=== PATIENT | male | born 1980 | race Caucasian/White ===

== ENCOUNTER 2023-07-25 17:56 | Emergency (ER) | payer BC, SELFPAY ==
[2023-07-25] VITALS (32 sets, daily range): BP systolic 125–134; BP diastolic 80–82; PULSE 100–130; RESP 26; TEMP 38.1; O2SAT 95–98; BMI 21.1
--- NOTE | 2023-07-25 18:40 | XR_ITS ---
Patient: TIMO DIXON Facility:?[facility] Patient ID:?[id number] Site Patient ID:?[id number]. Site :?1980 Study:?XRay-Chest 2 VIEWS-07/25/2023 7:01:37 PM Ordering Physician:MARVIN Final Report: INDICATION: Chest pressure shortness of breath TECHNIQUE: Two view chest. FINDINGS: Enlarged cardiac silhouette. Left perihilar upper lobe patchy opacities. There is a large right-sided effusion. Possible underlying atelectasis and/or consolidation. No pneumothorax. Dictated by Ilana Devine MD @ 07/25/2023 8:21:04 PM Signed by:?Ilana Devine MD @07/25/2023 8:21:04 PM (Electronic Signature)
--- NOTE | 2023-07-25 19:35 | CT_ITS ---
Patient: TIMO DIXON Facility:?[facility] Patient ID:?[id number] Site Patient ID:?[id number]. Site :?1980 Study:?CT-Chest W/75CC [id number]/13/2024 8:01:04 PM Ordering Physician:MARVIN Final Report: INDICATION: Shortness of breath and fatigue. TECHNIQUE: CT chest PE was acquired with 75 cc Isovue 370 IV contrast. COMPARISON: None. FINDINGS: Heart and vasculature: Contrast opacification of the pulmonary arterial tree is adequate. No sign of pulmonary embolism. Heart size is normal. Thoracic aorta and pulmonary artery are normal in caliber. Large pericardial effusion. Lungs and pleura: Marked passive atelectasis of the right lower lobe. Patchy ground-glass infiltrates scattered in the left lung. No nodules. Large right side pleural effusion. No pneumothorax. Lymph nodes/mediastinum: No mediastinal, hilar, or axillary adenopathy. Chest wall: No masses. Upper abdomen: No acute or significant findings. Bones: Unremarkable for age. IMPRESSION: 1. No pulmonary embolism. 2. Patchy ground-glass infiltrates in the left lung consistent with a nonspecific pneumonitis. 3. Large right-sided pleural effusion and large pericardial effusion. Please note that all CT scans at this facility use dose modulation, iterative reconstruction, and/or weight-based dosing when appropriate to reduce radiation dose to as low as reasonably achievable. Dictated by Bret Sanchez MD @ 07/25/2023 9:08:33 PM Signed by:?Bret Sanchez MD @07/25/2023 9:08:33 PM (Electronic Signature)
[2023-07-25 19:44] LABS: HCO3 VBG 24 mmol/L (21-28); PCO2 VBG 34 mmHG (40-50); PO2 VBG 38.1 mmHG (25-47); pH VBG 7.457 (7.32-7.43)
[2023-07-25 19:48] LABS: Basophils Percent Auto 0.1 % (0.0-3.0); Eosinophils Percent Auto 0.6 % (0.0-7.0); Hematocrit 41.6 % (37.0-53.0); Hemoglobin* 12.3 gm/dL (13.5-17.5); Immature Granulocytes Pct Auto 0.2 %; Lymphocytes Percent Auto 3.4 % (20-44); Mean Corpuscular HGB Conc 30 gm/dL (32-36); Mean Corpuscular Hemoglobin 22 pg (26-34); Mean Corpuscular Volume 73 fL (80-100); Monocytes Percent Auto 3.8 % (0.0-11.0); Neutrophils Percent Auto 91.9 % (42.0-72.0); Platelet Count* 469 K/uL (140-440); RDW Coefficient of Variation % 18.4 % (11.5-15.5); Red Blood Count 5.72 m/uL (4.30-5.90); White Blood Count* 12.96 K/uL (4.50-11.00)
[2023-07-25 19:52] LABS: PCR FLU A Negative PCR FLU A (Negative); PCR FLU B Negative PCR FLU B (Negative); PCR RSV Negative PCR RSV (Negative); SARS PCR* Negative SARS-CoV-2 (Negative)
[2023-07-25 19:59] LABS: Troponin, Point-of-Care* 0.03 ng/ml (0.01-0.04)
[2023-07-25 20:01] LABS: Chloride* 106 mmol/L (96-114); Potassium* 4.2 mmol/L (3.6-5.1); Sodium* 136 mmol/L (135-149)
[2023-07-25 20:03] LABS: Slide Review Reflex No
[2023-07-25 20:04] LABS: Anion Gap 7 mEq/L (7-15); Blood Urea Nitrogen* 18 mg/dL (5-24); Carbon Dioxide* 23 mmol/L (20-32); Creatinine* 0.5 mg/dL (0.5-1.5); Est. Creatinine Clearance* 169.88; Estimated Glomerular Filt Rate 130 ml/min; Lactate* 1.6 mmol/L (0.5-1.9)
[2023-07-25 20:05] LABS: Calcium* 9.1 mg/dL (8.4-10.6); Glucose* 103 mg/dL (60-115)
[2023-07-25 20:14] LABS: Strep A DNA Probe* NOT DETECTED (Not Detectd)
--- NOTE | 2023-07-25 20:22 | ED_ITS ---
HPI - General Adult General Chief complaint: Shortness of Breath/Dyspnea Stated complaint: Shortness of breath, fever Time Seen by Provider: 07/25/23 20:21 Related Data Home Medications Medication Instructions Recorded Confirmed golimumab 50 mg/0.5 mL mg subcut 07/25/23 07/25/23 subcutaneous pen injector (Simponi) prednisone 10 mg tablet 10 mg PO DAILY 07/25/23 07/25/23 Allergies Allergy/AdvReac Type Severity Reaction Status Date / Time No Known Drug Allergies Allergy Verified 07/25/23 17:30 Exam Const: Vital Signs, click to edit/add: Vital Signs - 24 hr 07/25/23 18:44 Temperature 100.5 F H Pulse Rate [Pulse Oximeter] 130 H Respiratory Rate 26 H Blood Pressure [Ri ght Upper Arm] 134/80 Pulse Oximetry 95 Oxygen Delivery Me thod Room Air Course Vital Signs Vital signs: Initial Vital Signs Temperature 100.5 F H 07/25/23 18:44 Temperature Source Temporal Artery Scan 07/25/23 18:44 Pulse Rate 130 H 07/25/23 18:44 Respiratory Rate 26 H 07/25/23 18:44 Blood Pressure 134/80 07/25/23 18:44 Blood Pressure Mean 98 07/25/23 18:44 Blood Pressure Position Sitting 07/25/23 18:44 Pulse Oximetry 95 07/25/23 18:44 Oxygen Delivery Method Room Air 07/25/23 18:44 Vital Signs Temperature 100.5 F H 07/25/23 18:44 Pulse Rate 130 H 07/25/23 18:44 Respiratory Rate 26 H 07/25/23 18:44 Blood Pressure 134/80 07/25/23 18:44 Pulse Oximetry 95 07/25/23 18:44 Oxygen Delivery Method Room Air 07/25/23 18:44 Temperature 100.5 F H 07/25/23 18:44 Pulse Rate 130 H 07/25/23 18:44 Respiratory Rate 26 H 07/25/23 18:44 Blood Pressure 134/80 07/25/23 18:44 Pulse Oximetry 95 07/25/23 18:44 Oxygen Delivery Method Room Air 07/25/23 18:44 Medical Decision Making Lab Data Labs: Lab Results 07/25/23 07/25/23 Range/Units 18:45 19:40 WBC 12.96 H (4.50-11.00) K/uL RBC 5.72 (4.30-5.90) m/uL Hgb 12.3 L (13.5-17.5) gm/dL Hct 41.6 (37.0-53.0) % MCV 73 L (80-100) fL MCH 22 L (26-34) pg MCHC 30 L (32-36) gm/dL RDW Coeff of Ann-Marie 18.4 H (11.5-15.5) % Plt Count 469 H (140-440) K/uL Neut % (Auto) 91.9 H (42.0-72.0) % Lymph % (Auto) 3.4 L (20-44) % [place] % (Auto) 3.8 (0.0-11.0) % Eos % (Auto) 0.6 (0.0-7.0) % Baso % (Auto) 0.1 (0.0-3.0) % Neut # (Auto) 11.90 H (1.7-7.0) K/uL Lymph # (Auto) 0.40 L (0.90-2.90) K/uL [place] # (Auto) 0.50 (0.00-0.90) K/UL Eos # (Auto) 0.10 (0.00-0.50) K/uL Baso # (Auto) 0.00 (0.00-0.30) K/uL Abs Immat Gran (auto) 0.00 (0.00-0.30) K/uL Imm/Tot Granulo (auto) 0.2 % VBG pH 7.457 H (7.32-7.43) VBG pCO2 34 L (40-50) mmHG VBG pO2 38.1 (25-47) mmHG VBG HCO3 24 (21-28) mmol/L Sodium 136 (135-149) mmol/L Potassium 4.2 (3.6-5.1) mmol/L Chloride 106 (96-114) mmol/L Carbon Dioxide 23 (20-32) mmol/L Anion Gap 7 (7-15) mEq/L BUN 18 (5-24) mg/dL Creatinine 0.5 (0.5-1.5) mg/dL Estimated Creat Clear 169.88 Estimated GFR 130 ml/min Glucose 103 (60-115) mg/dL Lactate 1.6 (0.5-1.9) mmol/L Calcium 9.1 (8.4-10.6) mg/dL SARS-CoV-2 (PCR) Negative SARS-CoV-2 (Negative) Influenza Type A (PCR) Negative PCR FLU A (Negative) Influenza Type B (PCR) Negative PCR FLU B (Negative) RSV (PCR) Negative PCR RSV (Negative) Group A Strep DNA NOT DETECTED (Not Detectd) POC Troponin I 0.03 (0.01-0.04) ng/ml Imaging Data Chest x-ray: Attestation: I have reviewed the pertinent imaging results. Radiologist's impression: FINDINGS: Enlarged cardiac silhouette. Left perihilar upper lobe patchy opacities. There is a large right-sided effusion. Possible underlying atelectasis and/or consolidation. No pneumothorax. Discharge Plan Discharge Prescriptions: No Action Simponi 50 mg/0.5 mL pen injector subcut prednisone 10 mg tablet 10 mg PO DAILY Follow Up/Referrals: Bill Giang MD [Primary Care Provider] -
--- NOTE | 2023-07-25 21:01 | ED.GENADULT ---
HPI - General Adult General Chief complaint: Shortness of Breath/Dyspnea Stated complaint: Shortness of breath, fever Time Seen by Provider: 07/25/23 20:21 History of Present Illness HPI narrative: Patient here with shortness of breath for a week. Intermittent fevers as well. 43-year-old man presenting to the emergency department with concern of shortness of breath and cough. Thinking back he feels that he is lungs has never been quite the same since he sprayed some sort of insecticide possibly about a year ago. About a month ago had a period of more shortness of breath cough and feeling feverish and then seemed to get little bit better and now has returned worse again over the last week. Has also been having headache. Reviewing records from initial presentation urgent care noting that finger tips had turned blue earlier today. Has been today experiencing little more burning in the right low chest; not exactly described as pleuritic; like heartburn must be he thinks. Underlying history of rheumatoid arthritis was treated sometime back with Humira but he has not been on this in some time and has been admittedly self dosing with prednisone most recently at about 10 mg daily chronically. He denies a history of known pulmonary disease. He is long-time smoker. Denies any surgeries. Related Data Home Medications Medication Instructions Recorded Confirmed golimumab 50 mg/0.5 mL mg subcut 07/25/23 07/25/23 subcutaneous pen injector (Simponi) prednisone 10 mg tablet 10 mg PO DAILY 07/25/23 07/25/23 Allergies Allergy/AdvReac Type Severity Reaction Status Date / Time No Known Drug Allergies Allergy Verified 07/25/23 17:30 Review of Systems Status of ROS: Reports: 6 or more systems reviewed and unremarkable except as noted in History and below Exam Narrative: Exam Narrative: Very pleasant. Slim. Mildly tachypneic and labored in breathing. No JVD. Skin is warm and dry. No lower extremity edema. Actually appears well perfused at this time peripherally. Oropharynx is moist. Dentition in excellent repair. Abdomen is a little protuberant soft and nontender. Seems to resist the exam little bit. Heart is tachycardic in a regular rhythm. No murmur or gallop identified. Lungs absent breath sounds in the lower 3/4 of the right lung. Breath sounds elsewhere were normal. Const: Vital Signs, click to edit/add: Vital Signs - 24 hr 07/25/23 18:44 07/25/23 20:12 07/25/23 20:15 Temperature 100.5 F H Pulse Rate 119 H 117 H Pulse Rate [Pulse Oximeter] 130 H Respiratory Rate 26 H Blood Pressure Blood Pressure [Ri ght Upper Arm] 134/80 Pulse Oximetry 95 97 98 Oxygen Delivery Me thod Room Air 07/25/23 20:20 07/25/23 20:30 07/25/23 20:40 Temperature Pulse Rate 117 H Pulse Rate [Pulse Oximeter] Respiratory Rate Blood Pressure Blood Pressure [Ri ght Upper Arm] Pulse Oximetry 97 97 97 Oxygen Delivery Me thod 07/25/23 20:45 07/25/23 20:50 07/25/23 21:00 Temperature Pulse Rate 120 H 120 H Pulse Rate [Pulse Oximeter] Respiratory Rate Blood Pressure Blood Pressure [Ri ght Upper Arm] Pulse Oximetry 97 98 97 Oxygen Delivery Me thod 07/25/23 21:10 07/25/23 21:15 07/25/23 21:20 Temperature Pulse Rate 118 H Pulse Rate [Pulse Oximeter] Respiratory Rate Blood Pressure Blood Pressure [Ri ght Upper Arm] Pulse Oximetry 98 98 98 Oxygen Delivery Me thod 07/25/23 21:30 07/25/23 21:40 07/25/23 21:45 Temperature Pulse Rate 116 H Pulse Rate [Pulse Oximeter] Respiratory Rate Blood Pressure Blood Pressure [Ri ght Upper Arm] Pulse Oximetry 97 97 97 Oxygen Delivery Me thod 07/25/23 21:45 07/25/23 21:50 07/25/23 22:00 Temperature Pulse Rate 118 H 116 H Pulse Rate [Pulse Oximeter] Respiratory Rate Blood Pressure Blood Pressure [Ri ght Upper Arm] Pulse Oximetry 97 96 97 Oxygen Delivery Me thod 07/25/23 22:10 07/25/23 22:15 07/25/23 22:20 Temperature Pulse Rate 115 H Pulse Rate [Pulse Oximeter] Respiratory Rate Blood Pressure Blood Pressure [Ri ght Upper Arm] Pulse Oximetry 97 97 97 Oxygen Delivery Me thod 07/25/23 22:30 07/25/23 22:40 07/25/23 22:45 Temperature Pulse Rate 100 116 H Pulse Rate [Pulse Oximeter] Respiratory Rate Blood Pressure Blood Pressure [Ri ght Upper Arm] Pulse Oximetry 97 96 95 Oxygen Delivery Me thod 07/25/23 22:50 07/25/23 23:00 07/25/23 23:06 Temperature Pulse Rate 114 H Pulse Rate [Pulse Oximeter] Respiratory Rate Blood Pressure 125/82 Blood Pressure [Ri ght Upper Arm] Pulse Oximetry 95 95 Oxygen Delivery Me thod 07/25/23 23:15 07/25/23 23:20 07/25/23 23:30 Temperature Pulse Rate 116 H 110 H Pulse Rate [Pulse Oximeter] Respiratory Rate Blood Pressure Blood Pressure [Ri ght Upper Arm] Pulse Oximetry 97 95 95 Oxygen Delivery Me thod 07/25/23 23:40 07/25/23 23:45 07/25/23 23:50 Temperature Pulse Rate 109 H Pulse Rate [Pulse Oximeter] Respiratory Rate Blood Pressure Blood Pressure [Ri ght Upper Arm] Pulse Oximetry 96 96 97 Oxygen Delivery Me thod 07/26/23 00:00 07/26/23 00:10 07/26/23 00:20 Temperature Pulse Rate 114 H Pulse Rate [Pulse Oximeter] Respiratory Rate Blood Pressure Blood Pressure [Ri ght Upper Arm] Pulse Oximetry 96 95 95 Oxygen Delivery Me thod 07/26/23 00:24 07/26/23 00:25 07/26/23 00:30 Temperature 98.7 F Pulse Rate Pulse Rate [Pulse Oximeter] Respiratory Rate 20 Blood Pressure Blood Pressure [Ri ght Upper Arm] Pulse Oximetry 95 Oxygen Delivery Me thod 07/26/23 00:40 07/26/23 00:50 07/26/23 01:00 Temperature Pulse Rate Pulse Rate [Pulse Oximeter] Respiratory Rate Blood Pressure Blood Pressure [Ri ght Upper Arm] Pulse Oximetry 95 96 94 Oxygen Delivery Me thod Documenting provider has reviewed patient's vital signs: yes Course Vital Signs Vital signs: Initial Vital Signs Temperature 100.5 F H 07/25/23 18:44 Temperature Source Temporal Artery Scan 07/25/23 18:44 Pulse Rate 130 H 07/25/23 18:44 Respiratory Rate 26 H 07/25/23 18:44 Blood Pressure 134/80 07/25/23 18:44 Blood Pressure Mean 98 07/25/23 18:44 Blood Pressure Position Sitting 07/25/23 18:44 Pulse Oximetry 95 07/25/23 18:44 Oxygen Delivery Method Room Air 05/13/24 18:44 Vital Signs Temperature 100.5 F H 07/25/23 18:44 Pulse Rate 130 H 07/25/23 18:44 Respiratory Rate 26 H 07/25/23 18:44 Blood Pressure 134/80 07/25/23 18:44 Pulse Oximetry 95 07/25/23 18:44 Oxygen Delivery Method Room Air 07/25/23 18:44 Temperature 98.7 F 07/26/23 00:24 Pulse Rate 114 H 07/26/23 00:00 Respiratory Rate 20 07/26/23 00:25 Blood Pressure 125/82 07/25/23 23:06 Pulse Oximetry 94 07/26/23 01:00 Oxygen Delivery Method Room Air 07/25/23 18:44 Medications Administered Medications: Generic Name Dose Route Start Last Admin Trade Name Freq PRN Reason Stop Dose Admin Piperacillin Sod/Tazobactam 100 mls @ 200 mls/hr 07/25/23 23:44 07/26/23 00:24 Sod 3.375 gm/ Sodium Chloride IVPB 07/25/23 23:45 200 mls/hr ONCE ONE Administration Sodium Chloride 1,000 mls @ 1,000 mls/hr 07/26/23 00:06 07/26/23 00:13 0.9 % Sodium Chloride 1000 Ml IV 07/26/23 01:05 1,000 mls/hr .Q1H ONE Administration Medical Decision Making MDM Narrative Medical decision making narrative: Does appear to be sick. Tachycardic with fever. Given breath sounds/absent breath sounds on exam would wonder about potential pneumonia or effusion; less likely pneumothorax given distribution of breath sounds. IVs established. CT imaging was ordered after initial chest x-ray which did appear to show a large pleural effusion by my read. Study:?XRay-Chest 2 VIEWS-07/25/2023 7:01:37 PM Ordering Physician:MARVIN Final Report: INDICATION: Chest pressure shortness of breath TECHNIQUE: Two view chest. FINDINGS: Enlarged cardiac silhouette. Left perihilar upper lobe patchy opacities. There is a large right-sided effusion. Possible underlying atelectasis and/or consolidation. No pneumothorax. White count elevated at 13. Did review CT imaging chest with contrast. Radiology over-read as below Study:?CT-Chest W/75CC [id number]/13/2024 8:01:04 PM Ordering Physician:MARVIN Final Report: INDICATION: Shortness of breath and fatigue. TECHNIQUE: CT chest PE was acquired with 75 cc Isovue 370 IV contrast. COMPARISON: None. FINDINGS: Heart and vasculature: Contrast opacification of the pulmonary arterial tree is adequate. No sign of pulmonary embolism. Heart size is normal. Thoracic aorta and pulmonary artery are normal in caliber. Large pericardial effusion. Lungs and pleura: Marked passive atelectasis of the right lower lobe. Patchy ground-glass infiltrates scattered in the left lung. No nodules. Large right side pleural effusion. No pneumothorax. Lymph nodes/mediastinum: No mediastinal, hilar, or axillary adenopathy. Chest wall: No masses. Upper abdomen: No acute or significant findings. Bones: Unremarkable for age. IMPRESSION: 1. No pulmonary embolism. 2. Patchy ground-glass infiltrates in the left lung consistent with a nonspecific pneumonitis. 3. Large right-sided pleural effusion and large pericardial effusion. Will be initiating treatment for a pneumonia once get 2nd set of blood cultures. Unsure how long these effusions have been present. Appears to be well compensated in reviewing labs. He is however tachycardic and mildly tachypneic. Initial troponin is normal. Would have concern about potential sepsis particularly in the setting of some degree of immunosuppression. Unsure if this is more of an inflammatory effusion or infectious or if there is more heart failure etiology. Will likely need to be tapped for diagnosis. To discuss with our hospitalist for potential admission. General surgery was also consulted and with concerns of potential trapped lung and uncertain etiology of this effusion recommending cares elsewhere if possible. Have called around. Has been seen at [facility] however [facility] divert. Ultimately have received acceptance at [facility]. I did place a point of care ultrasound. Clearly with large pericardial effusion. Has very dynamic cardiac activity without evidence of tamponade at this time. Lab Data Lab results reviewed: Yes I reviewed the patient's lab results Labs: Lab Results 07/25/23 07/25/23 Range/Units 18:45 19:40 WBC 12.96 H (4.50-11.00) K/uL RBC 5.72 (4.30-5.90) m/uL Hgb 12.3 L (13.5-17.5) gm/dL Hct 41.6 (37.0-53.0) % MCV 73 L (80-100) fL MCH 22 L (26-34) pg MCHC 30 L (32-36) gm/dL RDW Coeff of Ann-Marie 18.4 H (11.5-15.5) % Plt Count 469 H (140-440) K/uL Neut % (Auto) 91.9 H (42.0-72.0) % Lymph % (Auto) 3.4 L (20-44) % [place] % (Auto) 3.8 (0.0-11.0) % Eos % (Auto) 0.6 (0.0-7.0) % Baso % (Auto) 0.1 (0.0-3.0) % Neut # (Auto) 11.90 H (1.7-7.0) K/uL Lymph # (Auto) 0.40 L (0.90-2.90) K/uL [place] # (Auto) 0.50 (0.00-0.90) K/UL Eos # (Auto) 0.10 (0.00-0.50) K/uL Baso # (Auto) 0.00 (0.00-0.30) K/uL Abs Immat Gran (auto) 0.00 (0.00-0.30) K/uL Imm/Tot Granulo (auto) 0.2 % VBG pH 7.457 H (7.32-7.43) VBG pCO2 34 L (40-50) mmHG VBG pO2 38.1 (25-47) mmHG VBG HCO3 24 (21-28) mmol/L Sodium 136 (135-149) mmol/L Potassium 4.2 (3.6-5.1) mmol/L Chloride 106 (96-114) mmol/L Carbon Dioxide 23 (20-32) mmol/L Anion Gap 7 (7-15) mEq/L BUN 18 (5-24) mg/dL Creatinine 0.5 (0.5-1.5) mg/dL Estimated Creat Clear 169.88 Estimated GFR 130 ml/min Glucose 103 (60-115) mg/dL Lactate 1.6 (0.5-1.9) mmol/L Calcium 9.1 (8.4-10.6) mg/dL SARS-CoV-2 (PCR) Negative SARS-CoV-2 (Negative) Influenza Type A (PCR) Negative PCR FLU A (Negative) Influenza Type B (PCR) Negative PCR FLU B (Negative) RSV (PCR) Negative PCR RSV (Negative) Group A Strep DNA NOT DETECTED (Not Detectd) POC Troponin I 0.03 (0.01-0.04) ng/ml ECG Data Attestation: I personally reviewed and interpreted this ECG as follows: (Sinus tachycardia 115. No sinus alternans. Generally low amplitude) Discharge Plan Discharge Clinical Impression: Fever, Pericardial effusion, Pleural effusion, Pneumonia Patient Disposition: [facility] Condition: Stable Prescriptions: No Action Simponi 50 mg/0.5 mL pen injector subcut prednisone 10 mg tablet 10 mg PO DAILY Stand Alone Forms: MyHealth Info Instructions
[2023-07-26] VITALS (17 sets, daily range): BP systolic 124–137; BP diastolic 93–97; PULSE 105–115; RESP 16–20; TEMP 36.9–37.1; O2SAT 94–99
[2023-07-26] MEDS: 0.9 % SODIUM CHLORIDE 1000 ml 1,000 ML IV (00:13)
[2023-07-26] MEDS: PIPERACILLIN/TAZOBACTAM 3.375 GM in 0.9 % SODIUM CHLORIDE Mini-bag 100 ML IVPB (00:24)
[2023-07-26 01:17] LABS: NT Pro B Type NatriureticPept* 118 pg/mL
== END 2023-07-26 02:14 | disposition short-term general hospital (02) ==
PROVIDERS: Emergency Provider Family Medicine; PCP Internal Medicine
DX: J18.9 Pneumonia, unspecified organism (principal); I26.99 Other pulmonary embolism without acute cor pulmonale; I31.39 Other pericardial effusion (noninflammatory)
CPT/HCPCS: 36415; 71046; 71260; 80048; 82803; 83605; 83880; 84484; 85025; 87040; 87631; 87651; 93005; 96365; 96366; 99284; 99285; J2543; J3370; J7030; Q9967

== ENCOUNTER 2023-07-26 02:05 | Outpatient (CLI) | payer BC, SELFPAY | END 2023-07-26 02:06 | disposition home or self-care (01) | LOC: AMB 07-28 16:08 | PROVIDERS: PCP Internal Medicine; Visit Provider Family Medicine | DX: J90 Pleural effusion, not elsewhere classified (principal); R80.9 Proteinuria, unspecified; R06.09 Other forms of dyspnea; J18.9 Pneumonia, unspecified organism | CPT/HCPCS: A0425; A0427 ==

== ENCOUNTER 2023-08-15 16:36 | Outpatient (CLI) | payer BC, SELFPAY ==
--- OUTSIDE RECORDS SUMMARY | 2023-08-15 16:40 | XMS_ITS | Clinical Summary ---
Author Organization [facility] er Address [address] [place] [address] Care Team Providers Care String Laster Name Role Phone Shashank Bull MD Primary Care Provider Allergies No known active allergies Medications Medication Sig Dispensed Refills Start Date End Date Status predniSONE (DELTASONE) 5 MG tabletIndications:Rhe umatoid arthritis involving multiple sites, unspecified whether rheumatoid factor present (HCC) Take one a day or as directed 30 tablet 10/27/2022 Active Active Problems Problem Noted Date Diagnosed Date Well adult exam 02/06/2019 Psoriasis 03/28/2017 Rheumatoid arthritis 11/11/2015 Immunizations Name Administration Dates Next Due Pneumococcal Conjugate PCV20 11/02/2022(Deferred : Patient decision) Tdap 01/14/2017 Zoster Recombinant 11/02/2022(Deferred: Patient decision) Family History Medical History Relation Comments Diabetes Father Vision loss Father Cancer Maternal Grandfather Vision loss Mother Relation Status Comments Brother Alive Father Alive Maternal Grandfather Mother Alive Social History Tobacco Use Types Packs/Day Years Used Date Smoking Tobacco: Former Smokeless Tobacco: Never Tobacco Cessation:Counseling Given: No Alcohol Use Standard Drinks/Week Comments Yes 0 (1 standard drink = 0.6 oz pur e alcohol) AUDIT-C Answer Date Recorded Q1: How often do you have a drink containing alc ohol? Monthly or less 02/06/2020 Q2: How many drinks containi ng alcohol do you have on a typical day when you are drinking? 1 or 2 02/06/2020 Frequency of Binge Drinking Not on file 01/13 Overall Financial Resource Strain (CARDIA) Answe r Date Recorded How hard is it for you to pa y for the very basics like food, housing, medical care, and heating? Not hard at all 02/06/2020 PHQ-2 Answer Date Recorded PHQ-9 Total Score 2 11/01/2022 Hunger Vital Sign Answer Date Recorded Within the past 12 months, y ou worried that your food would run out before you got the money to buy more. Never true 02/06/20 20 Within the past 12 months, t he food you bought just didn't last and you didn't have money to get more. Never true 02/06/2020 PRAPARE - Transportation Answer Date Re corded In the past 12 months, has l ack of transportation kept you from medical appointments or from getting medications? No 01/13 In the past 12 months, has l ack of transportation kept you from meetings, work, or from getting things needed for daily living? No 02/06/2020 Sex and Gender Information Value Date Recorded Sex Assigned at Not on file Gender Identity Not on file Sexual Orientation Not on file Last Filed Vital Signs Vital Sign Reading Time Taken Comments Blood Pressure 119/82 11/01/2022 8:57 AM CDT Pulse 103 11/01/2022 8:57 AM CDT Temperature 37 ??C (98.6 ??F) 11/01/2022 8:57 AM CDT Respiratory Rate 16 11/01/2022 8:57 AM CDT Oxygen Saturation 98% 11/01/2022 8:57 AM CDT Inhaled Oxygen Concentration - - Weight 58.6 kg (129 lb 1.6 oz) 11/01/2022 8:57 A M CDT Height 174.3 cm (5' 8.62) 11/01/2022 8:57 AM CD T Body Mass Index 19.28 11/01/2022 8:57 AM CDT Plan of Treatment Health Maintenance Due Date Last Done Comments COVID-19 Vaccine (#1) 01/22/1985 Pneumococcal Vaccine: Pediat rics (0 to 5 Years) and At-Risk Patients (6 to 64 Years) (1 of 2 - PCV) 01/22/1986 Influenza Vaccine (Season Ended) 2023 DTaP,Tdap,and Td Vaccines (2 - Td or Tdap) 01/14/2027 01/14/2017 HPV Vaccines Aged Out No longer eligi ble based on patient's age to complete this topic Care Teams String Laster Relationship Specialty Start Date End Date Shashank Bull MD [address] [place] [id number] PCP - General 12/30/22
--- OUTSIDE RECORDS SUMMARY | 2023-08-15 16:40 | XMS_ITS | Clinical Summary ---
Author Organization [place] Address [address] [place] [address] Care Team Providers Care Molder Apprentice Name Role Phone No Ref-Primary, Physician Primary Care Provider Edmond Felix MD Unavailable [phone] Kulwinder Ridley MD Unavailable Keven Smith 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 148 tablet 4 11/10/19 24 Active tocilizumab (ACTEMRA) 162 MG/0.9ML subcutaneous injectionIndicati ons:Rheumatoid arthritis involving multiple joints (H) Inject 0.9 mLs (162 mg) Subcutaneous every 7 days 3.6 mL 12 4 Active zoster vaccine recombinant adjuvanted (SHINGRIX) injectionIndicati ons:Rheumatoid arthritis involving multiple joints (H) Inject 0.5 mLs into the muscle once for 1 dose 0.5 mL 4 08/15/19 24 Active golimumab (SIMPONI) 50 MG/0.5ML auto-injector pen Inject 50 mg Subcutaneous every 28 days 4 08/15/19 24 Discontinued( Alternate therapy) naproxen sodium (ANAPROX) 220 MG tablet Take 440 mg by mouth 2 times daily as needed for moderate pain 07/31/19 24 Discontinued( Stop at Discharge) predniSONE (DELTASONE) 10 MG tablet Take 10 mg by mouth daily 4 07/31/19 24 Discontinued( Stop at Discharge) terbinafine (LAMISIL) 1 % external creamIndications: Tinea Cruris Apply topically 2 times daily 07/29/19 24 Discontinued( Med Rec(No AVS / No eCancel)) colchicine (COLCRYS) 0.6 MG tabletIndications :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) Take 1 tablet (0.6 mg) by mouth daily for 13 days 13 tablet 4 08/15/19 24 Discontinued( Therapy completed (No AVS)) famotidine (PEPCID) 20 MG tabletIndications :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) Take 1 tablet (20 mg) by mouth daily for 14 days 14 tablet 4 08/15/19 24 Discontinued( Therapy completed (No AVS)) ibuprofen (ADVIL/MOTRIN) 600 MG tabletIndications :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 Rheumatoid arthritis involving multiple joints (H) (Primary Dx); Vaccine counseling; Migraine 08/11/2023 Telephone [facility] [address] [address] Alfred Coley MD Prior Auth - Medication (Actemra PA - Approved) 08/10/2023 Telephone [facility] [address] [address] Alfred Coley MD 08/09/2023 3:30 PM CDT Office Visit [address] [place] [address] Alfred Coley MD Rheumatoid arthritis involving multiple joints (H) (Primary Dx) 08/09/2023 Travel 08/04/[address] [place] [address] Gunjan Lafleur RN Appointment 07/29/2023 4:38 PM CDT - 07/31/2023 4:17 PM CDT Hospital Encounter [facility] [address] [place] [address] Hema Morrow MD Elemo, Ibrahim A, MD Kuross, Erik, 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) (Primary Dx); Pericardial effusion Discharge Disposition: Home or Self Care from Last 3 Months Social History Tobacco Use Types Packs/Day Years Used Date Smoking Tobacco: Every Day Cigarettes 1 20 Smokeless Tobacco: Never Alcohol Use Standard Drinks/Week Comments Yes 0 (1 standard drink = 0.6 oz pur e alcohol) social PHQ-2 Answer Date Recorded PHQ-2 Score 0 08/09/2023 Adolescent Education Answer Date Record ed Getting School Help Needed Not on file 07/27 Sex and Gender Information Value Date Recorded Sex Assigned at Not on file Gender Identity Not on file Sexual Orientation Not on file Last Filed Vital Signs Vital Sign Reading Time Taken Comments Blood Pressure 124/85 08/09/2023 3:32 PM CDT Pulse 105 08/09/2023 3:32 PM CDT Temperature 36.5 ??C (97.7 ??F) 07/31/2023 12:16 PM C DT Respiratory Rate 12 08/09/2023 3:32 PM CDT Oxygen Saturation 100% 08/09/2023 3:32 PM CDT Inhaled Oxygen Concentration - - Weight 59.5 kg (131 lb 1.6 oz) 08/09/2023 3:32 P M CDT Height 172.7 cm (5' 8) 07/29/2023 4:41 PM CDT Body Mass Index 19.93 07/29/2023 4:41 PM CDT Plan of Treatment Upcoming Encounters Date Type Department Care Team (Late st Contact Info) Description 08/31/2023 4:00 PM CDT Office Visit [facility] [address] [facility] [address] [place] [phone] Kulwinder Ridley MD [address] [place], [place] [phone] Edmond Felix MD [address] [place], [place] [phone] 09/27/2023 9:30 AM CDT Virtual Visit [facility] [address] [address] Alfred Coley MD [address] [place] [address] [facility] [address] [place] [address] Health Maintenance Due Date Last Done Comments ADVANCE CARE PLANNING 1980 ANNUAL REVIEW OF HM ORDERS 1980 COVID-19 Vaccine (#1) 01/22/1985 Pneumococcal Vaccine: Pediatrics (0 to 5 Years) and At-Risk Patients (6 to 64 Years) (1 of 2 - PCV) 01/22/1986 HEPATITIS B IMMUNIZATION (1 of 3 - 19+ 3-dose series) 01/22/1999 LIPID 2020 YEARLY PREVENTIVE VISIT 02/08/2023 02/09/20 22, 01/16/2021 INFLUENZA VACCINE (Season Ended) 2023 NICOTINE/TOBACCO CESSATION COUNSELING Q 1 YR 08/14/2024 08/15/2023 GLUCOSE 07/30/2026 07/31/2023, 07/30/2023 DTAP/TDAP/TD IMMUNIZATION (2 - Td or Tdap) 01/14/2027 01/14/2017 HEPATITIS C SCREENING Completed 07/31/2023 HIV SCREENING Completed 07/31/2023 PHQ-2 (once per calendar year) Completed 08/09/2023 HPV IMMUNIZATION Aged Out No longer e ligible based on patient's age to complete this topic IPV IMMUNIZATION Aged Out No longer e ligible based on patient's age to complete this topic MENINGITIS IMMUNIZATION Aged Out No l onger eligible based on patient's age to complete this topic RSV MONOCLONAL ANTIBODY Aged Out No l onger eligible based on patient's age to complete this topic Procedures Procedure Name Priority Date/Time Associated Diagnosis Comments ECHO LIMITED Routine 07/31/2023 1:59 PM CDT QUANTIFERON-TB GOLD PLUS Routine 07/31/2023 1:13 PM CDT QUANTIFERON TB GOLD PLUS Routine 07/31/2023 1:13 PM CDT QUANTIFERON TB GOLD PLUS PURPLE TUBE Routine 07/31/2023 1:13 PM CDT QUANTIFERON TB GOLD PLUS YELLOW TUBE Routine 07/31/2023 1:13 PM CDT QUANTIFERON TB GOLD PLUS GREEN TUBE Routine 07/31/2023 1:13 PM CDT QUANTIFERON TB GOLD PLUS HUTCHINSON TUBE Routine 07/31/2023 1:13 PM CDT HIV ANTIGEN ANTIBODY COMBO Routine 07/31/2023 1:13 PM CDT HEPATITIS C SCREEN REFLEX TO HCV RNA QUANT AND GENOTYPE Routine 07/31/2023 1:13 PM CDT HEPATITIS B CORE ANTIBODY Routine 07/31/2023 1:13 PM CDT HEPATITIS B SURFACE ANTIGEN Add-On 07/31/2023 8:25 AM CDT BASIC METABOLIC PANEL Routine 07/31/2023 8:25 AM CDT CBC WITH PLATELETS Routine 07/31/2023 8: 25 AM CDT EKG 12-LEAD, TRACING ONLY Routine 07/30/2023 4:33 PM CDT IRON AND IRON BINDING CAPACITY Add-On 07/30/2023 6:16 AM CDT FERRITIN Add-On 07/30/2023 6:16 AM CDT PROCALCITONIN Routine 07/30/2023 6:16 AM CDT CBC WITH PLATELETS Routine 07/30/2023 6: 16 AM CDT BASIC METABOLIC PANEL Routine 07/30/2023 6:16 AM CDT CREATININE Routine 07/29/2023 6:59 PM CDT from Last 3 Months Results * ECHO LIMITED (07/31/2023 1:59 PM CDT) LVEF 55-60% CARDIOLOGY RESULTS Anatomical Region Laterality Modality Echocardiography 07/31/2023 12:2 3 PM CDT Narrative 07/31/2023 3:49 PM CDT [id number]^KHAI^KULWINDER [facility],[place] [facility] [address] [place] [address] Name: TIMO DIXON : 1980 Study Date: 07/31/2023 12:23 PM Age: 43 yrs Gender: Male Patient Location: [facility] Reason For Study: Pericardial Effusion Ordering Physician: KULWINDER RIDLEY Referring Physician: TORRIE TORRES Performed By: Cheri Looney BSA: 1.7 m2 Height: 68 in Weight: 122 lb HR: 102 BP: 116/77 mmHg Procedure Limited Portable Echo Adult. Interpretation Summary Trivial pericardial effusion is present. Left Ventricle Global and regional left ventricular function is normal with an EF of 55-60%. Right Ventricle Right ventricular function, chamber size, wall motion, and thickness are normal. Vessels The inferior vena cava is normal. Pericardium Trivial pericardial effusion is present. Miscellaneous No significant valvular abnormalities present. MMode/2D Measurements & Calculations IVSd: 0.94 cm LVIDd: 4.7 cm LVIDs: 3.1 cm LVPWd: 0.82 cm FS: 32.6 % LV mass(C)d: 136.4 grams LV mass(C)dI: 82.3 grams/m2 Ao root diam: 3.0 cm asc Aorta Diam: 3.3 cm LVOT diam: 2.0 cm LVOT area: 3.1 cm2 Ao root diam index Ht(cm/m): 1.7 Ao root diam index BSA (cm/m2): 1.8 Asc Ao diam index BSA (cm/m2): 2.0 Asc Ao diam index Ht(cm/m): 1.9 RWT: 0.35 TAPSE: 1.8 cm Doppler Measurements & Calculations Ao V2 max: 87.2 cm/sec Ao max P.0 mmHg Ao V2 mean: 59.7 cm/sec Ao mean P.0 mmHg Ao V2 VTI: 14.0 cm CJ(I,D): 2.7 cm2 CJ(V,D): 2.8 cm2 LV V1 max P.5 mmHg LV V1 max: 78.8 cm/sec LV V1 VTI: 12.2 cm SV(LVOT): 38.3 ml SI(LVOT): 23.1 ml/m2 PA acc time: 0.09 sec AV Stefan Ratio (DI): 0.90 CJ Index (cm2/m2): 1.7 Report approved by: Cirilo Dykes 07/31/2023 03:49 PM Procedure Note Tami Kim MD - 07/31/2023 [id number]^KHAI^KULWINDER [facility],[place] [facility] [address] [place] [address] Name: TIMO DIXON : 1980 Study Date: 07/31/2023 12:23 PM Age: 43 yrs Gender: Male Patient Location: [facility] Reason For Study: Pericardial Effusion Ordering Physician: KULWINDER RIDLEY Referring Physician: TORRIE TORRES Performed By: Cheri Looney BSA: 1.7 m2 Height: 68 in Weight: 122 lb HR: 102 BP: 116/77 mmHg Procedure Limited Portable Echo Adult. Interpretation Summary Trivial pericardial effusion is present. Left Ventricle Global and regional left ventricular function is normal with an EF of55-60%. Right Ventricle Right ventricular function, chamber size, wall motion, and thickness are normal. Vessels The inferior vena cava is normal. Pericardium Trivial pericardial effusion is present. Miscellaneous No significant valvular abnormalities present. MMode/2D Measurements & Calculations IVSd: 0.94 cm LVIDd: 4.7 cm LVIDs: 3.1 cm LVPWd: 0.82 cm FS: 32.6 % LV mass(C)d: 136.4 grams LV mass(C)dI: 82.3 grams/m2 Ao root diam: 3.0 cm asc Aorta Diam: 3.3 cm LVOT diam: 2.0 cm LVOT area: 3.1 cm2 Ao root diam index Ht(cm/m): 1.7 Ao root diam index BSA (cm/m2): 1.8 Asc Ao diam index BSA (cm/m2): 2.0 Asc Ao diam index Ht(cm/m): 1.9 RWT: 0.35 TAPSE: 1.8 cm Doppler Measurements & Calculations Ao V2 max: 87.2 cm/sec Ao max P.0 mmHg Ao V2 mean: 59.7 cm/sec Ao mean P.0 mmHg Ao V2 VTI: 14.0 cm CJ(I,D): 2.7 cm2 CJ(V,D): 2.8 cm2 LV V1 max P.5 mmHg LV V1 max: 78.8 cm/sec LV V1 VTI: 12.2 cm SV(LVOT): 38.3 ml SI(LVOT): 23.1 ml/m2 PA acc time: 0.09 sec AV Stefan Ratio (DI): 0.90 CJ Index (cm2/m2): 1.7 Report approved by: Cirilo Dykes 07/31/2023 03:49 PM Kulwinder Ridley MD CV ECHO ORDERABLES * (ABNORMAL) Quantiferon TB Gold Plus (07/31/2023 1:13 PM CDT) [facility] Quantiferon-TB Gold Plus Indetermi alvarez(A) Negative 08/02/2023 9:38 AM CDT SPECIALTY CORE/PROT/END O Comment: Unable to evaluate interferon gamma response due to a low mitogen value, which may be the result of insufficient lymphocytes, reduced lymphocyte activity due to improper specimen handling, or inability of the patient's lymphocytes to generate interferon gamma. TB1 Ag minus Nil Value -0.10 IU/mL 08/02/2023 9:38 AM CDT SPECIALTY CORE/PROT/END O TB2 Ag minus Nil Value 0.00 IU/mL 08/02/2023 9:38 AM CDT SPECIALTY CORE/PROT/END O Mitogen minus Nil Result -0.02 IU/mL 08/02/2023 9:38 AM CDT SPECIALTY CORE/PROT/END O Nil Result 0.10 IU/mL 08/02/2023 9:38 AM CDT UM SPECIALTY CORE/PROT/END O Blood STRUCTURE OF LEFT UPPER LIMB / Unknown Venipuncture / Unknown 07/31/2023 1:13 PM CDT 07/31/2023 1:21 PM CDT Alfred Coley MD LAB - MICRO GENERAL ORDERABLES UM SPECIALTY CORE/PROT/ENDO UM Specialty Core/Prot/Endo [address] [facility] [address], [address] * Quantiferon TB Gold Plus Purple Tube (07/31/2023 1:13 PM CDT) Quantiferon Mitogen 0.08 IU/mL 08/02/2023 8:24 AM CDT UM SPECIALTY CORE/PROT/ENDO Blood STRUCTURE OF LEFT UPPER LIMB / Unknown Venipuncture / Unknown 07/31/2023 1:13 PM CDT 07/31/2023 1:21 PM CDT Alfred Coley MD LAB - MICRO GENERAL ORDERABLES UM SPECIALTY CORE/PROT/ENDO UM Specialty Core/Prot/Endo [address] [facility] [address], [address] * Quantiferon TB Gold Plus Yellow Tube (07/31/2023 1:13 PM CDT) Quantiferon TB2 Tube 0.10 08/02/2023 8:23 AM CDT UM SPECIALTY CORE/PROT/ENDO Blood STRUCTURE OF LEFT UPPER LIMB / Unknown Venipuncture / Unknown 07/31/2023 1:13 PM CDT 07/31/2023 1:21 PM CDT Alfred Coley MD LAB - MICRO GENERAL ORDERABLES UM SPECIALTY CORE/PROT/ENDO UM Specialty Core/Prot/Endo [address] [facility] [address], [address] * Quantiferon TB Gold Plus Green Tube (07/31/2023 1:13 PM CDT) Quantiferon TB1 Tube 0.00 IU/mL 08/02/2023 8:32 AM CDT UM SPECIALTY CORE/PROT/ENDO Blood STRUCTURE OF LEFT UPPER LIMB / Unknown Venipuncture / Unknown 07/31/2023 1:13 PM CDT 07/31/2023 1:21 PM CDT Alfred Coley MD LAB - MICRO GENERAL ORDERABLES UM SPECIALTY CORE/PROT/ENDO UM Specialty Core/Prot/Endo [address] [facility], [address] * Quantiferon TB Gold Plus [place] Tube (07/31/2023 1:13 PM CDT) Quantiferon Nil Tube 0.10 IU/mL 08/02/2023 8:23 AM CDT SPECIALTY CORE/PROT/ENDO Blood STRUCTURE OF LEFT UPPER LIMB / Unknown Venipuncture / Unknown 07/31/2023 1:13 PM CDT 07/31/2023 1:21 PM CDT Alfred Coley MD LAB - MICRO GENERAL ORDERABLES Performing Organization Address City/[facility] Co de Phone Number SPECIALTY CORE/PROT/ENDO Specialty Core/Prot/Endo [address] [facility], [address] * HIV Antigen Antibody Combo [place] (07/31/2023 1:13 PM CDT) HIV Antigen Antibody Combo Nonreactive Nonreactive 07/31/2023 4:16 PM CDT [facility] Comment:Negative HIV-1 p24 a ntigen and HIV-1/2 antibody screening test results usually indicate the absence of HIV-1 and HIV-2 infection. However, such negative results do not rule-out acute HIV infection. If acute HIV-1 or HIV-2 infection is suspected, detection of HIV-1 or HIV-2 RNA is recommended. Blood STRUCTURE OF LEFT UPPER LIMB / Unknown Venipuncture / Unknown 07/31/2023 1:13 PM CDT 07/31/2023 1:21 PM CDT Alfred Coley MD LAB - BLOOD ORDERABL ES Performing Organization Address City/[facility]/ZIP Co de Phone Number LABORATORY [facility] [address] [facility], [address] [address] * Hepatitis C Screen Reflex to HCV RNA Quant and Genotype (07/31/2023 1:13 PM CDT) Hepatitis C Antibody Nonreactive Nonreactive 07/31/2023 3:59 PM CDT U LABORATORY Comment:A nonreactive screen ing test result does not exclude the possibility of exposure to or infection with HCV. Nonreactive screening test results in individuals with prior exposure to HCV may be due to antibody levels below the limit of detection of this assay or lack of reactivity to the HCV antigens used in this assay. Patients with recent HCV infections (<3 months from time of exposure) may have false- negative HCV antibody results due to the time needed for seroconversion (average of 8 to 9 weeks). Blood STRUCTURE OF LEFT UPPER LIMB / Unknown Venipuncture / Unknown 07/31/2023 1:13 PM CDT 07/31/2023 1:21 PM CDT Alfred Coley MD LAB - BLOOD ORDERABL ES Performing Organization Address City/[facility]/ZIP Co de Phone Number LABORATORY [facility] [address] [facility], [address] [address] * Hepatitis B core antibody (07/31/2023 1:13 PM CDT) Hepatitis B Core Antibody Total Nonreactive Nonreactive 07/31/2023 4:13 PM CDT [facility] Comment:Nonreactive hepatiti s B core antibody test results indicate the absence of exposure to hepatitis B virus and no evidence of recent, past/resolved, or chronic hepatitis B. Blood STRUCTURE OF LEFT UPPER LIMB / Unknown Venipuncture / Unknown 07/31/2023 1:13 PM CDT 07/31/2023 1:21 PM CDT Alfred Coley MD LAB - BLOOD ORDERABL ES Performing Organization Address City/[facility]/ZIP Co de Phone Number U LABORATORY [facility] [address] [facility], [address] [id number] * Hepatitis B surface antigen (07/31/2023 8:25 AM CDT) Hepatitis B Surface Antigen Nonreactive Nonreactive 07/31/2023 3:52 PM CDT [facility] Blood STRUCTURE OF LEFT UPPER LIMB / Unknown Venipuncture / Unknown 07/31/2023 8:25 AM CDT 07/31/2023 8:45 AM CDT Alfred Coley MD LAB - BLOOD ORDERABL ES Performing Organization Address [facility] Co de Phone Number U LABORATORY [facility] Core Lab [address] [facility], [facility] [address] * (ABNORMAL) Basic metabolic panel (07/31/2023 8:25 AM CDT) Only the most recent of2 resultswithin the time period is included. Sodium 136 135 - 145 mmol/L 07/31/2023 9:10 AM CDT [facility] Comment:Reference intervals for this test were updated on 12/07/2022 to more accurately reflect our healthy population. There may be differences in the flagging of prior results with similar values performed with this method. Interpretation of those prior results can be made in the context of the updated reference intervals. Potassium 4.3 3.4 - 5.3 mmol/L 07/31/2023 9:10 AM CDT [facility] Chloride 101 98 - 107 mmol/L 07/31/2023 9:10 AM CDT [facility] Carbon Dioxide (CO2) 27 22 - 29 mmol/L 07/31/2023 9:10 AM CDT [facility] Anion Gap 8 7 - 15 mmol/L 07/31/2023 9:10 AM CDT [facility] LAB[facility] Urea Nitrogen 27.6(H) 6.0 - 20.0 mg/dL 07/31/2023 9:10 AM CDT [facility] Creatinine 0.56(L) 0.67 - 1.17 mg/dL 07/31/2023 9:10 AM CDT [facility] LAB[facility] GFR Estimate >90 >60 mL/min/1. 73m2 07/31/2023 9:10 AM CDT [facility] Calcium 9.2 8.6 - 10.0 mg/dL 07/31/2023 9:10 AM CDT [facility] Glucose 135(H) 70 - 99 mg/dL 07/31/2023 9:10 AM CDT [facility] Blood STRUCTURE OF LEFT UPPER LIMB / Unknown Venipuncture / Unknown 07/31/2023 8:25 AM CDT 07/31/2023 8:45 AM CDT Lyle Galaviz DO LAB - BLOOD ORDERABL ES UR LABORATORY [facility] Lab [address] [facility], [address] [address] * (ABNORMAL) CBC with platelets (07/31/2023 8:25 AM CDT) Only the most recent of2 resultswithin the time period is included. WBC Count 17.9(H) 4.0 - 11.0 10e3/uL 07/31/2023 8:51 AM CDT [facility] LAB[facility] RBC Count 5.66 4.40 - 5.90 10e6/uL 07/31/2023 8:51 AM CDT [facility] Hemoglobin 12.2(L) 13.3 - 17.7 g/dL 07/31/2023 8:51 AM CDT [facility] LAB[facility]ORY Hematocrit 42.1 40.0 - 53.0 % 07/31/2023 8:51 AM CDT UR LAB[facility] MCV 74(L) 78 - 100 fL 07/31/2023 8:51 AM CDT [facility] LAB[facility] MCH 21.6(L) 26.5 - 33.0 pg 07/31/2023 8:51 AM CDT UR LAB[facility] MCHC 29.0(L) 31.5 - 36.5 g/dL 07/31/2023 8:51 AM CDT UR LAB[facility] RDW 19.0(H) 10.0 - 15.0 % 07/31/2023 8:51 AM CDT [facility] Platelet Count 644(H) 150 - 450 10e3/uL 07/31/2023 8:51 AM CDT [facility] Blood STRUCTURE OF LEFT UPPER LIMB / Unknown Venipuncture / Unknown 07/31/2023 8:25 AM CDT 07/31/2023 8:45 AM CDT Lyle Galaviz DO LAB - BLOOD ORDERABL ES UR LABORATORY [facility] [address] [facility], [address] [place] [address] * EKG 12-lead, complete (07/30/2023 4:33 PM CDT) Systolic Blood Pressure mmHg RADIOLOGY RESULTS Diastolic Blood Pressure mmHg RADIOLOGY RESULTS Ventricular Rate 120 BPM RAD IOLOGY RESULTS Atrial Rate 120 BPM RADIOLOG Y RESULTS CO Interval 114 ms RADIOLOG Y RESULTS QRS Duration 74 ms RADIOLO GY RESULTS QT 300 ms RADIOLOGY RESULTS QTc 424 ms RADIOLOGY RESULTS P [place] 78 degrees RADIOLOGY RESULTS R AXIS 87 degrees RADIOLOGY RESULTS T [place] 63 degrees RADIOLOGY RESULTS Interpretation ECG Sinus tachycardia Right atrial enlargement Nonspecific T wave abnormality Abnormal ECG When compared with ECG of 02-DEC-2003 15:15, Nonspecific T wave abnormality now evident in Anterolateral leads Confirmed by MD RADHA, JONATHON ([id number]) on 08/01/2023 5:01:26 PM RADIOLOGY RESULTS 07/30/2023 4:33 PM CDT 08/01/2023 5:01 PM CDT Lyle Galaviz ECG ORDERABLES RADIOLOGY RESULTS * Procalcitonin (07/30/2023 6:16 AM CDT) Procalcitonin 0.19 <0.50 ng/mL 07/30/2023 7:32 AM CDT [facility] LAB[facility]ORY Comment: Interpretation and Recommendations <0.5 ng/mL: Systemic bacterial infection unlikely. Local bacterial infection is possible. 0.5-1.99 ng/mL: Systemic bacterial infection possible, but various other conditions are known to induce PCT as well. >=2.00 ng/mL: Systemic bacterial infection likely, unless other causes are known. Decision to start antibiotics should not be based on procalcitonin level alone. See Procalcitonin Guidance document for more details. [email or web address] Factors that may affect PCT levels (not all-inclusive): ?? - Increased PCT level ?Severe trauma/buckner ?Invasive surgery ?Cooling therapy after cardiac arrest/surgery ?Treatment with agents which stimulate cytokines ?Acute kidney injury ?Chronic kidney disease and end stage renal disease ?Acute graft vs host disease ?Non-specific shock causing decreased organ perfusion and/or infarction ?? - Normal or unchanged PCT level ?Early in infections (if low and infection is suspected, repeating in 6-12 hours is recommended) ?Chronic infections (endocarditis, osteomyelitis, prosthetic device/graft infections) ?Localized infections (cellulitis, wound infections, intra-abdominal abscess) Note: PCT has not been extensively studied in /, pediatrics, severe immunosuppression, and cystic fibrosis. Blood STRUCTURE OF LEFT UPPER LIMB / Unknown Venipuncture / Unknown 07/30/2023 6:16 AM CDT 07/30/2023 6:41 AM CDT Theo Chawla MD LAB - BLOOD ORDERABL ES UR LABORATORY [facility] [address] [facility], [address] [place] [address], [facility] * (ABNORMAL) Iron and iron binding capacity (07/30/2023 6:16 AM CDT) Iron 28(L) 61 - 157 ug/dL 07/30/2023 1:51 PM CDT UR LAB[facility] Iron Binding Capacity 257 240 - 430 ug/dL 07/30/2023 1:51 PM CDT UR LAB[facility] Iron Sat Index 11(L) 15 - 46 % 07/30/2023 1:51 PM CDT UR LAB[facility] Blood STRUCTURE OF LEFT UPPER LIMB / Unknown Venipuncture / Unknown 07/30/2023 6:16 AM CDT 07/30/2023 6:41 AM CDT Lyle Galaviz DO LAB - BLOOD ORDERABL ES Performing Organization Address City/[facility] Co de Phone Number UR LABORATORY [facility] [address] [place] [address], [address] * Ferritin (07/30/2023 6:16 AM CDT) Ferritin 145 31 - 409 ng/mL 07/30/2023 1:59 PM CDT [facility] LAB[facility] Blood STRUCTURE OF LEFT UPPER LIMB / Unknown Venipuncture / Unknown 07/30/2023 6:16 AM CDT 07/30/2023 6:41 AM CDT Lyle Galaviz DO LAB - BLOOD ORDERABL ES Performing Organization Address [facility] de Phone Number UR LABORATORY [facility] [address] [place] [address], [address] * (ABNORMAL) Creatinine (07/29/2023 6:59 PM CDT) Creatinine 0.62(L) 0.67 - 1.17 mg/dL 07/29/2023 8:09 PM CDT UR LABORATORY GFR Estimate >90 >60 mL/min/1.7 3m2 07/29/2023 8:09 PM CDT UR LABORATORY Blood STRUCTURE OF LEFT UPPER LIMB / Unknown Venipuncture / Unknown 07/29/2023 6:59 PM CDT 07/29/2023 7:38 PM CDT Theo Chawla MD LAB - BLOOD ORDERABL ES UR LABORATORY [facility] Acute Care Lab [address] [facility] [address], [address] [place] [address], [facility] from Last 3 Months Advance Directives For more information, please contact: [phone] * Full Code (Latest Code Status on File) Date Activated Date Inactivated Comments 07/29/2023 6:44 PM 07/31/2023 6:22 PM All basic an d advanced life-sustaining interventions are performed as appropriate Question Answer Comments Code status determined by: Discussion with patie nt/ legal decision maker Care Teams Molder Apprentice Relationship Specialty Start Date End Date No Ref-Primary, Physician PCP - General 07/30/23 Edmond Felix MD [address] [place] [address] Cardiovascular Disease 08/03/23 Kulwinder Ridley MD [address] [place] [address] Fellow Cardiovascular Disease 08/03/[address]even [address] [facility] [address] [facility] Pharmacist 08/15/23
--- OUTSIDE RECORDS SUMMARY | 2023-08-15 16:40 | XMS_ITS | Referral Summary ---
Author Organization [place] Address [address] [place] [address]. [place] [address] Care Team Providers Care Manager Social Work Name Role Phone No Ref-Primary, Physician Primary Care Provider Edmond Felix MD Unavailable [phone] Kulwinder Ridley MD Unavailable Keven Smith [facility] Unavailable [phone] Encounters Date Type Department Care Team Description 08/15/2023 9:30 AM CDT Virtual Visit [facility] Rheumatology [address] [address] Alfred [facility] MD [place] Rheumatoid arthritis involving multiple joints (H) (Primary Dx); Vaccine counseling; Migraine 08/11/2023 Telephone [facility] Rheumatology [address] [address] Alfred Coley MD Prior Auth - Medication (Actemra PA - Approved) 08/10/2023 Telephone [facility] Specialty [place] [address] [place] [phone] Alfred Coley MD 08/09/2023 Travel 08/09/2023 3:30 PM CDT Office Visit [place] [address] [place] [address] Alfred Coley MD Rheumatoid arthritis involving multiple joints (H) (Primary Dx) 08/04/2023 Telephone [place] [address] [place] [phone] uGnjan Lafleur RN Appointment 07/29/2023 4:38 PM CDT - 07/31/2023 4:17 PM CDT Hospital Encounter [facility] Med Surg [facility] [place] [address] Hema Morrow MD Elemo, MD Guillaume Joel Erik, 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) (Primary Dx); Pericardial effusion Discharge Disposition: Home or Self Care from Last 3 Months Allergies No known active allergies Medications Medication [...] rheumatoid ar thritis 07/31/2023 Pericardial effusion 07/29/2023 Social History Tobacco Use Types Packs/Day Years [...] Description 08/31/2023 4:00 PM CDT Office Visit [facility] Heart [facility] [address] [facility] [address] [place] [address] Kulwinder Ridley MD [address] [place], [place] [address] Edmond Felix MD [address] [place], [place] [address] 09/27/2023 9:30 AM CDT Virtual Visit [facility] Rheumatology Clinic [address] [phone] Alfred Coley MD [address] [place], [place] [address] Keven Smith, [facility] [address] [place] [address] Procedures Procedure Name Priority Date/Time Associated Diagnosis [...] PM CDT Narrative 07/31/2023 3:49 PM CDT [id number]^KHAI^KULWINDER [facility],[place] Echocardi[facility] Laboratory [address] [place] [address] Name: TIMO DIXON : 1980 Study Date: 07/31/2023 12:23 PM Age: 43 yrs Gender: Male Patient Location: [facility] Reason For Study: Pericardial Effusion Ordering [...] Procedure Note Tami Kim MD - 07/31/2023 [id number]^KHAI^KULWINDER [facility],[place] [facility] [address] [place] [address] Name: TIMO DIXON : 1980 Study Date: 07/31/2023 12:23 PM Age: 43 yrs Gender: Male Patient Location: [facility] Reason For Study: Pericardial Effusion Ordering [...] TB Gold Plus (07/31/2023 1:13 PM CDT) Quantiferon-TB Gold Plus Indetermi alvarez(A) Negative 08/02/2023 [...] Result 0.10 IU/mL 08/02/2023 9:38 AM CDT SPECIALTY CORE/PROT/END O Blood STRUCTURE OF LEFT UPPER LIMB / Unknown Venipuncture / Unknown 07/31/2023 1:13 PM CDT 07/31/2023 1:21 PM CDT Alfred Coley MD LAB - MICRO GENERAL ORDERABLES [facility] SPECIALTY CORE/PROT/ENDO Specialty Core/Prot/Endo [address] [facility], [address] * Quantiferon TB Gold Plus Purple Tube (07/31/2023 1:13 PM CDT) Quantiferon Mitogen 0.08 IU/mL 08/02/2023 8:24 AM CDT SPECIALTY CORE/PROT/ENDO Blood STRUCTURE OF LEFT UPPER LIMB / Unknown Venipuncture / Unknown 07/31/2023 1:13 PM CDT 07/31/2023 1:21 PM CDT Alfred Coley MD LAB - MICRO GENERAL ORDERABLES UM SPECIALTY CORE/PROT/ENDO Specialty Core/Prot/Endo [address] [facility], [address] * Quantiferon TB Gold Plus Yellow Tube (07/31/2023 1:13 PM CDT) Quantiferon TB2 Tube 0.10 08/02/2023 8:23 AM CDT UM SPECIALTY CORE/PROT/ENDO Blood STRUCTURE OF LEFT UPPER LIMB / Unknown Venipuncture / Unknown 07/31/2023 1:13 PM CDT 07/31/2023 1:21 PM CDT Alfred Coley MD LAB - MICRO GENERAL ORDERABLES UM SPECIALTY CORE/PROT/ENDO UM Specialty Core/Prot/Endo [address] [facility], [address] * Quantiferon TB Gold Plus Green Tube (07/31/2023 1:13 PM CDT) Quantiferon TB1 Tube 0.00 IU/mL 08/02/2023 8:32 AM CDT SPECIALTY CORE/PROT/ENDO Blood STRUCTURE OF LEFT UPPER LIMB / Unknown Venipuncture / Unknown 07/31/2023 1:13 PM CDT 07/31/2023 1:21 PM CDT Alfred Coley MD LAB - MICRO GENERAL ORDERABLES UM SPECIALTY CORE/PROT/ENDO Specialty Core/Prot/Endo [address] [facility], [address] * Quantiferon TB Gold Plus [place]inson Tube (07/31/2023 1:13 PM CDT) Quantiferon Nil Tube 0.10 IU/mL 08/02/2023 8:23 AM CDT UM SPECIALTY CORE/PROT/ENDO Blood STRUCTURE OF LEFT UPPER LIMB / Unknown Venipuncture / Unknown 07/31/2023 1:13 PM CDT 07/31/2023 1:21 PM CDT Alfred Coley MD LAB - MICRO GENERAL ORDERABLES UM SPECIALTY CORE/PROT/ENDO UM Specialty Core/Prot/Endo [address] [facility], [address] * HIV Antigen Antibody Combo Troutman (07/31/2023 1:13 PM CDT) HIV Antigen Antibody Combo Nonreactive Nonreactive 07/31/2023 4:16 PM CDT U LABORATORY Comment:Negative HIV-1 p24 a ntigen and [...] Coley MD LAB - BLOOD ORDERABL ES UU LABORATORY [facility] [place] Core Lab [address] [facility], [address] * Hepatitis C Screen Reflex to HCV RNA Quant and Genotype (07/31/2023 1:13 PM CDT) Pathologist [facility] Hepatitis C Antibody Nonreactive Nonreactive 07/31/2023 3:59 [...] - BLOOD ORDERABL ES Performing Organization Address City/[facility]/ZIP Co de Phone Number U LABORATORY [facility] [place] Core Lab [address] [facility], [address] [phone] * Hepatitis B core antibody (07/31/2023 1:13 [...] - BLOOD ORDERABL ES Performing Organization Address [facility] Co de Phone Number LABORATORY [facility] [place] Core Lab [address] [facility], [address] * Hepatitis B surface antigen (07/31/2023 8:25 AM CDT) Pathologist [facility] Hepatitis B Surface Antigen Nonreactive Nonreactive 07/31/2023 3:52 PM CDT UU LABORATORY Blood STRUCTURE OF LEFT UPPER LIMB / Unknown Venipuncture / Unknown 07/31/2023 8:25 AM CDT 07/31/2023 8:45 AM CDT Alfred Coley MD LAB - BLOOD ORDERABL ES U LABORATORY [facility] [place] Core Lab [address] [facility], [address] [phone] * (ABNORMAL) Basic metabolic panel (07/31/2023 8:25 [...] LAB - BLOOD ORDERABL ES UR LABORATORY [facility] Acute Care Lab [address] [facility], [address] [place] [address], [facility] * (ABNORMAL) CBC with platelets (07/31/2023 8:25 [...] LAB - BLOOD ORDERABL ES UR LABORATORY [facility] Acute Care Lab [address] [facility], [address] [place] [phone] * EKG 12-lead, complete (07/30/2023 4:33 PM CDT) Systolic Blood Pressure mmHg RADIOLOGY RESULTS Diastolic Blood Pressure mmHg RADIOLOGY RESULTS Ventricular Rate 120 BPM RAD IOLOGY RESULTS Atrial Rate 120 BPM RADIOLOG Y RESULTS TN Interval 114 ms RADIOLOG Y RESULTS QRS Duration 74 ms RADIOLO GY RESULTS QT 300 ms RADIOLOGY RESULTS QTc 424 ms RADIOLOGY RESULTS P [place] 78 degrees RADIOLOGY RESULTS R AXIS 87 degrees RADIOLOGY RESULTS T [place] 63 degrees RADIOLOGY RESULTS Interpretation ECG Sinus tachycardia Right atrial enlargement Nonspecific T wave abnormality Abnormal ECG When compared with ECG of 02-DEC-2003 15:15, Nonspecific T wave abnormality now evident in Anterolateral leads Confirmed by MD RADHA, JONATHON ([id number]) on 08/01/2023 5:01:26 PM RADIOLOGY RESULTS 07/30/2023 4:33 PM CDT 08/01/2023 5:01 PM CDT Lyle Galaviz DO ECG ORDERABLES RADIOLOGY RESULTS * Procalcitonin (07/30/2023 [...] See Procalcitonin Guidance document for more details. [email or web address] Factors that may affect PCT levels (not [...] Chawla MD LAB - BLOOD ORDERABL ES Performing Organization Address City/[facility]/ZIP Co de Phone Number UR LABORATORY [facility] Acute Care Lab [address] [place] [address], Room [place] [phone] * (ABNORMAL) Iron and iron binding capacity [...] - BLOOD ORDERABL ES Performing Organization Address [facility] de Phone Number UR LABORATORY [facility] Lab [address] [place] [address], Room [place] [phone] [place] [address] * Ferritin (07/30/2023 6:16 AM CDT) Ferritin 145 31 - 409 ng/mL 07/30/2023 1:59 PM CDT UR LABORATORY Blood STRUCTURE OF LEFT UPPER LIMB / Unknown Venipuncture / Unknown 07/30/2023 6:16 AM CDT 07/30/2023 6:41 AM CDT Lyle Galaviz DO LAB - BLOOD ORDERABL ES Performing Organization Address City/[facility]/ZIP Co de Phone Number UR LABORATORY [facility] Acute Care Lab [address] [facility], [address] [place] [address] * (ABNORMAL) Creatinine (07/29/2023 6:59 PM CDT) Creatinine 0.62(L) 0.67 - 1.17 mg/dL 07/29/2023 8:09 PM CDT UR LABORATORY GFR Estimate >90 >60 mL/min/1.7 3m2 07/29/2023 8:09 PM CDT UR LABORATORY Blood STRUCTURE OF LEFT UPPER LIMB / Unknown Venipuncture / Unknown 07/29/2023 6:59 PM CDT 07/29/2023 7:38 PM CDT Theo Chawla MD LAB - BLOOD ORDERABL ES UR LABORATORY [facility] Lab [facility] [facility], Room [place] [phone] from Last 3 Months Advance Directives For more information, please contact: [phone] * Full Code (Latest Code Status on File) Date Activated Date Inactivated Comments 07/29/2023 6:44 PM 07/31/2023 6:22 PM All basic an d advanced life-sustaining interventions are performed as appropriate Question Answer Comments Code status determined by: Discussion with patie nt/ legal decision maker Care Teams Manager Social Work Relationship Specialty Start Date End Date No Ref-Primary, Physician PCP - General 07/30/23 Edmond Felix MD [address] [place] [address] Cardiovascular Disease 08/03/23 Kulwinder Ridley MD [address] [place] [address] Fellow Cardiovascular Disease 08/03/23 Keven Smith [facility] [address] [place] [address] Pharmacist 08/15/23
--- OUTSIDE RECORDS SUMMARY | 2023-08-15 16:40 | XMS_ITS | Encounter Summary ---
Author Organization [facility] er Address [address] [place] [address] Care Team Providers Care Mapping Pilot Name Role Phone Shashank Bull MD Primary Care Provider [phone] Encounter Details Date Type Department Care Team (Late st Contact Info) Description 09/28/2022 Telephone [place] [address] [place] [address] Srinivasan Barillas MD [address] [facility] [address] [place] [address] Social History Tobacco Use Types Packs/Day Years Used Date Smoking Tobacco: Former Smokeless Tobacco: Never Alcohol Use Standard Drinks/Week [...] PHQ-2 Answer Date Recorded PHQ-9 Total Score 0 02/08/2022 Hunger Vital Sign Answer Date Recorded Within [...] on file Sexual Orientation Not on file documented as of this encounter Plan of Treatment Not on file documented as of this encounter Visit Diagnoses Not on filedocumented in this encounter Care Teams Mapping Pilot Relationship Specialty Start Date End Date Shashank Bull MD [address] [place] [address] PCP - General 12/30/22 documented as of this encounter
--- OUTSIDE RECORDS SUMMARY | 2023-08-15 16:41 | XMS_ITS | Encounter Summary ---
Author Organization [place] Address [address] [place] [address] Care Team Providers Care Metal Furniture Polisher Name Role Phone No Ref-Primary, Physician Primary Care Provider Edmond Felix MD Unavailable [phone] Kulwinder De La Cruz MD Unavailable Reason for Visit * Reason Onset Date Comments Appointment 08/04/2023 Encounter Details Date Type Department Care Team (Late st Contact Info) Description 08/04/2023 Telephone [facility] Specialty Clinic [address] [address] Gunjan Lafleur RN Appointment Social History Tobacco Use Types Packs/Day Years Used Date Smoking Tobacco: Never Assessed Adolescent Education Answer Date Record ed Getting School Help Needed Not on file 07/27 Sex and Gender Information Value Date Recorded Sex Assigned at Not on file Gender Identity Not on file Sexual Orientation Not on file documented as of this encounter Miscellaneous Notes * Telephone Encounter - Gunjan Lafleur RN - 08/04/2023 9:21 AM CDT Patient called and scheduled. Gunjan Lafleur RN * Telephone Encounter - Gunjan Lafleur RN - 08/04/2023 9:20 AM CDT ----- Message from Alfred Coley MD sent at 08/03/2023 4:45 PM CDT ----- Regarding: RE: Posthospitalization follow-up You can schedule this patient with me. MARGUERITE raya ----- Message ----- From: Jessica Cornejo RN Sent: 08/01/2023 2:29 PM CDT To: Geovanny Medina MD; # Subject: RE: Posthospitalization follow-up There are two different requests here so I'm asking for some clarification. When patients are transferring care from another practice, our practice is to schedule them for thenext available appointment at the clinic of their preference and have them follow up with their current litigation coordinator until they are seen here. We are scheduling new patients out into at this time. A hospital follow up is scheduled in a 30 minute spot with someone who saw the patient while inpatient. If Dr. Coley is open to assuming care for this patient, we can offer him an appointment at the [facility] within the next month. I've copied Gunjan so she can get this scheduled if this is the option chosen. If this is just a standard transfer of care, let me know and we'll get him scheduled with the next available providers. Thank you! Jessica ----- Message ----- From: Jessica Cornejo RN Sent: 08/01/2023 12:50 PM CDT To: Jessica Cornejo RN Subject: FW: Posthospitalization follow-up ----- Message ----- From: Soraya Payan Sent: 08/01/2023 9:14 AM CDT To: [facility]ology Adult [facility] Subject: FW: Posthospitalization follow-up [facility], Please review, there is no referral in, is this an appropriate time frame for the patient? Thanks! Soraya ----- Message ----- From: Rashi Reyna Sent: 08/01/2023 8:57 AM CDT To: [facility] Subject: FW: Posthospitalization follow-up ----- Message ----- From: Geovanny Medina MD Sent: 07/31/2023 12:04 PM CDT To: Alfred Coley MD; # Subject: Posthospitalization follow-up Good morning, This is a patient who was admitted in the hospital for pleuropericardial effusion. Has history of RA and follows with [facility] rheumatology but would like to change his care to the [facility]. Please schedule the patient as a new consult with any of the providers available in the next 3 to 4weeks. Geovanny Medina, Rheumatology Fellow, Pager: [phone]. documented in this encounter Plan of Treatment Upcoming Encounters Date Type Department Care Team (Late st Contact Info) Description 08/31/2023 4:00 PM CDT Office Visit [facility] Heart [facility] [address] [facility] [address] [place] [address] Kulwinder De La Cruz MD [address] [place] [phone] Edmond Felix MD [address] [place] [address] 09/27/2023 9:30 AM CDT Virtual Visit [facility] Rheumatology Clinic [address] [address] Alfred Coley MD [address] [place] [address] Keven Smith, [address] documented as of this encounter Visit Diagnoses Not on filedocumented in this encounter Care Teams Metal Furniture Polisher Relationship Specialty Start Date End Date No Ref-Primary, Physician PCP - General 07/30/23 Edmond Felix MD [address] [place] [id number] Cardiovascular Disease 08/03/23 Kulwinder De La Cruz MD [address] [place] [address] Fellow Cardiovascular Disease 08/03/23 documented as of this encounter
--- OUTSIDE RECORDS SUMMARY | 2023-08-15 16:41 | XMS_ITS | Referral Summary ---
Author Organization [facility] Address [address] [place] [address] Care Team Providers Care Customer Account Representative Name Role Phone Unavailable Primary Care Provider Unavailabl e Source Comments Patient records contain information from all sites at [facility]. For routine questions regarding patient records, call [phone] during business hours, M-F 8:00 AM - 5:00 PM Central Time. Record requests for emergency care only can be directed to [phone] at any time.[facility] Allergies No known active allergies Medications Medication Sig Dispensed Refills Start Date End Date Status terbinafine (LamISIL) 1 % cream Apply topically 2 (two) times a day. 30 g 3 11/07/2019 Active hydrOXYchloroQUINE (PLAQUENIL) 200 mg tablet Take 2 tablets (400 mg total) by mouth daily. 180 tablet 1 01/21/2022 Active predniSONE (DELTASONE) 5 mg tablet Take 1 tablet (5 mg total) by mouth as directed. Take All QAM: 0-9-3-2-1-stop. Taper every 7 days by 1 pill till done. 105 tablet 01/21/2022 Active etanercept (EnbreL SureClick) 50 mg/mL (1 mL) injectionIndication s:Arthritis Rheumatoid (HCC) Inject 1 mL (50 mg total) under the skin once a week. 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 Pain Back 07/09/2010 Immunizations Name Administration Dates Next Due Tdap 01/14/2017 Social History Tobacco Use Types Packs/Day Years Used Date Smoking Tobacco: Passive Smo ke Exposure - Never Smoker Cigarettes Quit: Smokeless Tobacco: Never Alcohol Use Standard Drinks/Week Comments Yes 0 (1 standard drink = 0.6 oz pur e alcohol) Social Connection and Isolat ion Panel [NHANES] Answer Date Recorded Frequency of Communication w ith Friends and Family Not on file 11/07/2019 Frequency of Social Gatherin gs with Friends and Family More than three times a week 11/07/2019 Attends Tenriism Services Not on file 11/06 Active Member of Clubs or Organizations No 11/07/2019 Attends Club or Organization Meetings Not on wilmar e 11/07/2019 Marital Status Not on file 11/07/2019 AUDIT-C Answer Date Recorded Frequency of Alcohol Consumption 2-3 times a wee k 11/07/2019 Average Number of Drinks Not on file 020 Frequency of Binge Drinking Not on file 10/13 Overall Financial Resource Strain (CARDIA) Answe r Date Recorded Difficulty of Paying Living Expenses Hard 11/07/2019 Exercise Vital Sign Answer Date Recorde d Days of Exercise per Week 0 days 2019 Minutes of Exercise per Session Not on file 11/07/2019 Hunger Vital Sign Answer Date Recorded Worried About Running Out of Food in the Last Ye ar Never true 11/07/2019 Ran Out of Food in the Last Year Never true 11/07/2019 PRAPARE - Transportation Answer Date Re corded Lack of Transportation (Medical) No 11/07/2019 Lack of Transportation (Non-Medical) Not on file 11/07/2019 Nutrition Answer Date Recorded Nutrition: EVOO Fat Source Unknown 05/15 Nutrition: Servings of Fruits/Vegetables per Day Not on file 05/15/2020 Dental Answer Date Recorded Dental: Regular Dentist Unknown 05/16/19 21 Education Answer Date Recorded What is the highest level of school you have completed or the highest degree you have received? 12th grade 09/06/2018 Sex and Gender Information Value Date Recorded Sex Assigned at Not on file Gender Identity Male 08/15/2017 1:50 PM CDT Sexual Orientation Straight 08/15/2017 1: 50 PM CDT Last Filed Vital Signs Vital Sign Reading Time Taken Comments Blood Pressure 112/77 01/21/2022 2:49 PM SEAT TRIMMER Pulse 101 01/21/2022 2:49 PM SEAT TRIMMER Temperature 36.8 ??C (98.2 ??F) 01/21/2022 2:49 PM CS T Respiratory Rate 18 10/09/2014 4:31 PM CDT Oxygen Saturation - - Inhaled Oxygen Concentration - - Weight 63.4 kg (139 lb 12.4 oz) 01/21/2022 2:49 PM SEAT TRIMMER Height 173.2 cm (5' 8.19) 01/21/2022 2:49 PM CS T Body Mass Index 21.13 01/21/2022 2:49 PM SEAT TRIMMER Plan of Treatment Not on file Procedures Procedure Name Priority Date/Time Associated Diagnosis Comments EXTI LIPID PANEL, S Routine 01/27/2022 8 :04 AM SEAT TRIMMER HCV AB SCRN W/REFLEX TO HCV PCR, S Routine 03/18/2017 10:14 AM SEAT TRIMMER HIV-1/-2 AG AND AB SCREEN Routine 06/09/2016 4:18 PM CDT from Last 3 Months or Most Recently Relevant to Health Maintenance Results * HCV AB Scrn w/Reflex to HCV PCR, S (03/18/2017 10:14 AM SEAT TRIMMER) HCV Ab Screen, S Negative Negative [facility] Comment:Rcqjrs-pe-pjiufh rat io is <1.00. 03/18/2017 10:1 4 AM SEAT TRIMMER 03/18/2017 10:14 AM SEAT TRIMMER Kaleb Osborn M.D. LAB MICROBIOLOGY - BLOOD ORDERABLES [facility] [address] * HIV-1/-2 Ag and Ab Screen (06/09/2016 4:18 PM CDT) HIV-1/-2 Antibody Negative Negative [facility] Comment: Negative result does not rule out HIV infection. If acute HIV infection is suspected in a high-risk individual, submit plasma specimen for HIV-1 RNA quantification test (HIVDQ) and/or HIV-2 DNA/RNA test (FHV2Q). Test Performed by: [facility] [address] [place] [address] Blood 06/09/2016 4:18 PM CDT Bozena Phillips M.D. LAB MICROBIOLOGY - BLOOD ORDERABLES [facility] from Last 3 Months or Most Recently Relevant to Health Maintenance
--- OUTSIDE RECORDS SUMMARY | 2023-08-15 16:41 | XMS_ITS ---
Author Organization [place] Address [address] [place] [address] Care Team Providers Care On Air Personality Name Role Phone No Ref-Primary, Physician Primary Care Provider Edmond Felix MD Unavailable [phone] Kulwinder De La Cruz MD Unavailable Keven Smith [facility] Unavailable [phone] Transitional Care Management Status:Enrolled (Active) Start date:08/01/2023 Enrollment date:08/01/2023 Continued Care and Services Coordination
--- OUTSIDE RECORDS SUMMARY | 2023-08-15 16:41 | XMS_ITS | Encounter Summary ---
Author Organization [facility] Address [address] [place] [address]. [place] [address] Care Team Providers Care Teradata Solution Architect Name Role Phone No Ref-Primary, Physician Primary Care Provider Edmond Felix MD Unavailable [phone] Kulwinder De La Cruz MD Unavailable Encounter Details Date Type Department Care Team (Latest Contact Info) Description 08/09/2023 Travel Social History Tobacco Use Types Packs/Day Years [...] as of this encounter Plan of Treatment Upcoming Encounters Date Type Department Care Team (Late st Contact Info) Description 08/31/2023 4:00 PM CDT Office Visit [facility] Heart [address] [place] [phone] Kulwinder De La Cruz MD [address] [place] [id number] Edmond Felix MD [address] [place] [address] 09/27/2023 9:30 AM CDT Virtual Visit [facility]ology [facility] [place] [address] [place] [phone] Alfred Coley MD [address] [place], [place] [phone] Keven Smith, [facility] [address] [place] [address] documented as of this encounter Visit Diagnoses Not on filedocumented in this encounter Care Teams Teradata Solution Architect Relationship Specialty Start Date End Date No Ref-Primary, Physician PCP - General 07/30/23 Edmond Felix MD [address] [place] [id number] Cardiovascular Disease 08/03/23 Kulwinder De La Cruz MD [address] [place] [id number] Fellow Cardiovascular Disease 08/03/23 documented as of this encounter
--- OUTSIDE RECORDS SUMMARY | 2023-08-15 16:41 | XMS_ITS | Encounter Summary ---
Author Organization [facility] Address [address] [place] [address]. [place] [address] Care Team Providers Care Director Of Business Operations Name Role Phone No Ref-Primary, Physician Primary Care Provider Edmond Felix MD Unavailable [phone] Kulwinder De La Cruz MD Unavailable Reason for Referral * Med Therapy Management (Routine: Next available opening) - Pending Review Specialty Diagnoses / Procedures Referred By Contac t Referred To Contact Pharmacist Diagnoses Rheumatoid arthritis involving multiple joints (H) Alfred Coley MD [address] [place] [address] Referral ID Status Reason Start Date Expiration Date V isits Requested Visits Authorized [id number] Pending Review 08/10/2023 08/09/2024 1 1 Question Answer Type of MTM: Specialty Specialty: Rheumatology Course of Action: Other Reason for Referral: Start new biologic after failing several others Comments The [facility] Medication Therapy Management department will contact you to schedule an appointment. You may also schedule the appointment by calling or toll-free at . This service is designed to help you get the most from your medications. A specially trained Pharmacist will work closely with you and your providers to solve any questions, concerns, issues or problems related to your medications. Please bring all of your prescription and non-prescription medications (such as vitamins, tpvb-spf-vfektgo medications, and herbals) or a detailed medication list to your appointment. If you have a glucose meter or other home monitoring information, please also bring this to your appointment (i.e. blood glucose log, blood pressure log, pain log, etc.). Reason for Visit * Reason Comments New Patient Rheumatoid Arthritis Encounter Details Date Type Department Care Team (Late st Contact Info) Description 08/09/2023 3:30 PM CDT Office Visit [facility]ty [facility] [place] [address] [place] [phone] Alfred Coley MD [address] [place] [id number] Rheumatoid arthritis involving multiple joints (H) (Primary Dx) Social History Tobacco Use Types Packs/Day Years [...] on file documented as of this encounter Last Filed Vital Signs Vital Sign Reading Time Taken Comments Blood Pressure 124/85 08/09/2023 3:32 PM CDT Pulse 105 08/09/2023 3:32 PM CDT Temperature - - Respiratory Rate 12 08/09/2023 3:32 PM CDT Oxygen Saturation 100% 08/09/2023 3:32 PM CDT Inhaled Oxygen Concentration - - Weight 59.5 kg (131 lb 1.6 oz) 08/09/2023 3:32 P M CDT Height - - Body Mass Index 19.93 07/29/2023 4:41 PM CDT documented in this encounter Patient Instructions * Patient Instructions* Alfred Coley MD - 08/09/2023 3:30 PM CDT Blood test next week Follow up visit in 4 months documented in this encounter Progress Notes * Alfred Coley MD - 08/09/2023 3:30 PM CDT Follow-up visit for rheumatoid arthritis and pericarditis. He was recently hospitalized for pericarditis after being transferred from [facility] to [facility] for management of his pericarditis with rheumatology involvement. Today he reports he is doing well. He has no more chest pain. He is on a prednisone taper and he is following the taper strictly. He was on 30 mg daily and now is down to 20 mg daily. He also on a short course of colchicine for 2 weeks. And he is also taking ibuprofen for his pericarditis. Previously he was under the care of a different bread and pastry baker who had prescribed for him Simponi but he has not been very happy with this medication as he still has joint complaints. He has been taking prednisone 10 mg a day to help with the symptoms. He has tried several other Biologics includingHumira and Enbrel and Taltz and one other biologic he cannot remember the name of. Currently he feels good but that is also because he is on prednisone at a higher dose than normal, but still he has aches and pain in his joints. Past medical history Seropositive rheumatoid arthritis Acute pericarditis and pleural effusions. 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 Lower extremity exam shows that he has normal range of motion his hips, knees, ankles and feet. No active synovitis. Normal muscle strength. Normal gait. There is no skin rash I reviewed his laboratory test results. He has a negative workup for biologic screening. His CBC shows an elevated platelet count 644, despite prednisone and a white count of 17.9. His EGFR is normal. I reviewed his recent hospitalization records and his discharge summary. Impression/plan 1. He has seropositive rheumatoid arthritis that is well-controlled as he is now on higher doses ofprednisone. However, in the long-term he will need treatment with a biologic we will switch his Simponi to another agent. Unfortunately I do not have the records of his previous bread and pastry baker currently to see what other agent he was on. 2. He does not think that he was on Actemra or Orencia before. I have preference for Actemra, whichis a once weekly injection. 3. Pericarditis and pleuritis is probably driven by his autoimmune disease and his smoking. He seems to have recovered. 4. Start new medication, Actemra once weekly injection for rheumatoid arthritis. I have also considered if anakinra for his pericarditis but it seems to be not the first choice for his rheumatoid arthritis. 5. Follow-up in 3 months after starting the Actemra. documented in this encounter Nursing Notes * Javier Mcfadden MA - 08/09/2023 3:30 PM CDT Chief Complaint Patient presents with New Patient Rheumatoid Arthritis Vitals: 08/09/23 1532 BP: 124/85 BP Location: Right arm Patient Position: Sitting Cuff Size: Adult Regular Pulse: 105 Resp: 12 SpO2: 100% Weight: 59.5 kg (131 lb 1.6 oz) Body mass index is 19.93 kg/m??. Javier Mcfadden MA documented in this encounter Plan of Treatment Upcoming Encounters Date Type Department Care Team (Late st Contact Info) Description 08/31/2023 4:00 PM CDT Office Visit [facility] [address] [place] [address] [address] [place] [phone] Kulwinder De La Cruz MD [address] [place] [address] Edmond Felix MD [address] [place] [address] 09/27/2023 9:30 AM CDT Virtual Visit [facility] Rhe[facility]ology [facility] [address] [phone] Alfred Coley MD [address] [place], [place] [phone] Keven Smith RPH 909 [facility] Scheduled Orders Name Type Priority Associated Diagnoses Orde r Schedule CBC with Platelets & Differential Lab Panel Routine Rheumatoid arthritis involving multiple joints (H) 12 Occurrences starting 08/09/2023 until 08/08/2024 Comprehensive metabolic panel Lab Routine Rheumatoid arthritis involving multiple joints (H) Expected: 08/09/2023 (Approximate), Expires: 08/08/2024 ESR Lab Routine Rheumatoid arthritis involving multiple joints (H) Expected: 08/09/2023 (Approximate), Expires: 02/08/2024 CRP inflammation Lab Routine Rheumatoid arthritis involving multiple joints (H) Expected: 08/09/2023 (Approximate), Expires: 02/08/2024 Scheduled Referrals Name Type Priority Associated Diagnoses Orde r Schedule Med Therapy Management Referral Referral Routine: Next available opening Rheumatoid arthritis involving multiple joints (H) Ordered: 08/10/2023 documented as of this encounter Visit Diagnoses Diagnosis Rheumatoid arthritis involving multiple joints (H)- Primary documented in this encounter Care Teams Director Of Business Operations Relationship Specialty Start Date End Date No Ref-Primary, Physician PCP - General 07/30/23 Edmond Felix MD [address] [place] [id number] Cardiovascular Disease 08/03/23 Kulwinder De La Cruz MD [address] [place] [id number] Fellow Cardiovascular Disease 08/03/23 documented as of this encounter
--- OUTSIDE RECORDS SUMMARY | 2023-08-15 16:41 | XMS_ITS | Encounter Summary ---
Author Organization [facility] Address [address] [place] [address] Care Team Providers Care Land Surveyor Manager Name Role Phone No Ref-Primary, Physician Primary Care Provider Edmond Felix MD Unavailable [phone] Kulwinder De La Cruz MD Unavailable Keven Smith [facility] Unavailable [phone] Reason for Visit * Reason Comments Medication Therapy Management * Med Therapy Management (Routine: Next available opening) - Pending Review Specialty Diagnoses / Procedures Referred By Chandler tobias Referred To Contact Pharmacist Diagnoses Rheumatoid arthritis involving multiple joints (H) Alfred Coley MD [address] [place] [address] Referral ID Status Reason Start Date Expiration Date V isits Requested Visits Authorized [id number] Pending Review 08/10/2023 08/09/2024 1 1 Encounter Details Date Type Department Care Team ([facility] st Contact Info) Description 08/15/2023 9:30 AM CDT Virtual Visit [facility] Rheumatology Clinic [address] [phone] Alfred Coley MD [address] [place] [address] Keven Smith [address] Rheumatoid arthritis involving multiple joints (H) (Primary Dx); Vaccine counseling; Migraine Social History Tobacco Use Types Packs/Day Years [...] on file documented as of this encounter Patient Instructions * Patient Instructions* Keven Smith RPH - 08/15/2023 9:30 AM CDT Recommendations from today's MTM visit: MTM (medication therapy management) is a service provided by a clinical pharmacist designed to helpyou get the most of out of your medicines. Start Actemra 162 mg subcutaneous injection every 7 days. Consider the following vaccines. Best to complete when prednisone dose is less than 20 mg daily. Shingles (Shingrix) I sent the prescription to your preferred pharmacy. Second dose due 2-6 months later. Pneumonia (Prevnar 20) Complete routine lab monitoring every 3 months. Follow-up: with MTM pharmacist on 09/27/23. It was great speaking with you today. I value your experience and would be very thankful for your time in providing feedback in our clinic survey. In the next few days, you may receive an email or text message from [employer] with a link to a survey related to your ???clinical pharmacist. To schedule another MTM appointment, please call the clinic directly or you may call the MTM scheduling line at [phone]. My Clinical Pharmacist's contact information: Please feel free to contact me with any questions or concerns you have. Keven Smith, PharmD Medication Therapy Management Pharmacist [facility] Rheumatology Clinic documented in this encounter Progress Notes * Keven Smith RPH - 08/15/2023 9:30 AM CDT Medication Therapy Management (MTM) Encounter ASSESSMENT: Medication Adherence/Access: No issues identified Rheumatoid Arthritis: Patient presents to discuss switching therapy from Simponi to Actemra. Provided education on Actemra today including dosing, general administration, side effects (both common/serious), precautions, monitoring and time to efficacy. Discussed data on malignancy and risk of serious infection in depth. Discussed potential need to hold therapy in the setting of signs/symptoms of active infection. Encouraged him to contact the rheumatology clinic in the event he has questions onthis. Last Simponi dose > 4 weeks ago and able to start Actemra once received. Will confirm Tb test result with provider and confirm it is okay to start therapy. Vaccines: Encouraged indicated non-live vaccines and avoidance of live vaccines. Per ACIP guidelines, patient is eligible for VACCINATION: Covid-19, Influenza, Pneumococcal, and Zoster. Vaccines should be completed once prednisone dose is < 20 mg daily. Migraine: Stable. PLAN: Start Actemra 162 mg subcutaneous injection every 7 days. Consider the following vaccines. Best to complete when prednisone dose is less than 20 mg daily. Shingles (Shingrix) I sent the prescription to your preferred pharmacy. Second dose due 2-6 months later. Pneumonia (Prevnar 20) Complete routine lab monitoring every 3 months. Follow-up: with [facility] pharmacist on 09/27/23. SUBJECTIVE/OBJECTIVE: Jai Shoemaker is a 43 year old male called for an initial visit. He was referred to me from Alfred Coley MD. Reason for visit: Actemra start. Allergies/ADRs: Reviewed in chart Past Medical History: Reviewed in chart Tobacco: He reports that he has been smoking cigarettes. He has a 20 pack-year smoking history. He has never used smokeless tobacco.Nicotine/Tobacco Cessation Plan - Information offered: Patient not interested at this time Alcohol: 2-4 drinks few times per week Medication Adherence/Access: no issues reported Rheumatoid Arthritis: Actemra 162 mg subcutaneous injection every 7 days Prednisone course - current dose = 20 mg daily Patient previously on Simponi and did not achieve adequate response from medication. Last dose was about 6 weeks ago. Currently managed on prednisone. Still gets sore but feels inflammation is down significantly. Decreased from 30 mg daily to 20 mg daily and tolerated dose reduction. Comfortable with injections and ready to start new medication. Reviewed baseline pre-biologic screening. Hep C antibody non-reactive (2023) Hep B surface antibody not completed Hep B surface antigen non-reactive (2023) Hep B core antibody non-reactive (2023) Quantiferon TB Negative (2017); Indeterminate (2023) HIV antigen non-reactive (2023) Vaccines: Eligible for shingles, pneumonia, annual influenza, and COVID vaccines. Patient interested in shingles vaccine. Denied influenza and COVID. Migraine: Excedrin 250-250-65 mg as needed Rarely takes. Works well when needed. Today's Vitals: There were no vitals taken for this visit. Post Discharge Medication Reconciliation Status: discharge medications reconciled, continue medications without change. I spent 30 minutes with this patient today. All changes were made via collaborative practice agreement with Alfred Coley MD. A copy of the visit note was provided to the patient's provider(s). A summary of these recommendations was confirmed with the patient. Keven Smith, LebronD Medication Therapy Management Pharmacist [facility] Rheumatology [facility] Telemedicine Visit Details Type of service: Telephone visit Start Time: 9:30 AM End Time: 10:00 AM Medication Therapy Recommendations Vaccine counseling Rationale: Preventive therapy - Needs additional medication therapy - Indication Recommendation: Start Medication - Get recommended vaccines once prednisone dose is < 20 mg daily Status: Patient Agreed - Adherence/Education documented in this encounter Plan of Treatment Upcoming Encounters Date Type Department Care Team (Late st Contact Info) Description 08/31/2023 4:00 PM CDT Office Visit [facility] Heart [address] [place] [phone] Kulwinder De La Cruz MD [address] [place] [id number] Edmond Felix MD [address] [place] [id number] 09/27/2023 9:30 AM CDT Virtual Visit [facility] Rheumatology [address] [address] Alfred Coley MD [address] [place], [place] [phone] Keven Smith RPH 909 [facility] documented as of this encounter Visit Diagnoses Diagnosis Rheumatoid arthritis involving multiple joints (H)- Primary Vaccine counseling Migraine Migraine, unspecified, without mention of intractable migraine without mention of status migrainosus documented in this encounter Care Teams Land Surveyor Manager Relationship Specialty Start Date End Date No Ref-Primary, Physician PCP - General 07/30/23 Edmond Felix MD [address] [place] [address] Cardiovascular Disease 08/03/23 Kulwinder De La Cruz MD [address] [place] [address] Fellow Cardiovascular Disease 08/03/23 Keven Smith [facility] 909 [facility] Pharmacist 08/15/23 documented as of this encounter
--- OUTSIDE RECORDS SUMMARY | 2023-08-15 16:41 | XMS_ITS | Encounter Summary ---
Author Organization [facility] Address [address] [place] [address]. [place] [address] Care Team Providers Care Jewel Staker Name Role Phone No Ref-Primary, Physician Primary Care Provider Edmond Felix MD Unavailable [phone] Kulwinder De La Cruz MD Unavailable Keven Smith [facility] Unavailable [phone] Encounter Details Date Type Department Care Team (Late st Contact Info) Description 08/10/2023 Telephone [facility] Specialty Clinic [address] [phone] Alfred Coley MD [address] [place], [place] [address] Social History Tobacco Use Types Packs/Day Years [...] encounter Miscellaneous Notes * Telephone Encounter - Janel Brady - 08/10/2023 1:28 PM CDT LVM to schedule follow up in Nov with Dr Coley and schedule lab appointment documented in this encounter Plan of Treatment Upcoming Encounters Date Type Department Care Team (Late st Contact Info) Description 08/31/2023 4:00 PM CDT Office Visit [facility] Heart [facility] [address] [facility] [address] [place] [address] Kulwinder De La Cruz MD [address] [address] Edmond Felix MD [address] [address] 09/27/2023 9:30 AM CDT Virtual Visit [facility] Rheumatology [address] [phone] Alfred Coley MD [address] [place], [place] [address] Keven Smith [address] documented as of this encounter Visit Diagnoses Not on filedocumented in this encounter Care Teams Jewel Staker Relationship Specialty Start Date End Date No Ref-Primary, Physician PCP - General 07/30/23 Edmond Felix MD [address] [place] [address] Cardiovascular Disease 08/03/23 Kulwinder De La Cruz MD [address] [place] [address] Fellow Cardiovascular Disease 08/03/23 Keven Smith [facility] [address] [place] [address] Pharmacist 08/15/23 documented as of this encounter
--- OUTSIDE RECORDS SUMMARY | 2023-08-15 16:41 | XMS_ITS | Encounter Summary ---
Author Organization [facility] Address [address] [place] [address]. [place] [address] Care Team Providers Care Estimate Clerk Name Role Phone No Ref-Primary, Physician Primary Care Provider Reason for Referral * CV Cardio consult (Routine: Next available opening) - Pending Review Specialty Diagnoses / Procedures Referred By Chandler tobias Referred To Contact Cardiovascular Disease Diagnoses 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) Pericardial effusion Kulwinder Ridley MD [address] [facility] [address] [place] [address] Referral ID Status Reason Start Date Expiration Date V isits Requested Visits Authorized [id number] Pending Review 07/31/2023 07/30/2024 1 1 Question Answer Reason for Consult: General Cardiology Scheduling Instructions: [facility] will call you to coordinate your care as prescribed by your provider. If you don't hear from a registered representative within 2 business days, please call [phone]. Additional Information: Follow up of pericardial effusion Comments Please be aware that coverage of these services is subject to the terms and limitations of your health insurance plan. Call member services at your health plan with any benefit or coverage questions. [facility] will call you to coordinate your care as prescribed by your provider. If you don't hear from a registered representative within 2 business days, please call [phone]. * CV Cardio consult (Routine: Next available opening) - Pending Review Specialty Diagnoses / Procedures Referred By Chandler tobias Referred To Contact Cardiovascular Disease Diagnoses 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) Lyle Galaviz, DO [address] [place] [address] Referral ID Status Reason Start Date Expiration Date V isits Requested Visits Authorized [id number] Pending Review 07/31/2023 07/30/2024 1 1 Question Answer Reason for Consult: General Cardiology Scheduling Instructions: [facility] will call you to coordinate your care as prescribed by your provider. If you don't hear from a registered representative within 2 business days, please call [phone]. Additional Information: Follow up in one month from discharge for pericardial effusion secondary to RA discharged on colchicine and ibuprofen Comments Please be aware that coverage of these services is subject to the terms and limitations of your health insurance plan. Call member services at your health plan with any benefit or coverage questions. [facility] will call you to coordinate your care as prescribed by your provider. If you don't hear from a registered representative within 2 business days, please call [phone]. Reason for Visit * Auth/Cert (Routine) Specialty Diagnoses / Procedures Referred By Chandler tobias Referred To Contact Med Surg Diagnoses Pericardial effusion, rheumatoid arthritis Pericardial effusion Ur [address] [place] [phone] Referral ID Status Reason Start Date Expiration Date Visits Re quested Visits Authorized [id number] 1 1 Encounter Details Date Type Department Care Team (Late st Contact Info) Description 07/29/2023 4:38 PM CDT - 07/31/2023 4:17 PM CDT Hospital Encounter [facility] Med Surg [address] [place] [phone] Hema Proctor MD [address] [place] [address] [id number] Theo Chawla MD [address] [place] [phone] Lyle Galaviz DO [address] [place] [address] [id number] 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) (Primary Dx); Pericardial effusion Discharge Disposition: Home or Self Care Social History Tobacco Use Types Packs/Day Years [...] Sign Reading Time Taken Comments Blood Pressure 116/77 07/31/2023 12:16 PM CDT Pulse 101 07/31/2023 12:16 PM CDT Temperature 36.5 ??C (97.7 ??F) 07/31/2023 1 2:16 PM CDT Respiratory Rate 23 07/31/2023 2:39 AM CDT Oxygen Saturation 97% 07/31/2023 12: 16 PM CDT Inhaled Oxygen Concentration - - Weight 55.7 kg (122 lb 12.7 oz) 07/29/2023 4:41 PM CDT Height 172.7 cm (5' 8) 07/29/2023 4:41 PM CDT Body Mass Index 18.67 07/29/2023 4:41 PM CDT documented in this encounter Discharge Summaries * Lyle Galaviz DO - 07/31/2023 2:19 PM CDT [facility] Hospitalist Discharge Summary Date of Admission: 07/29/2023 Date of Discharge: 07/31/2023 Discharging Provider: Lyle Galaviz DO Discharge Service: Hospitalist Service, [facility] TEAM 22 Discharge Diagnoses Pericardial effusion Large pleural effusion, right side History of rheumatoid arthritis Leukocytosis Microcytic anemia Thrombocytosis Clinically Significant Risk Factors Follow-ups Needed After Discharge Follow-up Appointments Adult [facility] Follow-up and recommended labs and tests I have put in a referral to cardiology, they would like you to follow up in one month with them and should call you to make an appointment Rheumatology also would like you to follow up with them, they will call you to schedule an appointment Appointments on [place] and/or [facility] (with [facility] or [facility] provider or service). Call [phone] if you haven't heard regarding these appointments within 7 days of discharge. Unresulted Labs Ordered in the Past 30 Days of this Admission Date and Time Order Name Status Description 07/31/2023 1:13 PM Quantiferon TB Gold Plus Purple Tube In process 07/31/2023 1:13 PM Quantiferon TB Gold Plus Yellow Tube In process 07/31/2023 1:13 PM Quantiferon TB Gold Plus Green Tube In process 07/31/2023 1:13 PM Quantiferon TB Gold Plus [place] Tube In process 07/31/2023 11:50 AM HIV Antigen Antibody Combo [place] In process 07/31/2023 11:50 AM Hepatitis C Screen Reflex to HCV RNA Quant and Genotype In process 07/31/2023 11:50 AM Hepatitis B surface antigen In process 07/31/2023 11:50 AM Hepatitis B core antibody In process These results will be followed up by Rheumatology, Hospitalist pool Discharge Disposition Discharged to home Condition at discharge: Stable Hospital Course Timo Dixon is a 43 year old male with past medical history of rheumatoid arthritis is transferred from [facility] where he was admitted for dyspnea secondary to large pleural effusion and pericardial effusion. Status post pericardiocentesis with placement of drain pleurocentesis. Transferred here for cardiology and rheumatology. He was evaluated by both teams and effusions felt to be due to under treated RA. He was started on cholchicine, ibuprofen and an increased steroid dose with taper. Repeat TTE with stable trivial effusion and felt ok to discharge with cards and rheum follow up. Pericardial effusion s/p pericardiocentesis and placement of pericardial drain. 500 cc fluid was removed during pericardiocentesis. He was having daily output of 60 mL from the pericardial drain which was removed prior to transfer. Prior to pericardicentesis had right bedside thoracentesis with 1500 mL removed, also c/w exudate (LDH 1,718, glucose <2). Cultures so far negative. Cytology negative for malignancy, noting mixed inflammatory cells. He was evaluated by cardiology and rheumatology and effusions felt chaim due to under treated RA. He was started on cholchicine, ibuprofen and an increased steroid dose with taper. Repeat TTE with stable trivial effusion and felt ok to discharge with cards and rheum follow up. - Cardiology consulted thanks for the recs - repeat TTE with trivial pericardial effusion - colchicine 0.6 mg daily and ibuprofen 600 mg Q8 hours for 1-2 weeks - Rheum consulted thanks for the recs - prednisone 30 mg daily for 2 weeks followed by 20 mg daily for 2 weeks followed by 15 mg daily for 2 weeks followed by 10 mg daily until he follows up with rheumatology clinic. - follow-up rheumatology outpatient in 3 to 4 weeks Large pleural effusion, right side status post right-sided thoracentesis with removal of 1.5 L fluid. Negative for infection. ID was consulted. Infection is not suspected at this moment the etiology for pericardial or pleural effusion. History of rheumatoid arthritis Follows with Dr. Teri Enamorado at [facility] and has been on Simponi for four months prior to admission and prednisone 10 mg daily. However despite this deals with chronic pain affecting multiple joints (elbows, knees, ankles, MCPs) for which will occasionally use ibuprofen. Has had progressive disease despite previous treatments with hydroxychloroquine, methotrexate, Enbrel, Humira and 2 other biologics that he cannot recall. - rhuem consulted Leukocytosis Patient had significant WBC count 3 days ago. However, procalcitonin level within normal limits. ESR 86, CRP 8.1. Pleural fluid cytology is negative for malignancy. Pneumonia or parapneumonic effusion is not suspected at this moment. ID was consulted. - CTM Microcytic anemia Hgb 12 with MCV of 73. Iron and iron sat low at [facility] suggestive of NIKKI. Currently no signs of bleeding. He does take NSAIDs for his RA putting him at higher risk of ulcers. - Attention on follow up, consider colonoscopy as outpatient Thrombocytosis Platelets 585. Likely high in the setting of inflammation Consultations This Hospital Stay CARDIOLOGY GENERAL ADULT IP CONSULT RHEUMATOLOGY IP CONSULT CARE MANAGEMENT / SOCIAL WORK IP CONSULT Code Status Full Code Time Spent on this Encounter ILyle DO, personally saw the patient today and spent greater than 30 minutes discharging this patient. Lyle Galaviz DO [facility] [phone] Physical Exam Vital Signs: Temp: 97.7 ??F (36.5 ??C) Temp src: Oral BP: 116/77 Pulse: 101 Resp: 23 SpO2: 97 % O2 Device: None (Room air) Weight: 122 lbs 12.74 oz General Appearance: In bed, no distress Respiratory: breathing comfortably on room air Cardiovascular: tachycardic GI: non distended Skin: no rashes or lesions Other: Non focal neuro exam Primary Care Physician Physician No Ref-Primary Discharge Orders Adult Cardiology Eval Continuous Improvement Coordinator Referral Reason for your hospital stay You were in the hospital for a pericardial and pleural effusion felt to be due to your rheumatoid arthritis. You were started on treatment for this and are ok to discharge to follow up with rheumatology and cardiology as an outpatient. Activity Your activity upon discharge: activity as tolerated Adult [facility] Follow-up and recommended labs and tests I have put in a referral to cardiology, they would like you to follow up in one month with them andshould call you to make an appointment Rheumatology also would like you to follow up with them, they will call you to schedule an appointment Appointments on [place] and/or [facility] (with [facility] or [facility] provider or service). Call [phone] if you haven't heard regarding these appointments within 7 days of discharge. Diet Follow this diet upon discharge: Orders Placed This Encounter Combination Diet Regular Diet Significant Results and Procedures Most Recent 3 CBC's: Recent Labs Lab Test 07/31/23 0825 07/30/23 0616 WBC 17.9* 14.9* HGB 12.2* 12.0* MCV 74* 73* PLT 644* 585* Most Recent 3 BMP's: Recent Labs Lab Test 07/31/23 0825 07/30/23 0616 07/29/23 1859 NA 136 135 -- POTASSIUM 4.3 4.2 -- CHLORIDE 101 100 -- CO2 27 23 -- BUN 27.6* 16.1 -- CR 0.56* 0.61* 0.62* ANIONGAP 8 12 -- KENROY 9.2 8.9 -- GLC 135* 89 -- Most Recent 2 LFT's:No lab results found. Most Recent 3 INR's:No lab results found., Results for orders placed or performed in visit on 08/08/20 CT Head w/o Contrast Narrative See Historical Hospital Medical Record for documentation CT Facial Bones without Contrast Narrative See Historical Hospital Medical Record for documentation CT Misc Order Narrative See Historical Hospital Medical Record for documentation Discharge Medications Current Discharge Medication List START taking these medications Details colchicine (COLCRYS) 0.6 MG tablet Take 1 tablet (0.6 mg) by mouth daily for 13 days Qty: 13 tablet, Refills: 0 Associated Diagnoses: 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) famotidine (PEPCID) 20 MG tablet Take 1 tablet (20 mg) by mouth daily for 14 days Qty: 14 tablet, Refills: 0 Associated Diagnoses: 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) ibuprofen (ADVIL/MOTRIN) 600 MG tablet Take 1 tablet (600 mg) by mouth every 8 hours for 13 days Qty: 39 tablet, Refills: 0 Associated Diagnoses: 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) CONTINUE these medications which have CHANGED Details predniSONE (DELTASONE) 10 MG tablet Take 3 tablets (30 mg) by mouth daily for 13 days, THEN 2 tablets (20 mg) daily for 14 days, THEN 1.5 tablets (15 mg) daily for 14 days, THEN 1 tablet (10 mg) daily for 60 days. Qty: 148 tablet, Refills: 0 Associated Diagnoses: 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) CONTINUE these medications which have NOT CHANGED Details iiqrwdr-syotupgyeylvd-rixpdfwt (EXCEDRIN MIGRAINE) 250-250-65 MG tablet Take 2 tablets by mouth 3 times daily as needed for headaches golimumab (SIMPONI) 50 MG/0.5ML auto-injector pen Inject 50 mg Subcutaneous every 28 days STOP taking these medications naproxen sodium (ANAPROX) 220 MG tablet Comments: Reason for Stopping: Allergies No Known Allergies documented in this encounter Medications at Time of Discharge Medication Sig Dispensed Refills Start Date End Date aspirin-acetaminophen -caffeine (EXCEDRIN MIGRAINE) 250-250-65 MG tablet Take 2 tablets by mouth 3 times daily as needed for headaches predniSONE (DELTASONE) 10 MG tabletIndications:Acu te pericarditis associated with rheumatoid arthritis (H) Take 3 tablets (30 mg) by mouth daily for 13 days, THEN 2 tablets (20 mg) daily for 14 days, THEN 1.5 tablets (15 mg) daily for 14 days, THEN 1 tablet (10 mg) daily for 60 days. 148 tablet 08/01/2023 11/10/2023 ibuprofen (ADVIL/MOTRIN) 600 MG tabletIndications:Acu te pericarditis associated with rheumatoid arthritis (H) Take 1 tablet (600 mg) by mouth every 8 hours for 13 days 39 tablet 07/31/2023 08/13/2023 colchicine (COLCRYS) 0.6 MG tabletIndications:Acu te pericarditis associated with rheumatoid arthritis (H) Take 1 tablet (0.6 mg) by mouth daily for 13 days 13 tablet 08/01/2023 08/15/2023 famotidine (PEPCID) 20 MG tabletIndications:Acu te pericarditis associated with rheumatoid arthritis (H) Take 1 tablet (20 mg) by mouth daily for 14 days 14 tablet 08/01/2023 08/15/2023 golimumab (SIMPONI) 50 MG/0.5ML auto-injector pen Inject 50 mg Subcutaneous every 28 days 07/25/2023 08/15/2023 documented as of this encounter Progress Notes * Kulwinder Ridley MD - 07/31/2023 2:23 PM CDT Brief Cardiology Progress Note: Chart checked; previously consulted for pericardial effusion s/p pericardiocentesis at the OSH. TTE today with normal biventricular function. Trivial to small circumferential effusion on my read.No evidence of tamponade. Official read is pending. Ok to discharge from Cards perspective. Continue steroids per Rheum and can continue ibuprofen and colchicine for pericarditis mgmt. He can follow up with Cardiology in 1 month (ordered). Kulwinder Ridley, PGY-5 Cardiovascular Disease Fellow * Lyle Galaviz DO - 07/31/2023 1:17 PM CDT [facility] Medicine Progress Note - Hospitalist Service, GOLD TEAM 22 Date of Admission: 07/29/2023 Assessment & Plan Timo Dixon is a 43 year old male with past medical history of rheumatoid arthritis is transferred from [facility] where he was admitted for dyspnea secondary to large pleural effusion and pericardial effusion. Status post pericardiocentesis with placement of drain pleurocentesis. Transferred here for cardiology and rheumatology. Pericardial effusion s/p pericardiocentesis and placement of pericardial drain. 500 cc fluid was removed during pericardiocentesis. He was having daily output of 60 mL from the pericardial drain which was removed prior to transfer. Prior to pericardicentesis had right bedside thoracentesis with 1500 mL removed, also c/w exudate (LDH 1,718, glucose <2). Cultures so far negative. Cytology negative for malignancy, noting mixed inflammatory cells. - Cardiology consulted thanks for the recs - waiting on TTE prior to discharge - colchicine 0.6 mg daily and ibuprofen 600 mg Q8 hours for 1-2 weeks - Rheum consulted thanks for the recs - prednisone 30 mg daily for 2 weeks followed by 20 mg daily for 2 weeks followed by 15 mg daily for 2 weeks followed by 10 mg daily until he follows up with rheumatology clinic. - follow-up rheumatology outpatient in 3 to 4 weeks Large pleural effusion, right side status post right-sided thoracentesis with removal of 1.5 L fluid. Negative for infection. ID was consulted. Infection is not suspected at this moment the etiology for pericardial or pleural effusion. History of rheumatoid arthritis Follows with Dr. Teri Enamorado at [facility] and has been on Simponi for four months prior to admission and prednisone 10 mg daily. However despite this deals with chronic pain affecting multiple joints (elbows, knees, ankles, MCPs) for which will occasionally use ibuprofen. Has had progressive disease despite previous treatments with hydroxychloroquine, methotrexate, Enbrel, Humira and 2 other biologics that he cannot recall. - rhuem consulted Leukocytosis Patient had significant WBC count 3 days ago. However, procalcitonin level within normal limits. ESR 86, CRP 8.1. Pleural fluid cytology is negative for malignancy. Pneumonia or parapneumonic effusion is not suspected at this moment. ID was consulted. - CTM Microcytic anemia Hgb 12 with MCV of 73. Iron and iron sat low at [facility] suggestive of NIKKI. Currently no signs of bleeding. He does take NSAIDs for his RA putting him at higher risk of ulcers. - Can get workup of this as an outpatient. Thrombocytosis Platelets 585. Likely high in the setting of inflammation Observation Goals: -diagnostic tests and consults completed and resulted, -vital signs normal or atpatient baseline, Nurse to notify provider when observation goals have been met and patient is ready for discharge. Diet: Combination Diet Regular Diet DVT Prophylaxis: Enoxaparin (Lovenox) SQ Pardo Catheter: Not present Lines: None Cardiac Monitoring: ACTIVE order. Indication: pericardial effusion Code Status: Full Code Clinically Significant Risk Factors Present on Admission # Financial/Environmental Concerns: none Disposition Plan Medically Ready for Discharge: Anticipated in 2-4 Days Lyle Galaviz DO Hospitalist Service, GOLD TEAM [address] [place] [address] Securely message with [email or web address] (more info) Text page via [facility] Paging/Directory See signed in provider for up to date coverage information Interval History Doing well today with no new dyspnea. Started on colchicine and ibuprofen as well as steroids for his pleuropericarditis per cards and rheum. We are still waiting on TTE to make sure effusion hasn't returned prior to discharging. Physical Exam Vital Signs: Temp: 97.7 ??F (36.5 ??C) Temp src: Oral BP: 116/77 Pulse: 101 Resp: 23 SpO2: 97 % O2 Device: None (Room air) Weight: 122 lbs 12.74 oz General Appearance: In bed, no distress Respiratory: breathing comfortably on room air Cardiovascular: tachycardic GI: non distended Skin: no rashes or lesions Other: Non focal neuro exam Medical Decision Making 56 MINUTES SPENT BY ME on the date of service doing chart review, history, exam, documentation & further activities per the note. Data I have personally reviewed the following data over the past 24 hrs: 17.9 (H) \ 12.2 (L) / 644 (H) 136 101 27.6 (H) / 135 (H) 4.3 27 0.56 (L) \ Ferritin: N/A % Retic: N/A LDH: N/A Imaging results reviewed over the past 24 hrs: No results found for this or any previous visit (from the past 24 hour(s)). * Joanne Mejia LICSW - 07/31/2023 10:51 AM CDT Care Management Discharge Note Discharge Date: 07/31/2023 Discharge Disposition: Home Discharge Services: None Discharge DME: None Discharge Transportation: family or friend will provide Private pay costs discussed: Not applicable Does the patient's insurance plan have a 3 day qualifying hospital stay waiver? No PAS Confirmation Code: N/A Patient/family educated on Medicare website which has current facility and service quality ratings:N/A Education Provided on the Discharge Plan: Yes Persons Notified of Discharge Plans: Charge Nurse, Bedside Nurse, MD, Patient Patient/Family in Agreement with the Plan: Yes Handoff Referral Completed: Yes Additional Information: Patient to discharge to home today via family transport. No discharge needs identified. Hand off topjaneen's primary care physician (PCP) not completed due to he does not have a PCP and declined referral. IMM and PAS not needed. JOSH Kuhn, WAIST PRESSER 6th Floor Medical Surgical Unit * Ty Lakhani RN - 07/31/2023 5:11 AM CDT Shift [id number] Goal Outcome Evaluation: Plan of Care Reviewed With: patient Overall Patient Progress: no change VS: BP 116/80 (BP Location: Left arm, Patient Position: Supine, Cuff Size: Adult Regular) Pulse 100 Temp 98 ??F (36.7 ??C) (Oral) Resp 23 Ht 1.727 m (5' 8) Wt 55.7 kg (122 lb 12.7 oz) SpO2 97% BMI 18.67 kg/m?? O2: Sating >95% on RA, denies SOB/Chest pain. Denies N/V. Afebrile. LS clear. On tele, sinus tach Output: Voids spontaneously in bathroom. Cont of B/B Last BM: LBM 18 per pt. Bowel sounds normoactive x4 Activity: Up independently in room Up for meals? Yes Skin: All visible skin intact. Pain: Denies pain CMS: AO x4, Denies N/T Dressing: None Diet: Regular diet, thin liquids LDA: R. PIV/SL Equipment: IV pole, personal belongings Plan: Call light within reach, bed in a low position. Able to make needs known. Continue to monitorwith POC. Additional Info: * Ludivina Whitehead RN - 07/30/2023 10:09 PM CDT [id number] Goal Outcome Evaluation: Plan of Care Reviewed With: patient Overall Patient Progress: no changeOverall Patient Progress: no change Discharge Plan: Home when medically stable. VS: BP (!) 134/92 (BP Location: Right arm, Patient Position: Sitting, Cuff Size: Adult Regular) Pulse 120 Temp 98.6 ??F (37 ??C) (Oral) Resp 20 Ht 1.727 m (5' 8) Wt 55.7 kg (122 lb 12.7 oz) SpO2 98% BMI 18.67 kg/m?? O2: Sating >95% on RA, denies SOB/Chest pain. Denies N/V. Afebrile. LS clear. On tele, sinus tach Output: Voids spontaneously in bathroom. Cont of B/B Last BM: LBM 18 per pt. Bowel sounds normoactive x4 Activity: Up independently in room Up for meals? Yes Skin: All visible skin intact. Pain: Denies pain CMS: AO x4, Denies N/T Dressing: None Diet: Regular diet, thin liquids LDA: R. PIV/SL Equipment: IV pole, personal belongings Plan: Call light within reach, bed in a low position. Able to make needs known. Continue to monitorwith POC. Additional Info: * Ludivina Whitehead RN - 07/30/2023 3:00 PM CDT Pt went outside with family to get fresh air Patient has been educated on potential risks of choosing to leave the unit and that the responsibility for patient well-being will belong to the patient. Pt has been informed that admission to hospital is due to need for medical treatment. Education given to the patient on some of the potential risks included but are not limited to: - lack of access to nursing intervention - possible missed appointments with MD, therapies, tests - possible missed medications, antibiotics, management of IV's Patient Response: Patient notified staff prior to leaving unit: * Lyle Galaviz DO - 07/30/2023 1:08 PM CDT [facility] Medicine Progress Note - Hospitalist Service, [facility] TEAM 22 Date of Admission: 07/29/2023 Assessment & Plan Timo Dixon is a 43 year old male with past medical history of rheumatoid arthritis is transferred from [facility] where he was admitted for dyspnea secondary to large pleural effusion and pericardial effusion. Status post pericardiocentesis with placement of drain pleurocentesis. Transferred here for cardiology and rheumatology. Pericardial effusion s/p pericardiocentesis and placement of pericardial drain. 500 cc fluid was removed during pericardiocentesis. He was having daily output of 60 mL from the pericardial drain which was removed prior to transfer. Prior to pericardicentesis had right bedside thoracentesis with 1500 mL removed, also c/w exudate (LDH 1,718, glucose <2). Cultures so far negative. Cytology negative for malignancy, noting mixed inflammatory cells. - Cardiology consulted thanks for the recs - TTE today - Rheum consulted thanks for the recs Large pleural effusion, right side status post right-sided thoracentesis with removal of 1.5 L fluid. Negative for infection. ID was consulted. Infection is not suspected at this moment the etiology for pericardial or pleural effusion. History of rheumatoid arthritis Follows with Dr. Teri Enamorado at [facility] and has been on Simponi for four months prior to admission and prednisone 10 mg daily. However despite this deals with chronic pain affecting multiple joints (elbows, knees, ankles, MCPs) for which will occasionally use ibuprofen. Has had progressive disease despite previous treatments with hydroxychloroquine, methotrexate, Enbrel, Humira and 2 other biologics that he cannot recall. - rhuem consulted Leukocytosis Patient had significant WBC count 3 days ago. However, procalcitonin level within normal limits. ESR 86, CRP 8.1. Pleural fluid cytology is negative for malignancy. Pneumonia or parapneumonic effusion is not suspected at this moment. ID was consulted. - CTM Microcytic anemia Hgb 12 with MCV of 73. Iron and iron sat low at W suggestive of NIKKI. Currently no signs of bleeding. He does take NSAIDs for his RA putting him at higher risk of ulcers. - Can get workup of this as an outpatient. Thrombocytosis Platelets 585. Likely high in the setting of inflammation Observation Goals: -diagnostic tests and consults completed and resulted, -vital signs normal or atpatient baseline, Nurse to notify provider when observation goals have been met and patient is ready for discharge. Diet: Combination Diet Regular Diet DVT Prophylaxis: Enoxaparin (Lovenox) SQ Pardo Catheter: Not present Lines: None Cardiac Monitoring: ACTIVE order. Indication: pericardial effusion Code Status: Full Code Clinically Significant Risk Factors Present on Admission Disposition Plan Medically Ready for Discharge: Anticipated in 2-4 Days Lyle Galaviz DO Hospitalist Service, GOLD TEAM 22 M [facility] Securely message with [email or web address] (more info) Text page via [facility] Paging/Directory See signed in provider for up to date coverage information Interval History Transferred from [facility] for workup of pericardial effusion and pleural effusion possibly from RA. Stable on transfer without dyspnea or chest pain. He is slightly tachycardic. Rheum and Cards consulted. Physical Exam Vital Signs: Temp: 98.2 ??F (36.8 ??C) Temp src: Oral BP: 125/84 Pulse: 115 Resp: 23 SpO2: 99 % O2 Device: None (Room air) Weight: 122 lbs 12.74 oz General Appearance: In bed, no distress Respiratory: breathing comfortably on room air Cardiovascular: tachycardic GI: non distended Skin: no rashes or lesions Other: Non focal neuro exam Medical Decision Making 55 MINUTES SPENT BY ME on the date of service doing chart review, history, exam, documentation & further activities per the note. Data I have personally reviewed the following data over the past 24 hrs: 14.9 (H) \ 12.0 (L) / 585 (H) 135 100 16.1 / 89 4.2 23 0.61 (L) \ Procal: 0.19 CRP: N/A Lactic Acid: N/A Imaging results reviewed over the past 24 hrs: No results found for this or any previous visit (from the past 24 hour(s)). * Ty Lakhani RN - 07/30/2023 4:06 AM CDT Shift [id number] Plan of Care Reviewed With: patient Overall Patient Progress: no change VS: BP 109/72 (BP Location: Left arm, Patient Position: Supine, Cuff Size: Adult Regular) Pulse 115 Temp 98.2 ??F (36.8 ??C) (Oral) Resp 23 Ht 1.727 m (5' 8) Wt 55.7 kg (122 lb 12.7 oz) SpO2 95% BMI 18.67 kg/m?? O2: Sating >95% on RA, denies SOB/Chest pain. Denies N/V. Afebrile. Output: Voids spontaneously in bathroom. Cont. Of bowels. Last BM: LBM 5/14 per pt. Bowel sounds normoactive x4 Activity: Up independently in room Up for meals? Yes Skin: All visible skin intact except thoracentesis site upper epigastrium. Pain: Denies any pain. CMS: AO x4, Denies N/T Dressing: None Diet: Regular diet, thin liquids. LDA: R. PIV SL Equipment: IV pole, personal belongings and call light in reach. Plan: Bed in a low position. Able to make needs known. Continue to monitor with POC. Additional Info: * Ludivina Whitehead RN - 07/29/2023 4:48 PM CDT 6MS ADMISSION D: Patient admitted/transferred from [place] via [facility] for SOB, found to have pericardial and pleural effusion I: Upon arrival to the unit patient was oriented to room, unit, and call light. Patient???s height,weight, and vital signs were obtained. Allergies reviewed and allergy band applied. Provider notified of patient???s arrival on the unit. Adult AVS completed. Head to toe assessment completed. Education assessment completed. Care plan initiated. A: Vital signs stable upon admission. Patient rates pain at 0/10. Two RN skin assessment completed.Significant Skin Findings include incision from thoracentesis, redness/scab to bilateral elbow and knees P: Continue to monitor patient???s vital signs and intervene as needed. Continue with plan of care.Notify provider with any concerns or changes in patient status. BP (!) 125/98 (BP Location: Left arm, Patient Position: Semi-Sánchez's) Pulse (!) 125 Temp 99.5 ??F (37.5 ??C) (Oral) Resp 20 Ht 1.727 m (5' 8) Wt 55.7 kg (122 lb 12.7 oz) SpO2 98% BMI 18.67 kg/m?? * Hema Proctor MD - 07/28/2023 11:16 AM CDT Transfer Type: [facility] Transfer Triage Note Date of call: 07/28/23 Time of call: 11:16 AM Current Patient Location: [place] Current Level of Care: Cardiac floor Vitals: BP:117/83 HR: 117 sinus O2 Sats: 90s on RA, Afebrile Diagnosis: Flare of RA Reason for requested transfer: Further diagnostic work up, management, and consultation for specialized care Isolation Needs: None Care everywhere has been updated and reviewed: No Necessary images have been sent through PACS: No If patient is transferring for specialty care or specific procedure, the specialist required has participated in the transfer call and agreed with need for transfer and anticipated timeline: No Transfer accepted: Yes Stability of Patient: Patient is vitally stable, with no critical labs, and will likely remain stable throughout the transfer process Is the patient appropriate for [facility]? Yes Level of Care Needed: Med Surg Telemetry Needed: Med (Remote) Telemetry Expected Time of Arrival for Transfer: 8-24 hours Arrival [facility] [place] 43 [facility] M follows up with [facility] due to RA on multiple treatments presenting with 07/25 of 1-2 weeks of SOB (Has been going on for some time though but acutely worsening) was found to have Large pericardial and pleural effusion. Cards and pulm consulted now s/p pericardial drain with 500cc and now 60 ml a day. S/p thora with 1.5 L out exudative in nature. ID saw him. Cx are neg. No concern for infection. Could be related to Rheumatoid. Rheumatoid doc outpt was contacted and would like to see as outpt. But due to pericardial drain cards is concerned if removed it will need to be re drained. Request to transfer here for inpt evaluation. Will need Rheum and cards consult once reaches the [facility] Addendum: [facility] providers and nurses uncomfortable taking care of the pt there. Will accept at the [facility]. Informed pt placement to tell the referring hospital that [facility] To look for other hospitals in the meantime. Addendum: Pericardial drain is out and cards would like to repeat TTE Monday 07/31. Due to recurrent fever and concern from the hospitalist taking care of the pt and loss to follow up would like the pt to be seen by Rheum inpt which is reasonable especially with how bad the presentation was and neginfection work up. Will get the pt on [facility] as pericardial drain is out and can get Rheum/cardsand possible ID consults HEMA PROCTOR MD documented in this encounter H&P Notes * Theo Chawla MD - 07/29/2023 6:42 PM CDT Images from the original note were not included. [facility] History and Physical Department of Internal Medicine Patient Name: Timo Dixon Age: [age] year old Date of : 1980 Date of Admission:07/29/2023 Primary care provider: No primary care provider on file. Date of Service: 07/29/2023 Admitting Team: Sam Neff Assessment and Plan: Timo Dixon is a 43 year old male with past medical history of rheumatoid arthritis is transferred from [facility] Where he was admitted for dyspnea secondary to large pleural effusion and pericardial effusion. Status post pericardiocentesis with placement of drain pleurocentesis. Transferred here for cardiology and hematology consult. Dyspnea and respiratory abnormalities secondary to large pleural effusion and pericardial effusion.Currently denies dyspnea. On room air. Satting okay. Of note, respiratory panel was negative. Large pleural effusion, right side status post right-sided thoracentesis with removal of 1.5 L fluid. Negative for infection. ID was consulted. Infection is not suspected at this moment the etiology for pericardial or pleural effusion. Pericardial effusion, s/p pericardiocentesis and placement of pericardial drain. 500 cc fluid was removed during pericardiocentesis. He was having daily output of 60 mL from the pericardial drain which was removed prior to transfer. He is currently tachycardic denies dyspnea or chest pain. Suspected to be as a complication of rheumatoid arthritis. History of rheumatoid arthritis with suspected RA related pericardial effusion and pleural effusion. Hematology will be consulted. Per note, cardiology recommending to obtain TTE on Monday 07/31. History of treatment nonadherence for follow-up., Patient was having intermittent fever. Infectiousetiology is not suspected at this moment as the cause of the fever. Suspected to be related to RA. Leukocytosis: Patient had significant WBC count 3 days ago. However, procalcitonin level within normal limits. ESR 86, CRP 8.1. Pleural fluid cytology is negative for malignancy. Pneumonia or parapneumonic effusion is not suspected at this moment. ID was consulted. CODE: full code Diet/IVF: regular diet, DVT ppx: Lovenox 40 mg subcu daily. Disposition/Admission Status: Observation Theo Chawla MD Internal Medicine Staff Hospitalist [facility] Pager: [phone] Chief Complaint: Dyspnea with exertion HPI: This is a very pleasant 43-year-old male with history of rheumatoid arthritis diagnosed about 8 years ago who presented to [facility] with complaints of progressively worsening dyspnea.Patient apparently has not been having regular follow-ups with rheumatology history of poor follow-up. He states that he has been having shortness of breath with exertion for a long time and it started getting worse over the last few weeks. He states he told that he was just having worsening of hisoverall health condition and did not think that he was having flareup of rheumatoid arthritis. He denies any cough, wheezing. Patient is a current everyday smoker. Smokes a pack a day. Denies historyof emphysema. Has never been on oxygen before. He was noted to have a large pericardial effusion and right side pleural effusion which was large. He was admitted and had right-sided thoracentesis done with removal of 1.5 L of fluid. He also had pericardiocentesis done with removal of 500 cc of fluids. Pericardial drain was left in place and he was draining about 60 mL of fluids daily. There is a concern from cardiology at the time that removal of the drain might lead to buildup of pericardial fluids. However the pericardial drain was removed prior to transfer as the output was not significantand patient was not complaining of any significant dyspnea and vitals were stable. Patient reportedl y had fever. History of poor follow-up with rheumatology. He was not seen by rheumatology during his hospitalization at [facility] and it was felt that patient would need to be seen by rheumatology as there is no any suspected infectious etiology for the fluid buildup. Patient is currently on room air. Denies any dyspnea or chest pain. No cough. He was tachycardic with in the 110s. He does not have any edema on the lower extremities. Cardiology is planning to do a repeat TTE on Tuesday on 07/31 Past Medical History: Rheumatoid arthritis Past Surgical History: Thoracentesis, pericardiocentesis done this past admission Social History: Reviewed Social History Socioeconomic History Marital status: Single Spouse name: Not on file Number of children: Not on file Years of education: Not on file Highest education level: Not on file Occupational History Not on file Tobacco Use Smoking status: Not on file Smokeless tobacco: Not on file Substance and Sexual Activity Alcohol use: Not on file Drug use: Not on file Sexual activity: Not on file Other Topics Concern Not on file Social History Narrative Not on file Social Determinants of Health Financial Resource Strain: Not on file Food Insecurity: Not on file Transportation Needs: Not on file Physical Activity: Not on file Stress: Not on file Social Connections: Unknown (10/08/2022) Received from [employer] [facility] Social Connections Frequency of Communication with Friends and Family: Not on file Interpersonal Safety: Not on file Housing Stability: Not on file Family History: Diabetes mellitus , his father Immunizations: There is no immunization history on file for this patient. Allergies: No Known Allergies Medications: No medications prior to admission. Review of Systems: A complete ROS was performed and is negative other than what is stated in the HPI. Physical Exam: BP (!) 125/98 (BP Location: Left arm, Patient Position: Semi-Sánchez's) Pulse (!) 125 Temp 99.5 ??F (37.5 ??C) (Oral) Resp 20 Ht 1.727 m (5' 8) Wt 55.7 kg (122 lb 12.7 oz) SpO2 98% BMI 18.67 kg/m?? GENERAL: Alert and oriented x 3. NAD. HEENT: Anicteric sclera. Mucous membranes moist. CV: Tachycardic, S1, S2. No murmurs appreciated. RESPIRATORY: Effort normal on room air. Diminished breath sounds on the right posterior and right lower axillary area. No wheezes or crackles. GI: Abdomen soft and non distended with normoactive bowel sounds present in all quadrants. No tenderness, rebound, guarding. NEUROLOGICAL: No focal deficits. Moves all extremities. EXTREMITIES: No peripheral edema. Intact bilateral pedal pulses. SKIN: No jaundice. No rashes. Data: [facility] documented in this encounter Consult Notes * Kyung Wakefield RN - 07/30/2023 2:10 PM CDTAssociated Order(s): CARE MANAGEMENT / SOCIAL WORK IP CONSULT Care Management Initial Consult General Information Assessment completed with: Patient Type of CM/SW Visit: Initial assessment Primary Care Provider verified and updated as needed: No; patient declined assistance establishing with a PCP; states he is working to establish care with [facility]. Readmission within the last 30 days: No previous admission in last 30 days Reason for Consult: Discharge planning Advance Care Planning: Reviewed; no concerns identified Communication Assessment Patient's communication style: Spoken language (Lao or Bilingual) Hearing Difficulty or Deaf: No Wear Glasses or Blind: No Cognitive Cognitive/Neuro/Behavioral: WDL Living Environment: People in home: Alone Current living Arrangements: Mobile home Able to return to prior arrangements: Yes Family/Social Support: Care provided by: Self Provides care for: No one Marital Status: Description of Support System: Supportive, involved Support Assessment: Adequate family and caregiver support Current Resources: Patient receiving home care services: No Community Resources: None Equipment currently used at home: None Supplies currently used at home: None Employment/Financial: Employment Status: Employed full-time Financial Concerns: None Referral to Financial Worker: No Does the patient's insurance plan have a 3 day qualifying hospital stay waiver? No Lifestyle & Psychosocial Needs: Social Determinants of Health Food Insecurity: Not on file Depression: Not on file Housing Stability: Not on file Tobacco Use: High Risk (10/08/2022) Received from [employer] Patient History Smoking Tobacco Use: Every Day Smokeless Tobacco Use: Unknown Passive Exposure: Not on file Financial Resource Strain: Not on file Alcohol Use: Not on file Transportation Needs: Not on file Physical Activity: Not on file Interpersonal Safety: Not on file Stress: Not on file Social Connections: Unknown (10/08/2022) Received from [employer] Social Connections Frequency of Communication with Friends and Family: Not on file Health Literacy: Not on file Functional Status: Prior to admission patient needed assistance: Dependent ADLs:: Independent Dependent IADLs:: Independent Mental Health Status: Mental Health Status: No current concerns Chemical Dependency Status: Chemical Dependency Status: No current concerns Values/Beliefs: Spiritual, Cultural Beliefs, Nondenominational Practices, Values that affect care: No Additional Information: Met with patient and his significant other Mony to introduce self/role and complete initial assessment. Patient was transferred to [facility] from [facility]; transfer agreement on file. 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 Patient denies current home care services or the use of community resources. Discharge needs TBD. Care Management will continue to monitor progression of care,review team recommendations, and provide discharge planning assistance as needed. Kyung Wakefield RNCC Covering for WB 6M/S SEARCHABLE in [facility] - search EVALUATION ENGINEER [place] ([id number]) Tuesday & Tuesday; ([id number]) [facility] Recognized Holidays Units: 5A Onc Vocera & 5C Vocera Pager: [phone] Units: 6B Vocera & 6C Vocera Pager: [phone] Units: 7A SOT RNCC Vocera, 7B Med Surg Vocera, & 7C Med Surg Vocera Pager: [phone] Units: 6A Vocera & 4A CVICU Vocera, 4C MICU Vocera, and 4E SICU Vocera Pager: [phone] Units: 5 Ortho Vocera & 5 Med Surg Vocera Pager: [phone] Units: 6 Med Surg Vocera & 8 Med Surg Vocera Pager [phone] * Geovanny Medina MD - 07/30/2023 10:15 AM CDTAssociated Order(s): RHEUMATOLOGY IP CONSULT Images from the original note were not included. Rheumatology Consult Note-Fellow Timo Dixon Age: [age] year old Date of : 1980 Date of Admission: 07/29/2023 Reason for consult: Requesting Physician: Assessment & Plan: ASSESSMENT: Timo Dixon is a 43 year old with past medical history of rheumatoid arthritis is transferred from [facility] Where he was admitted for dyspnea secondary to large pleural effusion and pericardial effusion. Status post pericardiocentesis with placement of drain pleurocentesis. Transferred here for cardiology and hematology consult. We do not have records from [facility] here but patient seems to be having seropositiveas per the notes here. We will order an RF and CCP for further evaluation. We will order an JAGJIT forfurther evaluation. CRP is slightly elevated at 8.4. The current episode of pleuropericardial effusion is likely secondary to combination of uncontrolled RA along with a viral trigger. Patient is at a high risk of recurrent pericardial effusion due to his baseline steroid therapy. Patient also tested positive for elevated RF in pleural fluid evaluation. Fluid analysis showed predominantly exudative pleural fluid and pericardial fluid analysis with no obvious infectious or malignant phenomenon. At this time it is reasonable to consider rheumatoid arthritis as the potential primary cause of pleuropericardial effusion. Management of pleuropericardialeffusion in rheumatoid arthritis patients is not significantly different from normal population. Wedo primarily recommend high-dose NSAID therapy along with colchicine as this is shown to prevent recurrent pleuropericarditis. However, this patient is already on 10 mg of prednisone daily at baseline which makes him a high risk candidate for recurrence. We had this discussion with the patient and advised the patient to return to ED if he develops worsening shortness of breath postdischarge. DIAGNOSIS: 1. Rheumatoid arthritis 2. Pleural effusion and pericardial effusion PLAN: -- Would recommend doing a combination of NSAID, colchicine along with high-dose prednisone therapyas below to treat the current episode of pleuropericarditis. Please get cardiology recommendations on the dose and type of NSAID that they think is appropriate. Otherwise, we recommend starting the patient on colchicine 0.6 mg daily if there is no significant drug interactions. -- Would also recommend starting the patient on prednisone 30 mg daily with a taper as below for control of active inflammation at this time 30 mg daily for 2 weeks followed by 20 mg daily for 2 weeks followed by 15 mg daily for 2 weeks followed by 10 mg daily until he follows up with rheumatology clinic. --We would not recommend PJP prophylaxis for prednisone at this dosage. We will consider doing a DEXA scan outpatient as patient has been on long-term steroid therapy for the last 2 years. --Okay to discharge from rheumatology standpoint with there are no other medical concerns. We will try to schedule an appointment for the patient with rheumatology outpatient in 3 to 4 weeks. Please order a rheumatology consult at the time of discharge. I discussed the findings and recommendations with the patient. I communicated the assessment and plan to the consulting team. Case seen and discussed with Dr. Coley who agrees with above assessment and plan. Thank you Theo Chawla MD for for this interesting consult. Please contact us if there are anyquestions. Geovanny Medina, Rheumatology Fellow. This note was generated using [employer] software and reviewed by myself. Please excuse any grammatical or spelling errors above. SG Dixon is a 43 year old male with longstanding history of rheumatoid arthritis who is transferred from [facility] after he was admitted there for dyspnea secondary to large right pleural effusion and pericardial effusion s/p pericardiocentesis with placement of drain pleurocentesis. Patient reports that he has a longstanding history of rheumatoid arthritis diagnosed about 8 years ago during which she had bilateral palmar and plantar rash where there was a question of rheumatoid arthritis versus psoriatic arthritis. He has been following up with [place] [facility] since that. he has tried several medications unsuccessfully including Humira(ineffective), Enbrel(worked well for 4 years and lost efficacy), Taltz(ineffective) and was recently started on Simponi about 4 to 5 months ago and he has received 4 doses so far with no significant improvement in clinical symptomsas per the patient. He also reports that he has been on prednisone 10 mg daily as maintenance for mo re than 2 years at this time. He reports that he has a baseline pain of 4-5/10 in bilateral hands, wrists, elbows, shoulders, knees and ankles. 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 Reports morning stiffness of about 2 hours and reports pain slightly improving with activity but overall consistent throughout the day. Since admission to the hospital at [place], patient was found to have large right-sided pleural effusion s/p thoracocentesis with removal of 1.5 L of fluid. He also had pericardiocentesis done with placement of pericardial drain and removal of 500 cc of fluid. Pericardial drain was removed prior to the transfer. Pleural fluid evaluation shows 2700 nucleated cells, predominantly monocytic and 11,000 RBC. No evidence of infection or malignancy on fluid analysis of pleural and pericardial fluid. Patient reports that he had symptoms of chest tightness, shortness of breath and fevers about 3 weeks ago which seems to have improved spontaneously but returned about a week ago. He has intermittentepisodes of fever seems to have since improved significantly. Reports that his shortness of breath and chest tightness has significantly improved since hospitalization. Otherwise denies any international travel, sick contacts. He does smoke a pack a day of cigarettes, drinks alcohol 6-8 drinks per week, smokes marijuana and cocaine. No IV drug use. Patient denies any fevers, chills, weight loss, vision changes, headaches, focal weakness or numbness. Denies any arthralgias, morning stiffness, Raynaud's, myalgias, Alopecia, rash, vitiligo, photosensitivity, nasal or oral ulcers, ear fullness or drainage. No cough or dyspnea, no hematuria, no history of blood clots. Serology Positive: RF, CCP HISTORY REVIEW: No past medical history on file. No past surgical history on file. No family history on file. Social History Socioeconomic History Marital status: Spouse name: Not on file Number of children: Not on file Years of education: Not on file Highest education level: Not on file Occupational History Not on file Tobacco Use Smoking status: Not on file Smokeless tobacco: Not on file Substance and Sexual Activity Alcohol use: Not on file Drug use: Not on file Sexual activity: Not on file Other Topics Concern Not on file Social History Narrative Not on file Social Determinants of Health Financial Resource Strain: Not on file Food Insecurity: Not on file Transportation Needs: Not on file Physical Activity: Not on file Stress: Not on file Social Connections: Unknown (10/08/2022) Received from [facility] Social Connections Frequency of Communication with Friends and Family: Not on file Interpersonal Safety: Not on file Housing Stability: Not on file Patient Active Problem List Diagnosis Pericardial effusion No Known Allergies ROS A 10 point ROS was performed with pertinent findings listed above. Objective PHYSICAL EXAM BP 125/84 (BP Location: Right arm) Pulse 115 Temp 98.2 ??F (36.8 ??C) (Oral) Resp 23 Ht 1.727 m (5' 8) Wt 55.7 kg (122 lb 12.7 oz) SpO2 99% BMI 18.67 kg/m?? Wt Readings from Last 4 Encounters: 07/29/23 55.7 kg (122 lb 12.7 oz) Constitutional: WD-WN-WG cooperative Eyes: nl EOM, PERRLA, vision, conjunctiva, sclera ENT: nl external ears, nose, hearing, lips, teeth, gums, throat No mucous membrane lesions, normal saliva pool Neck: no mass or thyroid enlargement Resp: lungs clear to auscultation, nl to palpation CV: RRR, no murmurs, rubs or gallops, no edema GI: no ABD mass or tenderness, no HSM : not tested Lymph: no cervical, supraclavicular, inguinal or epitrochlear nodes MS: Patient has mild tenderness to palpation in bilateral ankle and MTP squeeze otherwise no obvious synovitis noted in bilateral PIP, DIP and MCP joints. ROM normal bilateral wrist, elbows, shoulders, hips, knees and ankles. Restricted elbow extension beyond 170 degrees. Skin: no nail pitting, alopecia, rash, nodules or lesions Neuro: No obvious focal neurological deficits. Psych: nl judgement, orientation, memory, affect. DATA: Outside Records: YES Outside Xrays: YES CBC: Recent Labs Lab Test 07/30/23 0616 WBC 14.9* RBC 5.59 HGB 12.0* HCT 40.5 MCV 73* MCH 21.5* MCHC 29.6* RDW 18.6* PLT 585* BMP: Recent Labs Lab Test 07/30/23 0616 07/29/23 1859 NA 135 -- POTASSIUM 4.2 -- CHLORIDE 100 -- CO2 23 -- ANIONGAP 12 -- GLC 89 -- BUN 16.1 -- CR 0.61* 0.62* GFRESTIMATED >90 >90 KENROY 8.9 -- LFT: No results for input(s): PROTTOTAL, ALBUMIN, BILITOTAL, ALKPHOS, AST, ALT, BILIDIRECTin the last 21171 hours. No results found for: CKTOTAL No results found for: TSH No results found for: URIC Inflammatory markers No results found for: CRP No results found for: SED No results found for: JOSE UA RESULTS: No results for input(s): COLOR, APPEARANCE, URINEGLC, URINEBILI, URINEKETONE, SG, UBLD, URINEPH, PROTEIN, UROBILINOGEN, NITRITE, LEUKEST, RBCU, WBCU in the last 92277 hours. Autoimmunity labs: No results found for: RHF No results found for: CCPIGG No results found for: ANCA No results found for: A9CRNIX No results found for: U2BFDMA No results found for: RAJENDRA No results found for: DNA No results found for: RNPIGG, SMIGG, SSAIGG, SSBIGG, SCLIGG IMAGING: Associated attestation - Alfred Coley MD - 07/31/2023 11:54 AM CDT Physician Attestation I saw this patient with Dr. Geovanny Medina, Rheumatology fellow, and I agree with his findings and plan of care as documented in the note. Henry findings: Pericardial effusion and pleural effusion in the setting of longstanding seropositiverheumatoid arthritis that was not well controlled. Need to rule out TB. I agree with the increase of prednisone, NSAIDs and colchicine (optional). Alfred Coley MD Date of Service (when I saw the patient): 07/30/23 * Kulwinder Ridley MD - 07/30/2023 6:46 AM CDTAssociated Order(s): CARDIOLOGY GENERAL ADULT IP CONSULT Images from the original note were not included. Cardiology New Consult Note Date of Service: 07/30/23 ASSESSMENT: Timo Dixon is a 43 year old male who presents for evaluation of dyspnea. He has a pmhx of RA.He originally presented to [facility] with progressive dyspnea. Found to have pericardial and pleural effusions s/p thoracentesis and pericardiocentesis. Cardiology is consulted for evaluation of pericardial effusion. Fluid studies at OSH reported as exudative. Viral and infectious panels were negative. He denies any active infectious symptoms. He feels that his RA has been poorly controlled as of late. Denies anyprior cardiac history and has not had any prior pericardial effusions in the past. Rheumatologic conditions such as RA or SLE can certainly cause effusions. An exudative effusion is consistent with this presentation. He does not have renal failure or uremia. No overt viral prodrome I identified. From a lit search it seems that there are infrequent associations of golimumab with pericardial effusions, but it has been suggested. I will defer to our Rheum colleagues to weigh this potential side effect vs the benefits of the drug. A repeat TTE would be reasonable to assess the effusion, if present. If this is rheumatologic in nature, best course would be to treat its underlying cause. RECOMMENDATIONS: - TTE - EKG for a baseline rhythm - Consider Rheum consult for evaluation and optimization of RA. - Monitor for signs of pericardial effusion reaccumulation (hypotension, worsening tachycardia, JVD, muffled heart sounds etc) - Check iron panel given low MCV. - Tele - K>4, Mg>2 - Strongly advised discontinuing all tobacco use and cocaine use. - Cardiology follow up in 1 month. - Agree with pericarditis treatment, start colchicine 0.6 mg and ibuprofen 600 mg every 8 hours for1-2 week Discussed with attending, Dr. Pisano Thank you for consulting the cardiovascular services at the [facility].Please do not hesitate to call us with any questions. Kulwinder Ridley, PGY-5 Cardiovascular Disease Fellow REASON FOR CONSULT: Pericardial effusion History of Present Illness Timo Dixon is a 43 year old male who presents for evaluation of dyspnea. He has a pmhx of RA.He originally presented to [facility] with progressive dyspnea. Found to have pericardial and pleural effusions s/p thoracentesis and pericardiocentesis. Cardiology is consulted for evaluation of pericardial effusion. Patient previously noted progressive LONG. This has been somewhat of a chronic problem but worseningrecently which brought him to the hospital. No chest pain or pressure. Work up revealed large pericardial and pleural effusions. No evidence of tamponade at that time, LVEF 60-65%. He had a thoracentesis s/p 1.5L off and a pericardiocentesis s/p 500 ml off. Fluid studies reported as exudative (LDH 1,718, glucose <2), cultures negative. Viral panel negative. The pericardial drain was removed prior to transfer. The OSH felt that infection was not the cause of the effusion, and was possibly rheumatologic related to RA. Stable [place] [facility]. Today, the patient reports feeling well overall. He denies symptoms of SOB, LONG, dizziness, palpitations, orthopnea, PND, leg swelling. He has not had any of these since this thoracentesis and pericardiocentesis. He has never needed a pericardicentesis in the past. He denies fever or chills. He unfortunately smokes tobacco. He uses marijuana and cocaine. Denies significant EtOH use. PAST MEDICAL HISTORY: No past medical history on file. CURRENT MEDICATIONS: No current outpatient medications on file. PAST SURGICAL HISTORY: No past surgical history on file. ALLERGIES No Known Allergies FAMILY HISTORY: No family history on file. SOCIAL HISTORY: Social History Socioeconomic History Marital status: Single Social Determinants of Health [facility] Social Connections Review of Systems: 10-point ROS reviewed, & found negative w/ exceptions noted in the HPI. Physical Exam Temp: 98.6 ??F (37 ??C) Temp src: Oral BP: (!) 134/92 Pulse: 120 Resp: 20 SpO2: 98 % O2 Device: None (Room air) Vital Signs with Ranges Temp: [98.2 ??F (36.8 ??C)-99.5 ??F (37.5 ??C)] 98.6 ??F (37 ??C) Pulse: [115-125] 120 Resp: [20-23] 20 BP: (109-134)/(72-98) 134/92 SpO2: [95 %-99 %] 98 % 122 lbs 12.74 oz Virtual consult, not examined. Data Recent Labs Lab 07/30/23 0616 07/29/23 1859 WBC 14.9* -- HGB 12.0* -- MCV 73* -- PLT 585* -- NA 135 -- POTASSIUM 4.2 -- CHLORIDE 100 -- CO2 23 -- BUN 16.1 -- CR 0.61* 0.62* ANIONGAP 12 -- KENROY 8.9 -- GLC 89 -- No results found for this or any previous visit (from the past 24 hour(s)). OSH TTE 07/26/23 1. Large 2.6cm circumferential pericardial effusion with evidence of increased intrapericardial pressure but no tamponade physiology. Increased echogenicity of pericardial fluid. 2. Normal LV size, normal wall thickness, normal global systolic function with an estimated EF of 60 - 65%. 3. Right ventricular cavity size is normal, global systolic RV function is normal. 4. The aortic valve is sclerotic, no stenosis and no regurgitation. 5. The mitral valve is normal, no mitral regurgitation. 6. The inferior vena cava is normal sized, respiratory size variation less than 50%. 7. Right pleural effusion. Stress Test: NA Coronary angiogram: NA I saw and evaluated patient with CV fellow. I examined patient with CV fellow. I discussed the results with patient and CV fellow. I discussed our plan with patient and CV fellow. I agree with CV fellow's note and I edited the CV fellow's note to make it a more comprehensive document. 45 min were directly spent with patient and CV fellow. Tariq Pisano MD, PhD [facility] Division of Cardiology Associated attestation - Tariq Pisano MD - 07/30/2023 5:06 PM CDT I saw and evaluated patient with CV fellow. I examined patient with CV fellow. I discussed the results with patient and CV fellow. I discussed our plan with patient and CV fellow. I agree with CV fellow's note and I edited the CV fellow's note to make it a more comprehensive document. 45 min was spent directly with patient and CV fellow. Tariq Pisano MD, PhD [facility] Division of Cardiology documented in this encounter Miscellaneous Notes * Plan of Care - Ludivina Whitehead RN - 07/31/2023 2:40 PM CDT 6MS DISCHARGE D: Patient discharged to home at 1610. Declined transportation I: Discharge prescriptions given to patient. All discharge medications and instructions reviewed with pt. Phone numbers to call with questions or concerns after discharge reviewed. PIV removed. Education completed. A: Pt verbalized understanding of discharge medications and instructions. Prescribed home medications given to patient. Belongings returned to patient. P: Patient to follow-up with [employer] within 7 days and referral made to cards Patient is alert and oriented x4. Able to make needs known. On RA stable. Denies N/V, numbness/tingling or CP. Pt up independently. Voiding spontaneously with no difficulty. Ate 100% of meal. Skin CDI. Bed in low position. Call light within reach. Continue with POC. BP 116/77 (BP Location: Left arm) Pulse 101 Temp 97.7 ??F (36.5 ??C) (Oral) Resp 23 Ht 1.727 m (5' 8) Wt 55.7 kg (122 lb 12.7 oz) SpO2 97% BMI 18.67 kg/m?? * Utilization Review - Dony Reed DO - 07/31/2023 2:25 PM CDT [facility] Admission Status; Secondary Review Determination Admission date: 07/29/2023 4:38 PM Under the authority of the Utilization Management Committee, the utilization review process indicated a secondary review on the above patient. The review outcome is based on review of the medical records, discussions with staff, and applying clinical experience noted on the date of the review. (x) Inpatient Status Appropriate - This patient's medical care is consistent with medical management for inpatient care and reasonable inpatient medical practice. RATIONALE FOR DETERMINATION 43-year-old male with a history of rheumatoid arthritis was admitted on 07/28 with shortness of breath secondary to a large pleural effusion and pericardial effusion. He was actually transferred from [facility] where he was hospitalized from 07/25 to 07/28. Utilization review was done at that time and approved inpatient status according to my review of the chart. At [facility] he underwent a right-sided thoracentesis with removal of 1.5 L of fluid and had a pericardiocentesis with removal of 500 cc of fluid and a pericardial drain was left in place but has nowbeen removed. He was transferred to [facility] on 07/28 for cardiology and rheumatology evaluation. Echocar diogram is planned tomorrow. Colchicine and ibuprofen have been started. The patient is also on systemic steroids. Infectious disease was also consulted given his leukocytosis. This patient is complicated, has multiple ongoing issues, has remained hospitalized since 07/25, was transferred from [facility] where he was hospitalized as an inpatient to the [facility] and this is considered 1 continuous hospitalization, is at high risk for clinical deterioration, and is appropriate for inpatient hospitalization at the time of this review. This recommendation was paged tohis primary team. The severity of illness, intensity of service provided, expected LOS and risk for adverse outcome make the care complex, high risk and appropriate for hospital admission. At the time of admission with the information available to the attending physician more than 2 nights Hospital complex care was anticipated, based on patient risk of adverse outcome if treated as outpatient and complex care required. Inpatient admission is appropriate based on the Medicare guidelines. The information on this document is developed by the utilization review team in order for the business office to ensure compliance. This only denotes the appropriateness of proper admission status and does not reflect the quality of care rendered. The definitions of Inpatient Status and Observation Status used in making the determination above are those provided in the CMS Coverage Manual, Chapter 1 and Chapter 6, section 70.4. Sincerely, Dony Reed DO MPH Physician Advisor Utilization Review [facility] * Plan of Care - Kyung Wakefield RN - 07/30/2023 2:09 PM CDT Goal Outcome Evaluation: Plan of care reviewed with: Patient Overall patient progress: No change Outcome evaluation: Discharge disposition pending patient progression and care team recommendations. * Plan of Care - Ludivina Whitehead RN - 07/29/2023 9:29 PM CDT Goal Outcome Evaluation: Plan of Care Reviewed With: patient Overall Patient Progress: no changeOverall Patient Progress: no change Discharge Plan: TBD VS: BP (!) 125/98 (BP Location: Left arm, Patient Position: Semi-Sánchez's) Pulse (!) 125 Temp 99.5 ??F (37.5 ??C) (Oral) Resp 20 Ht 1.727 m (5' 8) Wt 55.7 kg (122 lb 12.7 oz) SpO2 98% BMI 18.67 kg/m?? O2: Sating >95% on RA, denies SOB/Chest pain. Denies N/V. Afebrile. LS clear Output: Voids spontaneously in bathroom Last BM: LBM 5/14 per pt. Bowel sounds normoactive x4 Activity: Up independently in room Up for meals? Yes Skin: All visible skin intact Pain: Denies pain CMS: AO x4, Denies N/T Dressing: None Diet: Regular diet, thin liquids LDA: R. PIV/SL Equipment: IV pole, personal belongings Plan: Call light within reach, bed in a low position. Able to make needs known. Continue to monitorwith POC. Additional Info: * Pharmacy-Admission Medication History - Cassie Jean-Baptiste [facility] - 07/29/2023 8:07 PM CDT Pharmacist Admission Medication History Admission medication history is complete. The information provided in this note is only as accurateas the sources available at the time of the update. Information Source(s): Patient and CareEverywhere/SureScripts via in-person Recent admission to [facility]. 07/25-07/28. Medication history on 07/25 and Discharge summary 07/28. Pertinent Information: Gutierrez medication list from [place] listed terbinafine. Medication was from 2013 and patient reportsnot having used the cream in over 4 years. Did not add to [employer] med list. Prednisone: Reports he mainly takes 10 mg daily. Has tried to go down to 5 mg daily but 10 mg typically helps the most with pain. Will occasionally go up to 20 mg daily pending RA pain or flares. Changes made to [employer] medication list: Added: all medications to list Allergies reviewed with patient and updates made in EHR: yes Medication History Completed By: Cassie Jean-Baptiste RPH 07/29/2023 8:07 PM [employer] Med List Medication Sig Last Dose oudkexu-syclsybxhkang-aylhlnjo (EXCEDRIN MIGRAINE) 250-250-65 MG tablet Take 2 tablets by mouth 3 times daily as needed for headaches 07/24/2023 at PRN golimumab (SIMPONI) 50 MG/0.5ML auto-injector pen Inject 50 mg Subcutaneous every 28 days 06/29/2023 naproxen sodium (ANAPROX) 220 MG tablet Take 440 mg by mouth 2 times daily as needed for moderate pain 07/24/2023 at HS predniSONE (DELTASONE) 10 MG tablet Take 10 mg by mouth daily 07/29/2023 at AM documented in this encounter Plan of Treatment Upcoming Encounters Date Type Department Care Team (Late st Contact Info) Description 08/31/2023 4:00 PM CDT Office Visit [facility] [address] [facility] [address] [place] [address] Kulwinder Ridley MD [address] [place] [id number] Edmond Felix MD [address] [place] [address] 09/27/2023 9:30 AM CDT Virtual Visit [facility] [address] [place] [id number] Alfred Coley MD [address] [place], [place] [id number] Keven Smith, [facility] [address] [facility] Scheduled Referrals Name Type Priority Associated Diagnoses Orde r Schedule Adult Cardiology Eval Continuous Improvement Coordinator Referral Referral Routine: Next available opening 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) Expected: 07/31/2023 (Approximate), Expires: 07/30/2024 Adult Cardiology Eval Continuous Improvement Coordinator Referral Referral Routine: Next available opening 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) Pericardial effusion Expected: 08/31/2023 (Approximate), Expires: 07/30/2024 documented as of this encounter Procedures Procedure Name Priority Date/Time Associated Diagnosis Comments ECHO LIMITED Routine 07/31/2023 1:59 PM CDT QUANTIFERON TB GOLD PLUS Routine 07/31/2023 1:13 PM CDT QUANTIFERON TB GOLD PLUS PURPLE TUBE Routine 07/31/2023 1:13 PM CDT QUANTIFERON TB GOLD PLUS YELLOW TUBE Routine 07/31/2023 1:13 PM CDT QUANTIFERON TB GOLD PLUS GREEN TUBE Routine 07/31/2023 1:13 PM CDT QUANTIFERON TB GOLD PLUS HUTCHINSON TUBE Routine 07/31/2023 1:13 PM CDT QUANTIFERON-TB GOLD PLUS Routine 07/31/2023 1:13 PM CDT HIV ANTIGEN [...] TRACING ONLY Routine 07/30/2023 4:33 PM CDT PROCALCITONIN Routine 07/30/2023 6:16 AM CDT IRON AND IRON BINDING CAPACITY Add-On 07/30/2023 6:16 AM CDT FERRITIN Add-On 07/30/2023 6:16 AM CDT BASIC METABOLIC PANEL Routine 07/30/2023 6:16 AM CDT CBC WITH PLATELETS Routine 07/30/2023 6: 16 AM CDT CREATININE Routine 07/29/2023 6:59 PM CDT documented in this encounter Results * ECHO LIMITED (07/31/2023 1:59 PM CDT) LVEF 55-60% CARDIOLOGY RESULTS Anatomical Region Laterality Modality Echocardiography 07/31/2023 12:2 3 PM CDT Narrative 07/31/2023 3:49 PM CDT [id number]^KULWINDER [facility] Echocardi[facility] Laboratory [address] [place] [address] Name: TIMO DIXON : 1980 Study Date: 07/31/2023 12:23 PM Age: 43 yrs Gender: Male Patient Location: [facility] Reason For Study: Pericardial Effusion Ordering Physician: KULWINDER RIDLYE Referring Physician: TORRIE TORRES Performed By: Cheri [...] Procedure Note Tami Kim MD - 07/31/2023 [id number]^KHAI^KULWINDER [facility] [facility] [address] [place] [id number] Name: TIMO DIXON : 1980 Study Date: 07/31/2023 12:23 PM Age: 43 yrs Gender: Male Patient Location: [facility] Reason For Study: Pericardial Effusion Ordering [...] [facility] SPECIALTY CORE/PROT/ENDO [facility] Specialty Core/Prot/Endo [address] [facility], [address] * Quantiferon TB Gold Plus Purple Tube (07/31/2023 1:13 PM CDT) Quantiferon Mitogen 0.08 IU/mL 08/02/2023 8:24 AM CDT SPECIALTY CORE/PROT/ENDO Blood STRUCTURE OF LEFT UPPER LIMB / Unknown Venipuncture / Unknown 07/31/2023 1:13 PM CDT 07/31/2023 1:21 PM CDT Alfred Coley MD LAB - MICRO GENERAL ORDERABLES UM SPECIALTY CORE/PROT/ENDO Specialty Core/Prot/Endo [address] [facility], [address] * Quantiferon TB Gold Plus Yellow Tube (07/31/2023 1:13 PM CDT) Quantiferon TB2 Tube 0.10 08/02/2023 8:23 AM CDT UM SPECIALTY CORE/PROT/ENDO Blood STRUCTURE OF LEFT UPPER LIMB / Unknown Venipuncture / Unknown 07/31/2023 1:13 PM CDT 07/31/2023 1:21 PM CDT Alfred Coley MD LAB - MICRO GENERAL ORDERABLES UM SPECIALTY CORE/PROT/ENDO UM Specialty Core/Prot/Endo [address] [facility] [address], [address] * Quantiferon TB Gold Plus Green Tube (07/31/2023 1:13 PM CDT) Quantiferon TB1 Tube 0.00 IU/mL 08/02/2023 8:32 AM CDT UM SPECIALTY CORE/PROT/ENDO Blood STRUCTURE OF LEFT UPPER LIMB / Unknown Venipuncture / Unknown 07/31/2023 1:13 PM CDT 07/31/2023 1:21 PM CDT Alfred Coley MD LAB - MICRO GENERAL ORDERABLES UM SPECIALTY CORE/PROT/ENDO UM Specialty Core/Prot/Endo [address] [facility], [address] * Quantiferon TB Gold Plus [place] Tube (07/31/2023 1:13 PM CDT) Quantiferon Nil Tube 0.10 IU/mL 08/02/2023 8:23 AM CDT UM SPECIALTY CORE/PROT/ENDO Blood STRUCTURE OF LEFT UPPER LIMB / Unknown Venipuncture / Unknown 07/31/2023 1:13 PM CDT 07/31/2023 1:21 PM CDT Alfred Coley MD LAB - MICRO GENERAL ORDERABLES UM SPECIALTY CORE/PROT/ENDO UM Specialty Core/Prot/Endo [address] [facility] [address], [address] * HIV Antigen Antibody Combo [place] (07/31/2023 1:13 PM CDT) HIV Antigen Antibody Combo Nonreactive Nonreactive 07/31/2023 4:16 PM CDT LABORATORY Comment:Negative HIV-1 p24 a ntigen and [...] Organization Address [facility] de Phone Number LABORATORY [facility] [place] Core Lab [address] [facility], Room 3[address] * Hepatitis C Screen Reflex to HCV RNA Quant and Genotype (07/31/2023 1:13 PM CDT) Pathologist [facility] Hepatitis C Antibody Nonreactive Nonreactive 07/31/2023 3:59 PM CDT LABORATORY Comment:A nonreactive screen ing test result [...] Organization Address [facility] de Phone Number LABORATORY [facility] [place] Core Lab [address] [facility], Room [address] [id number] * Hepatitis B core antibody (07/31/2023 [...] - BLOOD ORDERABL ES Performing Organization Address City/[facility]/ZIP Co de Phone Number U LABORATORY [facility] [place] Core Lab [address] [facility], Room [address] [phone] * Hepatitis B surface antigen (07/31/2023 8:25 AM CDT) Pathologist [facility] Hepatitis B Surface Antigen Nonreactive Nonreactive 07/31/2023 3:52 PM CDT UU LABORATORY Blood STRUCTURE OF LEFT UPPER LIMB / Unknown Venipuncture / Unknown 07/31/2023 8:25 AM CDT 07/31/2023 8:45 AM CDT Alfred Coley MD LAB - BLOOD ORDERABL ES U LABORATORY [facility] [place] Core Lab [address] [facility], Room [address] [phone] * (ABNORMAL) Basic metabolic panel (07/31/2023 8:25 AM CDT) Pathologist [facility] Sodium 136 135 - 145 mmol/L 07/31/2023 [...] LAB - BLOOD ORDERABL ES UR LABORATORY [facility] Acute Care Lab [facility], Room [address] [place] [address] * (ABNORMAL) CBC with platelets (07/31/2023 8:25 AM CDT) WBC Count 17.9(H) 4.0 - 11.0 10e3/uL [...] - BLOOD ORDERABL ES Performing Organization Address City/State/[facility] Co de Phone Number UR LABORATORY [facility] Acute Care Lab [address] [facility], Room [address] [place] [address] * EKG 12-lead, complete (07/30/2023 4:33 PM CDT) Systolic Blood Pressure mmHg RADIOLOGY RESULTS Diastolic Blood Pressure mmHg RADIOLOGY RESULTS Ventricular Rate 120 BPM RAD IOLOGY RESULTS Atrial Rate 120 BPM RADIOLOG Y RESULTS GA Interval 114 ms RADIOLOG Y RESULTS QRS Duration 74 ms RADIOLO GY RESULTS QT 300 ms RADIOLOGY RESULTS QTc 424 ms RADIOLOGY RESULTS P [place] 78 degrees RADIOLOGY RESULTS R AXIS 87 degrees RADIOLOGY RESULTS T [place] 63 degrees RADIOLOGY RESULTS Interpretation ECG Sinus tachycardia Right atrial enlargement Nonspecific T wave abnormality Abnormal ECG When compared with ECG of 02-DEC-2003 15:15, Nonspecific T wave abnormality now evident in Anterolateral leads Confirmed by MD GARCIA JANE ([id number]) on 08/01/2023 5:01:26 PM RADIOLOGY RESULTS 07/30/2023 4:33 PM CDT 08/01/2023 5:01 PM CDT Lyle Kuross DO ECG ORDERABLES Performing Organization Address City/[facility] Co de Phone Number RADIOLOGY RESULTS * (ABNORMAL) Iron and iron binding capacity [...] Organization Address [facility] Co de Phone Number UR LABORATORY [facility] Acute Care Lab [address] [place] [address], [address] * Ferritin (07/30/2023 6:16 AM CDT) Ferritin 145 31 - 409 ng/mL 07/30/2023 1:59 PM CDT UR LABORATORY Blood STRUCTURE OF LEFT UPPER LIMB / Unknown Venipuncture / Unknown 07/30/2023 6:16 AM CDT 07/30/2023 6:41 AM CDT Lyle Galaviz DO LAB - BLOOD ORDERABL ES Performing Organization Address [facility] Co de Phone Number UR LABORATORY [facility] Acute Care Lab [address] [place] [address], [address] * Procalcitonin (07/30/2023 6:16 AM CDT) Procalcitonin [...] See Procalcitonin Guidance document for more details. [email or web address] Factors that may affect PCT levels (not [...] LAB - BLOOD ORDERABL ES UR LABORATORY [facility] Acute Care Lab [address] [facility], [address] [place] [address], [facility] * (ABNORMAL) CBC with platelets (07/30/2023 6:16 AM CDT) WBC Count 14.9(H) 4.0 - 11.0 10e3/uL 07/30/2023 6:47 AM CDT UR LABORATORY RBC Count 5.59 4.40 - 5.90 10e6/uL 07/30/2023 6:47 AM CDT UR LABORATORY Hemoglobin 12.0(L) 13.3 - 17.7 g/dL 07/30/2023 6:47 AM CDT UR LABORATORY Hematocrit 40.5 40.0 - 53.0 % 07/30/2023 6:47 AM CDT UR LABORATORY MCV 73(L) 78 - 100 fL 07/30/2023 6:47 AM CDT UR LABORATORY MCH 21.5(L) 26.5 - 33.0 pg 07/30/2023 6:47 AM CDT UR LABORATORY MCHC 29.6(L) 31.5 - 36.5 g/dL 07/30/2023 6:47 AM CDT UR LABORATORY RDW 18.6(H) 10.0 - 15.0 % 07/30/2023 6:47 AM CDT UR LABORATORY Platelet Count 585(H) 150 - 450 10e3/uL 07/30/2023 6:47 AM CDT UR LABORATORY Blood STRUCTURE OF LEFT UPPER LIMB / Unknown Venipuncture / Unknown 07/30/2023 6:16 AM CDT 07/30/2023 6:41 AM CDT Theo Chawla MD LAB - BLOOD ORDERABL ES UR LABORATORY [facility] Acute Care Lab [address] [facility], [address] [place] [address] * (ABNORMAL) Basic metabolic panel (07/30/2023 6:16 AM CDT) Pathologist [facility] Sodium 135 135 - 145 mmol/L 07/30/2023 7:32 AM CDT UR LABORATORY Comment:Reference intervals for this test were updated on 12/07/2022 to more accurately reflect our healthy population. There may be differences in the flagging of prior results with similar values performed with this method. Interpretation of those prior results can be made in the context of the updated reference intervals. Potassium 4.2 3.4 - 5.3 mmol/L 07/30/2023 7:32 AM CDT UR LABORATORY Chloride 100 98 - 107 mmol/L 07/30/2023 7:32 AM CDT UR LABORATORY Carbon Dioxide (CO2) 23 22 - 29 mmol/L 07/30/2023 7:32 AM CDT UR LABORATORY Anion Gap 12 7 - 15 mmol/L 07/30/2023 7:32 AM CDT UR LABORATORY Urea Nitrogen 16.1 6.0 - 20.0 mg/dL 07/30/2023 7:32 AM CDT UR LABORATORY Creatinine 0.61(L) 0.67 - 1.17 mg/dL 07/30/2023 7:32 AM CDT UR LABORATORY GFR Estimate >90 >60 mL/min/1. 73m2 07/30/2023 7:32 AM CDT UR LABORATORY Calcium 8.9 8.6 - 10.0 mg/dL 07/30/2023 7:32 AM CDT UR LABORATORY Glucose 89 70 - 99 mg/dL 07/30/2023 7:32 AM CDT UR LABORATORY Blood STRUCTURE OF LEFT UPPER LIMB / Unknown Venipuncture / Unknown 07/30/2023 6:16 AM CDT 07/30/2023 6:41 AM CDT Theo Chawla MD LAB - BLOOD ORDERABL ES UR LABORATORY [facility] Acute Care Lab [address] [facility], [address] [phone] * (ABNORMAL) Creatinine (07/29/2023 6:59 PM CDT) Creatinine 0.62(L) 0.67 - 1.17 mg/dL 07/29/2023 8:09 PM CDT UR LABORATORY GFR Estimate >90 >60 mL/min/1.7 3m2 07/29/2023 8:09 PM CDT UR LABORATORY Blood STRUCTURE OF LEFT UPPER LIMB / Unknown Venipuncture / Unknown 07/29/2023 6:59 PM CDT 07/29/2023 7:38 PM CDT Theo Chawla MD LAB - BLOOD ORDERABL ES UR LABORATORY [facility] Acute Care Lab [address] [facility], [address] [place] [address], [facility] documented in this encounter Visit Diagnoses Diagnosis 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 colchicine (COLCRYS) tablet 0.6 mg 0.6 mg, Oral, DAILY, First dose on 07/30/23 at 1700 $Given 07/31/2023 8:38 AM CDT 0.6 mg $Given 07/30/2023 5:17 PM CDT 0.6 mg enoxaparin ANTICOAGULANT (LOVENOX) injection 40 mg 40 mg, Subcutaneous, EVERY 24 HOURS, First dose on Tue07/29/23 at 2000, HOLD if platelet count falls below 50% of baseline or less than 100,000/??L and notify provider. $Given 07/30/2023 7:36 PM CDT 40 mg $Given 07/29/2023 8:57 PM CDT 40 mg famotidine (PEPCID) tablet 20 mg 20 mg, Oral, DAILY, First dose on 07/31/23 at 0800, GI protection while on steroids and NSAIDs $Given 07/31/2023 8:38 AM CDT 20 mg ibuprofen (ADVIL/MOTRIN) tablet 600 mg 600 mg, Oral, EVERY 8 HOURS, First dose on 07/30/23 at 1700 $Given 07/31/2023 8:38 AM CDT 600 mg $Given 07/31/2023 2:31 AM CDT 600 mg $Given 07/30/2023 5:17 PM CDT 600 mg lactated ringers BOLUS 500 mL Intravenous, 500 mL, ONCE, at 166.7 mL/hr, Administer over 3 Hours, On 07/31/23 at 0930, For 1 dose $New Bag 07/31/2023 9:50 AM CDT 500 mLs 166.7 mL/hr ondansetron (ZOFRAN ODT) ODT tab 4 mg 4 mg, Oral, EVERY 6 HOURS PRN, nausea, vomiting, Starting on Tue07/29/23 at 1842, This is Step 1 of nausea and vomiting management. If nausea not resolved in 15 minutes, go to Step 2 prochlorperazine (COMPAZINE). With dry hands, peel back foil backing and gently remove tablet. Do not push oral disintegrating tablet through foil backing. Administer immediately on tongue and oral disintegrating tablet dissolves in seconds, then swallow with saliva. Liquid not required. ondansetron (ZOFRAN) injection 4 mg 4 mg, Intravenous, EVERY 6 HOURS PRN, nausea, vomiting, Administer over 2-5 Minutes, Starting on Tue07/29/23 at 1842, Give IF patient unable to tolerate oral medication. This is Step 1 of nausea and vomiting management. If nausea not resolved in 15 minutes, go to Step 2 prochlorperazine (COMPAZINE). Irritant. predniSONE (DELTASONE) tablet 10 mg 10 mg, Oral, DAILY, First dose on 07/30/23 at 1330 $Given 07/30/2023 1:40 PM CDT 10 mg predniSONE (DELTASONE) tablet 20 mg 20 mg, Oral, ONCE, On 07/30/23 at 1700, For 1 dose $Given 07/30/2023 5:16 PM CDT 20 mg predniSONE (DELTASONE) tablet 30 mg 30 mg, Oral, DAILY, First dose on 07/31/23 at 0800 $Given 07/31/2023 8:38 AM CDT 30 mg senna-docusate (SENOKOT-S/PERICOLACE) 8.6-50 MG per tablet 1 tablet 1 tablet, Oral, 2 TIMES DAILY PRN, constipation, Starting on Tue07/29/23 at 1842, If no bowel movement in 24 hours, increase to 2 tablets by mouth. IF more than 1 constipation PRN medication is ordered, administer step-riley as indicated, moving to the next step ONLY if prior step ineffective. Step 1: senna-docusate (SENOKOT-S; PERICOLACE) OR bisacodyl (DULCOLAX) EC tablet Step 2: polyethylene glycol (MIRALAX/GLYCOLAX) Step 3: bisacodyl (DULCOLAX) suppository Step 4: enema Hold for loose stools. senna-docusate (SENOKOT-S/PERICOLACE) 8.6-50 MG per tablet 2 tablet 2 tablet, Oral, 2 TIMES DAILY PRN, constipation, Starting on Tue07/29/23 at 1842, IF more than 1 constipation PRN medication is ordered, administer step-riley as indicated, moving to the next step ONLY if prior step ineffective. Step 1: senna-docusate (SENOKOT-S; PERICOLACE) OR bisacodyl (DULCOLAX) EC tablet Step 2: polyethylene glycol (MIRALAX/GLYCOLAX) Step 3: bisacodyl (DULCOLAX) suppository Step 4: enema Hold for loose stools. documented in this encounter Active and Recently Administered Medications Times are shown in CDT. Scheduled Medication Order 07/29/2023 07/30/2023 07/31/2023 colchicine (COLCRYS) tablet 0.6 mg 0.6 mg, Oral, DAILY, First dose on Tue07/30/23 at 1700 1717 ($Given - Provider: Ludivina Whitehead RN) 0838 ($Given - Provider: Ludivina Whitehead, [place]) enoxaparin ANTICOAGULANT (LOVENOX) injection 40 mg 40 mg, Subcutaneous, EVERY 24 HOURS, First dose on Tue07/29/23 at 2000, HOLD if platelet count falls below 50% of baseline or less than 100,000/??L and notify provider. 2056 ($Given - Provider: Ludivina Whitehead RN) 193 ($Given - Provider: Ludivina Whitehead, RN) famotidine (PEPCID) tablet 20 mg 20 mg, Oral, DAILY, First dose on Tue07/31/23 at 0800, GI protection while on steroids and NSAIDs 0838 ($Given - Provider: Ludivina Whitehead, [place]) ibuprofen (ADVIL/MOTRIN) tablet 600 mg 600 mg, Oral, EVERY 8 HOURS, First dose on Tue07/30/23 at 1700 1717 ($Given - Provider: Ludivina Whitehead RN) 0231 ($Given - Provider: Ty Lakhani, [place])0838 ($Given - Provider: Ludivina Whitehead RN)1700 (Canceled Entry - Provider: Vishnu Generic Provider - Comment: Automatically canceled at discontinue of medication order) lactated ringers BOLUS 500 mL (COMPLETED) Intravenous, 500 mL, ONCE, at 166.7 mL/hr, Administer over 3 Hours, On 07/31/23 at 0930, For 1 dose 0950 ($New Bag - Provider: Ludivina Whitehead RN) predniSONE (DELTASONE) tablet 10 mg (CANCELED) 10 mg, Oral, DAILY, First dose on 07/30/23 at 1330 1340 ($Given - Provider: Ludivina Whitehead RN) predniSONE (DELTASONE) tablet 20 mg (COMPLETED) 20 mg, Oral, ONCE, On 07/30/23 at 1700, For 1 dose 1716 ($Given - Provider: Ludivina Whitehead RN) predniSONE (DELTASONE) tablet 30 mg 30 mg, Oral, DAILY, First dose on 07/31/23 at 0800 0838 ($Given - Provider: Ludivina Whitehead RN) PRN Medication Order 07/29/2023 07/30/2023 07/31/2023 acetaminophen (TYLENOL) tablet 650 mg 650 mg, Oral, EVERY 6 HOURS PRN, mild pain, fever, Starting on 07/30/23 at 1633, Maximum acetaminophen dose from all sources = 75 mg/kg/day not to exceed 4 grams/day. ondansetron (ZOFRAN ODT) ODT tab 4 mg(Linked Group 1) 4 mg, Oral, EVERY 6 HOURS PRN, nausea, vomiting, Starting on 07/29/23 at 1842, This is Step 1 of nausea and vomiting management. If nausea not resolved in 15 minutes, go to Step 2 prochlorperazine (COMPAZINE). With dry hands, peel back foil backing and gently remove tablet. Do not push oral disintegrating tablet through foil backing. Administer immediately on tongue and oral disintegrating tablet dissolves in seconds, then swallow with saliva. Liquid not required. ondansetron (ZOFRAN) injection 4 mg(Linked Group 1) 4 mg, Intravenous, EVERY 6 HOURS PRN, nausea, vomiting, Administer over 2-5 Minutes, Starting on Tue07/29/23 at 1842, Give IF patient unable to tolerate oral medication. This is Step 1 of nausea and vomiting management. If nausea not resolved in 15 minutes, go to Step 2 prochlorperazine (COMPAZINE). Irritant. senna-docusate (SENOKOT-S/PERICOLACE) 8.6-50 MG per tablet 1 tablet(Linked Group 2) 1 tablet, Oral, 2 TIMES DAILY PRN, constipation, Starting on Tue07/29/23 at 1842, If no bowel movement in 24 hours, increase to 2 tablets by mouth. IF more than 1 constipation PRN medication is ordered, administer step-riley as indicated, moving to the next step ONLY if prior step ineffective. Step 1: senna-docusate (SENOKOT-S; PERICOLACE) OR bisacodyl (DULCOLAX) EC tablet Step 2: polyethylene glycol (MIRALAX/GLYCOLAX) Step 3: bisacodyl (DULCOLAX) suppository Step 4: enema Hold for loose stools. senna-docusate (SENOKOT-S/PERICOLACE) 8.6-50 MG per tablet 2 tablet(Linked Group 2) 2 tablet, Oral, 2 TIMES DAILY PRN, constipation, Starting on Tue07/29/23 at 1842, IF more than 1 constipation PRN medication is ordered, administer step-riley as indicated, moving to the next step ONLY if prior step ineffective. Step 1: senna-docusate (SENOKOT-S; PERICOLACE) OR bisacodyl (DULCOLAX) EC tablet Step 2: polyethylene glycol (MIRALAX/GLYCOLAX) Step 3: bisacodyl (DULCOLAX) suppository Step 4: enema Hold for loose stools. Linked Groups Order Group 1: ondansetron (ZOFRAN ODT) ODT tab 4 mgJump to med 4 mg, Oral, EVERY 6 HOURS PRN, nausea, vomiting, Starting on Tue07/29/23 at 1842, This is Step 1 of nausea and vomiting management. If nausea not resolved in 15 minutes, go to Step 2 prochlorperazine (COMPAZINE). With dry hands, peel back foil backing and gently remove tablet. Do not push oral disintegrating tablet through foil backing. Administer immediately on tongue and oral disintegrating tablet dissolves in seconds, then swallow with saliva. Liquid not required. Or ondansetron (ZOFRAN) injection 4 mgJump to med 4 mg, Intravenous, EVERY 6 HOURS PRN, nausea, vomiting, Administer over 2-5 Minutes, Starting on Tue07/29/23 at 1842, Give IF patient unable to tolerate oral medication. This is Step 1 of nausea and vomiting management. If nausea not resolved in 15 minutes, go to Step 2 prochlorperazine (COMPAZINE). Irritant. Group 2: senna-docusate (SENOKOT-S/PERICOLACE) 8.6-50 MG per tablet 1 tabletJump to med 1 tablet, Oral, 2 TIMES DAILY PRN, constipation, Starting on Tue07/29/23 at 1842, If no bowel movement in 24 hours, increase to 2 tablets by mouth. IF more than 1 constipation PRN medication is ordered, administer step-riley as indicated, moving to the next step ONLY if prior step ineffective. Step 1: senna-docusate (SENOKOT-S; PERICOLACE) OR bisacodyl (DULCOLAX) EC tablet Step 2: polyethylene glycol (MIRALAX/GLYCOLAX) Step 3: bisacodyl (DULCOLAX) suppository Step 4: enema Hold for loose stools. Or senna-docusate (SENOKOT-S/PERICOLACE) 8.6-50 MG per tablet 2 tabletJump to med 2 tablet, Oral, 2 TIMES DAILY PRN, constipation, Starting on Tue07/29/23 at 1842, IF more than 1 constipation PRN medication is ordered, administer step-riley as indicated, moving to the next step ONLY if prior step ineffective. Step 1: senna-docusate (SENOKOT-S; PERICOLACE) OR bisacodyl (DULCOLAX) EC tablet Step 2: polyethylene glycol (MIRALAX/GLYCOLAX) Step 3: bisacodyl (DULCOLAX) suppository Step 4: enema Hold for loose stools. documented in this encounter Care Teams Estimate Clerk Relationship Specialty Start Date End Date No Ref-Primary, Physician PCP - General 07/30/23 documented as of this encounter
--- OUTSIDE RECORDS SUMMARY | 2023-08-15 16:41 | XMS_ITS | Clinical Summary ---
Author Organization [facility] Address [place], [place] [address] Care Team Providers Care Historical Archeologist Name Role Phone Jasson Barillas Primary Care Provider [phone] Allergies No known active allergies Medications Medication Sig Dispensed Refills Start Date End Date Status terbinafine 1% cream (LAMISIL) 1 % creamIndications: Tinea cruris Apply topically to affected area(s) 2 times daily. 1 Tube 1 07/26/2013 Active Simponi subcutaneous pen Inject 50 mg subcutaneous every 4 weeks. 07/25/2023 Active predniSONE (DELTASONE) 10 mg tablet Take 10-20 mg by mouth once daily if needed. Take as prescribed / directed by provider. 07/25/2023 Active naproxen (Aleve) 220 mg tablet Take 440 mg by mouth 2 times daily if needed. Active aspirin-acetamino phen-caffeine (Excedrin Migraine) 250-250-65 mg Take 2 Tablets by mouth 3 times daily if needed for Headache. Max acetaminophen dose: 4000mg in 24 hrs. Active etanercept (EnbreL SureClick) 50 mg/mL (1 mL) pen injector Inject 50 mg subcutaneous once weekly. 11/18/2020 Discontinue d(*Patient states no longer taking) predniSONE (DELTASONE) 20 mg tabletIndications :Rash Taper: Sig 1 tablet po twice daily x 5 days, then take 1 tablet once daily for 5 days. Take with food, and only use tylenol with this Rx, no ibuprofen. 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, [facility] Hospitalists Of Jose L Lorenzo MD Caldwell, Rogelio Simeon MD Ground glass opacity present on imaging of lung (Primary Dx); Cardiovascular symptoms; Acquired immunocompromised state (HC); Rheumatoid arthritis, involving unspecified site, unspecified whether rheumatoid factor present (HC); Pericardial effusion Discharge Disposition: [facility] from Last 3 Months Immunizations Name Administration Dates Next Due Tdap 01/14/2017 Family History Medical History Relation Name Comments Good Health Brother 2 Diabetes Father Good Health Mother Relation Name Status Comments Brother 1 Alive Brother 2 Father Alive Mother Alive Social History Tobacco Use Types Packs/Day Years Used Date Smoking Tobacco: Every Day Cigarettes 1 20 Tobacco Cessation:Ready to Q uit: Not Asked; Counseling Given: Not Answered Alcohol Use Standard Drinks/Week Comments No 0 (1 standard drink = 0.6 oz pur e alcohol) Social Connections Answer Date Recorded Frequency of Communication with Friends and Fami ly Not on file 10/08/2022 Sex and Gender Information Value Date Recorded Sex Assigned at Not on file Gender Identity Not on file Sexual Orientation Not on file Obstetrics History Last Filed Vital Signs Vital Sign Reading Time Taken Comments Blood Pressure 110/76 07/29/2023 10:43 AM CDT Pulse 128 07/29/2023 10:43 AM CDT Temperature 36.8 ??C (98.2 ??F) 07/29/2023 9:09 AM CD T Respiratory Rate 16 07/29/2023 9:09 AM CDT Oxygen Saturation 96% 07/29/2023 9:09 AM CDT Inhaled Oxygen Concentration - - Weight 54.8 kg (120 lb 12.8 oz) 07/29/2023 5:00 AM CDT Height 174 cm (5' 8.5) 07/26/2023 3:10 AM CDT Body Mass Index 18.1 07/26/2023 3:10 AM CDT Plan of Treatment Health Maintenance Due Date Last Done Comments COVID-19 vaccine series (#1) 01/22/1985 Pneumococcal series for age 6-64 (1 of 2 - PCV) 1985 Depression screening for age 12+ 1992 HIV for age 15-65 01/22/1995 BMI (ht and wt on same day) for age 18+ 01/22/1998 Hepatitis C screening for age 18-79 01/22/1998 Lipids for age 35-44 01/22/2015 Influenza for age 9-49 11/13/2023 Tetanus booster 01/14/2027 01/14/2017 Tdap Completed 01/14/2017 Procedures Procedure Name Priority Date/Time Associated Diagnosis Comments SCAN-CARDIAC STRIP 07/29/2023 7: 51 AM CDT SCAN-CARDIAC STRIP 07/29/2023 1: 00 AM CDT SCAN-CARDIAC STRIP 07/28/2023 3: 32 PM CDT XR CHEST 2 VIEWS PA AND LATERAL STAT 07/28/2023 12:37 PM CDT (IA) AMB CONSULT TO VOCATIONAL/NANDA REHABILITATION Routine 07/28/2023 11:43 AM CDT [facility] MISCELLANEOUS SENDOUT Routine 07/28/2023 11:30 AM CDT MISCELLANEOUS SEND OUT Routine 11:30 AM CDT SCAN-CARDIAC STRIP 07/28/2023 8: 02 AM CDT CBC WITH AUTO DIFFERENTIAL Today 07/28/2023 8:00 AM CDT CBC WITH AUTO DIFFERENTIAL Today 07/28/2023 8:00 AM CDT BASIC METABOLIC PANEL Timed 07/28/2023 8:00 AM CDT SCAN-CARDIAC STRIP 07/28/2023 1: 41 AM CDT SCAN-CARDIAC STRIP 07/27/2023 8: 31 PM CDT SCAN-CARDIAC STRIP 07/27/2023 3: 34 PM CDT SCAN CORRESP-EKG RESULTS 07/27/2023 11:23 AM CDT ECHO TTE LIMITED WO CONTRAST W COLOR W LTD DOPPLER Routine 07/27/2023 10:[address] CHEST W Routine 07/27/2023 9:19 AM CDT SCAN-CARDIAC STRIP 07/27/2023 8: 53 AM CDT TSH YISSEL 07/27/2023 6:52 AM CDT SODIUM Today 07/27/2023 6:52 AM CDT CREATININE Today 07/27/2023 6:52 AM CDT POTASSIUM Today 07/27/2023 6:52 AM CDT PLATELET COUNT Today 07/27/2023 6:52 AM CDT HEMOGLOBIN Today 07/27/2023 6:52 AM CDT WHITE BLOOD COUNT Today 07/27/2023 6:5 2 AM CDT EKG 12 LEAD Routine 07/27/2023 3:35 AM CDT SCAN-CARDIAC STRIP 07/27/2023 2: 04 AM CDT EKG 12 LEAD STAT 07/26/2023 7:19 PM CDT SCAN-CARDIAC STRIP 07/26/2023 5: 29 PM CDT XR CHEST 1 VIEW PORTABLE STAT 07/26/2023 3:51 PM CDT PATH NON CARRIAGE RIDER CYTOLOGY Today 07/26/2023 3:50 PM CDT PH,BODY FLUID Today 07/26/2023 3:50 PM CDT AMYLASE,BODY FLUID Today 07/26/2023 3: 50 PM CDT LD,BODY FLUID Today 07/26/2023 3:50 PM CDT PROTEIN,BODY FLUID Today 07/26/2023 3: 50 PM CDT GLUCOSE,BODY FLUID Today 07/26/2023 3: 50 PM CDT ANAEROBIC CULTURE Today 07/26/2023 3:5 0 PM CDT BODY FLUID CULTURE,STAIN (AEROBIC) Today 07/26/2023 3:50 PM CDT SPECIFIC GRAVITY,BODY FL Today 07/26/2023 3:50 PM CDT ECHO TRANSTHORACIC LIMITED Routine 07/26/2023 3:41 PM CDT CVL OTHER PROCEDURE Routine 07/26/2023 3 :37 PM CDT Cardiovascular symptoms PROTIME-INR STAT 07/26/2023 3:12 PM CDT LD,TOTAL Today 07/26/2023 3:12 PM CDT (IA) AMB CONSULT TO VOCATIONAL/NANDA REHABILITATION Routine 07/26/2023 2:41 PM CDT ECHO TTE COMPLETE WO CONTRAST Routine 07/26/2023 2:21 PM CDT PATH NON CARRIAGE RIDER CYTOLOGY Today 07/26/2023 2:00 PM CDT CWS PATH REVIEW BODY FLUID Timed 07/26/2023 2:00 PM CDT [facility] MISCELLANEOUS SENDOUT STAT 07/26/2023 2:00 PM CDT MISCELLANEOUS SEND OUT STAT 2:00 PM CDT AFB CULTURE, STAIN Today 07/26/2023 2: 00 PM CDT BODY FLUID CULTURE,STAIN (AEROBIC) Today 07/26/2023 2:00 PM CDT TRIGLYCERIDES BODY FLUID Today 07/26/2023 2:00 PM CDT PH,BODY FLUID Today 07/26/2023 2:00 PM CDT LD,BODY FLUID Today 07/26/2023 2:00 PM CDT GLUCOSE,BODY FLUID Today 07/26/2023 2: 00 PM CDT PROTEIN,BODY FLUID Today 07/26/2023 2: 00 PM CDT BODY FLUID CELL COUNT/DIF Routine 07/26/2023 2:00 PM CDT EKG 12 LEAD STAT 07/26/2023 11:03 AM CDT RESPIRATORY PANEL MULTIPLEX PCR Today 07/26/2023 10:34 AM CDT SCAN-CARDIAC STRIP 07/26/2023 9: 27 AM CDT PROCALCITONIN Today 07/26/2023 9:12 AM CDT HEPATIC FUNCTION PANEL YISSEL 6:33 AM CDT FERRITIN YISSEL 07/26/2023 6:33 AM CDT IRON PLUS IRON BINDING CAP YISSEL 07/26/2023 6:33 AM CDT PROTEIN,TOTAL YISSEL 07/26/2023 6:33 AM CDT SEDIMENTATION RATE YISSEL 07/26/2023 6: 33 AM CDT CBC WITH AUTO DIFFERENTIAL Early AM 07/26/2023 6:33 AM CDT C-REACTIVE PROTEIN Early AM 07/26/2023 6: 33 AM CDT CBC WITH AUTO DIFFERENTIAL Early AM 07/26/2023 6:33 AM CDT BASIC METABOLIC PANEL Early AM 07/26/2023 6:33 AM CDT from Last 3 Months Results * SCAN-CARDIAC STRIP (07/29/2023 7:51 AM CDT) Scanner OTHER * SCAN-CARDIAC STRIP (07/29/2023 1:00 AM CDT) Scanner OTHER * SCAN-CARDIAC STRIP (07/28/2023 3:32 PM CDT) Scanner OTHER * XR Chest PA and lateral (07/28/2023 12:37 PM CDT) Anatomical Region Laterality Modality CHEST, THORAX, Lung, HEART Digit al Radiography 07/28/2023 1:47 PM CDT Impressions 07/28/2023 1:47 PM CDT Smaller right pleural effusion. No pneumothorax. Dictated by Penny Shaver MD @ Jul 28 2023 ??1:47PM (Electronically Signed) [email or web address] Narrative 07/28/2023 1:47 PM CDT For Patients: ??As a result of the Century Cures Act, medical imaging exams and procedure reports are released immediately into your electronic medical record. ??You may view this report before your referring provider. ??If you have questions, please contact your health care provider. INDICATION: : Postprocedure, right thorax TECHNIQUE: PA and lateral 2 view chest COMPARISON: 07/26/2023 FINDINGS: Lung volumes are good. Partial atelectasis in the right lower lung. Significantly improved left upper lobe opacities. Decreased size small right pleural effusion. No pneumothorax. Heart size is normal. Pericardial drain. No pneumopericardium. Procedure Note Penny Shaver MD - 07/28/2023 For Patients: As a result of the 21st Century Cures Act, medical imagingexams and procedure reports are released immediately into your electronicmedical record. You may view this report before your referring provider.If you have questions, please contact your health care provider. INDICATION: : Postprocedure, right thorax TECHNIQUE: PA and lateral 2 view chest COMPARISON: 07/26/2023 FINDINGS: Lung volumes are good. Partial atelectasis in the right lower lung.Significantly improved left upper lobe opacities. Decreased size smallright pleural effusion. No pneumothorax. Heart size is normal. Pericardialdrain. No pneumopericardium. IMPRESSION: Smaller right pleural effusion. No pneumothorax. Dictated by Penny Shaver MD @ Jul 28 2023 1:47PM (Electronically Signed) [email or web address] Rebecca Steen MD GENERAL IM AGING * Bedside Thoracentesis RIGHT (07/28/2023 11:43 AM CDT) Narrative Rebecca Steen MD - 07/28/2023 11:43 AM CDT Rebecca Steen MD ? 07/28/2023 11:45 AM ULTRASOUND GUIDED RIGHT THORACENTESIS Volume removed: 600 mL Indication: right pleural effusion INR: 1.3 from 07/26/2023 Platelets: 537 from 07/28/2023 Anesthesia: 1% lidocaine [place] protocol was followed. TIME OUT conducted just prior to starting procedure confirmed patient identity, site/side, procedure, patient position, and availability of correct equipment and implants. ??Yes The procedure, benefits, risks, and alternatives were explained to the patient. ??He voiced understanding of the information and agreed to proceed with the procedure. Bedside ultrasound guidance was used to localize a lung free zone of pleural fluid, the level of the diaphragm, and needle entry location. ?? The skin overlying the 7th intercostal space on the right was prepped and draped in the usual manner with the patient in the sitting position. The skin, rib periosteum, and pleura were anesthetized using a 22 Gauge needle. The pleural space was entered with immediate return of fluid.. The pleural space was entered with a 19 gauge thoracentesis needle equipped with a 5 Fr overlying cannula. 600 mL of fluid was withdrawn and 0 mL sent for analysis. The fluid was yellow green and cellular. ??The needle was then withdrawn and an overlying bandage applied. The patient tolerated the procedure well and there were no immediate complications. A post-procedure chest radiograph is pending A post procedure bedside ultrasound shows no residual right pleural fluid, small atelectasis vs consolidation of the right lung base. Rebecca Steen MD Internal Medicine/Hospitalist From 8 AM-5 PM, please contact me via the [employer] website From 5 PM-8 AM, please contact the answering service Rogelio Wilson MD PROCEDURE ORD * [facility] MISISIGN MediaANEOUS SENDOUT (07/28/2023 11:30 AM CDT) Only the most recent of2 resultswithin the time period is included. Resulted: 07/30/2023 4:07 PM T [facility] ESOTERIC TESTING (CET) Comment:This is a corrected result. Previously reported as See Separate Report with reference range <null> on 07/29/2023 at 1:17 PM T [facility] [employer] TechnologiesCELLANEOUS SEND OUT COMMENT 07/30/2023 4:07 PM T [facility] ESOT[facility]IC [facility] (CET) Comment: Test Ordered: [id number] Adenosine Deaminase, Pl Fluid Adenosine Deaminase, Pleural ?? 30 ? U/L ?01 ? Reference Range: 0-30 ? INTERPRETIVE INFORMATION:Adenosine Deaminase, Pleural Fluid This test was developed and its performance characteristics determined by [facility]. It has not been cleared or approved by the US Food and Drug Administration. This test was performed in a CLIA certified laboratory and is intended for clinical purposes. Other PLEURAL FLUID SPECIMEN / Unknown Non-Blood / Unknown 07/28/2023 11:30 AM CDT 07/28/2023 12:21 PM CDT Narrative [facility] ([facility]) - 07/30/2023 4:07 PM CDT Performed At: 01 [facility] [address] [place], [place] [id number] Jose Medina [facility] Ph:[phone] Performed At: 02 [facility] [address] [place], [place] [id number] Carli Beard MD Ph:[phone] Meredith Robles NP LABORATORY [facility] ([facility]) [facility] * MISCELLANEOUS SEND OUT (07/28/2023 11:30 AM CDT) Only the most recent of2 resultswithin the time period is included. TEST NAME Adenosine deaminase 07/28/2023 1:05 PM CDT [facility] [employer] LABORATORY- [facility] SOURCE Right pleural fluid 07/28/2023 1:05 PM CDT [facility]- [facility] PERFORMING LAB [facility] 07/28/2023 1:05 PM CDT [facility]- [facility] REFERRAL LAB TEST # [id number] 07/28/2023 1:05 PM CDT [facility] IS THIS A [facility] TEST? Yes, [facility] Miscellaneous Sendout result 07/28/2023 1:05 PM CDT [facility] Other PLEURAL FLUID SPECIMEN / Unknown Non-Blood / Unknown 07/28/2023 11:30 AM CDT 07/28/2023 12:21 PM CDT [place] [facility] SEND OUTS [facility] [address] [place] [address], [place] * SCAN-CARDIAC STRIP (07/28/2023 8:02 AM CDT) Scanner OTHER * (ABNORMAL) CBC WITH AUTO DIFFERENTIAL (07/28/2023 8:00 AM CDT) Only the most recent of2 resultswithin the time period is included. WHITE BLOOD COUNT 14.0(H) 4.5 - 11.0 thou/cu mm 07/28/2023 8:25 AM CDT [facility] RED BLOOD COUNT 5.78 4.30 - 5.90 mil/cu mm 07/28/2023 8:25 AM CDT [facility] HEMOGLOBIN 12.6(L) 13.5 - 17.5 g/dL 07/28/2023 8:25 AM CDT [facility] HEMATOCRIT 42.1 37.0 - 53.0 % 07/28/2023 8:25 AM CDT [facility] MCV 73(L) 80 - 100 fL 07/28/2023 8:25 AM CDT [facility] MCH 21.8(L) 26.0 - 34.0 pg 07/28/2023 8:25 AM CDT [facility] MCHC 29.9(L) 32.0 - 36.0 g/dL 07/28/2023 8:25 AM CDT [facility] RDW 18.8(H) 11.5 - 15.5 % 07/28/2023 8:25 AM CDT [facility] PLATELET COUNT 537(H) 140 - 440 thou/cu mm 07/28/2023 8:25 AM CDT [facility] MPV 8.5 6.5 - 11.0 fL 07/28/2023 8:25 AM CDT [facility] NRBC 0.0 % 07/28/2023 8:25 AM CDT [facility] ABS NRBC 0.0 thou /cu mm 07/28/2023 8:25 AM CDT [facility] % NEUT 82.3 % 07/28/2023 8:25 AM CDT [facility] % LYMPH 9.6 % 07/28/2023 8:25 AM CDT [facility] % MONO 6.5 % 07/28/2023 8:25 AM CDT [facility] % EOS 0.9 % 07/28/2023 8:25 AM CDT [facility] % BASO 0.3 % 07/28/2023 8:[facility] % IMMATURE GRAN (METAS,MYELOS,GA OS) 0.4 % 07/28/2023 8:25 AM [facility] ABSOLUTE NEUTROPHILS 11.5(H) 1.7 - 7.0 thou/cu mm 07/28/2023 8:25 AM T [facility] ABSOLUTE LYMPHOCYTES 1.4 0.9 - 2.9 thou/cu mm 07/28/2023 8:25 AM CDT [facility] ABSOLUTE MONOCYTES 0.9(H) <0.9 thou/cu mm 07/28/2023 8:25 AM [facility] ABSOLUTE EOSINOPHILS 0.1 <0.5 thou/cu mm 07/28/2023 8:25 AM [facility] ABSOLUTE BASOPHILS 0.0 <0.3 thou/cu mm 07/28/2023 8:25 AM [facility] ABSOLUTE IMMATURE GRANULOCYTES(MET ,MYELOS,PROS) 0.1 <0.3 thou/cu mm 07/28/2023 8:25 AM [facility] Blood BLOOD SPECIMEN / Unknown Venipuncture / Unknown 07/28/2023 8:00 AM CDT 07/28/2023 8:05 AM CDT Rogelio Wilson MD HEMATOLOGY [facility] [address] [place] [address], * (ABNORMAL) Basic metabolic panel TODAY (07/28/2023 8:00 AM CDT) Only the most recent of2 resultswithin the time period is included. SODIUM 137 136 - 145 mmol/L 07/28/2023 8:35 AM CDT [facility] POTASSIUM 3.8 3.5 - 5.1 mmol/L 07/28/2023 8:35 AM CDT [facility] CHLORIDE 103 98 - 107 mmol/L 07/28/2023 8:35 AM T [facility] CO2,TOTAL 25 22 - 29 mmol/L 07/28/2023 8:35 AM T [facility] ANION GAP 9 5 - 18 07/28/2023 8:35 AM CDT [facility] GLUCOSE 204(H) 70 - 99 mg/dL 07/28/2023 8:35 AM T [facility] CALCIUM 8.9 8.6 - 10.0 mg/dL 07/28/2023 8:35 AM T [facility] BUN 15 6 - 20 mg/dL 07/28/2023 8:35 AM T [facility] CREATININE 0.59(L) 0.70 - 1.20 mg/dL 07/28/2023 8:35 AM T [facility] BUN/CREAT RATIO 25(H) 10 - 20 8:35 AM T [facility] eGFR >90 >90 mL/min/1.7 3m2 07/28/2023 8:35 AM T [facility] Comment:As of 2021, eG FR is calculated by the CKD-EPI creatinine equation without race adjustment. ??eGFR can be influenced by muscle mass, exercise, and diet. ??The reported eGFR is an estimation only and is only applicable if the renal function is stable. Blood BLOOD SPECIMEN / Unknown Venipuncture / Unknown 07/28/2023 8:00 AM CDT 07/28/2023 8:05 AM CDT Rogelio Wilson MD CHEMISTRY [facility] [address] [place] [address], * SCAN-CARDIAC STRIP (07/28/2023 1:41 AM CDT) Scanner OTHER * SCAN-CARDIAC STRIP (07/27/2023 8:31 PM CDT) Scanner OTHER * SCAN-CARDIAC STRIP (07/27/2023 3:34 PM CDT) Scanner OTHER * SCAN CORRESP-EKG RESULTS (07/27/2023 11:23 AM CDT) Narrative 07/27/2023 11:23 AM CDT Ordered by an unspecified provider. Other Clinical Staff OTHER * ECHO TTE LIMITED WO CONTRAST W COLOR W LTD DOPPLER (07/27/2023 10:02 AM CDT) Only the most recent of2 resultswithin the time period is included. EJECTION FRACTION 70 - 75% Anatomical Region Laterality Modality Ultrasound 07/27/2023 9:06 AM CDT Narrative 07/27/2023 10:22 AM CDT ECHOCARDIOGRAM TIMO DIXON ?Accession#: ?? [id number] : ?1980 43 years Study Date: ?? 07/27/2023 9:06:16 AM Gender: M ? BP: ? 115/77 mmHg Height: 174.00 cm ? BSA: ?1.69 m? ? ? Weight: 57.00 kg ?Tech: ? JOSEMANUELO/B ?Referring MD: MAXINE DODD Site: ? [facility] Reading Location: [facility] Patient Location: Inpatient. Procedure: Limited 2D , Color Doppler and Limited Spectral Doppler. Indication for study: S/P Pericardiocentesis, eval PCE Cardiac Rhythm: Sinus tachycardia.Study quality: Fair. Final Impressions: Limited Echocardiogram performed 1. Normal LV size, normal wall thickness, normal global systolic function with an estimated EF of 70 - 75%. 2. The inferior vena cava is normal sized, respiratory size variation less than 50%. 3. Trivial pericardial effusion. Chamber Sizes and Function Normal left ventricular size, normal wall thickness, normal global systolic function with an estimated EF of 70 - 75%. Right ventricular cavity size is normal, global systolic RV function is normal. The right atrium is normal. The pulmonary artery is not well visualized. Valves, RV Pressures and Diastolic Function The aortic valve is normal in structure and trileaflet, no stenosis and no regurgitation. The tricuspid valve is normal in structure. Tricuspid regurgitation is not evident. The pulmonic valve is not well visualized. Not eval pulmonic regurgitation is present on color flow. Masses, Effusion, Shunts There is trivial pericardial effusion. The inferior vena cava is normal sized, respiratory size variation less than 50%. MEASUREMENTS AND CALCULATIONS 2-D Measurements and LV Function: LVOT diameter 2.1 cm HR ?125 bpm . This study was interpreted by an [facility] accredited facility. ??Final ?? Procedure Note Tish Cuevas MD - 07/27/2023 ECHOCARDIOGRAM TIMO DIXON : 1980 43 years Study Date: 07/27/2023 9:06:16 AM Gender: M BP: 115/77 mmHg Height: 174.00 cm BSA: 1.69 m? ? ? Weight: 57.00 kg Tech: ZAINA/OMEGA Referring MD: MAXINE DODD Site: [facility] Reading Location: [facility] IP Patient Location: Inpatient. Procedure: Limited 2D , Color Doppler and Limited Spectral Doppler. Indication for study: S/P Pericardiocentesis, eval PCE Cardiac Rhythm: Sinus tachycardia.Study quality: Fair. Final Impressions: Limited Echocardiogram performed 1. Normal LV size, normal wall thickness, normal global systolic functionwith an estimated EF of 70 - 75%. 2. The inferior vena cava is normal sized, respiratory size variationless than 50%. 3. Trivial pericardial effusion. Chamber Sizes and Function Normal left ventricular size, normal wall thickness, normal globalsystolic function with an estimated EF of 70 - 75%. Right ventricularcavity size is normal, global systolic RV function is normal. The rightatrium is normal. The pulmonary artery is not well visualized. Valves, RV Pressures and Diastolic Function The aortic valve is normal in structure and trileaflet, no stenosis and noregurgitation. The tricuspid valve is normal in structure. Tricuspidregurgitation is not evident. The pulmonic valve is not well visualized.Not eval pulmonic regurgitation is present on color flow. Masses, Effusion, Shunts There is trivial pericardial effusion. The inferior vena cava is normalsized, respiratory size variation less than 50%. MEASUREMENTS AND CALCULATIONS 2-D Measurements and LV Function: LVOT diameter 2.1 cm HR 125 bpm . This study was interpreted by an [facility] accredited facility. Final Maxine Dodd MD ECHO ORD * CT CHEST W (07/27/2023 9:19 AM CDT) Anatomical Region Laterality Modality CHEST, THORAX, HEART Computed To mography 07/27/2023 10:1 2 AM CDT Impressions 07/27/2023 10:12 AM CDT Constellation of findings are likely inflammatory response related to either the patient`s rheumatoid arthritis or treatment/drug reaction/immunocompromised state. Low suspicion that the multifocal lung opacities, pericardial effusion, and pleural effusion are being solely driven by infection or malignancy. Please note that all CT scans at this facility use dose modulation, iterative reconstruction, and/or weight-based dosing when appropriate to reduce radiation dose to as low as reasonably achievable. Dictated by Penny Shaver MD @ 07/27/2023 10:12:14 AM (Electronically Signed) Narrative 07/27/2023 10:12 AM CDT For Patients: ??As a result of the Cures Act, medical imaging exams and procedure reports are released immediately into your electronic medical record. ??You may view this report before your referring provider. ??If you have questions, please contact your health care provider. INDICATION: Pleural effusion. Thoracentesis. Concern for mass/consolidation/malignancy. History of rheumatoid arthritis. COMPARISON: Radiograph 07/26/2023, echocardiogram 07/26/[address] 07/25/2023 TECHNIQUE: CT of the chest with contrast. Multiplanar reformats are included. MIP images to improve detection of pulmonary nodules are included. Contrast: 80 mL Omnipaque 350 FINDINGS: Pericardial drain in place. Small pneumopericardium with resolved pericardial fluid. Normal cardiac chamber size. Normal CT appearance of the ventricular septum on a non gated exam. No central pulmonary embolus. No thoracic aortic aneurysm. No atherosclerotic vascular calcifications. There is a moderate residual are reaccumulating right pleural effusion. The pleural fluid appears simple and is layering posteriorly in the subpulmonic position. No pleural thickening or pleural nodularity appreciated. No pneumothorax. No left- sided pleural effusion. Normal caliber of the airway. No endobronchial lesions. There is a 4 centimeter area of atelectasis with enhancement in the posterolateral right lower lobe. There is a small area of peribronchiolar consolidation in the medial segment of the right middle lobe. May be incomplete re-expansion after thoracentesis. Low suspicion that the major findings are driven by malignancy or infection alone. There are fairly large geographic areas of ground-glass opacification with focal interlobular septal thickening in the left lung. There is a slightly apical predominant pattern to these opacities. These appear similar to the comparison exam. No necrosis or cavitation. No pulmonary edema. There is a prominent periaortic lymph node that measures 1.8 x 0.9 centimeters on series 2, image 42. Mildly prominent and enhancing subcarinal lymph node. No enlarged hilar lymph nodes. No cardiophrenic adenopathy. Enlarged axillary lymph nodes bilaterally. In the right axilla the largest lymph node measures 1.3 x 1.7 centimeters. In the left axilla the largest lymph node measures 2.1 x 1.3 centimeters. There is no anterior mediastinal mass. Chest wall: Normal. Upper abdomen: Normal. The spleen is nonenlarged. No ascites. Osseous structures: Erosions in the left humeral head may be related to the patient`s underlying rheumatoid arthritis. No other focal bone lesions. Procedure Note Penny Shavre MD - 07/27/2023 For Patients: As a result of the Cures Act, medical imagingexams and procedure reports are released immediately into your electronicmedical record. You may view this report before your referring provider.If you have questions, please contact your health care provider. INDICATION: Pleural effusion. Thoracentesis. Concern formass/consolidation/malignancy. History of rheumatoid arthritis. COMPARISON: Radiograph 07/26/2023, echocardiogram 07/26/[address] 07/25/2023 TECHNIQUE: CT of the chest with contrast. Multiplanar reformats are included. MIPimages to improve detection of pulmonary nodules are included. Contrast: 80 mL Omnipaque 350 FINDINGS: Pericardial drain in place. Small pneumopericardium with resolvedpericardial fluid. Normal cardiac chamber size. Normal CT appearance ofthe ventricular septum on a non gated exam. No central pulmonary embolus.No thoracic aortic aneurysm. No atherosclerotic vascular calcifications. There is a moderate residual are reaccumulating right pleural effusion.The pleural fluid appears simple and is layering posteriorly in thesubpulmonic position. No pleural thickening or pleural nodularityappreciated. No pneumothorax. No left- sided pleural effusion. Normal caliber of the airway. No endobronchial lesions. There is a 4 centimeter area of atelectasis with enhancement in theposterolateral right lower lobe. There is a small area of peribronchiolar consolidation in the medialsegment of the right middle lobe. May be incomplete re-expansion afterthoracentesis. Low suspicion that the major findings are driven bymalignancy or infection alone. There are fairly large geographic areas of ground-glass opacification withfocal interlobular septal thickening in the left lung. There is a slightlyapical predominant pattern to these opacities. These appear similar to thecomparison exam. No necrosis or cavitation. No pulmonary edema. There is a prominent periaortic lymph node that measures 1.8 x 0.9centimeters on series 2, image 42. Mildly prominent and enhancingsubcarinal lymph node. No enlarged hilar lymph nodes. No cardiophrenicadenopathy. Enlarged axillary lymph nodes bilaterally. In the right axillathe largest lymph node measures 1.3 x 1.7 centimeters. In the left axillathe largest lymph node measures 2.1 x 1.3 centimeters. There is noanterior mediastinal mass. Chest wall: Normal. Upper abdomen: Normal. The spleen is nonenlarged. No ascites. Osseous structures: Erosions in the left humeral head may be related tothe patient`s underlying rheumatoid arthritis. No other focal bonelesions. IMPRESSION: Constellation of findings are likely inflammatory response related toeither the patient`s rheumatoid arthritis or treatment/drugreaction/immunocompromised state. Low suspicion that the multifocal lungopacities, pericardial effusion, and pleural effusion are being solelydriven by infection or malignancy. Please note that all CT scans at this facility use dose modulation,iterative reconstruction, and/or weight-based dosing when appropriate toreduce radiation dose to as low as reasonably achievable. Dictated by Penny Shaver MD @ 07/27/2023 10:12:14 AM (Electronically Signed) Rogelio Wilson MD CT * SCAN-CARDIAC STRIP (07/27/2023 8:53 AM CDT) Scanner OTHER * TSH FOR ADD ON (07/27/2023 6:52 AM CDT) TSH 0.99 0.27 - 4.20 uIU/mL 07/27/2023 7:54 AM CDT [facility] Blood BLOOD SPECIMEN / Unknown Venipuncture / Unknown 07/27/2023 6:52 AM CDT 07/27/2023 7:03 AM CDT Narrative [facility] - 07/27/2023 7:54 AM CDT In Adults, TSH values between 5.00 and 10.00 uIU/ml do not necessarily indicate the presence of Hypothyroidism. Correlation with clinical findings such as presence of goiter and/or Thyroperoxidase (TPO) Antibody may be helpful. For more information please refer to ERIC 2004; 291: 228-238. Rogelio Wilson MD CHEMISTRY Performing Organization Address [facility] Co de Phone Number [facility] [address] [place] [address], * (ABNORMAL) Platelets TODAY (07/27/2023 6:52 AM CDT) PLATELET COUNT 542(H) 140 - 440 thou/cu mm 07/27/2023 7:21 AM CDT [facility] MPV 8.6 6.5 - 11.0 fL 07/27/2023 7:21 AM CDT [facility] Blood BLOOD SPECIMEN / Unknown Venipuncture / Unknown 07/27/2023 6:52 AM CDT 07/27/2023 7:03 AM CDT Rogelio Wilson MD HEMATOLOGY Performing Organization Address [facility] Co de Phone Number [facility] [address] [place] [address], * (ABNORMAL) WBC TODAY (07/27/2023 6:52 AM CDT) WHITE BLOOD COUNT 19.8(H) 4.5 - 11.0 thou/cu mm 07/27/2023 7:21 AM CDT [facility] NRBC 0.0 % 07/27/2023 7:21 AM CDT [facility] ABS NRBC 0.0 thou /cu mm 07/27/2023 7:21 AM CDT [facility] Blood BLOOD SPECIMEN / Unknown Venipuncture / Unknown 07/27/2023 6:52 AM CDT 07/27/2023 7:03 AM CDT Rogelio Wilson MD HEMATOLOGY Performing Organization Address [facility] Co de Phone Number [facility] [address] [place] [address], * (ABNORMAL) Hemoglobin TODAY (07/27/2023 6:52 AM CDT) HEMOGLOBIN 12.1(L) 13.5 - 17.5 g/dL 07/27/2023 7:21 AM CDT [facility] MCV 71(L) 80 - 100 fL 07/27/2023 7:21 AM CDT [facility] Blood BLOOD SPECIMEN / Unknown Venipuncture / Unknown 07/27/2023 6:52 AM CDT 07/27/2023 7:03 AM CDT Rogelio Wilson MD HEMATOLOGY Performing Organization Address [facility] Co de Phone Number [facility] [address] [place] [address], * (ABNORMAL) SODIUM (07/27/2023 6:52 AM CDT) SODIUM 134(L) 136 - 145 mmol/L 07/27/2023 7:54 AM CDT [facility] Blood BLOOD SPECIMEN / Unknown Venipuncture / Unknown 07/27/2023 6:52 AM CDT 07/27/2023 7:03 AM CDT Rogelio Wilson MD CHEMISTRY Performing Organization Address City/[facility] Co de Phone Number [facility] [address] [place] [address], * POTASSIUM (07/27/2023 6:52 AM CDT) POTASSIUM 3.9 3.5 - 5.1 mmol/L 07/27/2023 7:54 AM CDT [facility] Blood BLOOD SPECIMEN / Unknown Venipuncture / Unknown 07/27/2023 6:52 AM CDT 07/27/2023 7:03 AM CDT Rogelio Wilson MD CHEMISTRY Performing Organization Address [facility] Co de Phone Number [facility] [employer] [facility] [address] [place] [address], * (ABNORMAL) CREATININE (07/27/2023 6:52 AM CDT) Pathologist [facility] eGFR >90 >90 mL/min/1.7 3m2 07/27/2023 7:54 AM CDT [facility] Comment:As of 2021, eG FR is calculated by the CKD-EPI creatinine equation without race adjustment. ??eGFR can be influenced by muscle mass, exercise, and diet. ??The reported eGFR is an estimation only and is only applicable if the renal function is stable. CREATININE 0.57(L) 0.70 - 1.20 mg/dL 07/27/2023 7:54 AM CDT [facility] Blood BLOOD SPECIMEN / Unknown Venipuncture / Unknown 07/27/2023 6:52 AM CDT 07/27/2023 7:03 AM CDT Rogelio Wilson MD CHEMISTRY Performing Organization Address [facility] Co de Phone Number [facility] [address] [place] [address], * EKG 12 LEAD (07/27/2023 3:35 AM CDT) Only the most recent of3 resultswithin the time period is included. Pathologist [facility] Interpretation Sinus tachycardia Possible Left atrial enlargement Anterolateral infarct , age undetermined Abnormal ECG Compared to ekg of 26-JUL-2023, No significant change BEYOND NOW Ventricular Rate 131 BPM BEYOND NOW Atrial Rate 131 BPM BEYOND NOW P-R Interval 112 ms BEYOND NOW QRS Duration 80 ms BEYOND NOW QT 324 ms BEYOND NOW QTc 478 ms BEYOND NOW P [place] 76 degrees BEYOND NOW R [place] 122 degrees BEYOND NOW T [place] 39 degrees BEYOND NOW 07/27/2023 3:35 AM CDT 07/27/2023 7:36 PM CDT Narrative [facility] NOW - 07/27/2023 7:36 PM CDT Test Indication: stat Rogelio Wilson MD EKG ORD BEYOND NOW [place], [place] * SCAN-CARDIAC STRIP (07/27/2023 2:04 AM CDT) Scanner OTHER * SCAN-CARDIAC STRIP (07/26/2023 5:29 PM CDT) Scanner OTHER * XR Chest 1 view portable (07/26/2023 3:51 PM CDT) Anatomical Region Laterality Modality HEART, THORAX, CHEST Digital Rad iography 07/26/2023 4:49 PM CDT Impressions 07/26/2023 4:49 PM CDT 1. No postprocedural right pneumothorax. Residual moderate right pleural effusion. 2. Left midlung and upper lung airspace opacities. Dictated by Jay Sierra MD @ Jul 26 2023 ??4:49PM (Electronically Signed) [email or web address] Narrative 07/26/2023 4:49 PM CDT For Patients: ??As a result of the Cures Act, medical imaging exams and procedure reports are released immediately into your electronic medical record. ??You may view this report before your referring provider. ??If you have questions, please contact your health care provider. INDICATION: Status post right thoracentesis. COMPARISON: None available. TECHNIQUE: 1 view. ?? FINDINGS: Medical Devices: None. Lung Volumes: Adequate inspiration. No significant atelectasis. Lungs: Left mid lung and upper lung airspace opacities. Pleura and Pleural spaces: Persistent moderate residual right pleural effusion no pneumothorax. Mediastinum: Normal cardiomediastinal silhouette. Bony Thorax and Soft Tissues: No significant incidental findings. Procedure Note Jay Sierra MD - 07/26/2023 For Patients: As a result of the Cures Act, medical imagingexams and procedure reports are released immediately into your electronicmedical record. You may view this report before your referring provider.If you have questions, please contact your health care provider. INDICATION: Status post right thoracentesis. COMPARISON: None available. TECHNIQUE: 1 view. FINDINGS: Medical Devices: None. Lung Volumes: Adequate inspiration. No significant atelectasis. Lungs: Left mid lung and upper lung airspace opacities. Pleura and Pleural spaces: Persistent moderate residual right pleuraleffusion no pneumothorax. Mediastinum: Normal cardiomediastinal silhouette. Bony Thorax and Soft Tissues: No significant incidental findings. IMPRESSION: 1. No postprocedural right pneumothorax. Residual moderate right pleuraleffusion. 2. Left midlung and upper lung airspace opacities. Dictated by Jay Sierra MD @ Jul 26 2023 4:49PM (Electronically Signed) [email or web address] Rebecca Steen MD GENERAL IM AGING * Body Fluid Culture, Stain (07/26/2023 3:50 PM CDT) Only the most recent of2 resultswithin the time period is included. CULTURE No Growth. 08/01/2023 7:24 AM CDT [facility] GRAM STAIN No Epithelial cells 08/01/2023 7:24 AM CDT [facility] GRAM STAIN No RBCs 08/01/2023 7:24 AM CDT [facility] GRAM STAIN 1+ PMNs 08/01/2023 7:24 AM CDT [facility] GRAM STAIN No organisms seen 08/01/2023 7:24 AM CDT [facility] Body Fluid SPECIMEN FROM PERICARDIUM / Unknown Non-Blood / Unknown 07/26/2023 3:50 PM CDT 07/26/2023 4:31 PM CDT Narrative [facility] - 08/01/2023 7:24 AM CDT ?? Maxine Dodd MD MICROBIOLOGY [facility] [address] [place] [address], [place] * PATH Non [employer] Cytology (07/26/2023 3:50 PM CDT) Only the most recent of2 resultswithin the time period is included. Case Report Medical Cytology Report ? Case: [id number] ? Authorizing Provider: ??Maxine Dodd MD ?Collected: ? 07/26/2023 1550 ? Ordering Location: ? [facility] ?Received: ?07/26/2023 1631 ? Hospital ? Pathologist: ? Claudia Nichole ? MD [place] ? Specimen: ?Pericardial Fluid ? 07/28/2023 12:05 PM CDT [facility] Final Diagnosis PERICARDIAL FLUID, CYTOLOGIC MATERIAL: Negative for malignancy in this sample 07/28/2023 12:05 PM CDT [facility] Clinical Information The patient is a 43 y.o. male with rheumatoid arthritis with multifocal lung opacities, pericardial effusion, and right pleural effusion. 07/28/2023 12:05 PM CDT [facility] Gross Description A) SOURCE: Pericardial fluid The specimen consists of 70 cc of light yellow opaque fluid from which the following is prepared: ? -1 DiffQuik stained slide ? -1 Papanicolaou stained ThinPrep slide ? -1 H&E stained cell block slide A2 Cell block material was placed in formalin at 1745 on 07/26/23 and fixed in formalin at least 6 hours and no more than 72 hours. 07/28/2023 12:05 PM CDT [facility] Microscopic Description All slides were reviewed microscopically. Specimen adequacy: Adequate for interpretation. The microscopic appearance substantiates the diagnosis. 07/28/2023 12:05 PM CDT [facility] Additional Information Cytology is screened at [facility] - [address] [address] and [facility] - [address] [place] [address] and [facility] - [address] [address] Interpreted at [facility] - [address], [place] [address] 07/28/2023 12:05 PM CDT [facility] Other (Pericardial Fluid) 07/26/2023 3:50 PM CDT 07/26/2023 4:31 PM CDT Maxine Dodd MD PATHOLOGY/CYTOLOGY Performing Organization Address City/[facility]/ZIP Co de Phone Number [facility] [address] [place] [id number], [place] * Protein, Body Fluid (07/26/2023 3:50 PM CDT) Only the most recent of2 resultswithin the time period is included. SPECIMEN SOURCE Body Fluid, Pericardial 07/26/2023 5:40 PM CDT [facility] [employer] [facility] PROTEIN,BODY FLUID 5.1 g/dL 07/26/2023 5:40 PM CDT [facility] [employer] [facility] Comment:No Reference Range D efined. Body Fluid SPECIMEN FROM PERICARDIUM / Unknown Non-Blood / Unknown 07/26/2023 3:50 PM CDT 07/26/2023 4:31 PM CDT [facility] [employer] [facility] - 07/26/2023 5:40 PM CDT Pleural: Pleural fluid transudate total protein to serum total protein ratio typically </=0.5. Pleural fluid exudate total protein to serum total protein ratio typically >0.5. Peritoneal: Ascitic fluid total protein is a reflection of serum protein concentration. May be useful in differentiating secondary bacterial peritonitis from spontaneous bacterial peritonitis when at least two of the three criteria are met in ascetic fluid: Total Protein > 1.0 g/dL Glucose < 50 mg/dL LDH > Upper reference limit for serum Ascitic fluid total protein may be elevated > 2.5 g/dL in patients with high albumin gradient ascites caused by heart failure. Test developed & performance characteristics determined by [place], [place] consistent with CLIA requirements. Not cleared or approved by [place] FDA. Maxine Dodd MD BODY FLUID Performing Organization Address City/[facility]/ZIP Co de Phone Number [facility] [address] [place] [id number], [place] * pH Body Fluid (07/26/2023 3:50 PM CDT) Only the most recent of2 resultswithin the time period is included. PH,BODY FLUID 7.33 07/26/2023 5:23 PM CDT [facility]ap[facility] Specimen Source Pericardial 07/26/2023 5:23 PM CDT [facility] Body Fluid SPECIMEN FROM PERICARDIUM / Unknown Non-Blood / Unknown 07/26/2023 3:50 PM CDT 07/26/2023 4:31 PM CDT Maxine Dodd MD BODY FLUID [facility] [address] [place] [address], * LD, Body Fluid (07/26/2023 3:50 PM CDT) Only the most recent of2 resultswithin the time period is included. SPECIMEN SOURCE Body Fluid, Pericardial 07/26/2023 9:04 PM CDT [facility] LD,BODY FLUID 3,214 IU/L 07/26/2023 9:04 PM CDT [facility] Body Fluid SPECIMEN FROM PERICARDIUM / Unknown Non-Blood / Unknown 07/26/2023 3:50 PM CDT 07/26/2023 4:31 PM CDT Narrative [facility] - 07/26/2023 9:04 PM CDT Pleural: ? Pleural fluid LDH to serum LDH ratio <= 0.6 or less than 2/3 the ?upper limit of normal serum LDH consistent with transudative ?effusions, while pleural fluid LDH to serum LDH ratio > 0.6 is ?consistent with exudative effusions. Peritoneal: ??Ascitic fluid LDH may be useful in differentiating secondary ?bacterial peritonitis from spontaneous bacterial peritonitis when ?at least two of the three criteria are met in ascites Fluid: ? Total protein >1.0 g/dL ? Glucose <50 mg/dL ? LDH > upper reference limit for serum Test developed & performance characteristics determined by [employer], [place], [place] consistent with CLIA requirements. Not cleared or approved by [place] FDA. Maxine Dodd MD BODY FLUID Performing Organization Address [facility] Co de Phone Number [facility] [employer] [facility] [address] [place] [id number], [place] * Glucose, Body Fluid (07/26/2023 3:50 PM CDT) Only the most recent of2 resultswithin the time period is included. SPECIMEN SOURCE Body Fluid, Pericardial 07/26/2023 5:40 PM CDT [facility] [employer] [facility] GLUCOSE,BODY FLUID <2 mg/dL 07/26/2023 5:40 PM CDT [facility] [employer] [facility] Comment:No Reference Range D efined. Body Fluid SPECIMEN FROM PERICARDIUM / Unknown Non-Blood / Unknown 07/26/2023 3:50 PM CDT 07/26/2023 4:31 PM CDT Narrative [facility] [employer] [facility] - 07/26/2023 5:40 PM CDT Pleural: Transudative pleural fluid glucose concentrations similar to serum glucose concentrations, while exudates have glucose concentrations less than serum glucose Glucose <60 mg/dL typically associated with low fluid pH Pericardial: Pericardial fluid glucose to serum glucose ratio <1.0 may be useful in differentiating exudate from transudate and infective from parainfective effusions Test developed & performance characteristics determined by [employer], [place], [place] consistent with CLIA requirements. Not cleared or approved by [place] FDA. Maxine Dodd MD BODY FLUID Performing Organization Address [facility] Co de Phone Number [facility] [address] [place] [phone], [place] * Amylase, Body Fluid (07/26/2023 3:50 PM CDT) SPECIMEN SOURCE Body Fluid, Pericardial 07/26/2023 5:41 PM CDT [facility] AMYLASE,BODY FLUID 17 IU/L 07/26/2023 5:41 PM CDT [facility] Comment:No Reference Range D efined. Body Fluid SPECIMEN FROM PERICARDIUM / Unknown Non-Blood / Unknown 07/26/2023 3:50 PM CDT 07/26/2023 4:31 PM CDT Narrative [facility] - 07/26/2023 5:41 PM CDT Peritoneal: Amylase activity in non-pancreatic peritoneal fluid is approximately equal to the serum amylase activity. Ascites associated with pancreatitis typically has amylase activity at least 5- fold greater than serum. Pleural: Amylase activity in pleural fluid is typically less than the upper limit of normal serumm amylase with fluid to serum amylase ratio <1.0 Test developed & performance characteristics determined by [facility] [employer] [facility], [place], [place] consistent with CLIA requirements. Not cleared or approved by [place] FDA. Maxine Dodd MD BODY FLUID Performing Organization Address [facility]/ZIP Co de Phone Number [facility] [address] [place] [address], * Anaerobic Culture (07/26/2023 3:50 PM CDT) CULTURE No anaerobes isolated 08/01/2023 11:01 AM CDT [facility] Other SPECIMEN FROM PERICARDIUM / Unknown Non-Blood / Unknown 07/26/2023 3:50 PM CDT 07/26/2023 4:31 PM CDT Maxine Dodd MD MICROBIOLOGY [facility] [address] [place] [id number], [place] * Specific [place], Body [place] (07/26/2023 3:50 PM CDT) SOURCE Pericardial 07/26/2023 5:09 PM CDT [facility] Comment:This is a corrected result. Previously reported as Pleural with reference range <null> on 07/26/2023 at 1659 CDT SPECIFIC GRAVITY,BODY FL 1.032 07/26/2023 5:09 PM CDT [facility] Comment:This is a corrected result. Previously reported as 1.023 with reference range <null> on 07/26/2023 at 1659 CDT Body Fluid SPECIMEN FROM PERICARDIUM / Unknown Non-Blood / Unknown 07/26/2023 3:50 PM CDT 07/26/2023 4:31 PM CDT Maxine Dodd MD BODY FLUID [facility] [address] [place] [address], * CVL OTHER PROCEDURE (07/26/2023 3:37 PM CDT) Anatomical Region Laterality Modality Other 07/26/2023 3:37 PM CDT Narrative Transcriptions Jose Juan aBrry MD - 07/26/2023 4:09 PM CDT [facility] Cardiac Catheterization Report Name: TIMO DIXON Event Date: 07/26/2023 15:37 Excellian ID #: [id number] CARLOS #: [id number] Patient Class: Inpatient Diagnostic Physician: JOSE JUAN BARRY [facility] Referring Physician: Date: 1980 Gender: Male Age: 43 Summary/Conclusions INDICATIONS - Large pericardial effusion c/w early tamponade DIAGNOSTIC SUMMARY - 500 cc of straw-colored fluid removed under echocardiographic guidance - Samples sent to pathology - Pigtail / sheath sutured in place LEFT VENTRICULAR FUNCTION ? Left ventricular ejection fraction based on echo is 60%. Consent & Pasco Protocol The risks, benefits, and alternatives of the procedure were discussed withthe patient and written informed consent was obtained. Pasco protocol was followed. TIME OUT conducted just prior tostarting procedure confirmed patient identity, site/side, procedure,patient position, and availability of correct equipment and implants (ifapplicable). Staff Name Title JOSE JUAN BARRY Diagnostic White Work Cleaner Joe Massey RN Nurse Carola Thornton CVT Scrub Simba Eagle CVT Monitor Abigail Magdaleno LUMBER STACKER OPERATOR Monitor Maxine Dodd Fellow Procedures ? Pericardiocentesis Left Ventriculography/Aortography Ejection Fraction: 60% (Method: Echo) Hemodynamics State: Baseline Procedure Details Estimated Blood Loss: < 30 ml Specimen Collected: None Level of Sedation Achieved: Mild Procedure Start: 15:37 Fluoroscopy Time: 1.4 min Cumulative Air Kerma: 8 mGy DAP: 135 uGy/M2 Physiologic Data Weight: 62.0 kg BSA: 1.74 m2 Vascular Access Time Access Sheath Size 15:39 pericardial space Complications ? No Complications Medications Ordered and Administered Start Time Stop Time Medication Dose Units Route Ordered By Given By 15:36 Fentanyl 50 mcg IV Jose Juan Barry Mellina RN 15:36 Versed 1 mg IV Jose Juan Barry Mellina RN 15:37 1% Lidocaine 8 ml Subcut Jose Juan Barry Gauravpal 15:42 Fentanyl 25 mcg IV Jose Juan Barry Mellina RN 15:42 Versed 0.5 mg IV Jose Juan Barry Mellina RN 15:45 O2 2 l per min Nasal cannula Jose Juan Barry Mellina RN 15:56 1% Lidocaine 3 ml Subcut Jose Juan Barry Gauravpal I personally monitored the patient?s conscious sedation during theprocedure. Conscious sedation starts with the first sedation medication dose ofFentanyl or Versed and ends when the procedure is completed, the patientis stable for recovery status, and the physician or other qualified healthcare professional providing the sedation ends personal [id number] time with the patient. The medications listed above were verbally ordered by me and read back tome as documented above. Refer to the procedure log report for additional case details. electronically signed on 07/26/2023 4:09:57 PM with status of Final Jose Juan Barry MD [facility] [address] [place] [address] (p) [phone](f) Provider Referring CV IMAGING * (ABNORMAL) LD serum (ADD ON) (07/26/2023 3:12 PM CDT) LD,TOTAL 266(H) 135 - 225 IU/L 07/26/2023 5:53 PM CDT [facility] Blood BLOOD SPECIMEN / Unknown Butterfly / Unknown 07/26/2023 3:12 PM CDT 07/26/2023 3:20 PM CDT Rogelio Wilson MD CHEMISTRY Performing Organization Address [facility] Co de Phone Number [facility] [address] [place] [address], * (ABNORMAL) PROTIME-INR (07/26/2023 3:12 PM CDT) INR 1.3(H) <1.3 07/26/2023 3:44 PM CDT [facility] PROTIME 14.8(H) 10.3 - 12.3 sec 07/26/2023 3:44 PM CDT [facility] Blood BLOOD SPECIMEN / Unknown Butterfly / Unknown 07/26/2023 3:12 PM CDT 07/26/2023 3:22 PM CDT Narrative [facility] - 07/26/2023 3:44 PM CDT ?Therapeutic Range 2.0-3.0 for most anticoagulated patients 2.5-3.5 or 4.0 for high risk patients The INR is only used for patients on stable oral anticoagulant therapy. It makes no significant contribution to the diagnosis or treatment of patients whose Protime is prolonged for other reasons. INR results are increased when heparin levels exceed 1.0 U/mL, which corresponds to an aPTT >125 seconds if the patient is on UFH. Teresita GILLIAM HEMATOLOGY Performing Organization Address [facility] Co de Phone Number [facility] [address] [place] [address], * Bedside Thoracentesis RIGHT (07/26/2023 2:41 PM CDT) Narrative Rebecca Steen MD - 07/26/2023 2:41 PM CDT Rebecca Steen MD ? 07/26/2023 ??2:59 PM ULTRASOUND GUIDED RIGHT THORACENTESIS Volume removed: 1500 mL Indication: large right pleural effusion INR: No results found in past 5 years from . Platelets: 459 from 07/26/2023 Anesthesia: 1% lidocaine Pasco protocol was followed. TIME OUT conducted just prior to starting procedure confirmed patient identity, site/side, procedure, patient position, and availability of correct equipment and implants. ??Yes The procedure, benefits, risks, and alternatives were explained to the patient. ??He voiced understanding of the information and agreed to proceed with the procedure. Bedside ultrasound guidance was used to localize a lung free zone of pleural fluid, the level of the diaphragm, and needle entry location. ?? The skin overlying the 8th intercostal space on the right was prepped and draped in the usual manner with the patient in the sitting position. The skin, rib periosteum, and pleura were anesthetized using a 22 Gauge needle. The pleural space was entered with immediate return of fluid.. The pleural space was entered with a 19 gauge thoracentesis needle equipped with a 5 Fr overlying cannula. 1500 mL of fluid was withdrawn and 1500 mL sent for analysis. The fluid was yellow-green and cellular. ??The needle was then withdrawn and an overlying bandage applied. The patient tolerated the procedure well and there were no immediate complications. A post-procedure chest radiograph is pending A post procedure bedside ultrasound shows small to moderate residual right pleural effusion and abnormal lung tissue and ipsilateral anti-gravitational lung sliding (making it unlikely that patient has a large pneumothorax) Pre procedure Post procedure Rebecca Steen MD Internal Medicine/Hospitalist From 8 AM-5 PM, please contact me via the [employer] website From 5 PM-8 AM, please contact the answering service Rogelio Wilson MD PROCEDURE ORD * ECHO TTE COMPLETE WO CONTRAST (07/26/2023 2:21 PM CDT) AORTIC VALVE MEAN PG 3 mmHg LVEDD 3.9 cm EJECTION FRACTION 60 - 65% Anatomical Region Laterality Modality Ultrasound 07/26/2023 11:4 9 AM CDT Narrative 07/26/2023 4:15 PM CDT ECHOCARDIOGRAM TIMO DIXON ?Accession#: ?? [id number] : ?1980 43 years Study Date: ?? 07/26/2023 11:49:32 AM Gender: M ? BP: ? 139/104 mmHg Height: 174.00 cm ? BSA: ?1.75 m? ? ? Weight: 62.00 kg ?Tech: ? KBA ?Referring MD: JOSE L LORENZO Site: ? [facility] Reading Location: [facility] Patient Location: Procedure: Limited 2D , Color Doppler and Limited Spectral Doppler. Indication for study: Pericardial effusion Cardiac Rhythm: Normal sinus.Study quality: Good. Final Impressions: 1. Large 2.6cm circumferential pericardial effusion with [...] less than 50%. 7. Right pleural effusion. Chamber Sizes and Function Normal left ventricular size, normal wall thickness, normal global systolic function with an estimated EF of 60 - 65%. No definite resting regional wall motion abnormality seen. Left atrial size is normal. Right ventricular cavity size is normal, global systolic RV function is normal. RV wall thickness is normal. The right atrium is normal. The pulmonary artery is of normal size and origin. The sinus of Valsalva is normal sized. The ascending aorta is normal sized. Valves, RV Pressures and Diastolic Function The aortic valve is sclerotic, no stenosis and no regurgitation. The mitral valve is normal in structure, no mitral regurgitation. Indeterminate pattern of LV diastolic filling. The tricuspid valve is normal in structure. Tricuspid regurgitation is regurgitation is not evident. The pulmonic valve is normal. No pulmonary regurgitation. Masses, Effusion, Shunts There is large pericardial effusion. The inferior vena cava is normal sized, respiratory size variation less than 50%. Interatrial septum is not well visualized. MEASUREMENTS AND CALCULATIONS 2-D Measurements and LV Function: LVID (d) 3.9 cm LV FS% (2D) ?? 36 % LVID (s) 2.5 cm LVOT diameter 2.1 cm IVS (d) ??0.9 cm HR ?113 bpm LVPW (d) 1.0 cm Ao Sinus 3.2 cm Asc Ao ?? 3.0 cm Diastology: Mitral ? Tissue Doppler E Peak 0.8 m/s e', Septum ? 0.14 m/s A Peak 0.5 m/s e', Lateral ?0.11 m/s E/A ?1.7 ? E/e' Average ?? 6.26 DT ? 89 msec Aortic Valve: Vmax ? 1.1 m/s ??CJ (V) ?? 3.59 cm? ? ? VTI ?0.17 m ?? CJ (I) ?? 3.56 cm? ? ? LVOT V max 1.2 m/s ??Max PG ?5 mmHg LVOT VTI ?? 0.18 m ?? Mean PG ?? 3 mmHg SV ? 62 ml ?Dim Index 1.03 SV index ?? 35 ml/m? ? ? CO ?7.0 l/min ?CI ?4.0 l/min/m? ? ? Mitral Valve: MVA ?8.5 cm? ? ? MV P 1/2 26 msec Tricuspid Valve and estimated PA pressures: TAPSE 1.7 cm Pulmonic Valve: PV AT 82 msec . This study was interpreted by an [facility] accredited facility. ??Final ?? Procedure Note Bryn Maldonado MD - 07/26/2023 ECHOCARDIOGRAM TIMO DIXON : 1980 43 years Study Date: 07/26/2023 11:49:32 AM Gender: M BP: 139/104 mmHg Height: 174.00 cm BSA: 1.75 m? ? ? Weight: 62.00 kg Tech: ROHAN Referring MD: JOSE L LORENZO Site: [facility] Reading Location: [facility] Patient Location: Procedure: Limited 2D , Color Doppler and Limited Spectral Doppler. Indication for study: Pericardial effusion Cardiac Rhythm: Normal sinus.Study quality: Good. Final Impressions: 1. Large 2.6cm circumferential pericardial effusion with evidence ofincreased intrapericardial pressure but no tamponade physiology. Increasedechogenicity of pericardial fluid. 2. Normal LV size, normal wall thickness, normal global systolic functionwith an estimated EF of 60 - 65%. 3. Right ventricular cavity size is normal, global systolic RV functionis normal. 4. The aortic valve is sclerotic, no stenosis and no regurgitation. 5. The mitral valve is normal, no mitral regurgitation. 6. The inferior vena cava is normal sized, respiratory size variationless than 50%. 7. Right pleural effusion. Chamber Sizes and Function Normal left ventricular size, normal wall thickness, normal globalsystolic function with an estimated EF of 60 - 65%. No definite restingregional wall motion abnormality seen. Left atrial size is normal. Rightventricular cavity size is normal, global systolic RV function is normal.RV wall thickness is normal. The right atrium is normal. The pulmonaryartery is of normal size and origin. The sinus of Valsalva is normalsized. The ascending aorta is normal sized. Valves, RV Pressures and Diastolic Function The aortic valve is sclerotic, no stenosis and no regurgitation. Themitral valve is normal in structure, no mitral regurgitation.Indeterminate pattern of LV diastolic filling. The tricuspid valve isnormal in structure. Tricuspid regurgitation is regurgitation is notevident. The pulmonic valve is normal. No pulmonary regurgitation. Masses, Effusion, Shunts There is large pericardial effusion. The inferior vena cava is normalsized, respiratory size variation less than 50%. Interatrial septum is notwell visualized. MEASUREMENTS AND CALCULATIONS 2-D Measurements and LV Function: LVID (d) 3.9 cm LV FS% (2D) 36 % LVID (s) 2.5 cm LVOT diameter 2.1 cm IVS (d) 0.9 cm HR 113 bpm LVPW (d) 1.0 cm Ao Sinus 3.2 cm Asc Ao 3.0 cm Diastology: Mitral Tissue Doppler E Peak 0.8 m/s e', Septum 0.14 m/s A Peak 0.5 m/s e', Lateral 0.11 m/s E/A 1.7 E/e' Average 6.26 DT 89 msec Aortic Valve: Vmax 1.1 m/s CJ (V) 3.59 cm? ? ? VTI 0.17 m CJ (I) 3.56 cm? ? ? LVOT V max 1.2 m/s Max PG 5 mmHg LVOT VTI 0.18 m Mean PG 3 mmHg SV 62 ml Dim Index 1.03 SV index 35 ml/m? ? ? CO 7.0 l/min CI 4.0 l/min/m? ? ? Mitral Valve: MVA 8.5 cm? ? ? MV P 1/2 26 msec Tricuspid Valve and estimated PA pressures: TAPSE 1.7 cm Pulmonic Valve: PV AT 82 msec . This study was interpreted by an [facility] accredited facility. Final Jose L Lorenzo MD ECHO ORD * CWS PATH REVIEW BODY FLUID (07/26/2023 2:00 PM CDT) PATH COMMENT No atypical or malignant cells favor reactive. Reviewed by Dr. Mary Clayton on 07/26/2023. 07/27/2023 2:42 PM CDT [facility] Body Fluid SPECIMEN FROM PLEURA OBTAINED BY THORACENTESIS / Unknown Non-Blood / Unknown 07/26/2023 2:00 PM CDT 07/26/2023 3:02 PM CDT Rogelio Wilson MD [facility] [address] [place] [address], [place] * Triglycerides Pleural fluid (RIGHT) (07/26/2023 2:00 PM CDT) Triglycerides, Fluid 10 Not Estab. mg/dL 07/27/2023 9:06 PM CDT [facility] ([facility]) Comment: The reference interval(s) and other method performance specifications have not been established for this body fluid. The test result must be integrated into the clinical context for interpretation. Body Fluid BODY FLUID SPECIMEN / Unknown Non-Blood / Unknown 07/26/2023 2:00 PM CDT 07/26/2023 3:01 PM CDT Narrative [facility] ([facility]) - 07/27/2023 9:06 PM CDT Performed at: ??[address] ??[id number] Cargo Worker: Darrel Boyce MD, Phone: ??[phone] Rogelio Wilson MD BODY FLUID Performing Organization Address City/[facility]/ZIP Co de Phone Number [facility] ([facility]) [address] [place] [address], [place] * Cell Count Pleural Fluid (RIGHT) (07/26/2023 2:00 PM CDT) BODY FLUID SOURCE Pleural Fluid 07/27/2023 2:42 PM CDT [facility] Comment:Right BODY FLUID COLOR Yellow 07/27/2023 2:42 PM CDT [facility] BODY FLUID CLARITY Cloudy 07/27/2023 2:42 PM CDT [facility] TOTAL NUCLEATED CELLS, BF 2,752 /cu mm 07/27/2023 2:42 PM CDT [facility] RED BLOOD COUNT, BODY FLUID 11,000 /cu mm 07/27/2023 2:42 PM CDT [facility] % NEUTROPHILS, BODY FLUID 6 % 07/27/2023 2:42 PM CDT [facility] % LYMPHOCYTES, BODY FLUID 6 % 07/27/2023 2:42 PM CDT [facility] % MONO/MACRO, BODY FLUID 88 % 07/27/2023 2:42 PM CDT [facility] Body Fluid SPECIMEN FROM PLEURA OBTAINED BY THORACENTESIS / Unknown Non-Blood / Unknown 07/26/2023 2:00 PM CDT 07/26/2023 3:[address] [facility] - 07/27/2023 2:42 PM CDT Differential held for Pathology review Rogelio Wilson MD BODY FLUID [facility] [address] [place] [address], * RESPIRATORY PANEL MULTIPLEX PCR (07/26/2023 10:34 AM CDT) Adenovirus NOT Detected 07/26/2023 11:40 AM CDT [facility] Coronavirus 229E NOT Detected 07/26/2023 11:40 AM CDT [facility] Coronavirus HKU1 NOT Detected 07/26/2023 11:40 AM CDT [facility] Coronavirus NL63 NOT Detected 07/26/2023 11:40 AM CDT [facility] Coronavirus OC43 NOT Detected 07/26/2023 11:40 AM CDT [facility] Human Metapneumovirus NOT Detected 07/26/2023 11:40 AM CDT [facility] Human Rhinovirus/Enterovi ranjan NOT Detected 07/26/2023 11:40 AM CDT [facility] Influenza A NOT Detected 07/26/2023 11:40 AM CDT [facility] Influenza B NOT Detected 07/26/2023 11:40 AM CDT [facility] Parainfluenza Virus 1 NOT Detected 07/26/2023 11:40 AM CDT [facility] Parainfluenza Virus 2 NOT Detected 07/26/2023 11:40 AM CDT [facility] Parainfluenza Virus 3 NOT Detected 07/26/2023 11:40 AM CDT [facility] Parainfluenza Virus 4 NOT Detected 07/26/2023 11:40 AM CDT [facility] Respiratory Syncytial Virus NOT Detected 07/26/2023 11:40 AM CDT [facility] SARS-Cov-2 NOT Detected 07/26/2023 11:40 AM CDT [facility] Bordetella pertussis NOT Detected 07/26/2023 11:40 AM CDT [facility] Bordetella Parapertussis NOT Detected 07/26/2023 11:40 AM CDT [facility] Chlamydophila pneumoniae NOT Detected 07/26/2023 11:40 AM CDT [facility] Mycoplasma pneumoniae NOT Detected 07/26/2023 11:40 AM CDT [facility] Nasopharyngeal NASOPHARYNGEAL SWAB / Unknown Non-Blood / Unknown 07/26/2023 10:34 AM CDT 07/26/2023 10:[address] [facility] - 07/26/2023 11:40 AM CDT All PCR tests are subject to false negative results due to variability in viral/bacterial load and collection technique. ??This test does NOT detect MERS ( Respiratory Syndrome) or SARS-1 (Severe Acute Respiratory Syndrome). Rogelio Wilson MD MICROBIOLOGY [facility] [address] [place] [address], * SCAN-CARDIAC STRIP (07/26/2023 9:27 AM CDT) Scanner OTHER * PROCALCITONIN (07/26/2023 9:12 AM CDT) PROCALCITONIN 0.09 ng/ml 07/26/2023 10:27 AM CDT [facility] Blood BLOOD SPECIMEN / Unknown Venipuncture / Unknown 07/26/2023 9:12 AM CDT 07/26/2023 9:41 AM CDT Narrative [facility] - 07/26/2023 10:27 AM CDT Procalcitonin for initial assessment of Lower Respiratory Tract Infection: Results Interpretation <0.10 ng/mL Antibiotic therapy strongly discoraged. ??Indicates absent of bacterial infection. * 0.10 - 0.25 ng/mL Antibiotic therapy discouraged. ??Bacterial infection unlikely. * 0.26 - 0.50 ng/mL Antibiotic therapy encouraged. ??Bacterial infection possible. >0.50 ng/mL Antibiotic therapy strongly encouraged. ??Suggestive of presence of bacterial infection. *Antibiotic therapy should be considered regardless of PCT result if the patient is clinically unstable, is at high risk for adverse outcome, has strong evidence of bacterial pathogen, or the clinical context indicates antibiotic therapy is warranted. ??If antibiotics are withheld, reassess if symptoms persist/worsen and/or repeat PCT measurement within 6-24 hours. ? In order to assess treatment success and to support a decision to discontinue antibiotic therapy, follow up samples should be tested once every 1-2 days, based upon physician discretion taking into account patient's evolution and progress. Procalcitonin for initial assessment of severe sepsis risk: Results Interpretation <0.5 ng/ml A PCT level below 0.5 ng/ml on the first day of ICU admission is associated with a low risk for progression to severe sepsis and/or septic shock. > 2.0 ng/mL A PCT level above 2.0 ng/mL on the first day of ICU admission is associated with a high risk for progression to severe sepsis and/or septic shock. Note: Concentrations < 0.5 ng/mL do not exclude an infection, on account of localized infections (without systemic signs) which can be associated with such low concentrations, or a systemic infection in its initial stages(< 6 hours). Furthermore, increased procalcitonin can occur without infection. PCT concentrations between 0.5 and 2.0 ng/mL should be interpreted taking into account the patient's history. It is recommended to retest PCT within 6-24 hours if any concentrations < 2 ng/mL are obtained. Rogelio Wilson MD SEND OUTS Performing Organization Address [facility] Co de Phone Number [facility] [address] [place] [address], * (ABNORMAL) SEDIMENTATION RATE (07/26/2023 6:33 AM CDT) SEDIMENTATION RATE 81(H) <15 mm/hr 2023 9:19 AM CDT [facility] Blood BLOOD SPECIMEN / Unknown Venipuncture / Unknown 07/26/2023 6:33 AM CDT 07/26/2023 7:00 AM CDT Rogelio Wilson MD HEMATOLOGY Performing Organization Address [facility]/ZIP Co de Phone Number [facility] [address] [place] [address], [place] * (ABNORMAL) IRON PLUS IRON BINDING CAP (07/26/2023 6:33 AM CDT) IRON 18(L) 61 - 157 ug/dL 07/26/2023 4:56 PM CDT [facility] UIBC (UNSATURATED) 267 112 - 347 ug/dL 07/26/2023 4:56 PM CDT [facility] IRON BINDING CAPACITY 285 250 - 400 ug/dL 07/26/2023 4:56 PM CDT [facility] IRON,% SATURATION 6(L) 14 - 50 % 07/26/2023 4:56 PM CDT [facility] Blood BLOOD SPECIMEN / Unknown Venipuncture / Unknown 07/26/2023 6:33 AM CDT 07/26/2023 7:00 AM CDT Rogelio Wilson MD CHEMISTRY Performing Organization Address [facility] Co de Phone Number [facility] [address] [place] [address], [place] * (ABNORMAL) C-REACTIVE PROTEIN (07/26/2023 6:33 AM CDT) C-REACTIVE PROTEIN 8.4(H) <0.5 mg/dL 07/26/2023 11:26 AM CDT [facility] Blood BLOOD SPECIMEN / Unknown Venipuncture / Unknown 07/26/2023 6:33 AM CDT 07/26/2023 7:00 AM CDT Jose L Lorenzo MD CHEMISTRY Performing Organization Address [facility] Co de Phone Number [facility] [address] [place] [address], [place] * Protein, total serum (07/26/2023 6:33 AM CDT) PROTEIN,TOTAL 6.3 6.0 - 8.0 g/dL 07/26/2023 12:21 PM CDT [facility] Blood BLOOD SPECIMEN / Unknown Venipuncture / Unknown 07/26/2023 6:33 AM CDT 07/26/2023 7:00 AM CDT Rogelio Wilson MD CHEMISTRY Performing Organization Address [facility] Co de Phone Number [facility] [address] [place] [address], [place] * FERRITIN (07/26/2023 6:33 AM CDT) FERRITIN 56.9 30.0 - 400.0 ng/mL 07/26/2023 4:56 PM CDT [facility] Blood BLOOD SPECIMEN / Unknown Venipuncture / Unknown 07/26/2023 6:33 AM CDT 07/26/2023 7:00 AM CDT Rogelio Wilson MD CHEMISTRY Performing Organization Address City/[facility]/ZIP Co de Phone Number [facility] [address] [place] [address], * (ABNORMAL) Hepatic function panel FOR ADD ON (07/26/2023 6:33 AM CDT) ALBUMIN 2.8(L) 4.0 - 4.9 g/dL 07/26/2023 3:36 PM CDT [facility] PROTEIN,TOTAL 6.2 6.0 - 8.0 g/dL 07/26/2023 3:36 PM CDT [facility] BILIRUBIN,TOTAL 0.4 0.0 - 1.2 mg/dL 07/26/2023 3:36 PM CDT [facility] BILIRUBIN,DIRECT <0.2 0.0 - 0.3 mg/dL 07/26/2023 3:36 PM CDT [facility] BILIRUBIN,INDIRE CT 07/26/2023 3:36 PM CDT [facility] Comment:Unable to calculate, Direct Bili <0.2 ALK PHOSPHATASE 137(H) 40 - 129 IU/L 07/26/2023 3:36 PM CDT [facility] ALT (SGPT) 18 10 - 50 IU/L 07/26/2023 3:36 PM CDT [facility] AST (SGOT) 27 10 - 50 IU/L 07/26/2023 3:36 PM CDT [facility] Blood BLOOD SPECIMEN / Unknown Venipuncture / Unknown 07/26/2023 6:33 AM CDT 07/26/2023 7:00 AM CDT Rogelio Wilson MD CHEMISTRY [facility] [address] [place] [address], [place] from Last 3 Months Advance Directives * Full Code (Latest Code Status on File) Date Activated Date Inactivated Comments 07/26/2023 4:32 AM 07/29/2023 6:24 PM Question Answer Comments Code Status Discussion: Reviewed Preferences Care Teams Historical Archeologist Relationship Specialty Start Date End Date Jasson Barillas [address] [place] [address] PCP - General Family Practice 07/27/23
--- OUTSIDE RECORDS SUMMARY | 2023-08-15 16:41 | XMS_ITS | Clinical Summary ---
Author Organization [facility] Address [address] [place] [address] Care Team Providers Care Tile And Marble Setter Name Role Phone Unavailable Primary Care Provider Unavailabl e Source Comments Patient records contain information from all sites at [facility]. For routine questions regarding patient records, call [phone] during business hours, M-F 8:00 AM - 5:00 PM Central Time. Record requests for emergency care only can be directed to [phone] at any time.[facility] Allergies No known active allergies Medications Medication [...] by mouth as directed. Take All QAM: 3-4-2-2-1-stop. Taper every 7 days by 1 pill [...] Family History Medical History Relation Name Comments Diabetes Father Leukemia Grandfather . Psoriasis Mother Relation Name Status Comments Father Grandfather . Mother Social History Tobacco Use Types Packs/Day Years [...] than three times a week 11/07/2019 Attends Shinto Services Not on file 11/06 Active Member [...] Comments Blood Pressure 112/77 01/21/2022 2:49 PM RESEARCH LABORATORY TECHNICIAN Pulse 101 01/21/2022 2:49 PM RESEARCH LABORATORY TECHNICIAN Temperature 36.8 ??C (98.2 ??F) 01/21/2022 2:49 PM CS T Respiratory Rate 18 10/09/2014 4:31 PM CDT Oxygen Saturation - - Inhaled Oxygen Concentration - - Weight 63.4 kg (139 lb 12.4 oz) 01/21/2022 2:49 PM RESEARCH LABORATORY TECHNICIAN Height 173.2 cm (5' 8.19) 01/21/2022 2:49 PM CS T Body Mass Index 21.13 01/21/2022 2:49 PM RESEARCH LABORATORY TECHNICIAN Plan of Treatment Health Maintenance Due Date Last Done Comments COVID-19 Vaccine (#1) 01/22/1985 Pneumococcal vaccine (0-64 y ears) (1 of 2 - PCV) 01/22/1986 Hepatitis B Vaccines (1 of 3 - 19+ 3-dose series) 01/22/1999 Zoster Vaccines (1 of 2) 01/22/1999 Hydroxychloroquine (PLAQUENI L) Baseline Exam 01/21/2022 Influenza Vaccine (#1) 2022 Depression Screening (Annual PHQ-2) 03/14/2023 DTaP,Tdap,and Td Vaccines (2 - Td or Tdap) 01/14/2027 01/14/2017 Lipid (Cholesterol) Screening 01/27/2027, 01/16/2021, 02/06/2020 HIV Screening Completed 06/09/2016 Hepatitis C Screening Completed 03/18/2017 HPV Vaccines Aged Out No longer eligi ble based on patient's age to complete this topic Procedures Procedure Name Priority Date/Time Associated Diagnosis Comments EXTI LIPID PANEL, S Routine 01/27/2022 8 :04 AM RESEARCH LABORATORY TECHNICIAN HCV AB SCRN W/REFLEX TO HCV PCR, S Routine 03/18/2017 10:14 AM RESEARCH LABORATORY TECHNICIAN HIV-1/-2 AG AND AB SCREEN Routine 06/09/2016 4:18 PM CDT from Last 3 Months or Most Recently Relevant to Health Maintenance Results * HCV AB Scrn w/Reflex to HCV PCR, S (03/18/2017 10:14 AM RESEARCH LABORATORY TECHNICIAN) HCV Ab Screen, S Negative Negative [facility] Comment:Nasawc-xq-idnmai rat io is <1.00. 03/18/2017 10:1 4 AM RESEARCH LABORATORY TECHNICIAN 03/18/2017 10:14 AM RESEARCH LABORATORY TECHNICIAN Kaleb Osborn M.D. LAB MICROBIOLOGY - BLOOD ORDERABLES Performing Organization Address [facility]/[place] [address], [facility] * HIV-1/-2 Ag and Ab Screen (06/09/2016 4:18 PM CDT) HIV-1/-2 Antibody Negative Negative [facility] Comment: Negative result does not rule out HIV infection. If acute HIV infection is suspected in a high-risk individual, submit plasma specimen for HIV-1 RNA quantification test (HIVDQ) and/or HIV-2 DNA/RNA test (FHV2Q). Test Performed by: [place] [address] Blood 06/09/2016 4:18 PM CDT Bozena Phillips M.D. LAB MICROBIOLOGY - BLOOD ORDERABLES Performing Organization Address [facility] Co de Phone Number POWERCHART from Last 3 Months or Most Recently Relevant to Health Maintenance
--- OUTSIDE RECORDS SUMMARY | 2023-08-15 16:41 | XMS_ITS | Encounter Summary ---
Author Organization [facility] Address [address] [place] [address] Care Team Providers Care Hair Weaver Name Role Phone No Ref-Primary, Physician Primary Care Provider Edmond Felix MD Unavailable [phone] Kulwinder De La Cruz MD Unavailable Reason for Visit * Reason Onset Date Comments Prior Auth - Medication 08/11/2023 Actemra PA - Approved Encounter Details Date Type Department Care Team (Late st Contact Info) Description 08/11/2023 Telephone [facility] [address] [address] Alfred Coley MD [address] [place] [address] Prior Auth - Medication (Actemra PA - Approved) Social History Tobacco Use Types Packs/Day Years [...] encounter Miscellaneous Notes * Telephone Encounter - Sanya Feldman - 08/12/2023 10:57 AM CDT Images from the original note were not included. Prior Authorization Approval Medication: ACTEMRA 162 MG/0.9ML SC SOSY Authorization Effective Date: 08/12/2023 Authorization Expiration Date: 02/11/2024 Approved Dose/Quantity: 4 syringes per 28 days Reference #: [id number] Insurance Company: Other (see comments) Rx Benefits Expected CoPay: $ CoPay Card Available: Yes Financial Assistance Needed: Co-pay card offered Which Pharmacy is filling the prescription: [place], [place] - [address] [place] [address] Pharmacy Notified: Released Rx Patient Notified: Yes * Telephone Encounter - Sanya Feldman - 08/11/2023 1:37 PM CDT Images from the original note were not included. PA Initiation Medication: ACTEMRA 162 MG/0.9ML SC SOSY Insurance Company: Other - Rx Benefits Pharmacy Filling the Rx: Filling Pharmacy Phone: Filling Pharmacy Fax: Start Date: 08/11/2023 EOC ID [id number] documented in this encounter Plan of Treatment Upcoming Encounters Date Type Department Care Team (Late st Contact Info) Description 08/31/2023 4:00 PM CDT Office Visit [facility] [id number] [place] [address] [address] [place] [address] Kulwinder De La Cruz MD [address] [place], [place] [address] Edmond Felix MD [address] [place] [address] 09/27/2023 9:30 AM CDT Virtual Visit [facility] [address] [phone] Alfred Coley MD [address] [place], [place] [id number] Keven Smith, [address] documented as of this encounter Visit Diagnoses Not on filedocumented in this encounter Care Teams Hair Weaver Relationship Specialty Start Date End Date No Ref-Primary, Physician PCP - General 07/30/23 Edmond Felix MD [address] [place] [id number] Cardiovascular Disease 08/03/23 Kulwinder De La Cruz MD [address] [place] [id number] Fellow Cardiovascular Disease 08/03/23 documented as of this encounter
--- OUTSIDE RECORDS SUMMARY | 2023-08-15 16:41 | XMS_ITS ---
Author Organization [facility] Address [address] [place] [address] Care Team Providers Care Truck Loader And Unloader Name Role Phone Unavailable Unavailable Unavailable Surgery Details Not on file Complications Check Surgery Details section. Procedure Estimated Blood Loss Check Surgery Details section. Procedure Findings Check Surgery Details section. Procedure Specimens Taken Check Surgery Details section.
== END 2023-08-15 16:37 | disposition home or self-care (01) ==
PROVIDERS: PCP Internal Medicine; Visit Provider Internal Medicine
DX: M06.9 Rheumatoid arthritis, unspecified (principal); Z13.228 Encounter for screening for other metabolic disorders; Z13.0 Encounter for screening for diseases of the blood and blood-forming organs and certain disorders involving the immune mechanism
CPT/HCPCS: 80053; 82607; 82746; 83540; 83550

== ENCOUNTER 2023-10-12 16:37 | Emergency (ER) | payer BC, SELFPAY ==
[2023-10-12] VITALS (17 sets, daily range): BP systolic 139–156; BP diastolic 98–127; PULSE 105–116; RESP 18–20; TEMP 36.6; O2SAT 93–100; BMI 22.8
--- NOTE | 2023-10-12 16:59 | CRLHL7_ITS ---
For Patients: As a result of the Century Cures Act, medical imaging exams and procedure reports are released immediately into your electronic medical record. You may view this report before your referring provider. If you have questions, please contact your health care provider. INDICATION: Dyspnea. Pleural effusion. TECHNIQUE: Multiplanar CT examination of the chest was performed without the use of intravenous contrast. COMPARISON: Same-day chest radiographs. FINDINGS: Lower neck: The visualized thyroid is unremarkable. Cardiovascular: Heart size is normal. Thoracic aorta and pulmonary artery are normal in caliber. No significant atherosclerotic calcifications of the aortic arch. No significant coronary arterial calcifications. Mediastinum and lymph nodes: Kiteqgyp-lh-pzabn simple fluid attenuating pericardial effusion with suggestion of pericardial thickening. Limited evaluation for hilar lymphadenopathy without the use of intravenous contrast. Prominent mediastinal lymph nodes, for example right paratracheal lymph node measuring 9 mm short axis, likely reactive Lungs: No focal consolidation. Compressive atelectasis of the right lung base. linear bandlike opacification of the lung bases bilaterally, likely subsegmental atelectasis and/or scarring. Airways: Trachea remains patent and midline. Mild diffuse peribronchial wall thickening. Pleura: Moderate size right-sided pleural effusion. No pneumothorax. No left-sided pleural effusion. Chest wall: Unremarkable. Prominent axillary lymph nodes that do not meet size criteria for lymphadenopathy. Bones: No acute osseous abnormalities. Mild degenerative changes of the thoracic spine. Upper abdomen: Unremarkable. IMPRESSION: Limited evaluation without the use of intravenous contrast. 1. Moderate to large size pericardial effusion, with mild thickening of the pericardium, raising the possibility of an underlying nonspecific pericarditis. 2. Moderate size right-sided pleural effusion. Please note that all CT scans at this facility use dose modulation, iterative reconstruction, and/or weight-based dosing when appropriate to reduce radiation dose to as low as reasonably achievable. Dictated by Corey Torres MD @ 10/12/2023 6:07:43 PM (Electronically Signed)
--- NOTE | 2023-10-12 17:15 | ED.SOB ---
HPI - SOB/Dyspnea General Date Seen: 10/12/23 Chief Complaint: Shortness of Breath/Dyspnea Stated Complaint: Ref by Reister-fluid filled lungs, rheumatoid arth Time Seen by Provider: 10/12/23 16:39 Source: patient Mode of arrival: ambulatory Limitations: no limitations History of Present Illness HPI Narrative: Patient is a 43-year-old male presenting to the emergency department for shortness of breath. He has a history of rheumatoid arthritis. He states the symptoms started about 3 weeks ago and he schedule appointment and was unable to get in until today. At that appointment he was tachycardic. His primary care provider was concerned about his tachycardia with this history. A chest x-ray was done showing a recurrence of this right-sided pleural effusion. He was sent to the emergency department for evaluation. Previously in July of 2023 he presented to the emergency department for similar symptoms. At that time a CT was done showing a large pericardial effusion and pleural effusion. He was then transferred to [place] where they did a pericardiocentesis and thoracentesis. At that time they believed it was caused by under treated rheumatoid arthritis. Patient was doing well and was discharged. Was rather asymptomatic up until this past 3 weeks. Denies chest pain, headache, lightheadedness, dizziness, weakness, numbness, abdominal pain, diarrhea constipation. States the shortness of breath is only with exertion. Does not feel short of breath while he is sitting in the bed. Related Data Home Medications ?Medication ?Instructions ?Recorded ?Confirmed prednisone 10 mg tablet 10 mg PO DAILY 07/25/23 10/12/23 tocilizumab 162 mg/0.9 mL mg subcut 10/12/23 subcutaneous syringe (Actemra) Previous Rx's ?Medication ?Instructions ?Recorded iron,carbonyl 65 mg-vitamin C 125 1 tab PO QDAY #30 tabs 08/29/23 mg tablet,delayed release (Vitron-C) Allergies Allergy/AdvReac Type Severity Reaction Status Date / Time No Known Drug Allergies Allergy Verified 10/12/23 16:51 Review of Systems Status of ROS: Reports: 10 or more systems reviewed and unremarkable except as noted in History and below [facility] Medical History SOB (shortness of breath) ?R06.02 - Shortness of breath (ICD-10) Anemia ?D64.9 - Anemia, unspecified (ICD-10) Rheumatoid arthritis ?M06.9 - Rheumatoid arthritis, unspecified (ICD-10) Social History Smoking Status: Unknown if ever smoked Do you use any of these nicotine containing products: None How often do you have a drink containing alcohol: never How often do you have six or more drinks on one occasion: Never AUDIT-C Alcohol total score: 0 Non-prescribed substance use: denies use Little interest or pleasure in doing things: more than half the days Feeling down, depressed, or hopeless: not at all Exam Narrative: Exam Narrative: Const: Well-nourished, Well-developed, in mild distress Eyes: PERRL, no conjunctival injection, and symmetrical lids HENT: Atraumatic external nose and ears. Moist mucous membranes. Neck: Symmetric, trachea midline, No thyromegaly. CVS: Tachycardic, No murmurs or gallops. Peripheral pulses 2+ and equal in all extremities RESP: Unlabored respiratory effort. Diminished lung sounds right lower lobe. GI: Nontender/Nondistended, No rebound or guarding. MSK:Extremities w/o deformity, Normal Active ROM Skin: Warm, Dry. No rashes or lesions. Neuro: Normal Muscle tone, No focal neurological deficits. Psych: Awake, Alert, & Oriented x3. Appropriate mood and affect. Const: Vital Signs, click to edit/add: Vital Signs - 24 hr 10/12/23 16:47 10/12/23 17:23 10/12/23 17:24 Temperature 97.8 F Pulse Rate 113 H 113 H Pulse Rate [Pulse Oximeter] 116 H Respiratory Rate 18 Blood Pressure 152/109 H Blood Pressure [Ri ght Upper Arm] 151/98 H Pulse Oximetry 93 100 100 Oxygen Delivery Me thod Room Air 10/12/23 17:30 10/12/23 17:45 10/12/23 18:00 Temperature Pulse Rate 112 H 114 H 114 H Pulse Rate [Pulse Oximeter] Respiratory Rate Blood Pressure Blood Pressure [Ri ght Upper Arm] Pulse Oximetry 100 100 100 Oxygen Delivery Me thod 10/12/23 18:10 10/12/23 18:15 10/12/23 18:30 Temperature Pulse Rate 112 H 110 H 109 H Pulse Rate [Pulse Oximeter] Respiratory Rate Blood Pressure 139/111 H Blood Pressure [Ri ght Upper Arm] Pulse Oximetry 97 99 99 Oxygen Delivery Me thod 10/12/23 18:31 10/12/23 18:32 10/12/23 18:51 Temperature Pulse Rate 109 H 115 H 110 H Pulse Rate [Pulse Oximeter] Respiratory Rate Blood Pressure 140/114 H Blood Pressure [Ri ght Upper Arm] Pulse Oximetry 100 95 100 Oxygen Delivery Me thod 10/12/23 19:01 10/12/23 19:32 Temperature Pulse Rate 110 H 114 H Pulse Rate [Pulse Oximeter] Respiratory Rate 20 20 Blood Pressure 140/105 H 156/127 H Blood Pressure [Ri ght Upper Arm] Pulse Oximetry 100 99 Oxygen Delivery Me thod Course Vital Signs Vital signs: Initial Vital Signs Temperature 97.8 F 10/12/23 16:47 Temperature Source Temporal Artery Scan 10/12/23 16:47 Pulse Rate 116 H 10/12/23 16:47 Respiratory Rate 18 10/12/23 16:47 Blood Pressure 151/98 H 10/12/23 16:47 Blood Pressure Mean 115 H 10/12/23 16:47 Blood Pressure Position Sitting 10/12/23 16:47 Pulse Oximetry 93 10/12/23 16:47 Oxygen Delivery Method Room Air 10/12/23 16:47 Vital Signs Temperature 97.8 F 10/12/23 16:47 Pulse Rate 116 H 10/12/23 16:47 Respiratory Rate 18 10/12/23 16:47 Blood Pressure 151/98 H 10/12/23 16:47 Pulse Oximetry 93 10/12/23 16:47 Oxygen Delivery Method Room Air 10/12/23 16:47 Temperature 97.8 F 10/12/23 16:47 Pulse Rate 114 H 10/12/23 19:32 Respiratory Rate 20 10/12/23 19:32 Blood Pressure 156/127 H 10/12/23 19:32 Pulse Oximetry 99 10/12/23 19:32 Oxygen Delivery Method Room Air 10/12/23 16:47 MDM - SOB/Dyspnea MDM Narrative Medical decision making narrative: Patient is a 43-year-old male presenting for shortness of breath and tachycardia. He is satting 1 her insert% on room air at rest. States most of his dyspnea as with exertion. Chest x-ray outpatient showed what appeared to be a pleural effusion. Will do a CT scan to better evaluate. Also order EKG, troponin, CBC, BMP. CBC returns with a white count of 15.34. His previous perfusion was thought to be most likely from his rheumatoid arthritis that this time he is not appear to show any obvious signs of infection. This is most likely inflammatory in nature causes elevated white blood cell count and I do not believe antibiotics are necessary at this time. Will order lactate though. Hemoglobin is at his baseline. Lactate returned at 1.5. BMP shows no concerning abnormalities. Troponin and EKG shows no concerning findings. Review of his CT scan showed appears to be pleural effusion and pericardial effusion. Bedside ultrasound performed clearly shows a pericardial effusion but he is having good movement of his myocardial. No signs of of a JVD. Does not appear to show any signs of imminent cardiac demise. Considering he had to go to [place] last time for rheumatology we will transfer him there again since that is where his bailiff is. He is agreeable to this plan. Of note he is refusing to go by ambulance due to the cost and would like to go by private vehicle. Of note patient's was suppose to have started Actemra several weeks ago but was only able to started 2 weeks ago due to insurance. I spoke to our surgeon and she states she is able to drain his pleural effusion but cannot drain the pericardial effusion. Due to that I do not think is appropriate to keep him in [place]. I tried to send him to [place] where his rheumatology is since he had to be transferred there last time for these issues. Patient is getting frustrated about the weight and has threatened to leave AMA. I spoke to his bailiff who I was asking if they could follow up with the patient if he does leave AMA but was told they were unable to help. I tried to do ED to ED transfer but was unable to. The tried your concern to [facility] but they cannot taking meds they do not have Rheumatology. At this point I spoke to him and he still wants to leave AMA and I did try speak to [facility]. They state that they could take for transfer and likely drain him in the morning. I informed the patient that they are agreeable to accept for transfer but he is hesitant to wait for a bed to become available as he states he has a lot of stuff to do at home to get ready for it. At this point he wants to leave against medical advice. I explained to him the risks of leaving against medical advice and I recommend he wait to be transferred. He he still wants to leave against medical advice. At this point I will discharge him AMA. We will supply him with copies of his records for when he goes to the outside hospital. The patient is clinically not intoxicated, free from distracting pain, appears to have intact insight, judgment and reason and in my medical opinion has the capacity to make decisions. The patient is also not under any duress to leave the hospital. In this scenario, it would be battery to subject a patient to treatment against his/her will. I have voiced my concerns for the patient's health given that a full evaluation and treatment had not occurred. I have discussed the need for continued evaluation to determine if their symptoms are caused by a condition that present risk of or morbidity. Risks including but not limited to , permanent disability, prolonged hospitalization, prolonged illness, were discussed. I discussed the specific benefits of additional treatment, as well as tried offering alternative options in hopes that the patient might be amenable to partial evaluation and treatment which would be medically beneficial to the patient. However, the patient declined my options and insisted on leaving. Because I have been unable to convince the patient to stay, I answered all of their questions about their condition and asked them to return to the ED as soon as possible to complete their evaluation, especially if their symptoms worsen or do not improve. I emphasized that leaving against medical advice does not preclude returning here for further evaluation. I asked the patient to return if they change their mind about the further evaluation and treatment. I strongly encouraged the patient to return to this Emergency Department or any Emergency Department at any time, particularly with worsening symptoms. Lab Data Labs: Lab Results 10/12/23 10/12/23 Range/Units 17:10 17:37 WBC 15.34 H (4.50-11.00) K/uL RBC 5.02 (4.30-5.90) m/uL Hgb 10.7 L (13.5-17.5) gm/dL Hct 37.5 (37.0-53.0) % MCV 75 L (80-100) fL MCH 21 L (26-34) pg MCHC 29 L (32-36) gm/dL RDW Coeff of Ann-Marie 18.8 H (11.5-15.5) % Plt Count 444 H (140-440) K/uL Neut % (Auto) 83.4 H (42.0-72.0) % Lymph % (Auto) 9.3 L (20-44) % [place] % (Auto) 6.6 (0.0-11.0) % Eos % (Auto) 0.4 (0.0-7.0) % Baso % (Auto) 0.1 (0.0-3.0) % Neut # (Auto) 12.80 H (1.7-7.0) K/uL Lymph # (Auto) 1.40 (0.90-2.90) K/uL [place] # (Auto) 1.00 H (0.00-0.90) K/UL Eos # (Auto) 0.10 (0.00-0.50) K/uL Baso # (Auto) 0.00 (0.00-0.30) K/uL Abs Immat Gran (auto) 0.00 (0.00-0.30) K/uL Imm/Tot Granulo (auto) 0.2 % Sodium 143 (135-149) mmol/L Potassium 4.1 (3.6-5.1) mmol/L Chloride 110 (96-114) mmol/L Carbon Dioxide 21 (20-32) mmol/L Anion Gap 12 (7-15) mEq/L BUN 22 (5-24) mg/dL Creatinine 0.6 (0.5-1.5) mg/dL Estimated Creat Clear 152.77 Estimated GFR 123 ml/min Glucose 99 (60-115) mg/dL Lactate 1.5 (0.5-1.9) mmol/L Calcium 9.3 (8.4-10.6) mg/dL POC Troponin I 0.00 L (0.01-0.04) ng/ml Imaging Data CT scan - chest: Attestation: I have reviewed the pertinent imaging results. Radiologist's impression: Limited evaluation without the use of intravenous contrast. 1. Moderate to large size pericardial effusion, with mild thickening of the pericardium, raising the possibility of an underlying nonspecific pericarditis. 2. Moderate size right-sided pleural effusion. Please note that all CT scans at this facility use dose modulation, iterative reconstruction, and/or weight-based dosing when appropriate to reduce radiation dose to as low as reasonably achievable. Dictated by Corey Torres MD @ 10/12/2023 6:07:43 PM ECG Data Attestation: I personally reviewed and interpreted this ECG as follows: Prior ECG tracings: available for review Interpretation: Sinus tachycardia with a rate of 109 beats per minute, rightward axis, normal intervals, no ST or T-wave abnormalities. Appears similar to previous EKG on file Discharge Plan Discharge Clinical Impression: Acute pericardial effusion, Pleural effusion Rheumatoid arthritis Qualifiers: Rheumatoid arthritis location: unspecified site Rheumatoid factor presence: unspecified presence Qualified Code(s): M06.9 - Rheumatoid arthritis, unspecified Patient Disposition: Left Against Medical Advice Condition: Stable Instructions: Pericardial Effusion (ED), Thoracentesis (DC) Additional Instructions: Again I recommend you wait for transfer to [place]. If he continued to insist to leave against medical advice I recommend you return to emergency department as soon as possible out for evaluation to get these pericardial and pleural effusions drained. if symptoms worsen please return immediately. Prescriptions: No Action prednisone 10 mg tablet 10 mg PO DAILY Vitron-C 65 mg iron- 125 mg tablet,delayed release (DR/EC) 1 tab PO QDAY Qty: 30 2RF Actemra 162 mg/0.9 mL syringe subcut Follow Up/Referrals: Bill Giang MD [Primary Care Provider] - Stand Alone Forms: [facility] Info Instructions
[2023-10-12 17:20] LABS: Basophils Percent Auto 0.1 % (0.0-3.0); Eosinophils Percent Auto 0.4 % (0.0-7.0); Hematocrit 37.5 % (37.0-53.0); Hemoglobin* 10.7 gm/dL (13.5-17.5); Immature Granulocytes Pct Auto 0.2 %; Lymphocytes Percent Auto 9.3 % (20-44); Mean Corpuscular HGB Conc 29 gm/dL (32-36); Mean Corpuscular Hemoglobin 21 pg (26-34); Mean Corpuscular Volume 75 fL (80-100); Monocytes Percent Auto 6.6 % (0.0-11.0); Neutrophils Percent Auto 83.4 % (42.0-72.0); Platelet Count* 444 K/uL (140-440); RDW Coefficient of Variation % 18.8 % (11.5-15.5); Red Blood Count 5.02 m/uL (4.30-5.90); White Blood Count* 15.34 K/uL (4.50-11.00)
[2023-10-12 17:25] LABS: Slide Review Reflex No
[2023-10-12 17:30] LABS: Chloride* 110 mmol/L (96-114); Potassium* 4.1 mmol/L (3.6-5.1); Sodium* 143 mmol/L (135-149)
[2023-10-12 17:33] LABS: Anion Gap 12 mEq/L (7-15); Blood Urea Nitrogen* 22 mg/dL (5-24); Carbon Dioxide* 21 mmol/L (20-32); Creatinine* 0.6 mg/dL (0.5-1.5); Est. Creatinine Clearance* 152.77; Estimated Glomerular Filt Rate 123 ml/min
[2023-10-12 17:34] LABS: Calcium* 9.3 mg/dL (8.4-10.6); Glucose* 99 mg/dL (60-115)
[2023-10-12 17:40] LABS: Lactate* 1.5 mmol/L (0.5-1.9)
--- OUTSIDE RECORDS SUMMARY | 2023-10-12 17:53 | XMS_ITS | Encounter Summary ---
Author Organization [facility] er Address [address] [place] [address] Care Team Providers Care Offal Roller Name Role Phone Shashank Bull MD Primary Care Provider [phone] Encounter Details Date Type Department Care Team (Late st Contact Info) Description 09/28/2022 Telephone [place] [address] [place] [address] Srinivasan Barillas MD [address] [facility] [address] [place] [address] Social History Tobacco Use Types Packs/Day Years [...] on filedocumented in this encounter Care Teams Offal Roller Relationship Specialty Start Date End Date Shashank Bull MD [address] [place] [address] PCP - General 12/30/22 documented as of this encounter
--- OUTSIDE RECORDS SUMMARY | 2023-10-12 17:53 | XMS_ITS | Clinical Summary ---
Author Organization [facility] er Address [address] [place] [address] Care Team Providers Care Vehicle Window Tinter Name Role Phone Shashank Bull MD Primary [...] of 2 - PCV) 01/22/1986 Influenza Vaccine (#1) 2023 DTaP,Tdap,and Td Vaccines (2 - Td or Tdap) 01/14/2027 01/14/2017 HPV Vaccines Aged Out No longer eligi ble based on patient's age to complete this topic Care Teams Vehicle Window Tinter Relationship Specialty Start Date End Date Shashank Bull MD [address] [place] [address] PCP - General 12/30/22
--- OUTSIDE RECORDS SUMMARY | 2023-10-12 17:54 | XMS_ITS | Encounter Summary ---
Author Organization [place] Address [address] [place] [address] Care Team Providers Care Sign Designer Name Role Phone No Ref-Primary, Physician Primary Care Provider Edmond Felix MD Unavailable [phone] Kulwinder De La Cruz MD Unavailable Keevn Smith [facility] Unavailable [phone] Reason for Visit * Reason Comments Medication Therapy Management * Med Therapy Management (Routine: Next available opening) - Pending Review Specialty Diagnoses / Procedures Referred By Chandler tobias Referred To Contact Pharmacist Diagnoses Rheumatoid arthritis involving multiple joints (H) Alfred Coley MD [address] [place] [address] Referral ID Status Reason Start Date Expiration Date V isits Requested Visits Authorized [id number] Pending Review 08/10/2023 08/09/2024 1 1 Encounter Details Date Type Department Care Team ([facility] st Contact Info) Description 08/15/2023 9:30 AM CDT Virtual Visit [facility] [address] [address] Alfred Coley MD [address] [place] [address] Keven Smith [address] Rheumatoid arthritis involving multiple joints (H) [...] receive an email or text message from [employer] with a link to a survey related to your ???clinical pharmacist. To schedule another MTM appointment, please call the clinic directly or you may call the MTM scheduling line at [phone]. My Clinical Pharmacist's contact information: Please feel free to contact me with any questions or concerns you have. Keven Smith, PharmD Medication Therapy Management Pharmacist [facility] documented in this encounter Progress [...] lab monitoring every 3 months. Follow-up: with [facility] pharmacist on 09/27/23. SUBJECTIVE/OBJECTIVE: Jai [...] Keven Smith, LebronD Medication Therapy Management Pharmacist [facility] Telemedicine Visit Details Type of service: Telephone [...] Upcoming Encounters Date Type Department Care Team ([facility] st Contact Info) Description 12/29/2023 3:30 PM CDT Office Visit [facility] [address] [address] Alfred Coley MD [address] [place] [address] documented as of this encounter Visit Diagnoses Diagnosis Rheumatoid arthritis involving multiple joints (H)- Primary Vaccine counseling Migraine Migraine, unspecified, without mention of intractable migraine without mention of status migrainosus documented in this encounter Care Teams Sign Designer Relationship Specialty Start Date End Date No Ref-Primary, Physician PCP - General 07/30/23 Edmond Felix MD [address] [place] [address] Cardiovascular Disease 08/03/23 Kulwinder De La Cruz MD [address] [place] [address] Fellow Cardiovascular Disease 08/03/23 Keven Smith [facility] [address] [place] [address] Pharmacist 08/15/23 documented as of this encounter
--- OUTSIDE RECORDS SUMMARY | 2023-10-12 17:54 | XMS_ITS | Encounter Summary ---
Author Organization [place] Address [address] [place] [address] Care Team Providers Care Director Of Sales Marketing Name Role Phone No Ref-Primary, Physician Primary Care Provider Edmond Felix MD Unavailable [phone] Kulwinder De La Cruz MD Unavailable Keven Smith [facility] Unavailable [phone] Keven Smith [facility] Unavailable [phone] Alfred Coley MD Unavailable Reason for Visit * Reason Onset Date Comments Prior Auth - Medication 08/11/2023 Actemra PA - Approved Encounter Details Date Type Department Care Team (Late st Contact Info) Description 08/11/2023 [facility] [address] [address] Alfred Coley MD [address] [place] [address] Prior Auth - Medication (Actemra [...] encounter Miscellaneous Notes * Telephone Encounter - Keven Smith, [facility] - 09/27/2023 9:51 AM CDT Called [facility] specialty pharmacy to check on status of Actemra. Was informed medication is filled and ready for delivery. Pharmacy unable to reach patient when called on 09/25. Patient to call to schedule. Keven Smith, PharmD Medication Therapy Management Pharmacist [facility] * Telephone Encounter - Gunjan Lafleur RN - 09/13/2023 2:10 PM CDT Gilda called back after investment underwriter spoke to [facility]. The current issue is about the PA. [facility] is stating they do not have PA on file. Fire Investigation Manager read entire letter received form RX benefits with PA approval completed on 08/11/23 that was sent to [facility]. They state they have to send the account to eligibility for verification. When investment underwriter questioned how long this would take, they advised Gilda to call back on Tuesday. Gilda is advised to call back Tuesday if problem is not solved. Gunjan Lafleur, [place] * Telephone Encounter - Audra Brito - 09/13/2023 10:57 AM CDT Pt's mother, Gilda, is calling to speak to someone about the prior authorization. She spoke with [facility] and they told pt that there is no prior authorizations on file. Please call Gilda back at ph: [phone]. * Telephone Encounter - Sanya Feldman - 08/12/2023 10:57 AM CDT Images from the original note were not included. Prior Authorization Approval Medication: ACTEMRA 162 MG/0.9ML [place] SOSY Authorization Effective Date: 08/12/2023 Authorization Expiration Date: 02/11/2024 Approved Dose/Quantity: 4 syringes per 28 days Reference #: [id number] Insurance Company: Other (see comments) Rx Benefits Expected CoPay: $ CoPay Card Available: Yes Financial Assistance Needed: Co-pay card offered Which Pharmacy is filling the prescription: [facility] - [address] [facility] Pharmacy Notified: Released Rx Patient Notified: Yes * Telephone Encounter - Sanya Feldman - 08/11/2023 1:37 PM CDT Images from the original note were not included. PA Initiation Medication: ACTEMRA 162 MG/0.9ML [place] SOSY Insurance Company: Other - Rx Benefits Pharmacy Filling the Rx: Filling Pharmacy Phone: Filling Pharmacy Fax: Start Date: 08/11/2023 EOC ID [id number] documented in this encounter Plan of Treatment Upcoming Encounters Date Type Department Care Team (Late st Contact Info) Description 12/29/2023 3:30 PM CDT Office Visit [facility] [address] [place] [phone] Alfred Coley MD [address] [place] [phone] documented as of this encounter Visit Diagnoses Not on filedocumented in this encounter Care Teams Director Of Sales Marketing Relationship Specialty Start Date End Date No Ref-Primary, Physician PCP - General 07/30/23 Edmond Felix MD [address] [place] [id number] Cardiovascular Disease 08/03/23 Kulwinder De La Cruz MD [address] [place] [id number] Fellow Cardiovascular Disease 08/03/23 Keven Smith [facility] Pharmacist 08/15/23 Keven Smith RPH [facility] Assigned MTM Pharmacist 09/04/23 Alfred Coley MD [address] [place] [address] Assigned Rheumatology Provider 09/04/23 documented as of this encounter
--- OUTSIDE RECORDS SUMMARY | 2023-10-12 17:54 | XMS_ITS | Encounter Summary ---
Author Organization [place] Address [address] [place] [address] Care Team Providers Care Oyster Buyer Name Role Phone No Ref-Primary, Physician Primary Care Provider Edmond Felix MD Unavailable [phone] Kulwinder De La Cruz MD Unavailable Keven Smith [facility] Unavailable [phone] Keven Smith [facility] Unavailable [phone] Alfred Coley MD Unavailable Encounter Details Date Type Department Care Team (Late st Contact Info) Description 10/05/2023 Orders Only [facility] [address] [address] Keven Smith [address] Rheumatoid arthritis involving multiple joints (H) [...] on file documented as of this encounter Progress Notes * Keven Smith [facility] - 10/05/2023 10:51 AM CDT Received request from patient stating preference for auto-injector over prefilled syringes. OrderedActemra auto-injector per MTM pharmacist CPA with Alfred Coley MD. Keven Smith, PharmD Medication Therapy Management Pharmacist [facility] documented in this encounter Plan of Treatment Upcoming Encounters Date Type Department Care Team (Late st Contact Info) Description 12/29/2023 3:30 PM CDT Office Visit [facility] [place] [address] [facility] [address] [place] [phone] Alfred Cloey MD [address] [place] [address] documented as of this encounter Visit Diagnoses Diagnosis Rheumatoid arthritis involving multiple joints (H)- Primary documented in this encounter Care Teams Oyster Buyer Relationship Specialty Start Date End Date No Ref-Primary, Physician PCP - General 07/30/23 Edmond Felix MD [address] [place] [id number] Cardiovascular Disease 08/03/23 Kulwinder De La Cruz MD [address] [place] [address] Fellow Cardiovascular Disease 08/03/23 Keven Smith [address] [facility] Pharmacist 08/15/23 Keven Smith RPH [facility] Assigned MTM Pharmacist 09/04/23 Alfred Coley MD [address] [place] [address] Assigned Rheumatology Provider 09/04/23 documented as of this encounter
--- OUTSIDE RECORDS SUMMARY | 2023-10-12 17:54 | XMS_ITS | Encounter Summary ---
Author Organization [place] Address [address] [place] [address]. [place] [address] Care Team Providers Care Terrazzo Worker Name Role Phone No Ref-Primary, Physician Primary Care Provider Edmond Felix MD Unavailable [phone] Kulwinder De La Cruz MD Unavailable Keven Smith [facility] Unavailable [phone] Keven Smith [facility] Unavailable [phone] Alfred Coley MD Unavailable Reason for Visit * Reason Onset Date Comments Call Back 09/07/2023 Encounter Details Date Type Department Care Team (Late st Contact Info) Description 09/07/2023 Telephone [facility] [address] [address] Alfred Coley MD [address] [place] [address] Call Back Social History Tobacco Use Types Packs/Day Years [...] encounter Miscellaneous Notes * Telephone Encounter - Lyle Majano MD - 09/07/2023 10:11 PM CDT Impression: inflammatory arthritis flare. Plan prednisone taper over 14 days. * Telephone Encounter - Gunjan Lafleur RN - 09/07/2023 2:[address] Coley patient calling with flare. Pain in the wrists, elbows, shoulders, and legs. On taper per Dr Coley prescribed 08/01/23: (Take 3 tablets (30 mg) by mouth daily for 13 days, THEN 2 tablets (20 mg) daily for 14 days, THEN 1.5 tablets (15 mg) daily for 14 days, THEN 1 tablet (10 mg) daily for 60 days). Currently taking 10mg per day. Patient states he can hardly work. Unable to lift anything. Joints are swollen. No redness or warmth noted. Hasn't started actemra yet, because there is an issue with insurance. Medication does have prior auth. I have been trying to figure out why it hasn't shipped with the pharmacy. Patient states he felt good on 30mg day. Patient asking for a higher dose until the actemra can be shipped. RX pended. Please fill in sig. Gunjan Lafleur RN * Telephone Encounter - Petra Raymond - 09/07/2023 1:42 PM CDT Rebecca states she is returning a call from Rebecca Hollins states the hold up on the prescription is due to: [employer]OR[employer] (additional savings). Rebecca states if the clinic has any questions to give her a call back. * Telephone Encounter - Lilly Melton - 09/07/2023 12:49 PM CDT [facility] Call Center Phone Message May a detailed message be left on voicemail: yes Reason for Call: Other: Mom call regarding Jai, She is wondering if she can talk to Gunjan regarding a PA for his medication for tocilizumab (ACTEMRA) 162 MG/0.9ML subcutaneous injection. Per pt mom, please reach out to her regarding the medication refill. Please advise. Thank you Action Taken: Other: Rheum Travel Screening: Not Applicable Date of Service: documented in this encounter Plan of Treatment Upcoming Encounters Date Type Department Care Team (Late st Contact Info) Description 12/29/2023 3:30 PM CDT Office Visit [facility] [place] [address] [facility] [address] [place] [phone] Alfred Coley MD [address] [place] [address] documented as of this encounter Visit Diagnoses Diagnosis Rheumatoid arthritis involving multiple joints (H)- Primary documented in this encounter Care Teams Terrazzo Worker Relationship Specialty Start Date End Date No Ref-Primary, Physician PCP - General 07/30/23 Edmond Felix MD [address] [place] [address] Cardiovascular Disease 08/03/23 Kulwinder De La Cruz MD [address] [place] [id number] Fellow Cardiovascular Disease 08/03/23 Keven Smith [address] [facility] Pharmacist 08/15/23 Keven Smith RPH [address] [facility] Assigned MTM Pharmacist 09/04/23 Alfred Coley MD [address] [place] [address] Assigned Rheumatology Provider 09/04/23 documented as of this encounter
--- OUTSIDE RECORDS SUMMARY | 2023-10-12 17:54 | XMS_ITS | Clinical Summary ---
Author Organization [facility] Address [address] [place] [address] Care Team Providers Care Kindergarten Tutor Name Role Phone No Ref-Primary, Physician Primary Care Provider Edmond Felix MD Unavailable [phone] Kulwinder Ridley MD Unavailable Keven Smith [facility] Unavailable [phone] Keven Smith [facility] Unavailable [phone] Alfred Coley MD Unavailable Allergies No known active allergies Medications Medication [...] days. 148 tablet 4 11/10/19 24 Active predniSONE (DELTASONE) 5 MG tabletIndications :Rheumatoid arthritis involving multiple joints (H) Take 4 tabs daily for 1 week, then take 3 tabs daily for 1 week 49 tablet 1 4 Active Tocilizumab (ACTEMRA ACTPEN) 162 MG/0.9ML SOAJIndications:R heumatoid arthritis involving multiple joints (H) Inject 162 mg subcutaneously every 7 days 3.6 mL 12 4 Active tocilizumab (ACTEMRA) 162 MG/0.9ML subcutaneous injectionIndicati ons:Rheumatoid arthritis involving multiple joints (H) Inject 0.9 mLs (162 mg) Subcutaneous every 7 days 3.6 mL 12 4 10/05/19 Discontinue d(Duplicate Therapy (No AVS / No eCancel)) Active Problems Problem Noted Date Diagnosed Date 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 Pericardial effusion 07/29/2023 Encounters Date Type Department Care Team Description 10/05/2023 Orders Only [facility] Rheumatology [address] [phone] Keven Smith RPH Rheumatoid arthritis involving multiple joints (H) (Primary Dx) 10/04/2023 Telephone [facility] Rheumatology [address] [phone] Alfred Coley MD Prior Auth - Medication (Actemra) 10/03/2023 Telephone [facility] Rheumatology [address] [phone] Alfred Coley MD Call Back 09/28/2023 Telephone [facility] Rheumatology [address] [phone] Alfred Coley MD Referral 09/07/2023 Telephone [facility] Rheumatology [address] [phone] Alfred Coley MD Call Back 08/15/2023 9:30 AM CDT Virtual Visit [facility] Rheumatology [address] [phone] Alfred Coley MD Paszotta, Drew, RPH Rheumatoid arthritis involving multiple joints (H) (Primary Dx); Vaccine counseling; Migraine 08/11/2023 Telephone [facility] Rheumatology [address] [phone] Alfred Coley MD Prior Auth - Medication (Actemra PA - Approved) 08/10/2023 Telephone [facility] Specialty [address] [address] Alfred Coley MD 08/09/2023 3:30 PM CDT Office Visit [address] [place] [address] Alfred Coley MD Rheumatoid arthritis involving multiple joints (H) (Primary Dx) 08/09/2023 Travel 08/04/2023 Telephone [facility] Specialty [address] [place] [address] Gunjan Lafleur RN Appointment 07/29/2023 4:38 PM CDT - 07/31/2023 4:17 PM CDT Hospital Encounter [facility] [address] [place] [address] Hema Morrow MD Elemo, Ibrahim A, MD Kuross, Erik, DO 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) [...] Description 12/29/2023 3:30 PM CDT Office Visit [facility] [address] [place] [address] [address] [place] [address] Alfred Coley MD [address] [place] [address] Health Maintenance Due Date Last Done Comments ADVANCE CARE PLANNING 1980 ANNUAL REVIEW OF HM ORDERS 1980 COVID-19 Vaccine (#1) 01/22/1985 Pneumococcal Vaccine: Pediatrics (0 to 5 Years) and At-Risk Patients (6 to 64 Years) (1 of 2 - PCV) 01/22/1986 HEPATITIS B IMMUNIZATION (1 of 3 - 19+ 3-dose series) 01/22/1999 LIPID 2020 YEARLY PREVENTIVE VISIT 02/08/2023 02/09/20 22, 01/16/2021 INFLUENZA VACCINE (#1) 2023 NICOTINE/TOBACCO CESSATION COUNSELING Q 1 YR 10/04/2024 10/05/2023, 09/27/2023, 08/15/2023 GLUCOSE 07/30/2026 07/31/2023, 07/30/2023 DTAP/TDAP/TD IMMUNIZATION [...] PM CDT Narrative 07/31/2023 3:49 PM CDT [id number]^KHAI^KULWINDER [facility] [address] [place] [address] Name: TIMO DIXON : 1980 Study Date: 07/31/2023 12:23 PM Age: 43 yrs Gender: Male Patient Location: [facility] Reason For Study: Pericardial Effusion Ordering Physician: [...] Procedure Note Tami Kim MD - 07/31/2023 [id number]^KHAI^KULWINDER [facility] [address] [place] [address] Name: TIMO DIXON : 1980 Study Date: 07/31/2023 12:23 PM Age: 43 yrs Gender: Male Patient Location: [facility] Reason For Study: Pericardial Effusion Ordering Physician: [...] UM SPECIALTY CORE/PROT/ENDO UM Specialty Core/Prot/Endo 500 [facility], Room [address] [place] [address] * Quantiferon TB Gold Plus Purple Tube (07/31/2023 1:13 PM CDT) Quantiferon Mitogen 0.08 IU/mL 08/02/2023 8:24 AM CDT UM SPECIALTY CORE/PROT/ENDO Blood STRUCTURE OF LEFT UPPER LIMB / Unknown Venipuncture / Unknown 07/31/2023 1:13 PM CDT 07/31/2023 1:21 PM CDT Alfred Coley MD LAB - MICRO GENERAL ORDERABLES UM SPECIALTY CORE/PROT/ENDO UM Specialty Core/Prot/Endo 500 [facility], Room [address] * Quantiferon TB Gold Plus Yellow Tube (07/31/2023 1:13 PM CDT) Quantiferon TB2 Tube 0.10 08/02/2023 8:23 AM CDT UM SPECIALTY CORE/PROT/ENDO Blood STRUCTURE OF LEFT UPPER LIMB / Unknown Venipuncture / Unknown 07/31/2023 1:13 PM CDT 07/31/2023 1:21 PM CDT Alfred Coley MD LAB - MICRO GENERAL ORDERABLES UM SPECIALTY CORE/PROT/ENDO Specialty Core/Prot/Endo 500 [facility], [address] * Quantiferon TB Gold Plus Green Tube (07/31/2023 1:13 PM CDT) Quantiferon TB1 Tube 0.00 IU/mL 08/02/2023 8:32 AM CDT UM SPECIALTY CORE/PROT/ENDO Blood STRUCTURE OF LEFT UPPER LIMB / Unknown Venipuncture / Unknown 07/31/2023 1:13 PM CDT 07/31/2023 1:21 PM CDT Alfred Coley MD LAB - MICRO GENERAL ORDERABLES UM SPECIALTY CORE/PROT/ENDO UM Specialty Core/Prot/Endo 500 [facility] [address] [facility], Room [address] * Quantiferon TB Gold Plus [place] Tube (07/31/2023 1:13 PM CDT) Pathologist [facility] Quantiferon Nil Tube 0.10 IU/mL 08/02/2023 8:23 AM CDT SPECIALTY CORE/PROT/ENDO Blood STRUCTURE OF LEFT UPPER LIMB / Unknown Venipuncture / Unknown 07/31/2023 1:13 PM CDT 07/31/2023 1:21 PM CDT Alfred Coley MD LAB - MICRO GENERAL ORDERABLES SPECIALTY CORE/PROT/ENDO Specialty Core/Prot/Endo 500 [facility], [address] * HIV Antigen Antibody Combo [place] (07/31/2023 1:13 PM CDT) [facility] HIV Antigen Antibody Combo Nonreactive Nonreactive 07/31/2023 [...] LAB - BLOOD ORDERABL ES [facility] 500 [facility], [address] * Hepatitis C Screen Reflex to HCV RNA Quant and Genotype (07/31/2023 1:13 PM CDT) Pathologist [facility] Hepatitis C Antibody Nonreactive Nonreactive 07/31/2023 3:59 PM CDT [facility] Comment:A nonreactive screen ing test result [...] - BLOOD ORDERABL ES Performing Organization Address City/[facility]/ZIP Co de Phone Number [facility] 500 [facility], [facility] [address] * Hepatitis B core antibody (07/31/2023 1:13 [...] LAB - BLOOD ORDERABL ES [facility] 500 [facility], [address] [address] * Hepatitis B surface antigen (07/31/2023 8:25 AM CDT) Hepatitis B Surface Antigen Nonreactive Nonreactive 07/31/2023 3:52 PM CDT [facility] Blood STRUCTURE OF LEFT UPPER LIMB / Unknown Venipuncture / Unknown 07/31/2023 8:25 AM CDT 07/31/2023 8:45 AM CDT Alfred Coley MD LAB - BLOOD ORDERABL ES [facility] 500 [facility] J Building, [address] [place] [address], [facility] * (ABNORMAL) Basic metabolic panel (07/31/2023 [...] 8:25 AM CDT 07/31/2023 8:45 AM CDT yLle Galaviz DO LAB - BLOOD ORDERABL ES UR LABORATORY [facility] Lab [address] [facility], [place] [address] [place] [address] * (ABNORMAL) CBC with platelets (07/31/2023 8:25 [...] LAB - BLOOD ORDERABL ES [facility] [address] [facility], Room [address] [address] * EKG 12-lead, complete (07/30/2023 4:33 PM CDT) Systolic Blood Pressure mmHg RADIOLOGY RESULTS Diastolic Blood Pressure mmHg RADIOLOGY RESULTS Ventricular Rate 120 BPM RAD IOLOGY RESULTS Atrial Rate 120 BPM RADIOLOG Y RESULTS HI Interval 114 ms RADIOLOG Y RESULTS QRS Duration 74 ms RADIOLO GY RESULTS QT 300 ms RADIOLOGY RESULTS QTc 424 ms RADIOLOGY RESULTS P Angora 78 degrees RADIOLOGY RESULTS R AXIS 87 degrees RADIOLOGY RESULTS T [place] 63 degrees RADIOLOGY RESULTS Interpretation ECG Sinus tachycardia Right atrial enlargement Nonspecific T wave abnormality Abnormal ECG When compared with ECG of 02-DEC-2003 15:15, Nonspecific T wave abnormality now evident in Anterolateral leads Confirmed by MD GARCIA JANE ([id number]) on 08/01/2023 5:01:26 PM RADIOLOGY RESULTS 07/30/2023 [...] See Procalcitonin Guidance document for more details. [email or web address] Factors that may affect PCT levels (not [...] - BLOOD ORDERABL ES Performing Organization Address [facility] de Phone Number UR [facility]AT[facility] [address] [place] [address], Room [place] [id number] * (ABNORMAL) Iron and iron binding capacity [...] - BLOOD ORDERABL ES Performing Organization Address [facility] de Phone Number UR LAB[facility]AT[facility] [address] [facility], Room [address] [address] * Ferritin (07/30/2023 6:16 AM CDT) Ferritin 145 31 - 409 ng/mL 07/30/2023 1:59 PM CDT [facility] LAB[facility]ATORY Blood STRUCTURE OF LEFT UPPER LIMB / Unknown Venipuncture / Unknown 07/30/2023 6:16 AM CDT 07/30/2023 6:41 AM CDT Lyle Galaviz DO LAB - BLOOD ORDERABL ES [facility] [address] [place] [address], Room [address] [address] * (ABNORMAL) Creatinine (07/29/2023 6:59 PM CDT) Creatinine 0.62(L) 0.67 - 1.17 mg/dL 07/29/2023 8:09 PM CDT [facility] LAB[facility]ATORY GFR Estimate >90 >60 mL/min/1.7 3m2 07/29/2023 8:09 PM CDT [facility] Blood STRUCTURE OF LEFT UPPER LIMB / Unknown Venipuncture / Unknown 07/29/2023 6:59 PM CDT 07/29/2023 7:38 PM CDT Theo Chawla MD LAB - BLOOD ORDERABL ES [facility] [address] [place] [address], Room [address] [address]RUST from Last 3 Months Advance Directives For more information, please contact: [phone] * Full Code (Latest Code Status on File) Date Activated Date Inactivated Comments 07/29/2023 6:44 PM 07/31/2023 6:22 PM All basic an d advanced life-sustaining interventions are performed as appropriate Question Answer Comments Code status determined by: Discussion with patie nt/ legal decision maker Care Teams Kindergarten Tutor Relationship Specialty Start Date End Date No Ref-Primary, Physician PCP - General 07/30/23 Edmond Felix MD [address] [place], [place] [address] MD Cardiovascular Disease 08/03/23 Kulwinder Ridley MD [address] [place] [address] Fellow Cardiovascular Disease 08/03/23 Keven Smith Trace [address] [place] [address] Pharmacist 08/15/23 Keven Smith RPH [address] [place] [address] Assigned MTM Pharmacist 09/04/23 Alfred Coley MD [address] [place] [id number] Assigned Rheumatology Provider 09/04/23
--- OUTSIDE RECORDS SUMMARY | 2023-10-12 17:54 | XMS_ITS | Encounter Summary ---
Author Organization [facility] Address [address] [place] [address]. [place] [address] Care Team Providers Care Dump Grader Name Role Phone No Ref-Primary, Physician Primary Care Provider Edmond Felix MD Unavailable [phone] Kulwinder De La Cruz MD Unavailable Encounter [...] Description 12/29/2023 3:30 PM CDT Office Visit [facility] [address] [phone] Alfred Coley MD [address] [place] [address] [phone] documented as of this encounter Visit Diagnoses Not on filedocumented in this encounter Care Teams Dump Grader Relationship Specialty Start Date End Date No Ref-Primary, Physician PCP - General 07/30/23 Edmond Felix MD [address] [facility] [address] [place] [address] Cardiovascular Disease 08/03/23 Kulwinder De La Cruz MD [address] [place] [address] Fellow Cardiovascular Disease 08/03/23 documented as of this encounter
--- OUTSIDE RECORDS SUMMARY | 2023-10-12 17:54 | XMS_ITS | Encounter Summary ---
Author Organization [facility] Address [address] [place] [address] Care Team Providers Care Ammunition Components Inspector Name Role Phone No Ref-Primary, Physician Primary Care Provider Edmond Felix MD Unavailable [phone] Kulwinder De La Cruz MD Unavailable Keven Smith [facility] Unavailable [phone] Keven Smith [facility] Unavailable [phone] Alfred Coley MD Unavailable Reason for Visit * Reason Onset Date Comments Prior Auth - Medication 10/04/2023 Actemra Encounter Details Date Type Department Care Team (Late st Contact Info) Description 10/04/2023 Telephone [facility] Rheumatology Clinic [address] [address] Alfred Coley MD [address] [place] [address] Prior Auth - Medication (Actemra) Social History Tobacco Use Types Packs/Day Years [...] Telephone Encounter - Gunjan Lafleur RN - 10/05/2023 12:01 PM CDT Mom called and aware RX was approved and sent to pharmacy. She is advised to have the patient call with any further concerns or questions. Gunjan Lafleur RN * Telephone Encounter - Luis Chou - 10/05/2023 10:26 AM CDT Images from the original note were not included. Prior Authorization Not Needed per Insurance Medication: ACTEMRA ACTPEN 162 MG/0.9ML [place] SOAJ Insurance Company: [employer] - Expected CoPay: $ Pharmacy Filling the Rx: [place] - [address] [place] [address] Pharmacy Notified: yes Patient Notified: yes * Telephone Encounter - Luis Chuo - 10/04/2023 11:45 AM CDT Images from the original note were not included. PA Initiation Medication: ACTEMRA ACTPEN 162 MG/0.9ML [place] SOAJ Insurance Company: [employer] - Pharmacy Filling the Rx: Filling Pharmacy Phone: Filling Pharmacy Fax: Start Date: 10/04/2023 documented in this encounter Plan of Treatment Upcoming Encounters Date Type Department Care Team (Late st Contact Info) Description 12/29/2023 3:30 PM CDT Office Visit [facility] [address] [phone] Alfred Coley MD [address] [place] [address] documented as of this encounter Visit Diagnoses Not on filedocumented in this encounter Care Teams Ammunition Components Inspector Relationship Specialty Start Date End Date No Ref-Primary, Physician PCP - General 07/30/23 Edmond Felix MD [address] [place] [address] Cardiovascular Disease 08/03/23 Kulwinder De La Cruz MD [address] [place] [address] Fellow Cardiovascular Disease 08/03/23 Keven Smith [facility] [address] [place] [address] Pharmacist 08/15/23 Keven Smith [facility] [address] [place] [address] Assigned MTM Pharmacist 09/04/23 Alfred Coley MD [address] [place] [id number] Assigned Rheumatology Provider 09/04/23 documented as of this encounter
--- OUTSIDE RECORDS SUMMARY | 2023-10-12 17:54 | XMS_ITS | Encounter Summary ---
Author Organization [facility] Address [address] [place] [address]. [place] [address] Care Team Providers Care Bartacker Name Role Phone No Ref-Primary, Physician Primary Care Provider Edmond Felix MD Unavailable Kulwinder De La Cruz MD Unavailable Keven Smith [facility] Unavailable [phone] Encounter Details Date Type Department Care Team (Late st Contact Info) Description 08/10/2023 Telephone [facility] Specialty Clinic [address] [phone] Alfred Coley MD [address] [place], [place] [phone] Social History Tobacco Use Types Packs/Day Years [...] Description 12/29/2023 3:30 PM CDT Office Visit [facility] Specialty Clinic [place] [address] [facility] [address] [place] [phone] Alfred Coley MD [address] [place], [place] [phone] documented as of this encounter Visit Diagnoses Not on filedocumented in this encounter Care Teams Bartacker Relationship Specialty Start Date End Date No Ref-Primary, Physician PCP - General 07/30/23 Edmond Felix MD [address] [place] [address] Cardiovascular Disease 08/03/23 Kulwinder De La Cruz MD [address] [place] [address] Fellow Cardiovascular Disease 08/03/23 Keven Smith, [facility] [address] [facility] Pharmacist 08/15/23 documented as of this encounter
--- OUTSIDE RECORDS SUMMARY | 2023-10-12 17:54 | XMS_ITS | Encounter Summary ---
Author Organization [facility] Address [address] [place] [address]. [place] [address] Care Team Providers Care Chart Changer Name Role Phone No Ref-Primary, Physician Primary Care Provider Edmond Felix MD Unavailable [phone] Kulwinder De La Cruz MD Unavailable Reason for Referral * Med Therapy Management (Routine: Next available opening) - Pending Review Specialty Diagnoses / Procedures Referred By Contac t Referred To Contact Pharmacist Diagnoses Rheumatoid arthritis involving multiple joints (H) Alfred Coley MD [address] [place] [address] Referral ID Status Reason Start Date Expiration Date V isits Requested Visits Authorized [id number] Pending Review 08/10/2023 08/09/2024 1 1 Question Answer Type of MTM: Specialty Specialty: Rheumatology Course of Action: Other Reason for Referral: Start new biologic after failing several others Comments [facility] Medication Therapy Management department will contact you [...] prescription and non-prescription medications (such as vitamins, xwbg-qat-jrbuciy medications, and herbals) or a detailed medication [...] Description 08/09/2023 3:30 PM CDT Office Visit [facility] [place] [address] [place] [address] Alfred Coley MD [address] [place] [address] [phone] Rheumatoid arthritis involving multiple joints (H) (Primary [...] hospitalized for pericarditis after being [facility] to [facility] for management of his pericarditis with rheumatology [...] was under the care of a different director university who had prescribed for him Simponi but [...] pleural effusions. 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 He is a smoker Review of [...] not have the records of his previous director university currently to see what other agent he [...] Description 12/29/2023 3:30 PM CDT Office Visit [facility] Specialty [address] [phone] Alfred Coley MD [address] [place] [address] [phone] Scheduled Orders Name Type Priority Associated Diagnoses [...] Primary documented in this encounter Care Teams Chart Changer Relationship Specialty Start Date End Date No Ref-Primary, Physician PCP - General 07/30/23 Edmond Felix MD [address] [place] [address] Cardiovascular Disease 08/03/23 Kulwinder De La Cruz MD [address] [place] [address] Fellow Cardiovascular Disease 08/03/23 documented as of this encounter
--- OUTSIDE RECORDS SUMMARY | 2023-10-12 17:54 | XMS_ITS | Encounter Summary ---
Author Organization [facility] Address [address] [place] [address]. [place] [address] Care Team Providers Care Ext Js Developer Name Role Phone No Ref-Primary, Physician Primary Care Provider Edmond Felix MD Unavailable [phone] Kulwinder De La Cruz MD Unavailable Keven Smith [facility] Unavailable [phone] Keven Smith [facility] Unavailable [phone] Alfred Coley MD Unavailable Reason for Visit * Reason Onset Date Comments Call Back 10/03/2023 Encounter Details Date Type Department Care Team (Late st Contact Info) Description 10/03/2023 Telephone [facility] Rheumatology Clinic [address] [address] Alfred Coley MD [address] [place] [address] Call Back Social History Tobacco [...] encounter Miscellaneous Notes * Telephone Encounter - Lilly Melton - 10/03/2023 12:19 PM CDT [facility] Call Center Phone Message May a detailed message be left on voicemail: yes Reason for Call: Medication Question or concern regarding medication Prescription Clarification Name of Medication: tocilizumab (ACTEMRA) 162 MG/0.9ML subcutaneous injection Prescribing Provider: Alfred Coley Pharmacy: [address] What on the order needs clarification? Pt mom call stating pt need the injection pen and not the syringe. If care team can send in new RX regarding the injection pen instead and not the Syringe. Please follow-up. Thank you Action Taken: Other: Rheum Travel Screening: Not Applicable Date of Service: documented in this encounter Plan of Treatment Upcoming Encounters Date Type Department Care Team (Late st Contact Info) Description 12/29/2023 3:30 PM CDT Office Visit [facility] [address] [place] [address] Alfred Coley MD [address] [place], [place] [phone] documented as of this encounter Visit Diagnoses Not on filedocumented in this encounter Care Teams Ext Js Developer Relationship Specialty Start Date End Date No Ref-Primary, Physician PCP - General 07/30/23 Edmond Felix MD [address] [place] [id number] Cardiovascular Disease 08/03/23 Kulwinder De [place] Cruz MD [address] [place] [id number] Fellow Cardiovascular Disease 08/03/23 Keven Smith [facility] [address] [place] [address] Pharmacist 08/15/23 Keven Smith [facility] [address] [place] [address] Assigned MTM Pharmacist 09/04/23 Alfred Coley MD [address] [place] [address] Assigned Rheumatology Provider 09/04/23 documented as of this encounter
--- OUTSIDE RECORDS SUMMARY | 2023-10-12 17:54 | XMS_ITS | Encounter Summary ---
Author Organization [place] Address [address] [place] [address] Care Team Providers Care New Accounts Clerk Name Role Phone No Ref-Primary, Physician Primary Care Provider Edmond Felix MD Unavailable [phone] Kulwinder De La Cruz MD Unavailable Reason for Visit * Reason Onset Date Comments Appointment 08/04/2023 Encounter Details Date Type Department Care Team (Late st Contact Info) Description 08/04/2023 Telephone [facility] [address] [phone] Gunjan Lafleur RN Appointment Social [...] have them follow up with their current lab support technician until they are seen here. We are scheduling new patients out into at this time. A hospital follow up is scheduled in a 30 minute spot with someone who saw the patient while inpatient. If Dr. Coley is open to assuming care for this patient, we can offer him an appointment at the [facility] within the next month. I've copied Gunjan [...] Payan Sent: 08/01/2023 9:14 AM CDT To: [facility] Rheumatology Adult [facility] Subject: FW: Posthospitalization follow-up [facility], Please review, there is no referral in, is this an appropriate time frame for the patient? Thanks! Soraya ----- Message ----- From: Rashi Reyna Sent: 08/01/2023 8:57 AM CDT To: Clinic [id number] Subject: FW: Posthospitalization follow-up ----- Message ----- From: Geovanny Medina MD Sent: 07/31/2023 12:04 PM CDT To: Alfred Coley MD; # Subject: Posthospitalization follow-up Good morning, This is a patient who was admitted in the hospital for pleuropericardial effusion. Has history of RA and follows with [place] [facility] but would like to change his care to the [place]. Please schedule the patient as a new consult with any of the providers available in the next 3 to 4weeks. Geovanny Medina, Rheumatology Fellow, Pager: [phone]. documented in this encounter Plan of Treatment Upcoming Encounters Date Type Department Care Team (Late st Contact Info) Description 12/29/2023 3:30 PM CDT Office Visit [facility] [place] [address] [facility] [address] [place] [phone] Alfred Coley MD [address] [place] [address] documented as of this encounter Visit Diagnoses Not on filedocumented in this encounter Care Teams New Accounts Clerk Relationship Specialty Start Date End Date No Ref-Primary, Physician PCP - General 07/30/23 Edmond Felix MD [address] [place] [id number] Cardiovascular Disease 08/03/23 Kulwinder De La Cruz MD [address] [place] [id number] Fellow Cardiovascular Disease 08/03/23 documented as of this encounter
--- OUTSIDE RECORDS SUMMARY | 2023-10-12 17:54 | XMS_ITS | Referral Summary ---
Author Organization [facility] Address [address] [place] [address] Care Team Providers Care Sales Product Manager Name Role Phone No Ref-Primary, Physician Primary Care Provider Edmond Felix MD Unavailable [phone] Kulwinder Ridley MD Unavailable Keven Smith [facility] Unavailable [phone] Keven Smith [facility] Unavailable [phone] Alfred Coley MD Unavailable Encounters Date Type Department Care Team Description 10/05/[address] [facility] Rheumatology [address] [phone] Keven Smith Trace Rheumatoid arthritis involving multiple joints (H) (Primary Dx) 10/04/[address] [facility] Rheumatology [address] [phone] Alfred Coley MD Prior Auth - Medication (Actemra) 10/03/[address] [facility] Rheumatology [address] [phone] Alfred Coley MD Call Back 09/28/[address] [facility] Rheumatology [address] [phone] Alfred Coley MD Referral 09/07/[address] [facility] Rheumatology [address] [phone] Alfred Coley MD Call Back 08/15/2023 9:30 AM CDT Virtual Visit [facility] [address] [phone] Alfred Coley MD Paszotta, Drew, [facility] Rheumatoid arthritis involving multiple joints (H) (Primary Dx); Vaccine counseling; Migraine 08/11/[address] [facility] [address] [phone] Alfred Coley MD Prior Auth - Medication (Actemra PA - Approved) 08/10/[address] [facility] Specialty [facility] [address] [place] [address] [address] [place] [address] Alfred Coley MD 08/09/2023 Travel 08/09/2023 3:30 PM CDT Office Visit [facility] [address] [place] [phone] Alfred Coley MD Rheumatoid arthritis involving multiple joints (H) (Primary Dx) 08/04/2023 Telephone [facility] [address] [phone] Gunjan Lafleur, RN Appointment 07/29/2023 4:38 PM CDT - 07/31/2023 4:17 PM CDT Hospital Encounter [facility] [address] [place] [address] Hema Morrow MD Elemo, Ibrahim [...] 7 days 3.6 mL 12 4 10/05/19 24 Discontinue d(Duplicate Therapy (No AVS / No [...] Description 12/29/2023 3:30 PM CDT Office Visit [facility] [address] [place] [address] [address] [phone] Alfred Coley MD [address] [place], [place] [address] Procedures Procedure Name Priority Date/Time Associated Diagnosis [...] PM CDT Narrative 07/31/2023 3:49 PM CDT [id number]^KHAI^KULWINDER [facility] [address] [place] [address] Name: TIMO DIXON : 1980 Study Date: 07/31/2023 12:23 PM Age: 43 yrs Gender: Male Patient Location: [facility] Reason For Study: Pericardial Effusion Ordering [...] Procedure Note Tami Kim MD - 07/31/2023 [id number]^KHAI^KULWINDER [facility] [address] [place] [address] Name: TIMO DIXON : 1980 Study Date: 07/31/2023 12:23 PM Age: 43 yrs Gender: Male Patient Location: [facility] Reason For Study: Pericardial Effusion Ordering [...] TB Gold Plus (07/31/2023 1:13 PM CDT) [facility] Quantiferon-TB Gold Plus Indetermi alvarez(A) Negative [...] Result -0.02 IU/mL 08/02/2023 9:38 AM CDT [facility] SPECIAL[facility] CORE/PROT/END O Nil Result 0.10 IU/mL 08/02/2023 9:38 AM CDT [facility] SPECIALTY CORE/PROT/END O Blood STRUCTURE OF LEFT UPPER LIMB / Unknown Venipuncture / Unknown 07/31/2023 1:13 PM CDT 07/31/2023 1:21 PM CDT Alfred Coley MD LAB - MICRO GENERAL ORDERABLES [facility] SPECIALTY CORE/PROT/ENDO [facility] Specialty Core/Prot/Endo [address] [facility] [address] Building, Room [address] * Quantiferon TB Gold Plus Purple Tube (07/31/2023 1:13 PM CDT) Quantiferon Mitogen 0.08 IU/mL 08/02/2023 8:24 AM CDT [facility] SPECIALTY CORE/PROT/ENDO Blood STRUCTURE OF LEFT UPPER LIMB / Unknown Venipuncture / Unknown 07/31/2023 1:13 PM CDT 07/31/2023 1:21 PM CDT Alfred Coley MD LAB - MICRO GENERAL ORDERABLES UM SPECIALTY CORE/PROT/ENDO [facility] Specialty Core/Prot/Endo [address] [facility] [address] [facility], Room [address] * Quantiferon TB Gold Plus Yellow Tube (07/31/2023 1:13 PM CDT) Quantiferon TB2 Tube 0.10 08/02/2023 8:23 AM CDT [facility] SPECIALTY CORE/PROT/ENDO Blood STRUCTURE OF LEFT UPPER LIMB / Unknown Venipuncture / Unknown 07/31/2023 1:13 PM CDT 07/31/2023 1:21 PM CDT Alfred Coley MD LAB - MICRO GENERAL ORDERABLES UM SPECIALTY CORE/PROT/ENDO UM Specialty Core/Prot/Endo [address] [facility] [address] Building, Room [address] [place] [address] * Quantiferon TB Gold Plus Green Tube (07/31/2023 1:13 PM CDT) Quantiferon TB1 Tube 0.00 IU/mL 08/02/2023 8:32 AM CDT SPECIALTY CORE/PROT/ENDO Blood STRUCTURE OF LEFT UPPER LIMB / Unknown Venipuncture / Unknown 07/31/2023 1:13 PM CDT 07/31/2023 1:21 PM CDT Alfred Coley MD LAB - MICRO GENERAL ORDERABLES UM SPECIALTY CORE/PROT/ENDO UM Specialty Core/Prot/Endo [address] [facility], [address] * Quantiferon TB Gold Plus [place] Tube (07/31/2023 1:13 PM CDT) Quantiferon Nil Tube 0.10 IU/mL 08/02/2023 8:23 AM CDT SPECIALTY CORE/PROT/ENDO Blood STRUCTURE OF LEFT UPPER LIMB / Unknown Venipuncture / Unknown 07/31/2023 1:13 PM CDT 07/31/2023 1:21 PM CDT Alfred Coley MD LAB - MICRO GENERAL ORDERABLES UM SPECIALTY CORE/PROT/ENDO Specialty Core/Prot/Endo [address] [facility], [address] * HIV Antigen Antibody Combo [place] (07/31/2023 1:13 PM CDT) HIV Antigen Antibody [...] - BLOOD ORDERABL ES Performing Organization Address [facility] de Phone Number U LABORATORY [facility] [place] Core Lab [address] [facility], [address] * Hepatitis C Screen Reflex to [...] - BLOOD ORDERABL ES Performing Organization Address [facility] Co de Phone Number LABORATORY [facility] [place] [facility] [address] [facility], [address] * Hepatitis B core antibody (07/31/2023 1:13 PM CDT) Hepatitis B Core Antibody Total Nonreactive Nonreactive 07/31/2023 4:13 PM CDT U LABORATORY Comment:Nonreactive hepatiti s B core antibody test results indicate the absence of exposure to hepatitis B virus and no evidence of recent, past/resolved, or chronic hepatitis B. Blood STRUCTURE OF LEFT UPPER LIMB / Unknown Venipuncture / Unknown 07/31/2023 1:13 PM CDT 07/31/2023 1:21 PM CDT Alfred Coley MD LAB - BLOOD ORDERABL ES Performing Organization Address City/[facility]/ZIP Co de Phone Number U LABORATORY [facility] [place] [facility] [address] [facility], [address] * Hepatitis B surface antigen (07/31/2023 8:25 AM CDT) Pathologist [facility] Hepatitis B Surface Antigen Nonreactive Nonreactive 07/31/2023 3:52 PM CDT [facility] Blood STRUCTURE OF LEFT UPPER LIMB / Unknown Venipuncture / Unknown 07/31/2023 8:25 AM CDT 07/31/2023 8:45 AM CDT Alfred Coley MD LAB - BLOOD ORDERABL ES Performing Organization Address [facility] de Phone Number LABORATORY [facility] Core Lab [address] [facility], [address] * (ABNORMAL) Basic metabolic panel (07/31/2023 8:25 AM CDT) Only the most recent of2 resultswithin the time period is included. [facility] Sodium 136 135 - 145 mmol/L 07/31/2023 [...] LAB - BLOOD ORDERABL ES UR LABORATORY [facility] Acute Care Lab [address] [facility], [address] [place] [address] * (ABNORMAL) CBC with platelets [...] LAB - BLOOD ORDERABL ES UR LABORATORY [facility] Acute Care Lab [address] [facility], [address] [phone] * EKG 12-lead, complete (07/30/2023 4:33 PM CDT) Systolic Blood Pressure mmHg RADIOLOGY RESULTS Diastolic Blood Pressure mmHg RADIOLOGY RESULTS Ventricular Rate 120 BPM RAD IOLOGY RESULTS Atrial Rate 120 BPM RADIOLOG Y RESULTS DE Interval 114 ms RADIOLOG Y RESULTS QRS Duration 74 ms RADIOLO GY RESULTS QT 300 ms RADIOLOGY RESULTS QTc 424 ms RADIOLOGY RESULTS P Connell 78 degrees RADIOLOGY RESULTS R AXIS 87 degrees RADIOLOGY RESULTS T Connell 63 degrees RADIOLOGY RESULTS Interpretation ECG Sinus tachycardia Right atrial enlargement Nonspecific T wave abnormality Abnormal ECG When compared with ECG of 02-DEC-2003 15:15, Nonspecific T wave abnormality now evident in Anterolateral leads Confirmed by MD RADHA, JONATHON ([id number]) on 08/01/2023 5:01:26 PM RADIOLOGY RESULTS 07/30/2023 4:33 PM CDT 08/01/2023 5:01 PM CDT Lyle Cheryljax OTOOLE ECG ORDERABLES RADIOLOGY RESULTS * Procalcitonin (07/30/2023 [...] See Procalcitonin Guidance document for more details. [email or web address] Factors that may affect PCT levels (not [...] LAB - BLOOD ORDERABL ES UR LABORATORY [facility] Acute Care Lab [address] [facility], [address] [place] [address], [facility] * (ABNORMAL) Iron and iron [...] LAB - BLOOD ORDERABL ES UR LABORATORY [facility] Acute Care Lab [address] [place] [address], Room [place] [id number] * Ferritin (07/30/2023 6:16 AM CDT) Pathologist [facility] Ferritin 145 31 - 409 ng/mL 07/30/2023 1:59 PM CDT UR LABORATORY Blood STRUCTURE OF LEFT UPPER LIMB / Unknown Venipuncture / Unknown 07/30/2023 6:16 AM CDT 07/30/2023 6:41 AM CDT Lyle Galaviz DO LAB - BLOOD ORDERABL ES UR LABORATORY [facility] Acute Care Lab [address] [place] [address], Room [place] [phone] [place] [address] * (ABNORMAL) Creatinine (07/29/2023 6:59 PM CDT) Creatinine 0.62(L) 0.67 - 1.17 mg/dL 07/29/2023 8:09 PM CDT UR LABORATORY GFR Estimate >90 >60 mL/min/1.7 3m2 07/29/2023 8:09 PM CDT UR LABORATORY Blood STRUCTURE OF LEFT UPPER LIMB / Unknown Venipuncture / Unknown 07/29/2023 6:59 PM CDT 07/29/2023 7:38 PM CDT Theo Chawla MD LAB - BLOOD ORDERABL ES UR LABORATORY [facility] Acute Care Lab [address] [facility], [address] [place] [address], [facility] from Last 3 Months Advance Directives For more information, please contact: [phone] * Full Code (Latest Code Status on File) Date Activated Date Inactivated Comments 07/29/2023 6:44 PM 07/31/2023 6:22 PM All basic an d advanced life-sustaining interventions are performed as appropriate Question Answer Comments Code status determined by: Discussion with patie nt/ legal decision maker Care Teams Sales Product Manager Relationship Specialty Start Date End Date No Ref-Primary, Physician PCP - General 07/30/23 Edmond Felix MD [address] [place] [address] Cardiovascular Disease 08/03/23 Kulwinder Ridley MD [address] [place] [address] Fellow Cardiovascular Disease 08/03/23 Keven Smith, [facility] [address] [place] [address] Pharmacist 6/3/24 Keven Smith [facility] [address] [place] [address] Assigned [place] Pharmacist 09/04/23 Alfred Coley MD [address] [place] [address] Assigned Rheumatology Provider 09/04/23
--- OUTSIDE RECORDS SUMMARY | 2023-10-12 17:54 | XMS_ITS | Encounter Summary ---
Author Organization [place] Address [address] [place] [address]. [place] [address] Care Team Providers Care Minute Clerk For Basic Traffic Name Role Phone No Ref-Primary, Physician Primary Care Provider Reason for Referral * CV Cardio consult (Routine: Next available opening) - Pending Review Specialty Diagnoses / Procedures Referred By Chandler tobias Referred To Contact Cardiovascular Disease Diagnoses 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) Pericardial effusion Kulwinder Ridley MD [address] [facility] [address] [place] [address] Referral ID Status Reason Start Date Expiration Date V isits Requested Visits Authorized [id number] Pending Review 07/31/2023 07/30/2024 1 1 Question Answer Reason for Consult: General Cardiology Scheduling Instructions: [facility] will call you to coordinate your care as prescribed by your provider. If you don't hear from a teleservices representative within 2 business days, please call [phone]. Additional Information: Follow up of pericardial effusion Comments Please be aware that coverage of these services is subject to the terms and limitations of your health insurance plan. Call member services at your health plan with any benefit or coverage questions. [facility] will call you to coordinate your care as prescribed by your provider. If you don't hear from a teleservices representative within 2 business days, please call [phone]. * CV Cardio consult (Routine: Next available opening) - Pending Review Specialty Diagnoses / Procedures Referred By Chandler tobias Referred To Contact Cardiovascular Disease Diagnoses 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) Lyle Galaviz, DO [address] [place] [address] Referral ID Status Reason Start Date Expiration Date V isits Requested Visits Authorized [id number] Pending Review 07/31/2023 07/30/2024 1 1 Question Answer Reason for Consult: General Cardiology Scheduling Instructions: [facility] will call you to coordinate your care as prescribed by your provider. If you don't hear from a teleservices representative within 2 business days, please call [phone]. Additional Information: Follow up in one month from discharge for pericardial effusion secondary to RA discharged on colchicine and ibuprofen Comments Please be aware that coverage of these services is subject to the terms and limitations of your health insurance plan. Call member services at your health plan with any benefit or coverage questions. [facility] will call you to coordinate your care as prescribed by your provider. If you don't hear from a teleservices representative within 2 business days, please call [phone]. Reason for Visit * Auth/Cert (Routine) Specialty Diagnoses / Procedures Referred By Chandler tobias Referred To Contact Med Surg Diagnoses Pericardial effusion, rheumatoid arthritis Pericardial effusion Ur [address] [place] [phone] Referral ID Status Reason Start Date Expiration Date Visits Re quested Visits Authorized [id number] 1 1 Encounter Details Date Type Department Care Team (Late st Contact Info) Description 07/29/2023 4:38 PM CDT - 07/31/2023 4:17 PM CDT Hospital Encounter [facility] Med Surg [address] [place] [phone] Hema Proctor MD [address] [place] [address] [phone] Theo Chawla MD [address] [place] [address] [phone] Lyle Galaviz DO [address] [place] [address] [phone] 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) [...] Galaviz DO - 07/31/2023 2:19 PM CDT [facility] Hospitalist Discharge Summary Date of Admission: 07/29/2023 Date of Discharge: 07/31/2023 Discharging Provider: Lyle Galaviz DO Discharge Service: Hospitalist Service, [facility] TEAM 22 Discharge Diagnoses Pericardial effusion Large pleural effusion, right side History of rheumatoid arthritis Leukocytosis Microcytic anemia Thrombocytosis Clinically Significant Risk Factors Follow-ups Needed After Discharge Follow-up Appointments Adult [facility] Follow-up and recommended labs and tests I have put in a referral to cardiology, they would like you to follow up in one month with them and should call you to make an appointment Rheumatology also would like you to follow up with them, they will call you to schedule an appointment Appointments on [facility] and/or [facility] (with [facility] or [facility] provider or service). Call [phone] if you haven't heard regarding these appointments [...] 07/31/2023 11:50 AM HIV Antigen Antibody Combo [place] In process 07/31/2023 11:50 AM Hepatitis C [...] history of rheumatoid arthritis is transferred from [facility] where he was admitted for dyspnea secondary [...] arthritis Follows with Dr. Teri Enamorado at [facility] and has been on Simponi for [...] minutes discharging this patient. Lyle Galaviz DO [facility] MED SURG [facility] [phone] Physical Exam Vital Signs: Temp: 97.7 ??F [...] No Ref-Primary Discharge Orders Adult Cardiology Eval Asset Card Clerk Referral Reason for your hospital stay You were in the hospital for a pericardial and pleural effusion felt to be due to your rheumatoid arthritis. You were started on treatment for this and are ok to discharge to follow up with rheumatology and cardiology as an outpatient. Activity Your activity upon discharge: activity as tolerated Adult [facility] Follow-up and recommended labs and tests I have put in a referral to cardiology, they would like you to follow up in one month with them andshould call you to make an appointment Rheumatology also would like you to follow up with them, they will call you to schedule an appointment Appointments on [facility] and/or [facility] (with [facility] or [facility] provider or service). Call [phone] if you haven't heard regarding these appointments [...] these medications which have NOT CHANGED Details wxpnmon-wqrfkgpmlijbc-miknashi (EXCEDRIN MIGRAINE) 250-250-65 MG tablet Take 2 [...] Galaviz DO - 07/31/2023 1:17 PM CDT [facility] Medicine Progress Note - Hospitalist Service, GOLD TEAM 22 Date of Admission: 07/29/2023 Assessment & Plan Timo Dixon is a 43 year old male with past medical history of rheumatoid arthritis is transferred from [facility] where he was admitted for dyspnea secondary [...] arthritis Follows with Dr. Teri Enamorado at [facility] and has been on Simponi for four [...] Lyle Galaviz DO Hospitalist Service, GOLD TEAM [address] [place] [address] Securely message with [employer] (more info) Text page via [facility] Paging/Directory See signed in provider for up [...] IMM and PAS not needed. JOSH Kuhn, ASSISTANT DRAFTER 6th Floor Medical Surgical Unit * Ty Lakhani RN - 07/31/2023 5:11 AM CDT Shift [phone] Goal Outcome Evaluation: Plan of Care Reviewed [...] Whitehead RN - 07/30/2023 10:09 PM CDT [id number] Goal Outcome Evaluation: Plan of Care Reviewed [...] Galaviz DO - 07/30/2023 1:08 PM CDT [facility] Medicine Progress Note - Hospitalist Service, [facility] TEAM 22 Date of Admission: 07/29/2023 Assessment & Plan Timo Dixon is a 43 year old male with past medical history of rheumatoid arthritis is transferred from [facility] where he was admitted for dyspnea secondary [...] arthritis Follows with Dr. Teri Enamorado at [facility] and has been on Simponi for [...] DO Hospitalist Service, GOLD TEAM 22 M [facility] Securely message with [employer]App (more info) Text page via [facility] Paging/Directory See signed in provider for up to date coverage information Interval History Transferred from [facility] for workup of pericardial effusion and pleural [...] RN - 07/30/2023 4:06 AM CDT Shift [phone] Plan of Care Reviewed With: patient Overall [...] CDT 6MS ADMISSION D: Patient admitted/transferred from [facility] via [facility] for SOB, found to have pericardial [...] - 07/28/2023 11:16 AM CDT Transfer Type: [facility] Transfer Triage Note Date of call: 07/28/23 Time of call: 11:16 AM Current Patient Location: [facility] Current Level of Care: Cardiac floor Vitals: [...] transfer process Is the patient appropriate for [facility]? Yes Level of Care Needed: Med Surg Telemetry Needed: Med (Remote) Telemetry Expected Time of Arrival for Transfer: 8-24 hours Arrival Location: [facility] 43 Y/O M follows up with [facility] due to RA on multiple treatments [...] Rheum and cards consult once reaches the [facility] Addendum: [facility] providers and nurses uncomfortable taking care of the pt there. Will accept at the [place]. Informed pt placement to tell the referring hospital that it might take more [facility]. To look for other hospitals in [...] work up. Will get the pt on [facility] as pericardial drain is out and can [...] history of rheumatoid arthritis is transferred from [facility] Where he was admitted for dyspnea secondary [...] Theo Chawla MD Internal Medicine Staff Hospitalist [facility] Pager: [phone] Chief Complaint: Dyspnea with exertion HPI: This is a very pleasant 43-year-old male with history of rheumatoid arthritis diagnosed about 8 years ago who presented to [facility] with complaints of progressively worsening dyspnea.Patient apparently [...] seen by rheumatology during his hospitalization at [facility] and it was felt that patient would [...] file Social Connections: Unknown (10/08/2022) Received from [facility] Social Connections Frequency of [...] No jaundice. No rashes. Data: [facility] documented in this encounter Consult [...] he is working to establish care with [facility]. Readmission within the last 30 days: No previous admission in last 30 days Reason for Consult: Discharge planning Advance Care Planning: Reviewed; no concerns identified Communication Assessment Patient's communication style: Spoken language (Namibian or Bilingual) Hearing Difficulty or Deaf: No [...] Tobacco Use: High Risk (10/08/2022) Received from [employer] Patient History Smoking Tobacco Use: Every Day Smokeless Tobacco Use: Unknown Passive Exposure: Not on file Financial Resource Strain: Not on file Alcohol Use: Not on file Transportation Needs: Not on file Physical Activity: Not on file Interpersonal Safety: Not on file Stress: Not on file Social Connections: Unknown (10/08/2022) Received from [employer] Social Connections Frequency of Communication with Friends and Family: Not on file Health Literacy: Not on file Functional Status: Prior to admission patient needed assistance: Dependent ADLs:: Independent Dependent IADLs:: Independent Mental Health Status: Mental Health Status: No current concerns Chemical Dependency Status: Chemical Dependency Status: No current concerns Values/Beliefs: Spiritual, Cultural Beliefs, Pentecostal Practices, Values that affect care: No Additional Information: Met with patient and his significant other Mony to introduce self/role and complete initial assessment. Patient was transferred to [facility] from [facility]; transfer agreement on file. 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 Patient denies current home care services or the use of community resources. Discharge needs TBD. Care Management will continue to monitor progression of care,review team recommendations, and provide discharge planning assistance as needed. Kyung Wakefield RNCC Covering for WB 6M/S SEARCHABLE in [facility] - search VICE PRESIDENT [employer]LO[employer] D[employer]ET[employer] [place] ([phone]) Tuesday & Tuesday; ([phone]) [facility] Recognized Holidays Units: 5A Onc Vocera & 5C Vocera Pager: [phone] Units: 6B Vocera & 6C Vocera Pager: [phone] Units: 7A SOT RNCC Vocera, 7B Med Surg Vocera, & 7C Med Surg Vocera Pager: [phone] Units: 6A Vocera & 4A CVICU Vocera, 4C MICU Vocera, and 4E SICU Vocera Pager: [phone] Units: 5 Ortho Vocera & 5 Med Surg Vocera Pager: [phone] Units: 6 Med Surg Vocera & 8 Med Surg Vocera Pager [phone] * Geovanny Medina MD - 07/30/2023 10:15 [...] history of rheumatoid arthritis is transferred from [facility] Where he was admitted for dyspnea secondary to large pleural effusion and pericardial effusion. Status post pericardiocentesis with placement of drain pleurocentesis. Transferred here for cardiology and hematology consult. We do not have records from [facility] here but patient seems to be having [...] Rheumatology Fellow. This note was generated using [employer] software and reviewed by myself. Please excuse any grammatical or spelling errors above. SG Dixon is a 43 year old male with longstanding history of rheumatoid arthritis who is transferred from [facility] after he was admitted there for [...] arthritis. He has been following up with [facility] since that. he has tried several [...] knees and ankles. 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 Reports morning stiffness of about 2 hours and reports pain slightly improving with activity but overall consistent throughout the day. Since admission to the hospital at [facility], patient was found to have large right-sided [...] file Social Connections: Unknown (10/08/2022) Received from [facility] Social Connections Frequency of Communication with Friends [...] BILITOTAL, ALKPHOS, AST, ALT, BILIDIRECTin the last 50651 hours. No results found for: CKTOTAL No results found for: TSH No results found for: URIC Inflammatory markers No results found for: CRP No results found for: SED No results found for: JOSE UA RESULTS: No results for input(s): COLOR, APPEARANCE, URINEGLC, URINEBILI, URINEKETONE, SG, UBLD, URINEPH, PROTEIN, UROBILINOGEN, NITRITE, LEUKEST, RBCU, WBCU in the last 81882 hours. Autoimmunity labs: No results found for: RHF No results found for: CCPIGG No results found for: ANCA No results found for: P9YPTOJ No results found for: E0AQJUP No results found for: RAJENDRA No results [...] a pmhx of RA.He originally presented to [facility] with progressive dyspnea. Found to have pericardial [...] for consulting the cardiovascular services at the [facility].Please do not hesitate to call us with any questions. Kulwinder [place], PGY-5 Cardiovascular Disease Fellow REASON FOR CONSULT: Pericardial effusion History of Present Illness Timo Dixon is a 43 year old male who presents for evaluation of dyspnea. He has a pmhx of RA.He originally presented to [facility] with progressive dyspnea. Found to have pericardial [...] related to RA. Stable since transfer to [facility], on RA. Today, the patient reports feeling [...] Single Social Determinants of Health Received from [facility] Social Connections Review of Systems: 10-point ROS [...] and CV fellow. Tariq Pisano MD, PhD operator electronic warfare Division of Cardiology Associated attestation - Tariq [...] and CV fellow. Tariq Pisano MD, PhD operator electronic warfare Division of Cardiology documented in this encounter [...] to patient. P: Patient to follow-up with [facility] within 7 days and referral made to [...] pericardial effusion. He was actually transferred from [facility] where he was hospitalized from 07/25 to 07/28. Utilization review was done at that time and approved inpatient status according to my review of the chart. At [facility] he underwent a right-sided thoracentesis with removal of 1.5 L of fluid and had a pericardiocentesis with removal of 500 cc of fluid and a pericardial drain was left in place but has nowbeen removed. He was transferred to [facility] on 07/28 for cardiology and rheumatology evaluation. Echocar diogram is planned tomorrow. Colchicine and ibuprofen have been started. The patient is also on systemic steroids. Infectious disease was also consulted given his leukocytosis. This patient is complicated, has multiple ongoing issues, has remained hospitalized since 07/25, was transferred from [facility] where he was hospitalized as an inpatient to the [facility] and this is considered [...] Reed DO MPH Physician Advisor Utilization Review [facility] * Plan of Care - Kyung Wakefield [...] * Pharmacy-Admission Medication History - Cassie Jean-Baptiste [facility] - 07/29/2023 8:07 PM CDT Pharmacist Admission Medication History Admission medication history is complete. The information provided in this note is only as accurateas the sources available at the time of the update. Information Source(s): Patient and CareEverywhere/SureScripts via in-person Recent admission to [facility]. 07/25-07/28. Medication history on 07/25 and Discharge summary 07/28. Pertinent Information: Gutierrez medication list from [facility] listed terbinafine. Medication was from 2013 and patient reportsnot having used the cream in over 4 years. Did not add to BUSINESS TRANSFORMATION MANAGER med list. Prednisone: Reports he mainly takes 10 mg daily. Has tried to go down to 5 mg daily but 10 mg typically helps the most with pain. Will occasionally go up to 20 mg daily pending RA pain or flares. Changes made to BUSINESS TRANSFORMATION MANAGER medication list: Added: all medications to list Allergies reviewed with patient and updates made in EHR: yes Medication History Completed By: Cassie Jean-Baptiste RPH 07/29/2023 8:07 PM BUSINESS TRANSFORMATION MANAGER Med List Medication Sig Last Dose jcsjwcn-hpntgaoeijlqr-hjxbaqmp (EXCEDRIN MIGRAINE) 250-250-65 MG tablet Take 2 [...] Description 12/29/2023 3:30 PM CDT Office Visit [facility] Specialty [address] [address] Alfred Coley MD [address] [place] [phone] Scheduled Referrals Name Type Priority Associated Diagnoses Orde r Schedule Adult Cardiology Eval Asset Card Clerk Referral Referral Routine: Next available opening 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) Expected: 07/31/2023 (Approximate), Expires: 07/30/2024 Adult Cardiology Eval Asset Card Clerk Referral Referral Routine: Next available opening Acute [...] PM CDT Narrative 07/31/2023 3:49 PM CDT [id number]^KHAI^KULWINDER [facility] Echocardiography Laboratory [address] [place] [id number] Name: TIMO DIXON : 1980 Study Date: 07/31/2023 12:23 PM Age: 43 yrs Gender: Male Patient Location: [facility] Reason For Study: Pericardial Effusion Ordering Physician: [...] Procedure Note Tami Kim MD - 07/31/2023 [id number]^KHAI^KULWINDER [facility] [facility] [address] [place] [id number] Name: TIMO DIXON : 1980 Study Date: 07/31/2023 12:23 PM Age: 43 yrs Gender: Male Patient Location: [facility] Reason For Study: Pericardial Effusion Ordering Physician: [...] TB Gold Plus (07/31/2023 1:13 PM CDT) [facility] Quantiferon-TB Gold Plus Indetermi alvarez(A) Negative 08/02/2023 [...] [facility] SPECIALTY CORE/PROT/ENDO [facility] Specialty Core/Prot/Endo [address] [facility] [address], [address] * Quantiferon TB Gold Plus Purple Tube (07/31/2023 1:13 PM CDT) Quantiferon Mitogen 0.08 IU/mL 08/02/2023 8:24 AM CDT UM SPECIALTY CORE/PROT/ENDO Blood STRUCTURE OF LEFT UPPER LIMB / Unknown Venipuncture / Unknown 07/31/2023 1:13 PM CDT 07/31/2023 1:21 PM CDT Alfred Coley MD LAB - MICRO GENERAL ORDERABLES UM SPECIALTY CORE/PROT/ENDO UM Specialty Core/Prot/Endo [address] [facility] [address] [facility], Room [address] * Quantiferon TB Gold Plus Yellow Tube (07/31/2023 1:13 PM CDT) Quantiferon TB2 Tube 0.10 08/02/2023 8:23 AM CDT UM SPECIALTY CORE/PROT/ENDO Blood STRUCTURE OF LEFT UPPER LIMB / Unknown Venipuncture / Unknown 07/31/2023 1:13 PM CDT 07/31/2023 1:21 PM CDT Alfred Coley MD LAB - MICRO GENERAL ORDERABLES UM SPECIALTY CORE/PROT/ENDO UM Specialty Core/Prot/Endo [address] [facility] [address], [address] * Quantiferon TB Gold Plus Green Tube (07/31/2023 1:13 PM CDT) Quantiferon TB1 Tube 0.00 IU/mL 08/02/2023 8:32 AM CDT UM SPECIALTY CORE/PROT/ENDO Blood STRUCTURE OF LEFT UPPER LIMB / Unknown Venipuncture / Unknown 07/31/2023 1:13 PM CDT 07/31/2023 1:21 PM CDT Alfred Coley MD LAB - MICRO GENERAL ORDERABLES Performing Organization Address City/[facility]/ZIP Co de Phone Number UM SPECIALTY CORE/PROT/ENDO UM Specialty Core/Prot/Endo [address] [facility] [place] [place], [address] * Quantiferon TB Gold Plus [place] Tube (07/31/2023 1:13 PM CDT) Pathologist [facility] Quantiferon Nil Tube 0.10 IU/mL 08/02/2023 8:23 AM CDT SPECIALTY CORE/PROT/ENDO Blood STRUCTURE OF LEFT UPPER LIMB / Unknown Venipuncture / Unknown 07/31/2023 1:13 PM CDT 07/31/2023 1:21 PM CDT Alfred Coley MD LAB - MICRO GENERAL ORDERABLES UM SPECIALTY CORE/PROT/ENDO Specialty Core/Prot/Endo [address] [facility] [place], Room [address] [place] [address] * HIV Antigen Antibody Combo [place] (07/31/2023 1:13 PM CDT) Pathologist [facility] HIV Antigen Antibody Combo Nonreactive Nonreactive 07/31/2023 [...] - BLOOD ORDERABL ES Performing Organization Address City/[facility]/ZIP Co de Phone Number LABORATORY [facility] [place] [facility] [address] [facility], Room [address] [place] [phone] * Hepatitis C Screen Reflex to HCV [...] - BLOOD ORDERABL ES Performing Organization Address City/[facility]/ZIP Co de Phone Number LABORATORY [facility] [place] [facility] [address] [facility], [address] [place] [phone] * Hepatitis B core antibody (07/31/2023 [...] LAB - BLOOD ORDERABL ES [facility] LABORATORY [facility] [place] [facility] [address] [facility], [address] [phone] * Hepatitis B surface antigen (07/31/2023 8:25 AM CDT) Hepatitis B Surface Antigen Nonreactive Nonreactive 07/31/2023 3:52 PM CDT [facility] LABORATORY Blood STRUCTURE OF LEFT UPPER LIMB / Unknown Venipuncture / Unknown 07/31/2023 8:25 AM CDT 07/31/2023 8:45 AM CDT Alfred Coley MD LAB - BLOOD ORDERABL ES Performing Organization Address City/[facility] Co de Phone Number [facility] LABORATORY [facility] [place] [facility] [address] [facility], [facility] [address] [phone] * (ABNORMAL) Basic metabolic panel (07/31/2023 8:25 AM CDT) Sodium 136 135 - 145 mmol/L 07/31/2023 [...] - BLOOD ORDERABL ES UR LABORATORY [facility] [address] [facility], [address] [place] [address] * (ABNORMAL) CBC with platelets (07/31/2023 [...] - BLOOD ORDERABL ES UR LABORATORY [facility] [address] [facility], [address] [place] [address] * EKG 12-lead, complete (07/30/2023 4:33 PM CDT) Systolic Blood Pressure mmHg RADIOLOGY RESULTS Diastolic Blood Pressure mmHg RADIOLOGY RESULTS Ventricular Rate 120 BPM RAD IOLOGY RESULTS Atrial Rate 120 BPM RADIOLOG Y RESULTS NV Interval 114 ms RADIOLOG Y RESULTS QRS Duration 74 ms RADIOLO GY RESULTS QT 300 ms RADIOLOGY RESULTS QTc 424 ms RADIOLOGY RESULTS P [place] 78 degrees RADIOLOGY RESULTS R AXIS 87 degrees RADIOLOGY RESULTS T [place] 63 degrees RADIOLOGY RESULTS Interpretation ECG Sinus tachycardia Right atrial enlargement Nonspecific T wave abnormality Abnormal ECG When compared with ECG of 02-DEC-2003 15:15, Nonspecific T wave abnormality now evident in Anterolateral leads Confirmed by MD RADHA, JONATHON ([id number]) on 08/01/2023 5:01:26 PM RADIOLOGY RESULTS 07/30/2023 4:33 PM CDT 08/01/2023 5:01 PM CDT Lyle Galaviz DO ECG ORDERABLES RADIOLOGY RESULTS * (ABNORMAL) Iron and iron [...] - BLOOD ORDERABL ES UR LABORATORY [facility] [address] [facility], [place] [address] [place] [address] * Ferritin (07/30/2023 6:16 AM CDT) Ferritin 145 31 - 409 ng/mL 07/30/2023 1:59 PM CDT UR LABORATORY Blood STRUCTURE OF LEFT UPPER LIMB / Unknown Venipuncture / Unknown 07/30/2023 6:16 AM CDT 07/30/2023 6:41 AM CDT Lyle Galaviz DO LAB - BLOOD ORDERABL ES Performing Organization Address City/[facility]/ZIP Co de Phone Number UR LABORATORY [facility] [facility], Room [place] [id number] [place] [address] * Procalcitonin (07/30/2023 6:16 AM CDT) Procalcitonin [...] See Procalcitonin Guidance document for more details. [email or web address] Factors that may affect PCT levels (not [...] - BLOOD ORDERABL ES UR LABORATORY [facility], [address] [place] [address] * (ABNORMAL) CBC with platelets (07/30/2023 6:16 [...] - BLOOD ORDERABL ES UR LABORATORY [facility] [address] [facility], Room [place] [id number] * (ABNORMAL) Basic metabolic panel (07/30/2023 6:16 AM CDT) Sodium 135 135 - 145 mmol/L 07/30/2023 [...] - BLOOD ORDERABL ES Performing Organization Address City/[facility]/ZIP Co de Phone Number UR LABORATORY [facility] [address] [place] [address], [address] * (ABNORMAL) Creatinine (07/29/2023 6:59 PM CDT) Creatinine 0.62(L) 0.67 - 1.17 mg/dL 07/29/2023 8:09 PM CDT UR LABORATORY GFR Estimate >90 >60 mL/min/1.7 3m2 07/29/2023 8:09 PM CDT UR LABORATORY Blood STRUCTURE OF LEFT UPPER LIMB / Unknown Venipuncture / Unknown 07/29/2023 6:59 PM CDT 07/29/2023 7:38 PM CDT Theo Chawla MD LAB - BLOOD ORDERABL ES Performing Organization Address City/[facility]/ZIP Co de Phone Number UR LABORATORY [facility] [address] [place] [address], [address] documented in this encounter Visit Diagnoses Diagnosis [...] 166.7 mL/hr, Administer over 3 Hours, On Tue07/31/23 at 0930, For 1 dose $New Bag [...] DAILY, First dose on 07/30/23 at 1700 1717 ($Given - Provider: Ludivina Whitehead RN) 0838 ($Given - Provider: Ludivina Whitehead RN) enoxaparin ANTICOAGULANT (LOVENOX) injection 40 mg 40 mg, Subcutaneous, EVERY 24 HOURS, First dose on Tue07/29/23 at 2000, HOLD if platelet count falls below 50% of baseline or less than 100,000/??L and notify provider. 2056 ($Given - Provider: Ludivina Whitehead RN) 193 ($Given - Provider: Ludivina Whitehead RN) famotidine (PEPCID) tablet 20 mg 20 mg, Oral, DAILY, First dose on 07/31/23 at 0800, GI protection while on steroids and NSAIDs 0838 ($Given - Provider: Ludivina Whitehead, [place]) ibuprofen (ADVIL/MOTRIN) tablet 600 mg 600 mg, Oral, EVERY 8 HOURS, First dose on 07/30/23 at 1700 1717 ($Given - Provider: Ludivina Whitehead RN) 0231 ($Given - Provider: Ty Lakhani RN)0838 ($Given - Provider: Ludivina Whitehead RN)1700 (Canceled Entry - Provider: Orders Generic Provider - Comment: Automatically canceled at [...] at 1330 1340 ($Given - Provider: Ludivina Whitehead, RN) predniSONE (DELTASONE) tablet 20 mg (COMPLETED) [...] stools. documented in this encounter Care Teams Minute Clerk For Basic Traffic Relationship Specialty Start Date End Date No Ref-Primary, Physician PCP - General 07/30/23 documented as of this encounter
--- OUTSIDE RECORDS SUMMARY | 2023-10-12 17:54 | XMS_ITS | Encounter Summary ---
Author Organization [facility] Address [address] [place] [address]. [place] [address] Care Team Providers Care Supervisor Slate Splitting Name Role Phone No Ref-Primary, Physician Primary Care Provider Edmond Felix MD Unavailable [phone] Kulwinder De La Cruz MD Unavailable Keven Smith [facility] Unavailable [phone] Keven Smith [facility] Unavailable [phone] Alfred Coley MD Unavailable Reason for Visit * Reason Onset Date Comments Referral 09/28/2023 Encounter Details Date Type Department Care Team (Late st Contact Info) Description 09/28/2023 Telephone [facility] [address] [address] Alfred Coley MD [address] [place] [address] Referral Social History Tobacco Use Types Packs/Day Years [...] encounter Miscellaneous Notes * Telephone Encounter - Roman Melton P - 09/28/2023 2:27 PM CDT MTM appointment no showed, we made one more attempt to reschedule. Routing back to referring provider and MTM Pharmacist Team FERNANDO Dumont Teacher Education Instructor documented in this encounter Plan of Treatment Upcoming Encounters Date Type Department Care Team (Late st Contact Info) Description 12/29/2023 3:30 PM CDT Office Visit [facility] [place] [address] [facility] [address] [place] [phone] Alfred Coley MD [address] [place], [place] [id number] documented as of this encounter Visit Diagnoses Not on filedocumented in this encounter Care Teams Supervisor Slate Splitting Relationship Specialty Start Date End Date No Ref-Primary, Physician PCP - General 07/30/23 Edmond Felix MD [address] [place] [address] Cardiovascular Disease 08/03/23 Kulwinder De La Cruz MD [address] [place] [address] Fellow Cardiovascular Disease 08/03/23 Keven Smith [facility] [address] [place] [address] Pharmacist 08/15/23 Keven Smith [facility] [address] [facility] Assigned MTM Pharmacist 09/04/23 Alfred Coley MD [address] [place], [place] [id number] Assigned Rheumatology Provider 09/04/23 documented as of this encounter
--- OUTSIDE RECORDS SUMMARY | 2023-10-12 17:55 | XMS_ITS | Referral Summary ---
Author Organization [facility] Address [address] [place] [address] Care Team Providers Care Climbing Guide Name Role Phone Unavailable Primary Care Provider Unavailabl e Source Comments Patient records contain information from all sites at [facility]. For routine questions regarding patient records, call [phone] during business hours, M-F 8:00 AM - 5:00 PM Central Time. Record requests for emergency care only can be directed to [phone] at any time.[facility] Allergies No known active allergies Medications Medication [...] by mouth as directed. Take All QAM: 0-4-9-2-1-stop. Taper every 7 days by 1 pill [...] than three times a week 11/07/2019 Attends [employer] Not on file 11/06 Active Member [...] Comments Blood Pressure 112/77 01/21/2022 2:49 PM LINING CLEANER Pulse 101 01/21/2022 2:49 PM LINING CLEANER Temperature 36.8 ??C (98.2 ??F) 01/21/2022 2:49 PM CS T Respiratory Rate 18 10/09/2014 4:31 PM CDT Oxygen Saturation - - Inhaled Oxygen Concentration - - Weight 63.4 kg (139 lb 12.4 oz) 01/21/2022 2:49 PM LINING CLEANER Height 173.2 cm (5' 8.19) 01/21/2022 2:49 PM CS T Body Mass Index 21.13 01/21/2022 2:49 PM LINING CLEANER Plan of Treatment Not on file Procedures Procedure Name Priority Date/Time Associated Diagnosis Comments HCV AB SCRN W/REFLEX TO HCV PCR, S Routine 03/18/2017 10:14 AM LINING CLEANER HIV-1/-2 AG AND AB SCREEN Routine 06/09/2016 4:18 PM CDT from Last 3 Months or Most Recently Relevant to Health Maintenance Results * HCV AB Scrn w/Reflex to HCV PCR, S (03/18/2017 10:14 AM LINING CLEANER) HCV Ab Screen, S Negative Negative [facility] Comment:[id number]-[id number] rat io is <1.00. 03/18/2017 10:1 4 AM LINING CLEANER 03/18/2017 10:14 AM LINING CLEANER Kaleb Osborn M.D. LAB MICROBIOLOGY - BLOOD ORDERABLES [facility] [address] [place] [address], [facility] * HIV-1/-2 Ag and Ab Screen (06/09/2016 4:18 PM CDT) HIV-1/-2 Antibody Negative Negative [facility] Comment: Negative result does not rule out HIV infection. If acute HIV infection is suspected in a high-risk individual, submit plasma specimen for HIV-1 RNA quantification test (HIVDQ) and/or HIV-2 DNA/RNA test (FHV2Q). Test Performed by: [facility] [address] [place] [address] Blood 06/09/2016 4:18 PM CDT Bozena Phillips M.D. LAB MICROBIOLOGY - BLOOD ORDERABLES [facility] from Last 3 Months or Most Recently Relevant to Health Maintenance
--- OUTSIDE RECORDS SUMMARY | 2023-10-12 17:55 | XMS_ITS ---
Author Organization [facility] Address [address] [place] [address] Care Team Providers Care Pad Making Machine Operator Name Role Phone Unavailable Unavailable Unavailable Surgery Details Not on file Complications Check Surgery Details section. Procedure Estimated Blood Loss Check Surgery Details section. Procedure Findings Check Surgery Details section. Procedure Specimens Taken Check Surgery Details section.
--- OUTSIDE RECORDS SUMMARY | 2023-10-12 17:55 | XMS_ITS | Clinical Summary ---
Author Organization [facility] Address [place], [place] [address] Care Team Providers Care Oncology Physician Name Role Phone Jasson Barillas Primary Care Provider [phone] Allergies No known active allergies Medications Medication Sig Dispensed Refills Start Date End Date Status terbinafine 1% cream (LAMISIL) 1 % creamIndications:Tin ea cruris Apply topically to affected area(s) 2 [...] mouth 2 times daily if needed. Active aspirin-acetaminophe n-caffeine (Excedrin Migraine) 250-250-65 mg Take 2 Tablets by mouth 3 times daily if needed for Headache. Max acetaminophen dose: 4000mg in 24 hrs. Active Active Problems Problem Noted Date Diagnosed [...] - 07/29/2023 4:00 PM CDT Hospital Encounter [facility] [address] [place] [address] [facility], [facility] Hospitalists Of Jose L Lorenzo MD [place], [...] STAT 07/26/2023 3:51 PM CDT PATH NON PADDING GLUER CYTOLOGY Today 07/26/2023 3:50 PM CDT PH,BODY FLUID Today 07/26/2023 3:50 PM CDT AMYLASE,BODY FLUID Today 07/26/2023 3: 50 PM CDT LD,BODY FLUID Today 07/26/2023 3:50 PM CDT PROTEIN,BODY FLUID Today 07/26/2023 3: 50 PM CDT GLUCOSE,BODY FLUID Today 07/26/2023 3: 50 PM CDT ANAEROBIC CULTURE Today 07/26/2023 3:5 0 PM CDT FUNGUS CULT, OTHER SOURCE Today 07/26/2023 3:50 PM CDT BODY FLUID CULTURE,STAIN (AEROBIC) Today [...] Routine 07/26/2023 2:21 PM CDT PATH NON PADDING GLUER CYTOLOGY Today 07/26/2023 2:00 PM CDT CWS PATH REVIEW BODY FLUID Timed 07/26/2023 2:00 PM CDT [facility] MISCELLANEOUS SENDOUT STAT 07/26/2023 2:00 PM CDT MISCELLANEOUS SEND OUT STAT 2:00 PM CDT FUNGUS CULT, OTHER SOURCE Today 07/26/2023 2:00 PM CDT AFB CULTURE, STAIN Today [...] @ Jul 28 2023 ??1:47PM (Electronically Signed) [email or web address] Narrative 07/28/2023 1:47 PM CDT For Patients: [...] For Patients: As a result of the s Act, medical imagingexams and procedure reports are [...] @ Jul 28 2023 1:47PM (Electronically Signed) [email or web address] Rebecca Steen MD GENERAL IM AGING * Bedside Thoracentesis RIGHT (07/28/2023 11:43 AM CDT) Narrative Rebecca Steen MD - 07/28/2023 11:43 AM CDT Rebecca Steen MD ? 07/28/2023 11:45 AM ULTRASOUND GUIDED RIGHT THORACENTESIS Volume removed: 600 mL Indication: right pleural effusion INR: 1.3 from 07/26/2023 Platelets: 537 from 07/28/2023 Anesthesia: 1% lidocaine [place] protocol was followed. TIME OUT conducted just [...] AM-5 PM, please contact me via the [employer] website From 5 PM-8 AM, please contact the answering service Rogelio Wilson MD PROCEDURE ORD * [employer] HopelaANEOUS SENDOUT (07/28/2023 11:30 AM CDT) Only the most recent of2 resultswithin the time period is included. Resulted: 07/30/2023 4:07 PM CDT [facility] Comment:This is a corrected result. Previously reported as See Separate Report with reference range <null> on 07/29/2023 at 1:17 PM CDT sageCrowdANEOUS SEND OUT COMMENT 07/30/2023 4:07 PM T [facility] Comment: Test Ordered: [id number] Adenosine Deaminase, Pl Fluid Adenosine Deaminase, Pleural ?? 30 ? U/L ?01 ? Reference Range: 0-30 ? INTERPRETIVE INFORMATION:Adenosine Deaminase, Pleural Fluid This test was developed and its performance characteristics determined by [employer]. It has not been cleared or approved by the US Food and Drug Administration. This test was performed in a CLIA certified laboratory and is intended for clinical purposes. Other PLEURAL FLUID SPECIMEN / Unknown Non-Blood / Unknown 07/28/2023 11:30 AM CDT 07/28/2023 12:21 PM CDT Narrative [facility] ([facility]) - 07/30/2023 4:07 PM CDT Performed At: 01 [facility] [address] [place], [place] [id number] Jose Daly Ph:[phone] Performed At: 02 [facility] [address], [place] [id number] Carli Beard MD Ph:[phone] Meredith Robles NP LABORATORY [facility] ([facility]) [address] [place] [address], * MISCELLANEOUS SEND OUT (07/28/2023 11:30 AM CDT) Only the most recent of2 resultswithin the time period is included. TEST NAME Adenosine deaminase 07/28/2023 1:05 PM CDT [facility] SOURCE Right pleural fluid 07/28/2023 1:05 PM CDT [facility] White Source LABORATORY-CE NTRAL LABORATORY PERFORMING LAB [employer] via [facility] 07/28/2023 1:05 PM CDT [facility] REFERRAL LAB TEST # [id number] 07/28/2023 1:05 PM CDT [facility] IS THIS A [facility] TEST? Yes, See [facility] Miscellaneous Sendout result 07/28/2023 1:05 PM CDT [facility] Other PLEURAL FLUID SPECIMEN / Unknown Non-Blood / Unknown 07/28/2023 11:30 AM CDT 07/28/2023 12:21 PM CDT Meredith Robles NP SEND OUTS [facility] [address] [place] [address], [place] * SCAN-CARDIAC STRIP (07/28/2023 8:02 AM CDT) Scanner OTHER * (ABNORMAL) CBC WITH AUTO DIFFERENTIAL (07/28/2023 8:00 AM CDT) Only the most recent of2 resultswithin the time period is included. WHITE BLOOD COUNT 14.0(H) 4.5 - 11.0 thou/cu mm 07/28/2023 8:25 AM CDT [facility] TRAL LABORATORY RED BLOOD COUNT 5.78 4.30 - 5.90 mil/cu mm 07/28/2023 8:25 AM CDT [facility] HEMOGLOBIN 12.6(L) 13.5 - 17.5 g/dL 07/28/2023 8:25 AM CDT [facility] LAB[facility] HEMATOCRIT 42.1 37.0 - 53.0 % 07/28/2023 8:25 AM CDT [facility] LAB[facility] MCV 73(L) 80 - 100 fL 07/28/2023 8:25 AM CDT [facility] MCH 21.8(L) 26.0 - 34.0 pg 07/28/2023 8:25 AM CDT [facility] MCHC 29.9(L) 32.0 - 36.0 g/dL 07/28/2023 8:25 AM CDT [facility] RDW 18.8(H) 11.5 - 15.5 % 07/28/2023 8:25 AM CDT [facility] LAB[facility] PLATELET COUNT 537(H) 140 - 440 thou/cu mm 07/28/2023 8:25 AM CDT [facility] MPV 8.5 6.5 - 11.0 fL 07/28/2023 8:25 AM CDT [facility] NRBC 0.0 % 07/28/2023 8:25 AM CDT [facility] ABS NRBC 0.0 thou /cu mm 07/28/2023 8:25 AM CDT [facility] % NEUT 82.3 % 07/28/2023 8:25 AM CDT [facility] % LYMPH 9.6 % 07/28/2023 8:25 AM CDT [facility] % MONO 6.5 % 07/28/2023 8:25 AM CDT [facility] % EOS 0.9 % 07/28/2023 8:25 AM CDT [facility] % BASO 0.3 % 07/28/2023 8:25 AM CDT [facility] % IMMATURE GRAN (METAS,MYELOS,MO OS) 0.4 % 07/28/2023 8:25 AM CDT [facility] ABSOLUTE NEUTROPHILS 11.5(H) 1.7 - 7.0 thou/cu mm 07/28/2023 8:25 AM CDT [facility] ABSOLUTE LYMPHOCYTES 1.4 0.9 - 2.9 thou/cu mm 07/28/2023 8:25 AM CDT [facility] ABSOLUTE MONOCYTES 0.9(H) <0.9 thou/cu mm 07/28/2023 8:25 AM CDT [facility] ABSOLUTE EOSINOPHILS 0.1 <0.5 thou/cu mm 07/28/2023 8:25 AM CDT [facility] ABSOLUTE BASOPHILS 0.0 <0.3 thou/cu mm 07/28/2023 8:25 AM CDT [facility] ABSOLUTE IMMATURE GRANULOCYTES(MET ,MYELOS,PROS) 0.1 <0.3 thou/cu mm 07/28/2023 8:25 AM CDT [facility] Blood BLOOD SPECIMEN / Unknown Venipuncture / Unknown 07/28/2023 8:00 AM CDT 07/28/2023 8:05 AM CDT Rogelio Wilson MD HEMATOLOGY [facility] [address] [place] [address], * (ABNORMAL) Basic metabolic panel TODAY (07/28/2023 8:00 AM T) Only the most recent of2 resultswithin the time period is included. SODIUM 137 136 - 145 mmol/L 07/28/2023 8:[address] [facility] TRAL LABORATORY POTASSIUM 3.8 3.5 - 5.1 mmol/L 07/28/2023 8:[address] [facility] LAB[facility] CHLORIDE 103 98 - 107 mmol/L 07/28/2023 8:[address] [facility] LAB[facility] CO2,TOTAL 25 22 - 29 mmol/L 07/28/2023 8:[address] [facility] LAB[facility] ANION GAP 9 5 - 18 07/28/2023 8:[address] [facility] LAB[facility] GLUCOSE 204(H) 70 - 99 mg/dL 07/28/2023 8:[address] [facility] LAB[facility] CALCIUM 8.9 8.6 - 10.0 mg/dL 07/28/2023 8:[address] [facility] BUN 15 6 - 20 mg/dL 07/28/2023 8:[address] [facility] CREATININE 0.59(L) 0.70 - 1.20 mg/dL 07/28/2023 8:[address] [facility] LAB[facility] BUN/CREAT RATIO 25(H) 10 - 20 8:[address] [facility] eGFR >90 >90 mL/min/1.7 3m2 07/28/2023 8:[address] [facility] LAB[facility]ORY Comment:As of 2021, eG FR [...] 8:05 AM CDT Rogelio Wilson MD CHEMISTRY [facility] [address] [place] [address], * SCAN-CARDIAC STRIP (07/28/2023 1:41 AM CDT) [...] AM CDT ECHOCARDIOGRAM TIMO DIXON ?Accession#: ?? [id number] : ?1980 43 years Study Date: ?? 07/27/2023 9:06:16 AM Gender: M ? BP: ? 115/77 mmHg Height: 174.00 cm ? BSA: ?1.69 m? ? ? Weight: 57.00 kg ?Tech: ? LINDA ?Referring MD: MAXINE DODD Site: ? [facility] Reading Location: [facility] IP Patient Location: Inpatient. Procedure: Limited 2D [...] . This study was interpreted by an [facility] accredited facility. ??Final ?? Procedure Note Tish Cuevas MD - 07/27/2023 ECHOCARDIOGRAM TIMO DIXON : 1980 43 years Study Date: 07/27/2023 9:06:16 AM Gender: M BP: 115/77 mmHg Height: 174.00 cm BSA: 1.69 m? ? ? Weight: 57.00 kg Tech: JMO/MDB Referring MD: MAXINE DODD Site: [facility] Reading Location: [facility] IP Patient Location: Inpatient. Procedure: Limited 2D [...] . This study was interpreted by an [facility] accredited facility. Final Maxine Dodd MD [...] other focal bone lesions. Procedure Note Penny Shaver MD - 07/27/2023 For Patients: As a [...] - 4.20 uIU/mL 07/27/2023 7:54 AM CDT [facility] Blood BLOOD SPECIMEN / Unknown Venipuncture / Unknown 07/27/2023 6:52 AM CDT 07/27/2023 7:03 AM CDT Narrative [facility] - 07/27/2023 7:54 AM CDT In Adults, TSH values between 5.00 and 10.00 uIU/ml do not necessarily indicate the presence of Hypothyroidism. Correlation with clinical findings such as presence of goiter and/or Thyroperoxidase (TPO) Antibody may be helpful. For more information please refer to ERIC 2004; 291: 228-238. Rogelio Wilson MD CHEMISTRY Performing Organization Address City/[facility]/ZIP Co de Phone Number [facility] [address] [place] [address], [place] * (ABNORMAL) Platelets TODAY (07/27/2023 6:52 AM CDT) PLATELET COUNT 542(H) 140 - 440 thou/cu mm 07/27/2023 7:21 AM CDT [facility] MPV 8.6 6.5 - 11.0 fL 07/27/2023 7:21 AM CDT [facility] Blood BLOOD SPECIMEN / Unknown Venipuncture / Unknown 07/27/2023 6:52 AM CDT 07/27/2023 7:03 AM CDT Rogelio Wilson MD HEMATOLOGY Performing Organization Address [facility] Co de Phone Number [facility] [address] [place], [place] [id number], [place] * (ABNORMAL) WBC TODAY (07/27/2023 6:52 AM CDT) WHITE BLOOD COUNT 19.8(H) 4.5 - 11.0 thou/cu mm 07/27/2023 7:21 AM CDT [facility] TR[facility] LAB[facility] NRBC 0.0 % 07/27/2023 7:21 AM CDT [facility] ABS NRBC 0.0 thou /cu mm 07/27/2023 7:21 AM CDT [facility] Blood BLOOD SPECIMEN / Unknown Venipuncture / Unknown 07/27/2023 6:52 AM CDT 07/27/2023 7:03 AM CDT Rogelio Wilson MD HEMATOLOGY Performing Organization Address City/[facility]/ZIP Co de Phone Number [facility] [address] [place] [phone], [place] * (ABNORMAL) Hemoglobin TODAY (07/27/2023 6:52 AM CDT) HEMOGLOBIN 12.1(L) 13.5 - 17.5 g/dL 07/27/2023 7:21 AM CDT [facility] MCV 71(L) 80 - 100 fL 07/27/2023 7:21 AM CDT [facility] Blood BLOOD SPECIMEN / Unknown Venipuncture / Unknown 07/27/2023 6:52 AM CDT 07/27/2023 7:03 AM CDT Rogelio Wilson MD HEMATOLOGY Performing Organization Address [facility] Co de Phone Number [facility] [address] [place] [address], [place] * (ABNORMAL) SODIUM (07/27/2023 6:52 AM CDT) SODIUM 134(L) 136 - 145 mmol/L 07/27/2023 7:54 AM CDT [facility] Blood BLOOD SPECIMEN / Unknown Venipuncture / Unknown 07/27/2023 6:52 AM CDT 07/27/2023 7:03 AM CDT Rogelio Wilson MD CHEMISTRY Performing Organization Address City/[facility] Co de Phone Number [facility] [address] [address], [place] * POTASSIUM (07/27/2023 6:52 AM CDT) POTASSIUM 3.9 3.5 - 5.1 mmol/L 07/27/2023 7:54 AM CDT [facility] Blood BLOOD SPECIMEN / Unknown Venipuncture / Unknown 07/27/2023 6:52 AM CDT 07/27/2023 7:03 AM CDT Rogelio Wilson MD CHEMISTRY Performing Organization Address City/[facility]/ZIP Co de Phone Number [facility] [address] * (ABNORMAL) CREATININE (07/27/2023 6:52 AM CDT) Pathologist [facility] eGFR >90 >90 mL/min/1.7 3m2 07/27/2023 7:54 AM CDT [facility] Comment:As of 2021, eG FR is calculated by the CKD-EPI creatinine equation without race adjustment. ??eGFR can be influenced by muscle mass, exercise, and diet. ??The reported eGFR is an estimation only and is only applicable if the renal function is stable. CREATININE 0.57(L) 0.70 - 1.20 mg/dL 07/27/2023 7:54 AM CDT [facility] Blood BLOOD SPECIMEN / Unknown Venipuncture / Unknown 07/27/2023 6:52 AM CDT 07/27/2023 7:03 AM CDT Rogelio Wilson MD CHEMISTRY Performing Organization Address City/[facility]/ZIP Co de Phone Number [facility] [address] [place] [address], * EKG 12 LEAD (07/27/2023 3:35 AM CDT) Only the most recent of3 resultswithin the time period is included. Pathologist [facility] Interpretation Sinus tachycardia Possible Left atrial enlargement Anterolateral infarct , age undetermined Abnormal ECG Compared to ekg of 26-JUL-2023, No significant change BEYOND NOW Ventricular Rate 131 BPM BEYOND NOW Atrial Rate 131 BPM BEYOND NOW P-R Interval 112 ms BEYOND NOW QRS Duration 80 ms BEYOND NOW QT 324 ms BEYOND NOW QTc 478 ms BEYOND NOW P [place] 76 degrees BEYOND NOW R [place] 122 degrees BEYOND NOW T [place] 39 degrees BEYOND NOW 07/27/2023 3:35 AM CDT 07/27/2023 7:36 PM CDT Narrative [facility] - 07/27/2023 7:36 PM CDT Test Indication: stat Rogelio Wilson MD EKG ORD Performing Organization Address City/[facility] Co de Phone Number [facility] [place], [place] * SCAN-CARDIAC STRIP (07/27/2023 2:04 AM [...] @ Jul 26 2023 ??4:49PM (Electronically Signed) [email or web address] Narrative 07/26/2023 4:49 PM CDT For Patients: [...] @ Jul 26 2023 4:49PM (Electronically Signed) [email or web address] Rebecca Steen MD GENERAL IM AGING * Body Fluid Culture, Stain (07/26/2023 3:50 PM CDT) Only the most recent of2 resultswithin the time period is included. CULTURE No Growth. 08/01/2023 7:24 AM CDT [facility] GRAM STAIN No Epithelial cells 08/01/2023 7:24 AM CDT [facility] GRAM STAIN No RBCs 08/01/2023 7:24 AM CDT [facility] GRAM STAIN 1+ PMNs 08/01/2023 7:24 AM CDT [facility] GRAM STAIN No organisms seen 08/01/2023 7:24 AM CDT [facility] Body Fluid SPECIMEN FROM PERICARDIUM / Unknown Non-Blood / Unknown 07/26/2023 3:50 PM CDT 07/26/2023 4:31 PM CDT Narrative [facility] - 08/01/2023 7:24 AM CDT ?? Maxine Dodd MD MICROBIOLOGY [facility] [address] [place] [address], * PATH Non PADDING GLUER Cytology (07/26/2023 3:50 PM CDT) Only the most recent of2 resultswithin the time period is included. Case Report Medical Cytology Report ? Case: [id number] ? Authorizing Provider: ??Maxine Dodd MD ?Collected: ? 07/26/2023 1550 ? Ordering Location: ? [facility] ?Received: ?07/26/2023 1631 ? Hospital ? Pathologist: ? Henry-Chao, Claudia ? Chica, MD ? Specimen: ?Pericardial Fluid ? 07/28/2023 12:05 PM CDT [facility] Final Diagnosis PERICARDIAL FLUID, CYTOLOGIC MATERIAL: Negative for malignancy in this sample 07/28/2023 12:05 PM CDT [facility] Clinical Information The patient is a 43 y.o. male with rheumatoid arthritis with multifocal lung opacities, pericardial effusion, and right pleural effusion. 07/28/2023 12:05 PM CDT [facility] Gross Description A) SOURCE: Pericardial fluid [...] than 72 hours. 07/28/2023 12:05 PM CDT [facility] Microscopic Description All slides were reviewed microscopically. Specimen adequacy: Adequate for interpretation. The microscopic appearance substantiates the diagnosis. 07/28/2023 12:05 PM CDT [facility] ENTR[facility]AT[facility] Additional Information Cytology is screened at [facility], Central Laboratory - [address], [place] [address] and [facility] - [address] [place] [address] and [facility] Laboratory - [address] [place] [address] Interpreted at [facility] Central Laboratory - [address], [place] [address] 07/28/2023 12:05 PM CDT [facility] Other (Pericardial Fluid) 07/26/2023 3:50 PM CDT 07/26/2023 4:31 PM CDT Maxine Dodd MD PATHOLOGY/CYTOLOGY [facility] [address] [place] [address], * Fungus Culture, Other Source (07/26/2023 3:50 PM CDT) Only the most recent of2 resultswithin the time period is included. CULTURE No Fungus isolated. 08/24/2023 6:46 AM CDT [facility] Other SPECIMEN FROM PERICARDIUM / Unknown Non-Blood / Unknown 07/26/2023 3:50 PM CDT 07/26/2023 4:31 PM CDT Maxine Dodd MD MICROBIOLOGY [facility] [address] [place] [address], * Protein, Body Fluid (07/26/2023 3:50 PM CDT) Only the most recent of2 resultswithin the time period is included. SPECIMEN SOURCE Body Fluid, Pericardial 07/26/2023 5:40 PM CDT [facility] White Source [facility] NTRAL LABORATORY PROTEIN,BODY FLUID 5.1 g/dL 07/26/2023 5:40 PM CDT [facility]ATORY Comment:No Reference Range D efined. Body Fluid SPECIMEN FROM PERICARDIUM / Unknown Non-Blood / Unknown 07/26/2023 3:50 PM CDT 07/26/2023 4:31 PM CDT Narrative [facility] - 07/26/2023 5:40 PM CDT Pleural: [...] Test developed & performance characteristics determined by [place] consistent with CLIA requirements. Not cleared or approved by [place] FDA. Maxine Dodd MD BODY FLUID Performing Organization Address [facility] Co de Phone Number [facility] [address] [place] [address], [place] * pH Body Fluid (07/26/2023 3:50 PM CDT) Only the most recent of2 resultswithin the time period is included. PH,BODY FLUID 7.33 07/26/2023 5:23 PM CDT [facility] Specimen Source Pericardial 07/26/2023 5:23 PM CDT [facility] Body Fluid SPECIMEN FROM PERICARDIUM / Unknown Non-Blood / Unknown 07/26/2023 3:50 PM CDT 07/26/2023 4:31 PM CDT Maxine Dodd MD BODY FLUID Performing Organization Address [facility] de Phone Number [facility] [address] [place] [address], [place] * LD, Body Fluid (07/26/2023 3:50 PM CDT) Only the most recent of2 resultswithin the time period is included. SPECIMEN SOURCE Body Fluid, Pericardial 07/26/2023 9:04 PM CDT [facility] LD,BODY FLUID 3,214 IU/L 07/26/2023 9:04 PM CDT [facility] Body Fluid SPECIMEN FROM PERICARDIUM / Unknown Non-Blood / Unknown 07/26/2023 3:50 PM CDT 07/26/2023 4:31 PM CDT Narrative [facility] - 07/26/2023 9:04 PM CDT [...] Test developed & performance characteristics determined by [place] consistent with CLIA requirements. Not cleared or approved by [place] FDA. Maxine Dodd MD BODY FLUID [facility] [address] [place] [address], * Glucose, Body Fluid (07/26/2023 3:50 PM CDT) Only the most recent of2 resultswithin the time period is included. SPECIMEN SOURCE Body Fluid, Pericardial 07/26/2023 5:40 PM CDT [facility] GLUCOSE,BODY FLUID <2 mg/dL 07/26/2023 5:40 PM CDT [facility] Comment:No Reference Range D efined. Body Fluid SPECIMEN FROM PERICARDIUM / Unknown Non-Blood / Unknown 07/26/2023 3:50 PM CDT 07/26/2023 4:31 PM CDT Narrative [facility] - 07/26/2023 5:40 PM CDT Pleural: [...] Test developed & performance characteristics determined by [place] consistent with CLIA requirements. Not cleared or approved by [place] FDA. Maxine Dodd MD BODY FLUID Performing Organization Address City/[facility]/ZIP Co de Phone Number [facility] [address] [place] [address], * Amylase, Body Fluid (07/26/2023 3:50 PM CDT) SPECIMEN SOURCE Body Fluid, Pericardial 07/26/2023 5:41 PM CDT [facility] AMYLASE,BODY FLUID 17 IU/L 07/26/2023 5:41 PM CDT [facility] Comment:No Reference Range D efined. Body Fluid SPECIMEN FROM PERICARDIUM / Unknown Non-Blood / Unknown 07/26/2023 3:50 PM CDT 07/26/2023 4:[address] [facility] - 07/26/2023 5:41 PM CDT Peritoneal: Amylase [...] Test developed & performance characteristics determined by [facility] [place], [place] consistent with CLIA requirements. Not cleared or approved by [place] FDA. Maxine Dodd MD BODY FLUID Performing Organization Address [facility] Co de Phone Number [facility] [address] [place] [address], [place] * Anaerobic Culture (07/26/2023 3:50 PM CDT) CULTURE No anaerobes isolated 08/01/2023 11:01 AM CDT [facility] Other SPECIMEN FROM PERICARDIUM / Unknown Non-Blood / Unknown 07/26/2023 3:50 PM CDT 07/26/2023 4:31 PM CDT Maxine Dodd MD MICROBIOLOGY Performing Organization Address City/[facility]/ZIP Co de Phone Number [facility] [address] [place] [phone], [place] * Specific [place] (07/26/2023 3:50 PM CDT) SOURCE Pericardial 07/26/2023 5:09 PM CDT [facility] Comment:This is a corrected result. Previously reported as Pleural with reference range <null> on 07/26/2023 at 1659 CDT SPECIFIC GRAVITY,BODY [place] 1.032 07/26/2023 5:09 PM CDT [facility] Comment:This is a corrected result. Previously reported as 1.023 with reference range <null> on 07/26/2023 at 1659 CDT Body Fluid SPECIMEN FROM PERICARDIUM / Unknown Non-Blood / Unknown 07/26/2023 3:50 PM CDT 07/26/2023 4:31 PM CDT Maxine Ddod MD BODY FLUID [facility] [address] [place] [address], [place] * CVL OTHER PROCEDURE (07/26/2023 3:37 PM CDT) Anatomical Region Laterality Modality Other 07/26/2023 3:37 PM CDT Narrative Transcriptions Jose Juan Barry MD - 07/26/2023 4:09 PM CDT [facility] Cardiac Catheterization Report Name: TIMO DIXON Event Date: 07/26/2023 15:37 Excellian ID #: [id number] CARLOS #: [id number] Patient Class: Inpatient Diagnostic Physician: JOSE JUAN BARRY [facility] Referring Physician: Date: 1980 Gender: Male Age: 43 Summary/Conclusions INDICATIONS - Large pericardial effusion c/w early tamponade DIAGNOSTIC SUMMARY - 500 cc of straw-colored fluid removed under echocardiographic guidance - Samples sent to pathology - Pigtail / sheath sutured in place LEFT VENTRICULAR FUNCTION ? Left ventricular ejection fraction based on echo is 60%. Consent & [place] Protocol The risks, benefits, and alternatives of the procedure were discussed withthe patient and written informed consent was obtained. [place] protocol was followed. TIME OUT conducted just prior tostarting procedure confirmed patient identity, site/side, procedure,patient position, and availability of correct equipment and implants (ifapplicable). Staff Name Title JOSE JUAN BARRY Diagnostic Supervisor [employer] [facility] Joe Massey RN Nurse Carola Thornton CVT Scrub Simba Eagle CVT Monitor Abigail Magdaleno REAL ESTATE UNDERWRITER Monitor Maxine Dodd Fellow Procedures ? Pericardiocentesis [...] healthcare professional providing the sedation ends personal ehygiekivhyclc-la-lmcr time with the patient. The medications listed above were verbally ordered by me and read back tome as documented above. Refer to the procedure log report for additional case details. electronically signed on 07/26/2023 4:09:57 PM with status of Final Jose Juan Barry MD [facility] [address] [address] (p) [phone](f) Provider Referring CV IMAGING * (ABNORMAL) LD serum (ADD ON) (07/26/2023 3:12 PM CDT) LD,TOTAL 266(H) 135 - 225 IU/L 07/26/2023 5:53 PM CDT [facility] Blood BLOOD SPECIMEN / Unknown Butterfly / Unknown 07/26/2023 3:12 PM CDT 07/26/2023 3:20 PM CDT Rogelio Wilson MD CHEMISTRY [facility] [address] [place] [address], * (ABNORMAL) PROTIME-INR (07/26/2023 3:12 PM CDT) INR 1.3(H) <1.3 07/26/2023 3:44 PM CDT [facility] PROTIME 14.8(H) 10.3 - 12.3 sec 07/26/2023 3:44 PM CDT [facility] Blood BLOOD SPECIMEN / Unknown Butterfly / Unknown 07/26/2023 3:12 PM CDT 07/26/2023 3:22 PM CDT Narrative [facility] - 07/26/2023 3:44 PM [...] if the patient is on UFH. Teresita Ton GILLIAM HEMATOLOGY [facility] [address] [place] [address], * Bedside Thoracentesis RIGHT (07/26/2023 2:41 PM CDT) Narrative Rebecca Steen MD - 07/26/2023 2:41 PM CDT Rebecca Steen MD ? 07/26/2023 ??2:59 PM ULTRASOUND GUIDED RIGHT THORACENTESIS Volume removed: 1500 mL Indication: large right pleural effusion INR: No results found in past 5 years from . Platelets: 459 from 07/26/2023 Anesthesia: 1% lidocaine [place] protocol was followed. TIME OUT conducted just [...] AM-5 PM, please contact me via the [employer] website From 5 PM-8 AM, please contact the answering service Rogelio Wilson MD PROCEDURE ORD * ECHO TTE COMPLETE WO CONTRAST (07/26/2023 2:21 PM CDT) AORTIC VALVE MEAN PG 3 mmHg LVEDD 3.9 cm EJECTION FRACTION 60 - 65% Anatomical Region Laterality Modality Ultrasound 07/26/2023 11:4 9 AM CDT Narrative 07/26/2023 4:15 PM CDT ECHOCARDIOGRAM TIMO DIXON ?Accession#: ?? [id number] : ?1980 43 years Study Date: ?? 07/26/2023 11:49:32 AM Gender: M ? BP: ? 139/104 mmHg Height: 174.00 cm ? BSA: ?1.75 m? ? ? Weight: 62.00 kg ?Tech: ? KBA ?Referring MD: JOSE L LORENZO Site: ? [facility] Reading Location: [facility] Patient Location: Procedure: Limited 2D , Color [...] . This study was interpreted by an [facility] accredited facility. ??Final ?? Procedure Note Bryn Maldonado MD - 07/26/2023 ECHOCARDIOGRAM TIMO DIXON : 1980 43 years Study Date: 07/26/2023 11:49:32 AM Gender: M BP: 139/104 mmHg Height: 174.00 cm BSA: 1.75 m? ? ? Weight: 62.00 kg Tech: ROHAN Referring MD: JOSE L LORENZO Site: [facility] Reading Location: [facility] Patient Location: Procedure: Limited 2D , Color [...] . This study was interpreted by an [facility] accredited facility. Final Jose L Lorenzo MD ECHO ORD * CWS PATH REVIEW BODY FLUID (07/26/2023 2:00 PM CDT) PATH COMMENT No atypical or malignant cells favor reactive. Reviewed by Dr. Mary Clayton on 07/26/2023. 07/27/2023 2:42 PM CDT [facility] Body Fluid SPECIMEN FROM PLEURA OBTAINED BY THORACENTESIS / Unknown Non-Blood / Unknown 07/26/2023 2:00 PM CDT 07/26/2023 3:02 PM CDT Rogelio Wilson MD [facility] [address] [place] [address], * Triglycerides Pleural fluid (RIGHT) (07/26/2023 2:00 PM CDT) Triglycerides, Fluid 10 Not Estab. mg/dL 07/27/2023 9:06 PM CDT [facility] Comment: The reference interval(s) and other method performance specifications have not been established for this body fluid. The test result must be integrated into the clinical context for interpretation. Body Fluid BODY FLUID SPECIMEN / Unknown Non-Blood / Unknown 07/26/2023 2:00 PM CDT 07/26/2023 3:01 PM CDT Narrative [facility] - 07/27/2023 9:06 PM CDT Performed at: ??01 - [facility] [address] ??[id number] Manager Hardware: Darrel Boyce MD, Phone: ??[phone] Rogelio Wilson MD BODY FLUID [facility] ([facility]) [address] [place] [address], [place] * AFB Stain & Culture Pleural Fluid (RIGHT) (07/26/2023 2:00 PM CDT) CULTURE No Mycobacterium isolated. 09/08/2023 6:55 AM CDT [facility] ACID FAST STAIN No acid fast bacilli seen 09/08/2023 6:55 AM CDT [facility] Other SPECIMEN FROM PLEURA OBTAINED BY THORACENTESIS / Unknown Non-Blood / Unknown 07/26/2023 2:00 PM CDT 07/26/2023 3:01 PM CDT Rogelio Wilson MD MICROBIOLOGY Performing Organization Address City/[facility]/ZIP Co de Phone Number [facility] [address] [place] [address], [place] * Cell Count Pleural Fluid (RIGHT) (07/26/2023 2:00 PM CDT) BODY FLUID SOURCE Pleural Fluid 07/27/2023 2:42 PM CDT [facility] Comment:Right BODY FLUID COLOR Yellow 07/27/2023 2:42 PM CDT [facility] BODY FLUID CLARITY Cloudy 07/27/2023 2:42 PM CDT [facility] TOTAL NUCLEATED CELLS, BF 2,752 /cu mm 07/27/2023 2:42 PM CDT [facility] RED BLOOD COUNT, BODY FLUID 11,000 /cu mm 07/27/2023 2:42 PM CDT [facility] % NEUTROPHILS, BODY FLUID 6 % 07/27/2023 2:42 PM CDT [facility] % LYMPHOCYTES, BODY FLUID 6 % 07/27/2023 2:42 PM CDT [facility] % MONO/MACRO, BODY FLUID 88 % 07/27/2023 2:42 PM CDT [facility] Body Fluid SPECIMEN FROM PLEURA OBTAINED BY THORACENTESIS / Unknown Non-Blood / Unknown 07/26/2023 2:00 PM CDT 07/26/2023 3:02 PM CDT [facility] - 07/27/2023 2:42 PM CDT Differential held for Pathology review Rogelio Wilson MD BODY FLUID [facility] [address] [place] [address], * RESPIRATORY PANEL MULTIPLEX PCR (07/26/2023 10:34 AM CDT) Adenovirus NOT Detected 07/26/2023 11:40 AM CDT [facility] Coronavirus 229E NOT Detected 07/26/2023 11:40 AM CDT [facility] Coronavirus HKU1 NOT Detected 07/26/2023 11:40 AM CDT [facility] Coronavirus NL63 NOT Detected 07/26/2023 11:40 AM CDT [facility] Coronavirus OC43 NOT Detected 07/26/2023 11:40 AM CDT [facility] Human Metapneumovirus NOT Detected 07/26/2023 11:40 AM CDT [facility] Human Rhinovirus/Enterovi ranjan NOT Detected 07/26/2023 11:40 AM CDT [facility] Influenza A NOT Detected 07/26/2023 11:40 AM CDT [facility] Influenza B NOT Detected 07/26/2023 11:40 AM CDT [facility] Parainfluenza Virus 1 NOT Detected 07/26/2023 11:40 AM CDT [facility] Parainfluenza Virus 2 NOT Detected 07/26/2023 11:40 AM CDT [facility] Parainfluenza Virus 3 NOT Detected 07/26/2023 11:40 AM CDT [facility] Parainfluenza Virus 4 NOT Detected 07/26/2023 11:40 AM CDT [facility] Respiratory Syncytial Virus NOT Detected 07/26/2023 11:40 AM CDT [facility] SARS-Cov-2 NOT Detected 07/26/2023 11:40 AM CDT [facility] Bordetella pertussis NOT Detected 07/26/2023 11:40 AM CDT [facility] Bordetella Parapertussis NOT Detected 07/26/2023 11:40 AM CDT [facility] Chlamydophila pneumoniae NOT Detected 07/26/2023 11:40 AM CDT [facility] Mycoplasma pneumoniae NOT Detected 07/26/2023 11:40 AM CDT [facility] Nasopharyngeal NASOPHARYNGEAL SWAB / Unknown Non-Blood / Unknown 07/26/2023 10:34 AM CDT 07/26/2023 10:40 AM CDT [facility] - 07/26/2023 11:40 AM CDT All PCR tests are subject to false negative results due to variability in viral/bacterial load and collection technique. ??This test does NOT detect MERS ( Respiratory Syndrome) or SARS-1 (Severe Acute Respiratory Syndrome). Rogelio Wilson MD MICROBIOLOGY [facility] [address] [place] [address], * SCAN-CARDIAC STRIP (07/26/2023 9:27 AM CDT) Scanner OTHER * PROCALCITONIN (07/26/2023 9:12 AM CDT) PROCALCITONIN 0.09 ng/ml 07/26/2023 10:27 AM CDT [facility] Blood BLOOD SPECIMEN / Unknown Venipuncture / Unknown 07/26/2023 9:12 AM CDT 07/26/2023 9:41 AM CDT Narrative [facility] - 07/26/2023 10:27 AM CDT Procalcitonin [...] are obtained. Rogelio Wilson MD SEND OUTS [facility] [address] [place] [address], [place] * (ABNORMAL) SEDIMENTATION RATE (07/26/2023 6:33 AM CDT) SEDIMENTATION RATE 81(H) <15 mm/hr 2023 9:19 AM CDT [facility] Blood BLOOD SPECIMEN / Unknown Venipuncture / Unknown 07/26/2023 6:33 AM CDT 07/26/2023 7:00 AM CDT Rogelio Wilson MD HEMATOLOGY [facility] [address] [place] [address], [place] * (ABNORMAL) IRON PLUS IRON BINDING CAP (07/26/2023 6:33 AM CDT) IRON 18(L) 61 - 157 ug/dL 07/26/2023 4:56 PM CDT [facility] UIBC (UNSATURATED) 267 112 - 347 ug/dL 07/26/2023 4:56 PM CDT [facility] IRON BINDING CAPACITY 285 250 - 400 ug/dL 07/26/2023 4:56 PM CDT [facility] IRON,% SATURATION 6(L) 14 - 50 % 07/26/2023 4:56 PM CDT [facility] Blood BLOOD SPECIMEN / Unknown Venipuncture / Unknown 07/26/2023 6:33 AM CDT 07/26/2023 7:00 AM CDT Rogelio Wilson MD CHEMISTRY [facility] [address] [address], [place] * (ABNORMAL) C-REACTIVE PROTEIN (07/26/2023 6:33 AM CDT) C-REACTIVE PROTEIN 8.4(H) <0.5 mg/dL 07/26/2023 11:26 AM CDT [facility] Blood BLOOD SPECIMEN / Unknown Venipuncture / Unknown 07/26/2023 6:33 AM CDT 07/26/2023 7:00 AM CDT Jose L Lorenzo MD CHEMISTRY Performing Organization Address [facility] Co de Phone Number [facility] [address] [place] [address], [place] * Protein, total serum (07/26/2023 6:33 AM CDT) PROTEIN,TOTAL 6.3 6.0 - 8.0 g/dL 07/26/2023 12:21 PM CDT [facility] Blood BLOOD SPECIMEN / Unknown Venipuncture / Unknown 07/26/2023 6:33 AM CDT 07/26/2023 7:00 AM CDT Rogelio Wilson MD CHEMISTRY Performing Organization Address [facility] de Phone Number [facility] [address] [phone], [place] * FERRITIN (07/26/2023 6:33 AM CDT) FERRITIN 56.9 30.0 - 400.0 ng/mL 07/26/2023 4:56 PM CDT [facility] Blood BLOOD SPECIMEN / Unknown Venipuncture / Unknown 07/26/2023 6:33 AM CDT 07/26/2023 7:00 AM CDT Rogelio Wilson MD CHEMISTRY Performing Organization Address [facility] Co de Phone Number [facility] [address] [place] [address], [place] * (ABNORMAL) Hepatic function panel FOR ADD ON (07/26/2023 6:33 AM CDT) ALBUMIN 2.8(L) 4.0 - 4.9 g/dL 07/26/2023 3:36 PM CDT [facility] PROTEIN,TOTAL 6.2 6.0 - 8.0 g/dL 07/26/2023 3:36 PM CDT [facility] BILIRUBIN,TOTAL 0.4 0.0 - 1.2 mg/dL 07/26/2023 3:36 PM CDT [facility] BILIRUBIN,DIRECT <0.2 0.0 - 0.3 mg/dL 07/26/2023 3:36 PM CDT [facility] BILIRUBIN,INDIRE CT 07/26/2023 3:36 PM CDT [facility] Comment:Unable to calculate, Direct Bili <0.2 ALK PHOSPHATASE 137(H) 40 - 129 IU/L 07/26/2023 3:36 PM CDT [facility] ALT (SGPT) 18 10 - 50 IU/L 07/26/2023 3:36 PM CDT [facility] AST (SGOT) 27 10 - 50 IU/L 07/26/2023 3:36 PM CDT [facility] Blood BLOOD SPECIMEN / Unknown Venipuncture / Unknown 07/26/2023 6:33 AM CDT 07/26/2023 7:00 AM CDT Rogelio Wilson MD CHEMISTRY [facility] [address] [place] [address], [place] from Last 3 Months Advance Directives * Full Code (Latest Code Status on File) Date Activated Date Inactivated Comments 07/26/2023 4:32 AM 07/29/2023 6:24 PM Question Answer Comments Code Status Discussion: Reviewed Preferences Care Teams Oncology Physician Relationship Specialty Start Date End Date Jasson Barillas [address] [place] [address] PCP - General Family Practice 07/27/23
--- OUTSIDE RECORDS SUMMARY | 2023-10-12 17:55 | XMS_ITS ---
Author Organization [place] Address [address] [place] [address] Care Team Providers Care Linoleum Mechanic Name Role Phone No Ref-Primary, Physician Primary Care Provider Edmond Felix MD Unavailable [phone] Kulwinder De La Cruz MD Unavailable Keven Smith [facility] Unavailable [phone] Keven Smith [facility] Unavailable [phone] Alfred Coley MD Unavailable Transitional Care Management Status:Closed (Closed) Start date:08/01/2023 Enrollment date:08/01/2023 End date:08/15/2023 Close reason:Goals met Continued Care and Services Coordination
--- OUTSIDE RECORDS SUMMARY | 2023-10-12 17:55 | XMS_ITS | Clinical Summary ---
Author Organization [facility] Address [address] [place] [address] Care Team Providers Care Wellness Manager Name Role Phone Unavailable Primary Care Provider Unavailabl e Source Comments Patient records contain information from all sites at [facility]. For routine questions regarding patient records, call [phone] during business hours, M-F 8:00 AM - 5:00 PM Central Time. Record requests for emergency care only can be directed to [phone] at any time.[facility] Allergies No known active allergies Medications Medication [...] by mouth as directed. Take All QAM: 6-5-6-2-1-stop. Taper every 7 days by 1 pill [...] than three times a week 11/07/2019 Attends Baptism Services Not on file 11/06 Active Member [...] Comments Blood Pressure 112/77 01/21/2022 2:49 PM RELAY TECHNICIAN Pulse 101 01/21/2022 2:49 PM RELAY TECHNICIAN Temperature 36.8 ??C (98.2 ??F) 01/21/2022 2:49 PM CS T Respiratory Rate 18 10/09/2014 4:31 PM CDT Oxygen Saturation - - Inhaled Oxygen Concentration - - Weight 63.4 kg (139 lb 12.4 oz) 01/21/2022 2:49 PM RELAY TECHNICIAN Height 173.2 cm (5' 8.19) 01/21/2022 2:49 PM CS T Body Mass Index 21.13 01/21/2022 2:49 PM RELAY TECHNICIAN Plan of Treatment Health Maintenance Due Date Last Done Comments COVID-19 Vaccine (#1) 01/22/1985 Pneumococcal vaccine (0-64 y ears) (1 of 2 - PCV) 01/22/1986 Hepatitis B Vaccines (1 of 3 - 19+ 3-dose series) 01/22/1999 Zoster Vaccines (1 of 2) 01/22/1999 Hydroxychloroquine (PLAQUENI L) Baseline Exam 01/21/2022 Depression Screening (Annual PHQ-2) 03/14/2023 Influenza Vaccine (#1) 2023 DTaP,Tdap,and Td Vaccines [...] HCV PCR, S Routine 03/18/2017 10:14 AM RELAY TECHNICIAN HIV-1/-2 AG AND AB SCREEN Routine 06/09/2016 4:18 PM CDT from Last 3 Months or Most Recently Relevant to Health Maintenance Results * HCV AB Scrn w/Reflex to HCV PCR, S (03/18/2017 10:14 AM RELAY TECHNICIAN) HCV Ab Screen, S Negative Negative [facility] Comment:Vqcbtz-ng-cobzul rat io is <1.00. 03/18/2017 10:1 4 AM RELAY TECHNICIAN 03/18/2017 10:14 AM RELAY TECHNICIAN Kaleb Osborn M.D. LAB MICROBIOLOGY - BLOOD ORDERABLES [facility] [address] [place] [address], [facility] * HIV-1/-2 Ag and Ab Screen (06/09/2016 4:18 PM CDT) HIV-1/-2 Antibody Negative Negative [facility] Comment: Negative result does not rule out HIV infection. If acute HIV infection is suspected in a high-risk individual, submit plasma specimen for HIV-1 RNA quantification test (HIVDQ) and/or HIV-2 DNA/RNA test (FHV2Q). Test Performed by: [facility] [address] [place] [address] Blood 06/09/2016 4:18 PM CDT Bozena Phillips M.D. LAB MICROBIOLOGY - BLOOD ORDERABLES [facility] from Last 3 Months or Most Recently Relevant to Health Maintenance
== END 2023-10-12 20:45 | disposition left against medical advice (07) ==
PROVIDERS: Emergency Provider Student in an Organized Health Care Education/Training Program; PCP Internal Medicine
DX: I31.39 Other pericardial effusion (noninflammatory) (principal); J90 Pleural effusion, not elsewhere classified; M06.9 Rheumatoid arthritis, unspecified
CPT/HCPCS: 36415; 71250; 80048; 83605; 84484; 85025; 93005; 99284; 99285

== ENCOUNTER 2023-12-05 11:22 | Emergency (ER) | payer BC, SELFPAY ==
[2023-12-05 11:26] VITALS: BP 141/89; PULSE 125; RESP 16; TEMP 37.3; O2SAT 100; BMI 21.3
--- NOTE | 2023-12-05 11:40 | CRLHL7_ITS ---
For Patients: As a result of the Century Cures Act, medical imaging exams and procedure reports are released immediately into your electronic medical record. You may view this report before your referring provider. If you have questions, please contact your health care provider. Indication: Mild shortness of breath. Previous pleural effusions and collapsed lung. Technique: Chest 2 views Comparison: Chest x-ray 10/12/2023 Findings/Impression: Cardiovascular and mediastinum: Heart size and vasculature are normal in caliber and appearance. Mediastinum is within normal limits. Lungs and pleural spaces: Small right pleural effusion which has significantly decreased in size compared to the study of 2 months prior. No pneumothorax. No effusion on the left. No focal pulmonary consolidation. Bones and soft tissues: No significant findings. Dictated by Moises Richardson MD @ 12/05/2023 12:25:37 PM (Electronically Signed)
--- OUTSIDE RECORDS SUMMARY | 2023-12-05 11:56 | XMS_ITS | Encounter Summary ---
Author Organization [facility] Address [address] [place] [address] Care Team Providers Care Biomathematician Name Role Phone Srinivasan Barillas MD Primary Care Provider [phone] Reason for Visit * Reason Onset Date Comments TCM Follow-up 10/17/2023 Encounter Details Date Type Department Care Team (Late st Contact Info) Description 10/17/2023 Telephone SE Care Coordination [address] [place] [address] Srinivasan Barillas MD [address] [place] [address] TCM Follow-up Social History Tobacco Use Types Packs/Day Years [...] encounter Miscellaneous Notes * Telephone Encounter - Yajaira Mitchell - 10/18/2023 10:13 AM CDT Per encounter from 10/17/23; Contacted to schedule est care appt. Currently being seen in [place] but wants to continue to come to [facility] for physicals. Informed of either Dr. Bull or Genoveva. Will call to schedule a physical appt in the next few weeks. * Telephone Encounter - Dulce Pryor RN - 10/17/2023 4:24 PM CDT Transitional Care Management Follow-Up Phone Call Patient: Jai Shoemaker : 1980 PCP: Srinivasan Barillas MD Admission Date: 10/13/23 Discharge Date: 10/16/23 Discharging Facility: [facility] Discharge Diagnosis: Pericardial Effusion, RA Complexity Level: Moderate Does the patient have a scheduled appt based on complexity level within 7 days or 14 days?: -- (No appt currently scheduled at time of phone call attempt) Follow-Up Call: Date of Call: 10/17/23 Time of Call: 1624 Number of Call Attempts: 2 LMTCB (x 2) If patient has any further questions, can contact PCP office at [phone] * Telephone Encounter - Dulce Pryor RN - 10/17/2023 8:11 AM CDT Transitional Care Management Follow-Up Phone Call Patient: Jai Shoemaker : 1980 PCP: Srinivasan Barillas MD Admission Date: 10/13/23 Discharge Date: 10/16/23 Discharging Facility: [facility] Follow-Up Call: Date of Call: 10/17/23 Time of Call: 08 Number of Call Attempts: 1 LMTCB Additional Notes: If pt calls back will offer TCM/Hospital f/u appt with PCP within TCM window: 10/15-10/27. If patient has any further questions, can contact PCP office at [phone] documented in this encounter Plan of Treatment Not on file documented as of this encounter Visit Diagnoses Not on filedocumented in this encounter Care Teams Biomathematician Relationship Specialty Start Date End Date Srinivasan Barillas MD [address] [place] [address] PCP - General Family Medicine 10/17/23 10/17/23 documented as of this encounter
--- OUTSIDE RECORDS SUMMARY | 2023-12-05 11:56 | XMS_ITS | Encounter Summary ---
Author Organization [place] Address [address] [place] [address] Care Team Providers Care Prorate Clerk Name Role Phone No Ref-Primary, Physician Primary Care Provider Edmond Felix MD Unavailable [phone] Kulwinder De La Cruz MD Unavailable Keven Smith [facility] Unavailable [phone] Keven Smith [facility] Unavailable [phone] Alfred Coley MD Unavailable Reason for Visit * Reason Onset Date Comments Prior Auth - Medication 10/04/2023 Actemra Encounter Details Date Type Department Care Team (Late st Contact Info) Description 10/04/2023 Telephone [facility] [address] [address] Alfred Coley MD [address] [place] [address] Prior Auth - Medication (Actemra) [...] ACTPEN 162 MG/0.9ML [place] SOAJ Insurance Company: [employer] - Expected CoPay: $ Pharmacy Filling the Rx: [place], [place] - [address] [place] [address] Pharmacy Notified: yes Patient Notified: yes * Telephone Encounter - Luis Chou - 10/04/2023 11:45 AM CDT Images from the original note were not included. PA Initiation Medication: ACTEMRA ACTPEN 162 MG/0.9ML [place] SO[place] Insurance Company: [employer] - Pharmacy Filling the Rx: Filling Pharmacy Phone: Filling Pharmacy Fax: Start Date: 10/04/2023 documented in this encounter Plan of Treatment Upcoming Encounters Date Type Department Care Team (Late st Contact Info) Description 02/02/2024 3:30 PM NAIL TECH Office Visit [facility] [address] [address] Alfred Coley MD [address] [place] [address] documented as of this encounter Visit Diagnoses Not on filedocumented in this encounter Care Teams Prorate Clerk Relationship Specialty Start Date End Date No Ref-Primary, Physician PCP - General 07/30/23 Edmond Felix MD [address] [place] [address] Cardiovascular Disease 08/03/23 Kulwinder De La Cruz MD [address] [place] [address] Fellow Cardiovascular Disease 08/03/23 Keven Smith [facility] [address] [place] [address] Pharmacist 08/15/23 Keven Smith [facility] [address] [place] [address] Assigned MTM Pharmacist 09/04/23 Alfred Coley MD [address] [place] [id number] Assigned Rheumatology Provider 09/04/23 documented as of this encounter
--- OUTSIDE RECORDS SUMMARY | 2023-12-05 11:56 | XMS_ITS | Clinical Summary ---
Author Organization [place] Address [address] [place] [address] Care Team Providers Care Revenue Accountant Name Role Phone No Ref-Primary, Physician Primary Care Provider Edmond Felix MD Unavailable [phone] Kulwinder De La Cruz MD Unavailable Keven Smith [facility] Unavailable Keven Smith [facility] Unavailable [phone] Alfred Coley MD Unavailable Allergies No known active allergies Medications Medication Sig Dispensed Refills Start Date End Date Status aspirin-acetaminop hen-caffeine (EXCEDRIN MIGRAINE) 250-250-65 MG tablet Take 2 tablets by mouth 3 times daily as needed for headaches Active predniSONE (DELTASONE) 5 MG tabletIndications: Rheumatoid arthritis involving multiple joints Take 4 tabs daily for 1 week, then take 3 tabs daily for 1 week 49 tablet 1 09/07/2023 Active Tocilizumab (ACTEMRA ACTPEN) 162 MG/0.9ML SOAJIndications:Rh eumatoid arthritis involving multiple joints Inject 162 mg subcutaneously every 7 days 3.6 mL 12 10/05/2023 Active predniSONE (DELTASONE) 10 MG tabletIndications: Acute pericarditis associated with rheumatoid arthritis Take 3 tablets (30 mg) by mouth daily for 13 days, THEN 2 tablets (20 mg) daily for 14 days, THEN 1.5 tablets (15 mg) daily for 14 days, THEN 1 tablet (10 mg) daily for 60 days. 148 tablet 08/01/2023 Active Problems Problem Noted Date Diagnosed Date 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 Pericardial effusion 07/29/2023 Encounters Date Type Department Care Team Description 10/14/2023 Telephone [facility] [address] [phone] Alfred Coley MD Call Back ([place] Patient) 10/05/2023 Orders Only [facility] Rheumatology [address] [phone] Keven Smith, [facility] Rheumatoid arthritis involving multiple joints (H) (Primary Dx) 10/04/2023 Telephone [facility] Rheumatology [address] [phone] Alfred Coley MD Prior Auth - Medication (Actemra) 10/03/2023 Telephone [facility] Rheumatology [address] [phone] Alfred Coley MD Call Back 09/28/2023 Telephone [facility] Rheumatology [address] [phone] Alfred Coley MD Referral 09/07/2023 Telephone [facility] Rheumatology [address] [phone] Alfred Coley MD Call Back from Last 3 Months Social History Tobacco [...] st Contact Info) Description 02/02/2024 3:30 PM AUTO ENGINE MECHANIC Office Visit [facility] [address] [place] [address] [address] [place] [address] Alfred Coley MD [address] [place] [address] Health Maintenance Due Date Last Done [...] (2 - Td or Tdap) 01/14/2027 01/14/2017 RSV VACCINE (1 - 1-dose 75+ series) 01/22/2055 HEPATITIS C SCREENING Completed 07/31/2023 HIV SCREENING [...] Procedure Name Priority Date/Time Associated Diagnosis Comments HIV ANTIGEN ANTIBODY COMBO Routine 07/31/2023 1:13 PM CDT HEPATITIS C SCREEN REFLEX TO HCV RNA QUANT AND GENOTYPE Routine 07/31/2023 1:13 PM CDT BASIC METABOLIC PANEL Routine 07/31/2023 8:25 AM CDT from Last 3 Months or Most Recently Relevant to Health Maintenance Results * HIV Antigen Antibody Combo Alexander (07/31/2023 1:13 PM CDT) HIV Antigen Antibody [...] LAB - BLOOD ORDERABL ES [facility] [address] [facility], [address] [place] [address] * Hepatitis C Screen Reflex to [...] LAB - BLOOD ORDERABL ES [facility] [address] [facility], [address] [place] [address] * (ABNORMAL) Basic metabolic panel (07/31/2023 [...] [facility] [address] [facility], [address] [place] [address], [facility] from Last 3 Months or Most Recently Relevant to Health Maintenance Advance Directives For more information, please contact: [phone] * Full Code (Latest Code Status on File) Date Activated Date Inactivated Comments 07/29/2023 6:44 PM 07/31/2023 6:22 PM All basic an d advanced life-sustaining interventions are performed as appropriate Question Answer Comments Code status determined by: Discussion with patie nt/ legal decision maker Care Teams Revenue Accountant Relationship Specialty Start Date End Date No Ref-Primary, Physician PCP - General 07/30/23 Edmond Felix MD [address] [place] [address] Cardiovascular Disease 08/03/23 Kulwinder De La Cruz MD [address] [place], [place] [phone] Fellow Cardiovascular Disease 08/03/23 Keven Smith [facility] [address] [place] [address] Pharmacist 08/15/23 Keven Smith [facility] [address] [place] [address] Assigned MTM Pharmacist 09/04/23 Alfred Coley MD [address] [place] [address] Assigned Rheumatology Provider 09/04/23
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
--- OUTSIDE RECORDS SUMMARY | 2023-12-05 11:56 | XMS_ITS | Encounter Summary ---
Author Organization [facility] er Address [address] [place] [address] Care Team Providers Care Industrial Automation Engineer Name Role Phone Srinivasan Barillas MD Primary Care Provider [phone] Reason for Visit * Reason Onset Date Comments Follow-up 10/17/2023 Encounter Details Date Type Department Care Team (Late st Contact Info) Description 10/17/2023 Telephone [place] [address] [address] Srinivasan Barillas MD [address] [facility] 20 [place] [address] Follow-up Social History Tobacco Use Types Packs/Day [...] encounter Miscellaneous Notes * Telephone Encounter - Elise Uriarte RN - 10/17/2023 4:45 PM CDT Noted. * Telephone Encounter - Adina Fitzpatrick - 10/17/2023 3:52 PM CDT Contacted to schedule est care appt. Currently being seen in [place] but wants to continue to come to [facility] for physicals. Informed of either Dr. Bull or Genoveva. Will call to schedule a physical appt in the next few weeks. * Telephone Encounter - Elise Uriarte RN - 10/17/2023 3:09 PM CDT Please call patient to establish care with new provider or update pcp. documented in this encounter Plan of Treatment Not on file documented as of this encounter Visit Diagnoses Not on filedocumented in this encounter Care Teams Industrial Automation Engineer Relationship Specialty Start Date End Date Srinivasan Barillas MD [address] [place] [address] PCP - General Family Medicine 10/17/23 10/17/23 documented as of this encounter
--- OUTSIDE RECORDS SUMMARY | 2023-12-05 11:56 | XMS_ITS | Encounter Summary ---
Author Organization [place] Address [address] [place] [address]. [place] [address] Care Team Providers Care Supervisor Area Name Role Phone No Ref-Primary, Physician Primary Care Provider Edmond Felix MD Unavailable [phone] Kulwinder De La Cruz MD Unavailable Keven Smith [facility] Unavailable [phone] Keven Smith [facility] Unavailable [phone] Alfred Coley MD Unavailable Reason for Visit * Reason Onset Date Comments Call Back 09/07/2023 Encounter Details Date Type Department Care Team (Late st Contact Info) Description 09/07/2023 Telephone [facility] Rheumatology Clinic [address] [phone] Alfred Coley MD [address] [place] [address] Call Back Social History Tobacco [...] up on the prescription is due to: Delmar SORENSEN (additional savings). Rebecca states if the clinic has any questions to give her a call back. * Telephone Encounter - Lilly Melton - 09/07/2023 12:49 PM CDT [facility] Call Center Phone Message May a detailed [...] st Contact Info) Description 02/02/2024 3:30 PM HYBRID DERIVATIVES TRADER Office Visit [facility] Specialty Clinic [place] [address] [facility] [address] [place] [phone] Alfred Coley MD [address] [place] [address] documented as of this encounter Visit Diagnoses Diagnosis Rheumatoid arthritis involving multiple joints- Primary documented in this encounter Care Teams Supervisor Area Relationship Specialty Start Date End Date No Ref-Primary, Physician PCP - General 07/30/23 Edmond Felix MD [address] [place] [address] Cardiovascular Disease 08/03/23 Kulwinder De La Cruz MD [address] [place] [phone] Fellow Cardiovascular Disease 08/03/23 Keven Smith [facility] [address] [facility] Pharmacist 08/15/23 Keven Smith RPH [address] Assigned MTM Pharmacist 09/04/23 Alfred Coley MD [address] [place] [address] Assigned Rheumatology Provider 09/04/23 documented as of this encounter
--- OUTSIDE RECORDS SUMMARY | 2023-12-05 11:56 | XMS_ITS ---
Author Organization [facility] Address [address] [place] [address] Care Team Providers Care Service Dismantler Name Role Phone Unavailable Unavailable Unavailable Surgery Details Not on file Complications Check Surgery Details section. Procedure Estimated Blood Loss Check Surgery Details section. Procedure Findings Check Surgery Details section. Procedure Specimens Taken Check Surgery Details section.
--- OUTSIDE RECORDS SUMMARY | 2023-12-05 11:56 | XMS_ITS | Encounter Summary ---
Author Organization [facility] er Address [address] [place] [address] Care Team Providers Care Polygraph Technician Name Role Phone Unavailable Primary Care Provider Unavailabl e Reason for Visit * Reason Comments Burn Burnt right point fi nger on UV appoxy Encounter Details Date Type Department Care Team (Late st Contact Info) Description 12/05/2023 9:40 AM CDT Office Visit [facility] [address] [address] [place] [address] [place] [phone] Chemical burn (Primary Dx); Finger infection Social History Tobacco Use Types Packs/Day Years [...] 24 12/05/2023 9:45 AM CDT Oxygen Saturation - - Inhaled Oxygen Concentration - - Weight 62.7 kg (138 lb 3.2 oz) 12/05/2023 9:45 A M CDT Height 173.2 cm (5' 8.19) 12/05/2023 9:45 AM CD T Body Mass Index 20.9 12/05/2023 9:45 AM CDT documented in this encounter Progress Notes * Shashank Bull MD - 12/05/2023 9:40 AM CDT Jai Shoemaker is a 43 y.o. male here for Chief Complaint Patient presents with Burn Burnt right point finger on UV appoxy History of Present Illness The patient presents for evaluation of a burn on his right hand. He sustained the burn approximately a week ago while working with UVB epoxy resin, which hardens under UV light. He was unaware of the potential skin hazards associated with this material. His girlfriend, who was also using the resin, experienced pain in her first finger, but his discomfort was more severe. He reports no fevers or chills. The resin did not dry immediately, resulting in an oozing, greasy substance that was difficult to wash off. Over the next few days, his condition worsened, with the most affected area being his right pointer finger. He has not observed any discharge from the wound. He only realized the wound was infected yesterday, although it had likely been infected for a few days prior. The wound occasionally pulsates and causes pain, but it does not sting severely. It is not painful to touch, but he can feel a shooting sensation. He is on immunomodulatory medication. ROS: ROS done as noted in HPI. Objective Vitals: 12/05/23 0945 BP: (!) 162/103 BP Location: Left arm Patient Position: Sitting BP Cuff Size: Adult Pulse: (!) 112 Resp: 24 Temp: 36.7 ??C (98 ??F) TempSrc: Temporal Weight: 62.7 kg (138 lb 3.2 oz) Height: 1.732 m (5' 8.19) Physical Exam Physical Exam Derm: right index finger severe tenderness of the tip of finger with apparent swelling and probablypurulence underneath cracked skin Results Assessment & Plan 1. Right hand burn. The patient sustained a burn on his right hand while working with UVB proxy resin about a week ago.He reports that the burn has worsened over the past few days, with signs of infection, including a deep wound on his right pointer finger. There are no fevers or chills reported. The burn does not hurt when touched but sometimes pulsates. Given the potential for the infection to penetrate to the bone, an x-ray is recommended to assess the extent of the burn. If necessary, the wound may need to beopened to allow for drainage of the infection and cleaned. This procedure is beyond the capabilities of this clinic, hence a referral to the ER is advised. He is advised to go to the ER immediately, with options including [facility], [facility], or [facility]. Diagnosis Plan 1. Chemical burn 2. Finger infection No follow-ups on file. documented in this encounter Plan of Treatment Not on file documented as of this encounter Visit Diagnoses Diagnosis Chemical burn- Primary Burn of unspecified site, unspecified degree Finger infection Unspecified local infection of skin and subcutaneous tissue documented in this encounter
--- OUTSIDE RECORDS SUMMARY | 2023-12-05 11:56 | XMS_ITS | Encounter Summary ---
Author Organization [facility] Address [address] [place] [address]. [place] [address] Care Team Providers Care Bronc Breaker Name Role Phone No Ref-Primary, Physician Primary Care Provider Edmond Felix MD Unavailable [phone] Kulwinder De La Cruz MD Unavailable Keven Smith [facility] Unavailable [phone] Keven Smith [facility] Unavailable [phone] Alfred Coley MD Unavailable Reason for Visit * Reason Onset Date Comments Call Back 10/03/2023 Encounter Details Date Type Department Care Team (Late st Contact Info) Description 10/03/2023 Telephone [facility] Rheumatology Clinic [address] [phone] Alfred Coley MD [address] [place] [address] Call Back Social History Tobacco [...] Melton - 10/03/2023 12:19 PM CDT [facility] Call Center Phone Message May a detailed message be left on voicemail: yes Reason for Call: Medication Question or concern regarding medication Prescription Clarification Name of Medication: tocilizumab (ACTEMRA) 162 MG/0.9ML subcutaneous injection Prescribing Provider: Alfred Coley Pharmacy: [address] What on the order needs clarification? [...] st Contact Info) Description 02/02/2024 3:30 PM RN TELEHEALTH Office Visit [facility] Specialty [address] [place] [phone] Alfred Coley MD [address] [place] [phone] documented as of this encounter Visit Diagnoses Not on filedocumented in this encounter Care Teams Bronc Breaker Relationship Specialty Start Date End Date No Ref-Primary, Physician PCP - General 07/30/23 Edmond Felix MD [address] [place] [address] Cardiovascular Disease 08/03/23 Kulwinder De La Cruz MD [address] [place] [phone] Fellow Cardiovascular Disease 08/03/23 Keven Smith RPH [address] [place] [address] Pharmacist 08/15/23 Keven Smith [facility] [address] [place] [address] Assigned MTM Pharmacist 09/04/23 Alfred Coley MD [address] [place] [address] Assigned Rheumatology Provider 09/04/23 documented as of this encounter
--- OUTSIDE RECORDS SUMMARY | 2023-12-05 11:56 | XMS_ITS | Encounter Summary ---
Author Organization [facility] Address [address] [place] [address] Care Team Providers Care Fish And Game Club Manager Name Role Phone Unavailable Primary Care Provider Unavailabl e Reason for Referral * Outpatient (Routine) - Authorized Specialty Diagnoses / Procedures Referred By Chandler tobias Referred To Contact Diagnoses Hearing Exam Procedures PVM OCC Hearing screen Juju Henry APRN, C.N.P. [address] [place] [address] [facility] Region Referral ID Status Reason Start Date Expiration Date V isits Requested Visits Authorized [id number] Authorized 11/30/2023 11/29/2024 1 1 Reason for Visit * Reason Comments Audio Exam [place] Encounter Details Date Type Department Care Team (Latest Contact Info) Description 11/30/2023 10:00 AM CDT Clinical Support Department of Occupational Medicine in [address] [phone] Juju Henry APRN, C.N.P. [address] [place] [address] Hearing Exam (Primary Dx) Discharge Disposition: Home or Self Care Social [...] than three times a week 11/07/2019 Attends [employer] Services Not on file 11/06 Active Member [...] Orientation Straight 08/15/2017 1: 50 PM CDT documented as of this encounter Progress Notes * Rosalba De Leon, L.P.N. - 11/30/2023 10:00 AM CDT Audiogram for [place]. See scanned results. documented in this encounter Plan of Treatment Scheduled Orders Name Type Priority Associated Diagnoses Orde r Schedule PVM OCC Hearing screen Procedures Routine Hearing Exam Ordered: 11/30/2023 documented as of this encounter Visit Diagnoses Diagnosis Hearing Exam- Primary documented in this encounter
--- OUTSIDE RECORDS SUMMARY | 2023-12-05 11:56 | XMS_ITS | Referral Summary ---
Author Organization [facility] Address [address] [place] [address] Care Team Providers Care Stack Attendant Name Role Phone Unavailable Primary Care Provider Unavailabl e Source Comments Patient records contain information from all sites at [facility]. For routine questions regarding patient records, call [phone] during business hours, M-F 8:00 AM - 5:00 PM Central Time. Record requests for emergency care only can be directed to [phone] at any time.[facility] Encounters Date Type Department Care Team Description 11/30/2023 10:00 AM CDT Clinical Support Department of Occupational Medicine in [address] [address] Juju Henry APRN, C.N.P. Hearing Exam (Primary Dx) Discharge Disposition: Home or Self Care from [...] by mouth as directed. Take All QAM: 8-1-3-2-1-stop. Taper every 7 days by 1 pill [...] than three times a week 11/07/2019 Attends [employer] Not on file 11/06 Active Member [...] Comments Blood Pressure 112/77 01/21/2022 2:49 PM TECHNOLOGY SOLUTIONS ARCHITECT Pulse 101 01/21/2022 2:49 PM TECHNOLOGY SOLUTIONS ARCHITECT Temperature 36.8 ??C (98.2 ??F) 01/21/2022 2:49 PM CS T Respiratory Rate 18 10/09/2014 4:31 PM CDT Oxygen Saturation - - Inhaled Oxygen Concentration - - Weight 63.4 kg (139 lb 12.4 oz) 01/21/2022 2:49 PM TECHNOLOGY SOLUTIONS ARCHITECT Height 173.2 cm (5' 8.19) 01/21/2022 2:49 PM CS T Body Mass Index 21.13 01/21/2022 2:49 PM TECHNOLOGY SOLUTIONS ARCHITECT Plan of Treatment Not on file Procedures Procedure Name Priority Date/Time Associated Diagnosis Comments HCV AB SCRN W/REFLEX TO HCV PCR, S Routine 03/18/2017 10:14 AM TECHNOLOGY SOLUTIONS ARCHITECT HIV-1/-2 AG AND AB SCREEN Routine 06/09/2016 4:18 PM CDT from Last 3 Months or Most Recently Relevant to Health Maintenance Results * HCV AB Scrn w/Reflex to HCV PCR, S (03/18/2017 10:14 AM TECHNOLOGY SOLUTIONS ARCHITECT) HCV Ab Screen, S Negative Negative [facility] Comment:Hnqnga-af-otizbb rat io is <1.00. 03/18/2017 10:1 4 AM TECHNOLOGY SOLUTIONS ARCHITECT 03/18/2017 10:14 AM TECHNOLOGY SOLUTIONS ARCHITECT Kaleb Osborn M.D. LAB MICROBIOLOGY - BLOOD ORDERABLES [facility] [address] [place] [address], [facility] * HIV-1/-2 Ag and Ab Screen (06/09/2016 4:18 PM CDT) HIV-1/-2 Antibody Negative Negative [facility] Comment: Negative result does not rule out HIV infection. If acute HIV infection is suspected in a high-risk individual, submit plasma specimen for HIV-1 RNA quantification test (HIVDQ) and/or HIV-2 DNA/RNA test (FHV2Q). Test Performed by: [address] [address] Blood 06/09/2016 4:18 PM CDT Bozena Phillips M.D. LAB MICROBIOLOGY - BLOOD ORDERABLES [facility] from Last 3 Months or Most Recently Relevant to Health Maintenance
--- OUTSIDE RECORDS SUMMARY | 2023-12-05 11:56 | XMS_ITS | Encounter Summary ---
Author Organization [facility] Address [address] [place] [address] Care Team Providers Care Cosmetic Counselor Name Role Phone No Ref-Primary, Physician Primary Care Provider Edmond Felix MD Unavailable [phone] Kulwinder De La Cruz MD Unavailable Keven Smith [facility] Unavailable [phone] Keven Smith [facility] Unavailable [phone] Alfred Coley MD Unavailable Encounter Details Date Type Department Care Team (Late st Contact Info) Description 10/05/2023 Orders Only [facility] Rheumatology Clinic [address] [address] Keven Smith [address] Rheumatoid arthritis involving multiple joints (H) [...] this encounter Progress Notes * Keven Smith [facility] - 10/05/2023 10:51 AM CDT Received request from patient stating preference for auto-injector over prefilled syringes. OrderedActemra auto-injector per MTM pharmacist CPA with Alfred Coley MD. Keven Smith, PharmD Medication Therapy Management Pharmacist [facility] Rhe[facility] documented in this encounter Plan of Treatment Upcoming Encounters Date Type Department Care Team (Late st Contact Info) Description 02/02/2024 3:30 PM LOOM FIXER SUPERVISOR Office Visit [facility] Specialty Clinic [place] [address] [facility] [address] [place] [phone] Alfred Coley MD [address] [place] [address] documented as of this encounter Visit Diagnoses Diagnosis Rheumatoid arthritis involving multiple joints- Primary documented in this encounter Care Teams Cosmetic Counselor Relationship Specialty Start Date End Date No Ref-Primary, Physician PCP - General 07/30/23 Edmond Felix MD [address] [place] [address] Cardiovascular Disease 08/03/23 Kulwinder De La Cruz MD [address] [place] [address] Fellow Cardiovascular Disease 08/03/23 Keven Smith [address] [facility] Pharmacist 08/15/23 Keven Smith RPH [address] [facility] Assigned MTM Pharmacist 09/04/23 Alfred Coley MD [address] [place] [address] Assigned Rheumatology Provider 09/04/23 documented as of this encounter
--- OUTSIDE RECORDS SUMMARY | 2023-12-05 11:56 | XMS_ITS | Referral Summary ---
Author Organization [facility] Address [address] [place] [address] Care Team Providers Care Independent Living Instructor Name Role Phone No Ref-Primary, Physician Primary Care Provider Edmond Felix MD Unavailable [phone] Kulwinder De La Cruz MD Unavailable Keven Smith [facility] Unavailable [phone] Keven Smith [facility] Unavailable [phone] Alfred Coley MD Unavailable Encounters Date Type Department Care Team Description 10/14/2023 Telephone [facility] Rheumatology [address] [address] Alfred Coley MD Call Back ([place] Patient) 10/05/2023 Orders Only [facility] Rheumatology [address] [address] Keven Smith, [facility] Rheumatoid arthritis involving multiple joints (H) (Primary Dx) 10/04/2023 Telephone [facility] Rheumatology [address] [address] Alfred Coley MD Prior Auth - Medication (Actemra) 10/03/2023 Telephone [facility] Rheumatology [address] [address] Alfred Coley MD Call Back 09/28/2023 Telephone [facility] Rheumatology [address] [address] Alfred Coley MD Referral 09/07/2023 Telephone [facility] Rheumatology Clinic [address] [address] Alfred Coley MD Call Back from Last 3 Months Allergies No known [...] st Contact Info) Description 02/02/2024 3:30 PM GATE OPERATOR Office Visit [facility] Specialty [address] [place] [address] Alfred Coley MD [address] [place] [id number] Procedures Procedure Name Priority Date/Time Associated Diagnosis Comments HIV ANTIGEN ANTIBODY COMBO Routine 07/31/2023 1:13 PM CDT HEPATITIS C SCREEN REFLEX TO HCV RNA QUANT AND GENOTYPE Routine 07/31/2023 1:13 PM CDT BASIC METABOLIC PANEL Routine 07/31/2023 8:25 AM CDT from Last 3 Months or Most Recently Relevant to Health Maintenance Results * HIV Antigen Antibody Combo Hardy (07/31/2023 1:13 PM CDT) HIV Antigen Antibody [...] - BLOOD ORDERABL ES Performing Organization Address [facility] Co de Phone Number LABORATORY [facility] [address] [facility], Room [address] [address] * Hepatitis C Screen Reflex to HCV RNA Quant and Genotype (07/31/2023 1:13 PM CDT) Pathologist [facility] Hepatitis C Antibody Nonreactive Nonreactive 07/31/2023 3:59 [...] - BLOOD ORDERABL ES Performing Organization Address [facility] Co de Phone Number [facility] [address] [facility], Room [address] [address] * (ABNORMAL) Basic metabolic panel (07/31/2023 8:25 AM CDT) Pathologist [facility] Sodium 136 135 - 145 mmol/L 07/31/2023 [...] [facility] Acute Care Lab [address] [facility], [address] [place] [address], [facility] from Last 3 Months or Most Recently Relevant to Health Maintenance Advance Directives For more information, please contact: [phone] * Full Code (Latest Code Status on File) Date Activated Date Inactivated Comments 07/29/2023 6:44 PM 07/31/2023 6:22 PM All basic an d advanced life-sustaining interventions are performed as appropriate Question Answer Comments Code status determined by: Discussion with patie nt/ legal decision maker Care Teams Independent Living Instructor Relationship Specialty Start Date End Date No Ref-Primary, Physician PCP - General 07/30/23 Edmond Felix MD [address] [place] [address] Cardiovascular Disease 08/03/23 Kulwinder De La Cruz MD [address] [place] [address] Fellow Cardiovascular Disease 08/03/23 Keven Smith [facility] [address] [place] [address] Pharmacist 08/15/23 Keven Smith [address] [place] [address] Assigned MTM Pharmacist 09/04/23 Alfred Coley MD [address] [place] [address] Assigned Rheumatology Provider 09/04/23
--- OUTSIDE RECORDS SUMMARY | 2023-12-05 11:56 | XMS_ITS | Encounter Summary ---
Author Organization [facility] Address [address] [place] [address] Care Team Providers Care Rehabilitation Inspector Name Role Phone No Ref-Primary, Physician Primary Care Provider Edmond Felix MD Unavailable [phone] Kulwinder De La Cruz MD Unavailable eKven Smith [facility] Unavailable [phone] Keven Smith [facility] Unavailable [phone] Alfred Coley MD Unavailable Reason for Visit * Reason Onset Date Comments Call Back 10/14/2023 [place] Patient Encounter Details Date Type Department Care Team (Late st Contact Info) Description 10/14/2023 [facility] Rheumatology Clinic [address] [address] Alfred Coley MD [address] [place] [address] Call Back ([place] Patient) Social History Tobacco Use Types Packs/Day Years [...] encounter Miscellaneous Notes * Telephone Encounter - Joann Patterson - 10/14/2023 2:43 PM CDT [facility] Call Center Phone Message May a detailed message be left on voicemail: yes Reason for Call: Other: Pooler Patient Dr. Escobedo is requesting a call back from Dr. Coley when he is next available to discuss the mutual pt. States pt is currently in-patient. Please follow-up. Thank you. Action Taken: Other: Rheum Travel Screening: Not Applicable Date of Service: 10/14/23 documented in this encounter Plan of Treatment Upcoming Encounters Date Type Department Care Team (Late st Contact Info) Description 02/02/2024 3:30 PM CROZER OPERATOR Office Visit [facility] Specialty Clinic [place] [address] [place] [address] [address] [place] [phone] Alfred Coley MD [address] [place], [place] [phone] documented as of this encounter Visit Diagnoses Not on filedocumented in this encounter Care Teams Rehabilitation Inspector Relationship Specialty Start Date End Date No Ref-Primary, Physician PCP - General 07/30/23 Edmond Felix MD [address] [place], [place] [address] Cardiovascular Disease 08/03/23 Kulwinder De La Cruz MD [address] [place], [place] [address] Fellow Cardiovascular Disease 08/03/23 Keven Smith [facility] [facility] Pharmacist 08/15/23 Keven Smith [facility] [facility] Assigned MTM Pharmacist 09/04/23 Alfred Coley MD [address] [place] [address] Assigned Rheumatology Provider 09/04/23 documented as of this encounter
--- OUTSIDE RECORDS SUMMARY | 2023-12-05 11:56 | XMS_ITS | Encounter Summary ---
Author Organization [facility] Address [address] [place] [address] Care Team Providers Care Overlay Plastician Name Role Phone Srinivasan Barillas MD Primary Care Provider [phone] Encounter Details Date Type Department Care Team (Late st Contact Info) Description 09/28/2022 Telephone [place] [address] [place] [address] Srinivasan Barillas MD [address] [facility] [address] [place] [address] Social History Tobacco Use Types Packs/Day Years [...] on filedocumented in this encounter Care Teams Overlay Plastician Relationship Specialty Start Date End Date Srinivasan Barillas MD [address] [place] [address] PCP - General Family Medicine 10/17/23 10/17/23 documented as of this encounter
--- OUTSIDE RECORDS SUMMARY | 2023-12-05 11:56 | XMS_ITS | Clinical Summary ---
Author Organization [facility] Address [address] [place] [address] Care Team Providers Care Export Freight Clerk Name Role Phone Unavailable Primary Care Provider Unavailabl e Source Comments Patient records contain information from all sites at [facility]. For routine questions regarding patient records, call [phone] during business hours, M-F 8:00 AM - 5:00 PM Central Time. Record requests for emergency care only can be directed to [phone] at any time.[facility] Allergies No known active allergies Medications [...] by mouth as directed. Take All QAM: 1-5-0-2-1-stop. Taper every 7 days by 1 pill till done. 105 tablet 01/21/2022 Active etanercept (EnbreL SureClick) 50 mg/mL (1 mL) injectionIndication s:Arthritis Rheumatoid (HCC) Inject 1 mL (50 mg total) under the skin once a week. 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 Hearing Exam (Primary Dx) Discharge Disposition: Home or Self Care from Last 3 Months Immunizations Name Administration [...] than three times a week 11/07/2019 Attends Worship Services Not on file 11/06 Active Member [...] Date Recorded Dental: Regular Dentist Unknown 05/16/19 Education Answer Date Recorded What is the [...] Comments Blood Pressure 112/77 01/21/2022 2:49 PM BARBACK Pulse 101 01/21/2022 2:49 PM BARBACK Temperature 36.8 ??C (98.2 ??F) 01/21/2022 2:49 PM CS T Respiratory Rate 18 10/09/2014 4:31 PM CDT Oxygen Saturation - - Inhaled Oxygen Concentration - - Weight 63.4 kg (139 lb 12.4 oz) 01/21/2022 2:49 PM BARBACK Height 173.2 cm (5' 8.19) 01/21/2022 2:49 PM CS T Body Mass Index 21.13 01/21/2022 2:49 PM BARBACK Plan of Treatment Health Maintenance Due Date Last Done Comments COVID-19 Vaccine (#1) 01/22/1985 Pneumococcal vaccine (0-64 y ears) (1 of 2 - PCV) 01/22/1986 Hepatitis B Vaccines (1 of 3 - 19+ 3-dose series) 01/22/1999 Hydroxychloroquine (PLAQUENI L) Baseline Exam 01/21/2022 Depression Screening (Annual PHQ-2) 03/14/2023 Zoster Vaccines (2 of 2) 11/21/2023 09/26/2023 Influenza Vaccine (#1) 2023 DTaP,Tdap,and Td Vaccines [...] HCV PCR, S Routine 03/18/2017 10:14 AM BARBACK HIV-1/-2 AG AND AB SCREEN Routine 06/09/2016 4:18 PM CDT from Last 3 Months or Most Recently Relevant to Health Maintenance Results * HCV AB Scrn w/Reflex to HCV PCR, S (03/18/2017 10:14 AM BARBACK) HCV Ab Screen, S Negative Negative [facility] Comment:Qtgvji-wi-wjutoq rat io is <1.00. 03/18/2017 10:1 4 AM BARBACK 03/18/2017 10:14 AM BARBACK Kaleb Osborn M.D. LAB MICROBIOLOGY - BLOOD ORDERABLES [address] * HIV-1/-2 Ag and Ab Screen (06/09/2016 4:18 PM CDT) HIV-1/-2 Antibody Negative Negative [facility] Comment: Negative result does not rule out HIV infection. If acute HIV infection is suspected in a high-risk individual, submit plasma specimen for HIV-1 RNA quantification test (HIVDQ) and/or HIV-2 DNA/RNA test (FHV2Q). Test Performed by: [place] [address] Blood 06/09/2016 4:18 PM CDT Bozena Phillips M.D. LAB MICROBIOLOGY - BLOOD ORDERABLES [facility] from Last 3 Months or Most Recently Relevant to Health Maintenance
--- OUTSIDE RECORDS SUMMARY | 2023-12-05 11:56 | XMS_ITS | Encounter Summary ---
Author Organization [facility] Address [address] [place] [address]. [place] [address] Care Team Providers Care Tube Man Name Role Phone No Ref-Primary, Physician Primary Care Provider Edmond Felix MD Unavailable [phone] Kulwinder De La Cruz MD Unavailable Keven Smith [facility] Unavailable [phone] Keven Smith [facility] Unavailable [phone] Alfred Coley MD Unavailable Reason for Visit * Reason Onset Date Comments Referral 09/28/2023 Encounter Details Date Type Department Care Team (Late st Contact Info) Description 09/28/2023 Telephone [facility] Rheumatology Clinic [address] [address] Alfred Coley MD [address] [place] [address] Referral Social History Tobacco Use [...] provider and MTM Pharmacist Team FERNANDO Dumont Data Storage Specialist documented in this encounter Plan of Treatment Upcoming Encounters Date Type Department Care Team (Late st Contact Info) Description 02/02/2024 3:30 PM SPRAGGER Office Visit [facility] Specialty [facility] [address] [facility] [address] [place] [address] Alfred Coley MD [address] [place], [place] [address] documented as of this encounter Visit Diagnoses Not on filedocumented in this encounter Care Teams Tube Man Relationship Specialty Start Date End Date No Ref-Primary, Physician PCP - General 07/30/23 Edmond Felix MD [address] [place] [address] Cardiovascular Disease 08/03/23 Kulwinder De La Cruz MD [address] [place] [address] Fellow Cardiovascular Disease 08/03/23 Keven Smith [facility] [address] [place] [address] Pharmacist 08/15/23 Keven Smith [facility] [address] [facility] Assigned MTM Pharmacist 09/04/23 Alfred Coley MD [address] [place], [place] [address] Assigned Rheumatology Provider 09/04/23 documented as of this encounter
--- OUTSIDE RECORDS SUMMARY | 2023-12-05 11:56 | XMS_ITS | Encounter Summary ---
Author Organization [facility] Address [address] [place] [address] Care Team Providers Care Mission Planner Name Role Phone No Ref-Primary, Physician Primary Care Provider Edmond Felix MD Unavailable [phone] Kulwinder De La Cruz MD Unavailable Keven Smith [facility] Unavailable [phone] Keven Smith [facility] Unavailable [phone] Alfred Coley MD Unavailable Reason for Visit * Reason Onset Date Comments Prior Auth - Medication 08/11/2023 Actemra PA - Approved Encounter Details Date Type Department Care Team (Late st Contact Info) Description 08/11/2023 [facility] Rheumatology Clinic [address] [address] Alfred Coley MD [address] [place] [address] Prior Auth - Medication (Actemra [...] CENTER - 09/27/2023 9:51 AM CDT Called [facility] specialty pharmacy to check on status of Actemra. Was informed medication is filled and ready for delivery. Pharmacy unable to reach patient when called on 09/25. Patient to call to schedule. Keven Smith, PharmD Medication Therapy Management Pharmacist [facility] Rhe[facility]ology [facility] * Telephone Encounter - Gunjan Lafleur RN - 09/13/2023 2:10 PM CDT Gilda called back after short story writer spoke to [facility]. The current issue is about the PA. [facility] is stating they do not have PA on file. Planer Tailer read entire letter received form RX benefits with PA approval completed on 08/11/23 that was sent to [facility]. They state they have to send the account to eligibility for verification. When short story writer questioned how long this would take, they advised Gilda to call back on Tuesday. Gilda is advised to call back Tuesday if problem is not solved. Gunjan Lafleur, [place] * Telephone Encounter - Audra Brito - 09/13/2023 10:57 AM CDT Pt's mother, Gilda, is calling to speak to someone about the prior authorization. She spoke with [facility] and they told pt that there is no prior authorizations on file. Please call Gilda back at ph: [phone]. * Telephone Encounter - Sanya Feldman - 08/12/2023 10:57 AM CDT Images from the original note were not included. Prior Authorization Approval Medication: ACTEMRA 162 MG/0.9ML [place] SOSY Authorization Effective Date: 08/12/2023 Authorization Expiration Date: 02/11/2024 Approved Dose/Quantity: 4 syringes per 28 days Reference #: [id number] Insurance Company: Other (see comments) Rx Benefits Expected CoPay: $ CoPay Card Available: Yes Financial Assistance Needed: Co-pay card offered Which Pharmacy is filling the prescription: [facility] - [address] [facility] Pharmacy Notified: Released Rx Patient Notified: Yes * Telephone Encounter - Sanya Feldman - 08/11/2023 1:37 PM CDT Images from the original note were not included. PA Initiation Medication: ACTEMRA 162 MG/0.9ML [place] SOSY Insurance Company: Other - Rx Benefits Pharmacy Filling the Rx: Filling Pharmacy Phone: Filling Pharmacy Fax: Start Date: 08/11/2023 EOC ID [id number] documented in this encounter Plan of Treatment Upcoming Encounters Date Type Department Care Team (Late st Contact Info) Description 02/02/2024 3:30 PM GROUP SEGMENT CONSULTANT Office Visit [facility] [address] [place] [phone] Alfred Coley MD [address] [place] [address] documented as of this encounter Visit Diagnoses Not on filedocumented in this encounter Care Teams Mission Planner Relationship Specialty Start Date End Date No Ref-Primary, Physician PCP - General 07/30/23 Edmond Felix MD [address] [place] [address] Cardiovascular Disease 08/03/23 Kulwinder De La Cruz MD [address] [place] [id number] Fellow Cardiovascular Disease 08/03/23 Keven Smith [facility] [facility] Pharmacist 08/15/23 Keven Smith [facility] [address] [facility] Assigned [place] Pharmacist 09/04/23 Alfred Coley MD [address] [place] [address] Assigned Rheumatology Provider 09/04/23 documented as of this encounter
--- OUTSIDE RECORDS SUMMARY | 2023-12-05 11:57 | XMS_ITS | Clinical Summary ---
Author Organization [employer] [facility] Address [place], [place] [address] Care Team Providers Care Keypunch Operator Name Role Phone Jasson Flores Primary Care Provider Allergies No known active allergies Medications Medication Sig Dispensed Refills Start Date End Date Status terbinafine 1% cream (LAMISIL) 1 % creamIndications:T inea cruris Apply topically to affected area(s) 2 times daily. 1 Tube 1 07/26/2013 Active aspirin-acetaminop hen-caffeine (Excedrin Migraine) 250-250-65 mg Take 2 Tablets by mouth 3 times daily if needed for Headache. Max acetaminophen dose: 4000mg in 24 hrs. Active iron,carbonyl-roberto min C (Vitron-C) 65 mg iron- 125 mg Delayed-Release tablet Take 1 Tablet by mouth once daily with a meal. Active tocilizumab (Actemra) 162 mg/0.9 mL subcutaneous syringe Inject 162 mg subcutaneous once weekly. Active colchicine 0.6 mg tabletIndications: Pericardial effusion Take 1 Tablet (0.6 mg) by mouth once daily. 90 Tablet 10/16/2023 4 Active predniSONE (DELTASONE) 10 mg tabletIndications: Rheumatoid arthritis, involving unspecified site, unspecified whether rheumatoid factor present (HC) TAKE WITH MEALS. Take 4 Tablets (40 mg) by mouth once daily with a meal for 14 days, THEN 3 Tabs once daily X14 days, THEN 2 Tabs once daily X14 days, THEN 1 Tab once daily 156 Tablet 10/16/2023 4 Active pantoprazole (PROTONIX) 40 mg delayed-release tabletIndications: At risk for stress ulcer Take 1 Tablet (40 mg) by mouth once daily before a meal. 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 Ground glass opacity present on imaging of lung 07/26/2023 Psoriasis 03/28/2017 Rheumatoid arthritis 11/11/2015 Encounters Date Type Department Care Team Description 10/13/2023 7:19 AM CDT - 10/16/2023 6:41 PM CDT Hospital Encounter [facility] [address] [place] [address] Beth Zarate PA Yee, Siria Munoz [place] [facility] [place] [facility], MD Frankie Gustafson, MD Fanny Musa, Ton Herrera MD Pericardial effusion (Primary Dx); Pleural effusion, right; Rheumatoid arthritis, involving unspecified site, unspecified whether rheumatoid factor present (HC); Cardiovascular symptoms; Tinea cruris; At risk for stress ulcer; Pericarditis, unspecified chronicity, unspecified type Discharge Disposition: Home Self Care 10/13/2023 Travel from Last 3 Months Immunizations Name Administration [...] of Communication with Friends and Fami ly 0 10/15/2023 Financial Resource Strain Answer Date R ecorded Difficulty of Paying Living Expenses 3 10/15/2023 Difficulty of Paying Living Expenses Not on file 10/15/2023 Food Insecurity Answer Date Recorded Worried About Running Out of Food in the Last Ye ar 1 10/15/2023 Transportation Needs Answer Date Record ed Lack of Transportation (Medical) 1 10/15/2023 Housing Stability Answer Date Recorded Unable to Pay for Housing in the Last Year 1 10/15/2023 Sex and Gender Information Value Date Recorded Sex Assigned at Not on file Gender Identity Not on file Sexual Orientation Not on file Obstetrics History Last Filed Vital Signs Vital Sign Reading Time Taken Comments Blood Pressure 135/94 10/16/2023 12:28 PM CDT Pulse 119 10/16/2023 12:28 PM CDT Temperature 36.9 ??C (98.5 ??F) 10/16/2023 12:28 PM C DT Respiratory Rate 16 10/16/2023 12:28 PM CDT Oxygen Saturation 98% 10/16/2023 12:28 PM CDT Inhaled Oxygen Concentration - - Weight 68 kg (150 lb) 10/13/2023 4:33 PM CDT Height 175.3 cm (5' 9) 10/13/2023 4:33 PM CDT Body Mass Index 22.15 10/13/2023 4:33 PM CDT Plan of Treatment Health Maintenance Due [...] Name Priority Date/Time Associated Diagnosis Comments ECHO TTE LIMITED WO CONTRAST W COLOR W LTD DOPPLER Routine 10/16/2023 11:58 AM CDT SCAN-CARDIAC STRIP 10/16/2023 7: 33 AM CDT SCAN-CARDIAC STRIP 10/15/2023 10 :40 PM CDT SCAN-CARDIAC STRIP 10/15/2023 4: 06 PM CDT SCAN-CARDIAC STRIP 10/15/2023 8: 15 AM CDT SCAN-CARDIAC STRIP 10/15/2023 1: 56 AM CDT XR CHEST 1 VIEW PORTABLE Routine 10/14/2023 3:42 PM CDT SCAN CORRESP-EKG RESULTS 10/14/2023 3:32 PM CDT SCAN CORRESP-IMAGING 10/14/2023 3:32 PM CDT (IA) AMB CONSULT TO VOCATIONAL/[facility]DA REHABILITATION Routine 10/14/2023 3:30 PM CDT PATH NON RENEWABLE ENERGY DIVISION MANAGER CYTOLOGY Today 10/14/2023 2:50 PM CDT [facility] MISCELLANEOUS SENDOUT Routine 10/14/2023 2:50 PM CDT FUNGUS CULT, OTHER SOURCE Today 10/14/2023 2:50 PM CDT MISCELLANEOUS SEND OUT Routine 2:50 PM CDT AFB CULTURE, STAIN Today 10/14/2023 2: 50 PM CDT ANAEROBIC CULTURE Today 10/14/2023 2:5 0 PM CDT BODY FLUID CULTURE,STAIN (AEROBIC) Today 10/14/2023 2:50 PM CDT PH,BODY FLUID Today 10/14/2023 2:50 PM CDT LD,BODY FLUID Today 10/14/2023 2:50 PM CDT GLUCOSE,BODY FLUID Today 10/14/2023 2: 50 PM CDT PROTEIN,BODY FLUID Today 10/14/2023 2: 50 PM CDT BODY FLUID CELL COUNT/DIF Today 10/14/2023 2:50 PM CDT ECHO TTE LIMITED WO CONTRAST W COLOR W LTD DOPPLER Routine 10/14/2023 8:37 AM CDT SCAN-CARDIAC STRIP 10/14/2023 8: 15 AM CDT RED CELL MORPHOLOGY Timed 10/14/2023 7 :11 AM CDT PROTIME-INR Early AM 10/14/2023 7:11 AM CDT CBC W PLT NO DIFF Early AM 10/14/2023 7:1 1 AM CDT CREATININE Early AM 10/14/2023 7:11 AM CDT POTASSIUM Early AM 10/14/2023 7:11 AM CDT SODIUM Early AM 10/14/2023 7:11 AM CDT FOLIC ACID Timed 10/14/2023 7:11 AM CDT VITAMIN B12 Early AM 10/14/2023 7:11 AM CDT IRON PLUS IRON BINDING CAP Early AM 10/14/2023 7:11 AM CDT FERRITIN Early AM 10/14/2023 7:11 AM CDT SCAN-CARDIAC STRIP 10/14/2023 1: 26 AM CDT XR CHEST 2 VIEWS PA AND LATERAL Routine 10/13/2023 8:30 PM CDT LD,TOTAL Today 10/13/2023 6:07 PM CDT PATH NON RENEWABLE ENERGY DIVISION MANAGER CYTOLOGY YISSEL 10/13/2023 6:05 PM CDT ECHO TTE LIMITED WO CONTRAST STAT 10/13/2023 5:38 PM CDT CWS PATH REVIEW BODY FLUID Timed 10/13/2023 5:18 PM CDT FUNGUS CULT, OTHER SOURCE Timed 10/13/2023 5:18 PM CDT PH,BODY FLUID Timed 10/13/2023 5:18 PM CDT AMYLASE,BODY FLUID Timed 10/13/2023 5: 18 PM CDT LD,BODY FLUID Timed 10/13/2023 5:18 PM CDT PROTEIN,BODY FLUID Timed 10/13/2023 5: 18 PM CDT GLUCOSE,BODY FLUID Timed 10/13/2023 5: 18 PM CDT BODY FLUID CULTURE,STAIN (AEROBIC) Timed 10/13/2023 5:18 PM CDT SPECIFIC GRAVITY,BODY FL Timed 10/13/2023 5:18 PM CDT BODY FLUID CELL COUNT/DIF Timed 10/13/2023 5:18 PM CDT CVL OTHER PROCEDURE Routine 10/13/2023 5 :03 PM CDT Cardiovascular symptoms APTT Preop 10/13/2023 3:49 PM CDT PROTEIN,TOTAL Today 10/13/2023 3:21 PM CDT ECHO TTE LIMITED WO CONTRAST W COLOR W LTD DOPPLER STAT 10/13/2023 2:34 PM CDT COVID/FLU/RSV PANEL Today 10/13/2023 1 0:50 AM CDT EKG 12 LEAD STAT 10/13/2023 8:15 AM CDT RED CELL MORPHOLOGY STAT 10/13/2023 8 :12 AM CDT SEDIMENTATION RATE STAT 10/13/2023 8: 12 AM CDT CBC W PLT NO DIFF STAT 10/13/2023 8:1 2 AM CDT C-REACTIVE PROTEIN STAT 10/13/2023 8: 09 AM CDT TROPONIN T (HS) ACUTE W/2HR REFLEX STAT 10/13/2023 8:09 AM CDT PRO-BNP STAT 10/13/2023 8:09 AM CDT BASIC METABOLIC PANEL STAT 10/13/2023 8:09 AM CDT EXTRA TUBE BLUE Today 10/13/2023 8:08 AM CDT XR CHEST 2 VIEWS PA AND LATERAL STAT 10/13/2023 7:52 AM CDT BEDSIDE US STUDY ARCHIVE Routine 10/13/2023 7:38 AM CDT from Last 3 Months Results * ECHO TTE LIMITED WO CONTRAST W COLOR W LTD DOPPLER (10/16/2023 11:58 AM CDT) Only the most recent of3 resultswithin the time period is included. EJECTION FRACTION 58 % LVEDD 5.0 cm Anatomical Region Laterality Modality Ultrasound 10/16/2023 9:14 AM CDT Narrative 10/16/2023 12:26 PM CDT ECHOCARDIOGRAM TIMO DIXON ?Accession#: ?? [id number] : ?1980 43 years Study Date: ?? 10/16/2023 9:14:02 AM Gender: M ? BP: ? 142/98 mmHg Height: 175.00 cm ? BSA: ?1.83 m? ? ? Weight: 68.00 kg ?Tech: ? SS ?Referring MD: MORGAN HALE Site: ? [facility] Reading Location: [facility] IP Patient Location: Inpatient. Procedure: Limited 2D , Color Doppler and Spectral Doppler. Indication for study: Pericardial effusion s/p pericardial drain Cardiac Rhythm: Sinus tachycardia.Study quality: Good. Final Impressions: Limited Echocardiogram performed 1. Normal left ventricular size, normal wall thickness, normal global systolic function, calculated EF of 58 %. 2. Right ventricular cavity size is normal, global systolic RV function is mildly reduced. 3. The inferior vena cava is dilated, respiratory size variation less than 50%. 4. Trivial pericardial effusion. 5. Pericardial thickenning and subtle septal bounce are noted, pericardial constriction should be considered if clinically appropriate. Chamber Sizes and Function Normal left ventricular size, normal wall thickness, normal global systolic function, calculated EF of 58 %. No definite resting regional wall motion abnormality seen. Right ventricular cavity size is normal, global systolic RV function is mildly reduced. Right atrial volume index is 19 ml/m? ? ?. Right atrial area is 14 cm? ? ?. Valves, RV Pressures and Diastolic Function The mitral valve is normal in structure, mild mitral regurgitation. The tricuspid valve is normal in structure. Tricuspid regurgitation is trace. Masses, Effusion, Shunts There is trivial pericardial effusion. The inferior vena cava is dilated, respiratory size variation less than 50%. MEASUREMENTS AND CALCULATIONS 2-D Measurements and LV Function: LVID (d) 5.0 cm Planimetered EF 58 % LVID (s) 3.2 cm LV FS% (2D) ? 36 % IVS (d) ??0.7 cm HR ?116 bpm LVPW (d) 0.6 cm RA Vol index ?19 ml/m2 ?RA area ? 14 cm?RV Max 4C (d) ?? 3.0 cm Aortic Valve: Vmax ? 0.6 m/s Max PG 2 mmHg LVOT V max 0.8 m/s LVOT VTI ?? 0.10 m Tricuspid Valve and estimated PA pressures: TAPSE 0.7 cm . This study was interpreted by an [facility] accredited facility. ??Final ?? Procedure Note Tish Cuevas MD - 10/16/2023 ECHOCARDIOGRAM TIMO DIXON : 1980 43 years Study Date: 10/16/2023 9:14:02 AM Gender: M BP: 142/98 mmHg Height: 175.00 cm BSA: 1.83 m? ? ? Weight: 68.00 kg Tech: SS Referring MD: MORGAN HALE Site: [facility] Reading Location: [facility] Patient Location: Inpatient. Procedure: Limited 2D , Color Doppler and Spectral Doppler. Indication for study: Pericardial effusion s/p pericardial drain Cardiac Rhythm: Sinus tachycardia.Study quality: Good. Final Impressions: Limited Echocardiogram performed 1. Normal left ventricular size, normal wall thickness, normal globalsystolic function, calculated EF of 58 %. 2. Right ventricular cavity size is normal, global systolic RV functionis mildly reduced. 3. The inferior vena cava is dilated, respiratory size variation lessthan 50%. 4. Trivial pericardial effusion. 5. Pericardial thickenning and subtle septal bounce are noted,pericardial constriction should be considered if clinically appropriate. Chamber Sizes and Function Normal left ventricular size, normal wall thickness, normal globalsystolic function, calculated EF of 58 %. No definite resting regionalwall motion abnormality seen. Right ventricular cavity size is normal,global systolic RV function is mildly reduced. Right atrial volume indexis 19 ml/m? ? ?. Right atrial area is 14 cm? ? ?. Valves, RV Pressures and Diastolic Function The mitral valve is normal in structure, mild mitral regurgitation. Thetricuspid valve is normal in structure. Tricuspid regurgitation istrace. Masses, Effusion, Shunts There is trivial pericardial effusion. The inferior vena cava is dilated,respiratory size variation less than 50%. MEASUREMENTS AND CALCULATIONS 2-D Measurements and LV Function: LVID (d) 5.0 cm Planimetered EF 58 % LVID (s) 3.2 cm LV FS% (2D) 36 % IVS (d) 0.7 cm HR 116 bpm LVPW (d) 0.6 cm RA Vol index 19 ml/m2 RA area 14 cm? ? ? RV Max 4C (d) 3.0 cm Aortic Valve: Vmax 0.6 m/s Max PG 2 mmHg LVOT V max 0.8 m/s LVOT VTI 0.10 m Tricuspid Valve and estimated PA pressures: TAPSE 0.7 cm . This study was interpreted by an [facility] accredited facility. Final Morgan GILLIAM ECHO ORD * SCAN-CARDIAC STRIP (10/16/2023 7:33 AM CDT) Scanner OTHER * SCAN-CARDIAC STRIP (10/15/2023 10:40 PM CDT) Scanner OTHER * SCAN-CARDIAC STRIP (10/15/2023 4:06 PM CDT) Scanner OTHER * SCAN-CARDIAC STRIP (10/15/2023 8:15 AM CDT) Scanner OTHER * SCAN-CARDIAC STRIP (10/15/2023 1:56 AM CDT) Scanner OTHER * XR CHEST 1 VIEW PORTABLE (10/14/2023 3:42 PM CDT) Anatomical Region Laterality Modality HEART, THORAX, CHEST Digital Rad iography 10/14/2023 4:45 PM CDT Narrative 10/14/2023 4:45 PM CDT For Patients: ??As a result of the 21st Century Cures Act, medical imaging exams and procedure reports are released immediately into your electronic medical record. ??You may view this report before your referring provider. ??If you have questions, please contact your health care provider. INDICATION: Post right thoracentesis. TECHNIQUE: Chest 1 view(s) COMPARISON: Chest radiograph dated 10/13/2023. FINDINGS/IMPRESSION: Small right layering pleural effusion, slightly decreased in size compared to prior study. No pneumothorax identified. Stable cardiomediastinal silhouette and pulmonary vasculature. Slight prominence of the bilateral interstitial markings. No focal consolidation. No left-sided pleural effusion. Dictated by Josette Colvin MD @ Oct ??2023 ??4:45PM (Electronically Signed) [email or web address] Procedure Note Josette Colvin MD - 10/14/2023 For Patients: As a result of the Cures Act, medical imagingexams and procedure reports are released immediately into your electronicmedical record. You may view this report before your referring provider.If you have questions, please contact your health care provider. INDICATION: Post right thoracentesis. TECHNIQUE: Chest 1 view(s) COMPARISON: Chest radiograph dated 10/13/2023. FINDINGS/IMPRESSION: Small right layering pleural effusion, slightly decreased in size comparedto prior study. No pneumothorax identified. Stable cardiomediastinal silhouette and pulmonary vasculature. Slightprominence of the bilateral interstitial markings. No focal consolidation.No left-sided pleural effusion. Dictated by Josette Colvin MD @ Oct 14 2023 4:45PM (Electronically Signed) [email or web address] Jacki Antonio MD GENERAL IMAGING * SCAN CORRESP-EKG RESULTS (10/14/2023 3:32 PM CDT) Narrative 10/14/2023 3:32 PM CDT Ordered by an unspecified provider. Other Clinical Staff OTHER * SCAN CORRESP-IMAGING (10/14/2023 3:32 PM CDT) Anatomical Region Laterality Modality Other Narrative 10/14/2023 3:32 PM CDT Ordered by an unspecified provider. Other Clinical Staff OTHER * Bedside Thoracentesis RIGHT (10/14/2023 3:30 PM CDT) Narrative Tez Leong MD - 10/14/2023 3:30 PM CDT Tez Leong MD ? 10/14/2023 ??4:22 PM ULTRASOUND GUIDED RIGHT LUNG THORACENTESIS Volume removed: 900 cc Indication: Pleural effusion INR: 1.2 from 10/14/2023 Platelets: 425 from 10/14/2023 Anesthesia: 1% lidocaine Harleigh protocol was followed. TIME OUT conducted just [...] location. ?? The skin overlying the 8th posterior intercostal space on the right was prepped and draped in the usual manner with the patient in the sitting position. The skin, rib periosteum, and pleura were anesthetized using a 22 Gauge needle. The pleural space was entered with immediate return of fluid.. The pleural space was entered with a 19 gauge thoracentesis needle equipped with a 5 Fr overlying cannula. 900 mL of fluid was withdrawn and sent for analysis. The fluid was cloudy. ??The needle was then withdrawn and an overlying bandage applied. The patient tolerated the procedure well and there were no immediate complications. A post-procedure chest radiograph is pending A post procedure bedside ultrasound shows minimum residual fluid in the pleural space ??and ipsilateral anti-gravitational lung sliding (making it unlikely that patient has a large pneumothorax) Attending Physician Dr. Leong was present during the entire procedure Dr. Diego Roberson Internal Medicine Resident Physician -[id number] Please contact directly on weekdays 8am-5pm Page resident cross-cover after 5pm and on weekends ATTENDING PROCEDURE NOTE I was present during all critical and george portions of the thoracentesis performed by the resident Dr. Roberson on Timo Dixon. The resident performed the procedure adequately and with competence. Additional comments: Postprocedure chest x-ray pending but appears to be entrapped lung from chronic effusion. ?? Tez Leong MD Chief Resident, Internal Medicine Tez Campos MD PROCEDURE OR D * [facility]10/14/2023 2:50 PM CDT) [facility] MISCELLANEOUS SEND OUT COMMENT 10/19/2023 5:08 PM CDT [facility] Comment: Test Ordered: [id number] Adenosine Deaminase, Pl Fluid Adenosine Deaminase, Pleural ?? 27 ? U/L ?01 ? Reference Range: 0-30 ? INTERPRETIVE INFORMATION:Adenosine Deaminase, Pleural Fluid This test was developed and its performance characteristics determined by [facility]. It has not been cleared or approved by the [place] Food and Drug Administration. This test was performed in a CLIA certified laboratory and is intended for clinical purposes. Other SPECIMEN FROM PLEURA OBTAINED BY THORACENTESIS / Unknown Non-Blood / Unknown 10/14/2023 2:50 PM CDT 10/14/2023 3:29 PM CDT Narrative [facility] - 10/19/2023 5:08 PM CDT Performed At: [address] [facility] [address] [id number] Jose Medina [facility] Ph:[phone] Performed At: 02 [facility] [address] [place], [place] [id number] Carli Beard MD Ph:[phone] Tez Campos MD LABORATORY [facility] [place] [address], * Adenosine deaminase pleural fluid (RIGHT) (10/14/2023 2:50 PM CDT) TEST NAME Adenosine deaminase, pleural fluid 10/14/2023 6:47 PM CDT [facility] SOURCE right pleural effusion 10/14/2023 6:47 PM CDT [facility] PERFORMING LAB [facility] 10/14/2023 6:47 PM CDT [facility] REFERRAL LAB TEST # [facility] ([id number]) [facility] ([id number]) 10/14/2023 6:47 PM CDT [facility] IS THIS A [facility] TEST? Yes, See [facility] Miscellaneous Sendout result 10/14/2023 6:47 PM CDT [facility] Other SPECIMEN FROM PLEURA OBTAINED BY THORACENTESIS / Unknown Non-Blood / Unknown 10/14/2023 2:50 PM CDT 10/14/2023 3:29 PM CDT Tez Campos MD SEND OUTS Performing Organization Address City/[facility]/ZIP Co de Phone Number [facility] [address] [place] [address], [place] * AFB Stain & Culture Pleural Fluid (RIGHT) (10/14/2023 2:50 PM CDT) CULTURE No Mycobacterium isolated. 11/28/2023 7:46 AM CDT [facility] ACID FAST STAIN No acid fast bacilli seen 11/28/2023 7:46 AM CDT [facility] Other SPECIMEN FROM PLEURA OBTAINED BY THORACENTESIS / Unknown Non-Blood / Unknown 10/14/2023 2:50 PM CDT 10/14/2023 3:29 PM CDT Tez Campos MD MICROBIOLOGY Performing Organization Address City/[facility]/ZIP Co de Phone Number [facility] [address] [place] [address], [place] * Gm Stain/Culture Pleural Fluid (RIGHT) (10/14/2023 2:50 PM CDT) Only the most recent of2 resultswithin the time period is included. CULTURE No Growth. 10/19/2023 11:00 AM CDT [facility] GRAM STAIN 2+ PMNs 10/19/2023 11:00 AM CDT [facility] GRAM STAIN No RBCs 10/19/2023 11:00 AM CDT [facility] GRAM STAIN No Epithelial cells 10/19/2023 11:00 AM CDT [facility] GRAM STAIN No organisms seen 10/19/2023 11:00 AM CDT [facility] Body Fluid SPECIMEN FROM PLEURA OBTAINED BY THORACENTESIS / Unknown Non-Blood / Unknown 10/14/2023 2:50 PM CDT 10/14/2023 3:29 PM CDT eTz Campos MD MICROBIOLOGY [facility] [address] [place] [address], * Cytology Pleural Fluid (RIGHT) (10/14/2023 2:50 PM CDT) Only the most recent of2 resultswithin the time period is included. Case Report Medical Cytology Report ? Case: [id number] ? Authorizing Provider: ??Tez Campos, Collected: ? 10/14/2023 1450 ? MD ? Ordering Location: ? [facility] ?Received: ?10/14/2023 1731 ? Emergency Department ? Pathologist: ? Shashank Ritchie MD ? Specimen: ?Right Pleural Fluid ? 10/17/2023 10:49 AM [facility] Final Diagnosis A) RIGHT PLEURAL FLUID, CYTOLOGY WITH CELL BLOCK: 1. Negative for malignancy 2. Acute inflammation 10/17/2023 10:49 AM [facility] Comment GMS was ordered on this specimen at the time of the procedure. According to lab protocol, the stain has NOT been performed based on clinical history and microscopic evaluation.?? If GMS testing is still desired please contact the laboratory at [phone]. 10/17/2023 10:49 AM [facility] Clinical Information Patient has psoriasis (with associated acquired immunodeficiency ) and has a positive history of tobacco use. Has a persistent / recurring right chest effusion. 10/17/2023 10:[address] [facility] Gross Description A) SOURCE: Pleural fluid, right The specimen consists of 1200 cc of yellow cloudy fluid from which the following is prepared: ? -1 DiffQuik stained slide ? -1 Papanicolaou stained ThinPrep slide ? -1 H&E stained cell block slide A2 Cell block material was placed in formalin at 1745 on 10/14/23 and fixed in formalin at least 6 hours and no more than 72 hours. 10/17/2023 10:[address] [facility] Microscopic Description Specimen adequacy: Adequate for interpretation. All slides were reviewed. The microscopic appearance substantiates the diagnosis. 10/17/2023 10:[address] [facility] Additional Information Cytology is screened at [facility] - [address], [place] [address] and [facility] - [address] [place] [address] and [facility] - [address] [place] [address] Interpreted at [facility] - [address], [place] [address] 10/17/2023 10:[address] [facility] Other (Right Pleural Fluid) 10/14/2023 2:50 PM CDT 10/14/2023 5:31 PM CDT Tez Campos MD PATHOLOGY/CY TOLOGY [facility] [address] [place] [address], * Cell Count Pleural Fluid (RIGHT) (10/14/2023 2:50 PM CDT) Only the most recent of2 resultswithin the time period is included. BODY FLUID SOURCE Pleural Fluid 10/14/2023 8:04 PM CDT [facility] Comment:Right BODY FLUID COLOR Yellow 10/14/2023 8:04 PM CDT [facility] BODY FLUID CLARITY Slightly Cloudy 10/14/2023 8:04 PM CDT [facility] TOTAL NUCLEATED CELLS, BF 6,424 /cu mm 10/14/2023 8:04 PM CDT [facility] RED BLOOD COUNT, BODY FLUID 8,000 /cu mm 10/14/2023 8:04 PM CDT [facility] % NEUTROPHILS, BODY FLUID 84 % 10/14/2023 8:04 PM CDT [facility] % LYMPHOCYTES, BODY FLUID 11 % 10/14/2023 8:04 PM CDT [facility] % MONO/MACRO, BODY FLUID 5 % 10/14/2023 8:04 PM CDT [facility] Body Fluid SPECIMEN FROM PLEURA OBTAINED BY THORACENTESIS / Unknown Non-Blood / Unknown 10/14/2023 2:50 PM CDT 10/14/2023 3:29 PM CDT Tez Campos MD BODY FLUID Performing Organization Address [facility] [email or web address]] Co de Phone Number [facility] [address] [place] [address], [place] * Fungal Culture Pleural Fluid (RIGHT) (10/14/2023 2:50 PM CDT) Only the most recent of2 resultswithin the time period is included. CULTURE No Fungus isolated. 11/15/2023 6:50 AM CDT [facility] Other SPECIMEN FROM PLEURA OBTAINED BY THORACENTESIS / Unknown Non-Blood / Unknown 10/14/2023 2:50 PM CDT 10/14/2023 3:29 PM CDT Tez Campos MD MICROBIOLOGY Performing Organization Address City/[facility]/ZIP Co de Phone Number [facility] [address] [place] [address], [place] * Protein Pleural Fluid (RIGHT) (10/14/2023 2:50 PM CDT) Only the most recent of2 resultswithin the time period is included. SPECIMEN SOURCE Thoracentesis 10/14/2023 6:15 PM CDT [facility] PROTEIN,BODY FLUID 2.2 g/dL 10/14/2023 6:15 PM CDT [facility] Comment:No Reference Range D efined. Body Fluid SPECIMEN FROM PLEURA OBTAINED BY THORACENTESIS / Unknown Non-Blood / Unknown 10/14/2023 2:50 PM CDT 10/14/2023 3:[address] [facility] LAB[facility] - 10/14/2023 6:15 PM CDT Pleural: Pleural fluid transudate total [...] Test developed & performance characteristics determined by [facility], [place], [place] consistent with CLIA requirements. Not cleared or approved by [place] FDA. Tez Campos MD BODY FLUID [facility] [address] [place] [address], [place] * pH Pleural Fluid (RIGHT) (10/14/2023 2:50 PM CDT) Only the most recent of2 resultswithin the time period is included. PH,BODY FLUID 7.49 10/14/2023 8:05 PM CDT [facility] Specimen Source Pleural 10/14/2023 8:05 PM CDT [facility] Comment:Right Body Fluid SPECIMEN FROM PLEURA OBTAINED BY THORACENTESIS / Unknown Non-Blood / Unknown 10/14/2023 2:50 PM CDT 10/14/2023 3:29 PM CDT Tez Campos MD BODY FLUID [facility] [address] [place] [address], * LD Pleural Fluid (RIGHT) (10/14/2023 2:50 PM CDT) Only the most recent of2 resultswithin the time period is included. SPECIMEN SOURCE Thoracentesis 10/14/2023 7:22 PM CDT [facility] [employer] [facility] LD,BODY FLUID 1,581 IU/L 10/14/2023 7:22 PM CDT [facility] Body Fluid SPECIMEN FROM PLEURA OBTAINED BY THORACENTESIS / Unknown Non-Blood / Unknown 10/14/2023 2:50 PM CDT 10/14/2023 3:29 PM CDT Narrative [facility] - 10/14/2023 7:22 PM CDT Pleural: ? Pleural fluid LDH [...] Test developed & performance characteristics determined by [facility] [place], [place] consistent with CLIA requirements. Not cleared or approved by [place] [facility]. Tez Campos MD BODY FLUID Performing Organization Address [facility] [email or web address] Co de Phone Number [facility] [address] [place] [phone], [place] * Glucose Pleural Fluid (RIGHT) (10/14/2023 2:50 PM CDT) Only the most recent of2 resultswithin the time period is included. SPECIMEN SOURCE Thoracentesis 10/14/2023 6:15 PM CDT [facility] [employer] [facility] GLUCOSE,BODY FLUID <2 mg/dL 10/14/2023 6:15 PM CDT [facility] Comment:No Reference Range D efined. Body Fluid SPECIMEN FROM PLEURA OBTAINED BY THORACENTESIS / Unknown Non-Blood / Unknown 10/14/2023 2:50 PM CDT 10/14/2023 3:29 PM CDT Narrative [facility] [employer] [facility] - 10/14/2023 6:15 PM CDT Pleural: Transudative pleural fluid glucose concentrations similar to serum glucose concentrations, while exudates have glucose concentrations less than serum glucose Glucose <60 mg/dL typically associated with low fluid pH Pericardial: Pericardial fluid glucose to serum glucose ratio <1.0 may be useful in differentiating exudate from transudate and infective from parainfective effusions Test developed & performance characteristics determined by [employer] [place], [place] consistent with CLIA requirements. Not cleared or approved by [place] [facility]. Tez Campos MD BODY FLUID Performing Organization Address [facility]/ZIP Co de Phone Number [facility] [address] [place] [address], [place] * Anaerobic Culture Pleural Fluid (RIGHT) (10/14/2023 2:50 PM CDT) CULTURE No anaerobes isolated 10/19/2023 11:14 AM CDT [facility] [employer] [facility] Other SPECIMEN FROM PLEURA OBTAINED BY THORACENTESIS / Unknown Non-Blood / Unknown 10/14/2023 2:50 PM CDT 10/14/2023 3:29 PM CDT Tez Campos MD MICROBIOLOGY [facility] [address] [place] [address], * SCAN-CARDIAC STRIP (10/14/2023 8:15 AM CDT) Scanner OTHER * (ABNORMAL) RED CELL MORPHOLOGY (10/14/2023 7:11 AM CDT) Only the most recent of2 resultswithin the time period is included. ELLIPTOCYTES Few 10/14/2023 8:22 AM CDT [facility] RBC COMMENT Present(A ) RBC morphology appears normal, RBC morphology within normal limits for newborns. 10/14/2023 8:22 AM CDT [facility] Blood BLOOD SPECIMEN / Unknown Butterfly / Unknown 10/14/2023 7:11 AM CDT 10/14/2023 7:40 AM CDT Tez Campos MD HEMATOLOGY [facility] [address] [address], * (ABNORMAL) Iron plus iron binding cap AM (10/14/2023 7:11 AM CDT) IRON 20(L) 61 - 157 ug/dL 10/14/2023 8:42 AM CDT [facility] UIBC (UNSATURATED) 407(H) 112 - 347 ug/dL 10/14/2023 8:42 AM CDT [facility] IRON BINDING CAPACITY 427(H) 250 - 400 ug/dL 10/14/2023 8:42 AM CDT [facility] IRON,% SATURATION 5(L) 14 - 50 % 10/14/2023 8:42 AM CDT [facility] Blood BLOOD SPECIMEN / Unknown Butterfly / Unknown 10/14/2023 7:11 AM CDT 10/14/2023 7:40 AM CDT Tez Campos MD CHEMISTRY [facility] [address] [place] [address], * (ABNORMAL) CBC W PLT NO DIFF (10/14/2023 7:11 AM CDT) Only the most recent of2 resultswithin the time period is included. WHITE BLOOD COUNT 10.9 4.5 - 11.0 thou/cu mm 10/14/2023 8:22 AM CDT [facility] RED BLOOD COUNT 5.47 4.30 - 5.90 mil/cu mm 10/14/2023 8:22 AM CDT [facility] HEMOGLOBIN 11.1(L) 13.5 - 17.5 g/dL 10/14/2023 8:22 AM T [facility] HEMATOCRIT 40.5 37.0 - 53.0 % 10/14/2023 8:22 AM CDT [facility] MCV 74(L) 80 - 100 fL 10/14/2023 8:22 AM CDT [facility] MCH 20.3(L) 26.0 - 34.0 pg 10/14/2023 8:22 AM CDT [facility] MCHC 27.4(L) 32.0 - 36.0 g/dL 10/14/2023 8:22 AM T [facility] RDW 19.3(H) 11.5 - 15.5 % 10/14/2023 8:22 AM CDT [facility] PLATELET COUNT 425 140 - 440 thou/cu mm 10/14/2023 8:22 AM CDT [facility] MPV 8.8 6.5 - 11.0 fL 10/14/2023 8:22 AM CDT [facility] NRBC 0.0 % 10/14/2023 8:22 AM CDT [facility] ABS NRBC 0.0 thou /cu mm 10/14/2023 8:22 AM CDT [facility] Blood BLOOD SPECIMEN / Unknown Butterfly / Unknown 10/14/2023 7:11 AM CDT 10/14/2023 7:40 AM CDT Tez Campos MD HEMATOLOGY Performing Organization Address [facility] [[email or web address]] Co de Phone Number [facility] [address] [place] [address], [place] * SODIUM (10/14/2023 7:11 AM CDT) SODIUM 141 136 - 145 mmol/L 10/14/2023 8:40 AM CDT [facility] Blood BLOOD SPECIMEN / Unknown Butterfly / Unknown 10/14/2023 7:11 AM CDT 10/14/2023 7:40 AM CDT Tez Campos MD CHEMISTRY Performing Organization Address [facility] de Phone Number [facility] [address] [place] [phone], [place] * POTASSIUM (10/14/2023 7:11 AM CDT) POTASSIUM 4.6 3.5 - 5.1 mmol/L 10/14/2023 8:40 AM CDT [facility] Blood BLOOD SPECIMEN / Unknown Butterfly / Unknown 10/14/2023 7:11 AM CDT 10/14/2023 7:40 AM CDT Tez Campos MD CHEMISTRY Performing Organization Address [facility] [[email or web address]] Co de Phone Number [facility] [address] [place] [address], [place] * (ABNORMAL) CREATININE (10/14/2023 7:11 AM CDT) eGFR >90 >90 mL/min/1.7 3m2 10/14/2023 8:40 AM CDT [facility] Comment:As of 2021, eG FR is calculated by the CKD-EPI creatinine equation without race adjustment. ??eGFR can be influenced by muscle mass, exercise, and diet. ??The reported eGFR is an estimation only and is only applicable if the renal function is stable. CREATININE 0.66(L) 0.70 - 1.20 mg/dL 10/14/2023 8:40 AM CDT [facility] Blood BLOOD SPECIMEN / Unknown Butterfly / Unknown 10/14/2023 7:11 AM CDT 10/14/2023 7:40 AM CDT Tez Campos MD CHEMISTRY Performing Organization Address [facility] [[email or web address]] Co de Phone Number [facility] [address] [place] [address], * (ABNORMAL) INR AM (10/14/2023 7:11 AM CDT) INR 1.2 <1.3 10/14/2023 7:59 AM CDT [facility] PROTIME 13.8(H) 10.3 - 12.3 sec 10/14/2023 7:59 AM CDT [facility] Blood BLOOD SPECIMEN / Unknown Butterfly / Unknown 10/14/2023 7:11 AM CDT 10/14/2023 7:40 AM CDT Narrative [facility] - 10/14/2023 7:59 AM CDT ?Therapeutic Range 2.0-3.0 for most anticoagulated [...] seconds if the patient is on UFH. Tez Campos MD HEMATOLOGY Performing Organization Address [facility] [[email or web address]] Co de Phone Number [facility] [address] [place] [address], * FOLIC ACID (10/14/2023 7:11 AM CDT) FOLIC ACID 9.6 4.6 - 34.8 ng/mL 10/14/2023 8:40 AM CDT [facility] Blood BLOOD SPECIMEN / Unknown Butterfly / Unknown 10/14/2023 7:11 AM CDT 10/14/2023 7:40 AM CDT Narrative [facility] - 10/14/2023 8:40 AM CDT Biotin supplements may cause clinically significant interference for this test assay. ??If interference is suspected, it is strongly recommended that biotin is discontinued for at least one week prior to retesting. Tez Campos MD CHEMISTRY Performing Organization Address City/[facility]/ZIP Co de Phone Number [facility] [address] [place] [address], * Ferritin AM (10/14/2023 7:11 AM CDT) FERRITIN 44.5 30.0 - 400.0 ng/mL 10/14/2023 8:40 AM CDT [facility] Blood BLOOD SPECIMEN / Unknown Butterfly / Unknown 10/14/2023 7:11 AM CDT 10/14/2023 7:40 AM CDT Tez Campos MD CHEMISTRY [facility] [address] [place] [address], * Vitamin B12 level AM (10/14/2023 7:11 AM CDT) VITAMIN B12 598 232 - 1,245 pg/mL 10/14/2023 8:40 AM CDT [facility] Blood BLOOD SPECIMEN / Unknown Butterfly / Unknown 10/14/2023 7:11 AM CDT 10/14/2023 7:40 AM CDT Narrative [facility] - 10/14/2023 8:40 AM CDT Biotin supplements may cause clinically significant interference for this test assay. ??If interference is suspected, it is strongly recommended that biotin is discontinued for at least one week prior to retesting. Tez Campos MD CHEMISTRY [facility]-CEN[facility]AL LAB[facility] [address] [place] [address], * SCAN-CARDIAC STRIP (10/14/2023 1:26 AM CDT) Scanner OTHER * XR Chest PA and Lateral (10/13/2023 8:30 PM CDT) Only the most recent of2 resultswithin the time period is included. Anatomical Region Laterality Modality CHEST, THORAX, Lung, HEART Digit al Radiography 10/15/2023 8:04 AM CDT Narrative 10/15/2023 8:04 AM CDT For Patients: ??As a result of the Cures Act, medical imaging exams and procedure reports are released immediately into your electronic medical record. ??You may view this report before your referring provider. ??If you have questions, please contact your health care provider. Indication: Postprocedure. Technique: Chest 2 views. Comparison: Chest radiograph 10/13/2023 and 07/28/2023. Findings: The cardiomediastinal silhouette size is normal. The moderate loculated appearing right pleural effusion appears slightly increased. There is associated atelectasis. No pneumothorax. No abnormal opacities or pleural effusion on the left. The visualized osseous structures are normal for age. Impression: Slight increase in size of the moderate left pleural effusion. Dictated by Claire Taylor MD @ Oct ??3 2023 ??8:04AM (Electronically Signed) [email or web address] Procedure Note Claire Taylor MD - 10/15/2023 For Patients: As a result of the Cures Act, medical imagingexams and procedure reports are released immediately into your electronicmedical record. You may view this report before your referring provider.If you have questions, please contact your health care provider. Indication: Postprocedure. Technique: Chest 2 views. Comparison: Chest radiograph 10/13/2023 and 07/28/2023. Findings: The cardiomediastinal silhouette size is normal. The moderate loculatedappearing right pleural effusion appears slightly increased. There isassociated atelectasis. No pneumothorax. No abnormal opacities or pleuraleffusion on the left. The visualized osseous structures are normal forage. Impression: Slight increase in size of the moderate left pleural effusion. Dictated by Claire Taylor MD @ Oct 15 2023 8:04AM (Electronically Signed) [email or web address] Dax Núñez MD GENERAL IMAGI NG * (ABNORMAL) LD serum (ADD ON) (10/13/2023 6:07 PM CDT) Pathologist [facility] LD,TOTAL 271(H) 135 - 225 IU/L 10/13/2023 7:03 PM CDT [facility] [employer] [facility] Blood BLOOD SPECIMEN / Unknown Butterfly / Unknown 10/13/2023 6:07 PM CDT 10/13/2023 6:19 PM CDT Tez Campos MD CHEMISTRY [facility] [address] [place] [address], [place] * CWS PATH REVIEW BODY FLUID (10/13/2023 5:18 PM CDT) PATH COMMENT No atypical or malignant cells favor reactive Reviewed by Dr. Shashank Ritchie on 10/14/2023 10/14/2023 2:44 PM CDT [facility] Comment:This is a corrected result. Previously reported as Reviewed by Dr. Shashank Ritchie on 10/14/2023 with reference range <null> on 10/14/2023 at 1436 CDT Body Fluid SPECIMEN FROM PERICARDIUM / Unknown Non-Blood / Unknown 10/13/2023 5:18 PM CDT 10/13/2023 5:59 PM CDT Sarbjit Muñiz MD LAB ORATORY [facility] [address] [address], [place] * Amylase, Body Fluid (10/13/2023 5:18 PM CDT) SPECIMEN SOURCE Pericardial 10/13/2023 7:04 PM CDT [facility] AMYLASE,BODY FLUID 16 IU/L 10/13/2023 7:04 PM CDT [facility] Comment:No Reference Range D efined. Body Fluid SPECIMEN FROM PERICARDIUM / Unknown Non-Blood / Unknown 10/13/2023 5:18 PM CDT 10/13/2023 5:59 PM CDT Narrative [facility] - 10/13/2023 7:04 PM CDT Peritoneal: Amylase activity in non-pancreatic peritoneal fluid is approximately equal to the serum amylase activity. Ascites associated with pancreatitis typically has amylase activity at least 5- fold greater than serum. Pleural: Amylase activity in pleural fluid is typically less than the upper limit of normal serumm amylase with fluid to serum amylase ratio <1.0 Test developed & performance characteristics determined by [facility], [place], [place] consistent with CLIA requirements. Not cleared or approved by [place] FDA. Sarbjit Muñiz MD BOD Y FLUID [facility] [address] [address], [place] * Specific [place], Body [place] (10/13/2023 5:18 PM CDT) SOURCE Pericardial 10/13/2023 7:16 PM CDT [facility] SPECIFIC GRAVITY,BODY FL 1.021 10/13/2023 7:16 PM CDT [facility] Body Fluid SPECIMEN FROM PERICARDIUM / Unknown Non-Blood / Unknown 10/13/2023 5:18 PM CDT 10/13/2023 5:59 PM CDT Sarbjit Muñiz MD BOD Y FLUID [facility] [address] [place] [address], * CVL OTHER PROCEDURE (10/13/2023 5:03 PM CDT) Anatomical Region Laterality Modality Other 10/13/2023 5:03 PM CDT Narrative Transcriptions Bozena Magallon MD - 10/16/2023 8:36 AM CDT [facility] [place] [facility] Cardiac Catheterization Report Name: TIMO DIXON Event Date: 10/13/2023 17:03 Excellian ID #: [id number] CARLOS #: [id number] Patient Class: Inpatient Diagnostic Physician: BOZENA MAGALLON Formerly Named [facility] Referring Physician: Primary Care Physician: JASSON FLORES Date: 1980 Gender: Male Age: 43 Summary/Conclusions PRESENTATION / INDICATIONS * Emergent pericardiocentesis requested SPECIAL PROCEDURES * Pericardiocentesis was performed using a subxyiphoid approach with echoand fluoro guidance * Pericardial catheter was left in place * Pericardial fluid removed 420 cc straw colored * Fluid sample sent to lab for analysis * Post procedure echo reveals minimal residual effusion Consent & Harleigh Protocol The risks, benefits, and alternatives of the procedure were discussed withthe patient and written informed consent was obtained. Harleigh protocol was followed. TIME OUT conducted just prior tostarting procedure confirmed patient identity, site/side, procedure,patient position, and availability of correct equipment and implants (ifapplicable). Staff Name Title BOZENA MAGALLON Diagnostic [employer] Machine Operator Mary Kumar RN Nurse Carrier, June CVT Scrub Malissa Mcdowell CVT Monitor Dax Núñez Fellow Procedures ? Ultrasound Guided Vascular Access ? Pericardiocentesis Hemodynamics State: Baseline Procedure Details Estimated Blood Loss: < 30 ml Specimen Collected: None Level of Sedation Achieved: Moderate Procedure Start: 17:03 Fluoroscopy Time: 0.9 min Cumulative Air Kerma: 12 mGy DAP: 152 uGy/M2 Contrast: Omnipaque (low-osmolar), ml Physiologic Data Weight: 67.6 kg BSA: 1.82 m2 Vascular Access Time Access Sheath Size 17:11 pericardial space Medications Ordered and Administered Start Time Stop Time Medication Dose Units Route Ordered By Given By 17:07 Fentanyl 50 mcg IV Bozena Magallon Jen RN 17:07 Versed 1 mg IV Bozena Magallon Jen RN 17:11 1% Lidocaine 17 ml Subcut Bozena Magallon Owais Shakir 17:29 Versed 1 mg IV Bozena Magallon Jen RN 17:29 Fentanyl 50 mcg IV Bozena Magallon Jen RN I personally monitored the patient?s conscious sedation during theprocedure. Conscious sedation starts with the first sedation medication dose ofFentanyl or Versed and ends when the procedure is completed, the patientis stable for recovery status, and the physician or other qualified healthcare professional providing the sedation ends personal [id number] time with the patient. The medications listed above were verbally ordered by me and read back tome as documented above. Refer to the procedure log report for additional case details. electronically signed on 10/16/2023 8:36:44 AM with status of Final Bozena Magallon MD [facility] [address] [place] [address] (p) (f) Provider Referring CV IMAGING * APTT (PTT) (10/13/2023 3:49 PM CDT) APTT 30 28 - 36 sec 10/13/2023 5:44 PM CDT [facility] Blood BLOOD SPECIMEN / Unknown Butterfly / Unknown 10/13/2023 3:49 PM CDT 10/13/2023 5:23 PM CDT Narrative [facility] - 10/13/2023 5:44 PM CDT Therapeutic Range: 57-87 seconds Sarbjit Muñiz MD HEM ATOLOGY [facility] [address] [place] [address], [place] * Protein, total serum (10/13/2023 3:21 PM CDT) Pathologist [facility] PROTEIN,TOTAL 6.8 6.0 - 8.0 g/dL 10/13/2023 4:47 PM CDT [facility] Blood BLOOD SPECIMEN / Unknown Venipuncture / Unknown 10/13/2023 3:21 PM CDT 10/13/2023 3:46 PM CDT Tez Campos MD CHEMISTRY [facility] [address] [place] [address], [place] * ECHO TTE LIMITED WO CONTRAST W COLOR W LTD DOPPLER (10/13/2023 2:34 PM CDT) Pathologist [facility] LVEDD 4.7 cm Anatomical Region Laterality Modality Ultrasound 10/13/2023 1:53 PM CDT Narrative 10/13/2023 2:47 PM CDT ECHOCARDIOGRAM TIMO DIXON ?Accession#: ?? [id number] : ?1980 43 years Study Date: ?? 10/13/2023 1:53:02 PM Gender: M ? BP: ? 135/106 mmHg Height: 175.00 cm ? BSA: ?1.83 m? ? ? Weight: 68.00 kg ?Tech: ? MBL ?Referring MD: BETH ZARATE Site: ? [facility] Reading Location: [facility] Patient Location: Inpatient. Procedure: Limited 2D , Color Doppler and Limited Spectral Doppler. Indication for study: Pericarditits Cardiac Rhythm: Regular.Study quality: Excellent. Final Impressions: Limited Echocardiogram performed 1. Right ventricular cavity size is normal, global systolic RV function is normal. 2. The inferior vena cava is dilated, respiratory size variation less than 50%. 3. Large circumferential pericardial effusion. Subtle RV free wall flattening seen in subcostal views. No significant MV/TV inflow doppler variability. ~40% respirophasic variability in LVOT VTI. Coupled with sinus tachycardia and dilated IVC, findings are concerning for pre-tamponade. 4. Results conveyed to consulting indirect sales exec. Chamber Sizes and Function Right ventricular cavity size is normal, global systolic RV function is normal. The right atrium is normal. Valves, RV Pressures and Diastolic Function The aortic valve is normal in structure and trileaflet, no stenosis and no regurgitation. The tricuspid valve is normal in structure. Tricuspid regurgitation is trace. Masses, Effusion, Shunts There is large pericardial effusion. The inferior vena cava is dilated, respiratory size variation less than 50%. MEASUREMENTS AND CALCULATIONS 2-D Measurements and LV Function: LVID (d) 4.7 cm LV FS% (2D) ?? 40 % LVID (s) 2.8 cm HR ?98 bpm IVS (d) ??0.9 cm RV Max 4C (d) 2.6 cm LVPW (d) 1.0 cm Diastology: Mitral ?Tissue Doppler E Peak 0.75 m/s e', Septum ? 0.14 m/s A Peak 0.46 m/s e', Lateral ?0.14 m/s E/A ?1.6 ?E/e' Average ?? 5.31 DT ? 113 msec Mitral Valve: MVA ?6.7 cm? ? ? MV P 1/2 33 msec Tricuspid Valve and estimated PA pressures: TAPSE 1.3 cm . This study was interpreted by an [facility] accredited facility. ??Final ?? Procedure Note Leonel León MD - 10/13/2023 ECHOCARDIOGRAM TIMO DIXON : 1980 43 years Study Date: 10/13/2023 1:53:02 PM Gender: M BP: 135/106 mmHg Height: 175.00 cm BSA: 1.83 m? ? ? Weight: 68.00 kg Tech: [facility] Referring MD: BETH ZARATE Site: [facility] Reading Location: [facility] Patient Location: Inpatient. Procedure: Limited 2D , Color Doppler and Limited Spectral Doppler. Indication for study: Pericarditits Cardiac Rhythm: Regular.Study quality: Excellent. Final Impressions: Limited Echocardiogram performed 1. Right ventricular cavity size is normal, global systolic RV functionis normal. 2. The inferior vena cava is dilated, respiratory size variation lessthan 50%. 3. Large circumferential pericardial effusion. Subtle RV free wallflattening seen in subcostal views. No significant MV/TV inflow dopplervariability. ~40% respirophasic variability in LVOT VTI. Coupled withsinus tachycardia and dilated IVC, findings are concerning forpre-tamponade. 4. Results conveyed to consulting indirect sales exec. Chamber Sizes and Function Right ventricular cavity size is normal, global systolic RV function isnormal. The right atrium is normal. Valves, RV Pressures and Diastolic Function The aortic valve is normal in structure and trileaflet, no stenosis and noregurgitation. The tricuspid valve is normal in structure. Tricuspidregurgitation is trace. Masses, Effusion, Shunts There is large pericardial effusion. The inferior vena cava is dilated,respiratory size variation less than 50%. MEASUREMENTS AND CALCULATIONS 2-D Measurements and LV Function: LVID (d) 4.7 cm LV FS% (2D) 40 % LVID (s) 2.8 cm HR 98 bpm IVS (d) 0.9 cm RV Max 4C (d) 2.6 cm LVPW (d) 1.0 cm Diastology: Mitral Tissue Doppler E Peak 0.75 m/s e', Septum 0.14 m/s A Peak 0.46 m/s e', Lateral 0.14 m/s E/A 1.6 E/e' Average 5.31 DT 113 msec Mitral Valve: MVA 6.7 cm? ? ? MV P 1/2 33 msec Tricuspid Valve and estimated PA pressures: TAPSE 1.3 cm . This study was interpreted by an [facility] accredited facility. Final Beth RODNEY ECHO ORD * COVID/FLU/RSV PANEL (10/13/2023 10:50 AM CDT) Pathologist [facility] COVID 19 [place] MOLECULAR Negative Negative 10/13/2023 1:18 PM CDT [facility] Comment:All PCR tests are duff bject to false negative result due to variability in viral load and collection technique. A negative result does not rule out a SARS-CoV-2 infection. Clinical correlation required. INFLUENZA A PCR Negative 1:18 PM CDT [facility] INFLUENZA B PCR Negative 4 1:18 PM CDT [facility] Respiratory Syncytial Virus Negative 10/13/2023 1:18 PM CDT [facility] Swab NASOPHARYNGEAL SWAB / Unknown Non-Blood / Unknown 10/13/2023 10:50 AM CDT 10/13/2023 10:55 AM CDT Tez Campos MD MICROBIOLOGY [facility] [address] [place] [address], * EKG 12 LEAD (10/13/2023 8:15 AM CDT) Pathologist [facility] Interpretation Sinus tachycardia Rightward axis Nonspecific T wave abnormality Abnormal ECG Compared to ekg of 43-PFD-25 Non-specific T wave changes in inferior lateral leads BEYOND NOW Ventricular Rate 107 BPM BEYOND NOW Atrial Rate 107 BPM BEYOND NOW P-R Interval 126 ms BEYOND NOW QRS Duration 80 ms BEYOND NOW QT 334 ms BEYOND NOW QTc 445 ms BEYOND NOW P [place] 74 degrees BEYOND NOW R [place] 91 degrees BEYOND NOW T [place] -40 degrees BEYOND NOW 10/13/2023 8:15 AM CDT 10/13/2023 9:58 AM CDT Beth RODNEY EKG ORD BEYOND NOW [place], [place] * (ABNORMAL) SEDIMENTATION RATE (10/13/2023 8:12 AM CDT) SEDIMENTATION RATE 25(H) <15 mm/hr 2023 8:46 AM CDT [facility] Blood BLOOD SPECIMEN / Unknown Non-Lab Venipuncture / Unknown 10/13/2023 8:12 AM CDT 10/13/2023 8:20 AM CDT Beth RODNEY HEMATOLOGY Performing Organization Address City/[facility]/ZIP Co de Phone Number [facility] [address] [place] [address], * TROPONIN T (HS) ACUTE W/2HR REFLEX (10/13/2023 8:09 AM CDT) TROPONIN T HS 7 6-15 ng/L ng/L 10/13/2023 9:02 AM CDT [facility] Blood BLOOD SPECIMEN / Unknown Non-Lab Venipuncture / Unknown 10/13/2023 8:09 AM CDT 10/13/2023 8:20 AM CDT Narrative [facility] - 10/13/2023 9:02 AM CDT hs-cTnT (Elecsys Troponin T Gen 5) concentration (s) above the sex-specific 99th percentile (16 ng/L or greater for males or 11 ng/L or greater for females) are indicative of myocardial injury. If initial hs-cTnT <=100 ng/L at presentation, a 0h/2h ABSOLUTE (ng/L) delta change (rising or falling) of >=10 ng/L suggests a significant change, whereas a 0h/2h delta change <=3 ng/L suggests no significant change. If initial hs-cTnT >100 ng/L at presentation, a 0h/2h/ RELATIVE (percent, %) delta change of 20% is suggested to distinguish patients with acute vs. chronic myocardial injury. There are multiple etiologies that can cause hs-cTnT increases above the 99th percentile (myocardial injury) other than acute myocardial infarction. Clinical context and careful clinical evaluation are critical for diagnosis and risk-stratification. The diagnosis of acute myocardial infarction requires a rising and/or falling pattern in hs-cTnT concentrations with at least one value above the sex-specific 99th percentile PLUS at least one of the following clinical criteria: ischemic symptoms, new or presumed new significant ST-T wave changes or new LBBB, development of pathological Q waves, imaging evidence of new loss of viable myocardium or new regional wall motion abnormality, or identification of intracoronary atherothrombosis or an acute angiographic culprit on coronary angiography. In appropriate low-risk patients with a non-ischemic electrocardiogram without active chest pain with a symptom onset >3-hours without recurrence, a single initial hs-cTnT<6 ng/L identifies patient with a very low risk in emergency department patient population. Beth RODNEY CHEMISTRY Performing Organization Address [facility] [[email or web address]] Co de Phone Number [facility] [address] [place] [address], * C-REACTIVE PROTEIN (10/13/2023 8:09 AM CDT) C-REACTIVE PROTEIN <0.3 <0.5 mg/dL 10/13/2023 9:22 AM CDT [facility] Blood BLOOD SPECIMEN / Unknown Non-Lab Venipuncture / Unknown 10/13/2023 8:09 AM CDT 10/13/2023 8:20 AM CDT Beth RODNEY CHEMISTRY Performing Organization Address [facility] [[email or web address]] Co de Phone Number [facility] [address] [place] [address], * (ABNORMAL) PRO-BNP (10/13/2023 8:09 AM CDT) PRO-BNP 157(H) <125 pg/mL 10/13/2023 9:07 AM CDT [facility] Blood BLOOD SPECIMEN / Unknown Non-Lab Venipuncture / Unknown 10/13/2023 8:09 AM CDT 10/13/2023 8:20 AM CDT Narrative [facility] - 10/13/2023 9:07 AM CDT The following cut-points have been suggested for the use of proBNP for the diagnostic evaluation of heart failure (HF) in patient with acute dyspnea. Patients with eGFR >= 60 Diagnosis (rule in CHF) ? <50 Years Old ?450 pg/mL 50 - 75 Years Old ?900 pg/mL >75 Years Old ? 1800 pg/mL Exclusion (rule out CHF) Age Independent ?300 pg/mL A cutoff of 1200 pg/mL for patients with an eGFR <60 yields a diagnostic sensitivity of 89% and specificity of 72% for acute congestive heart failure. ? Beth RODNEY SEND OUTS [facility] [address] [place] [address], * (ABNORMAL) BASIC METABOLIC PANEL (10/13/2023 8:09 AM CDT) SODIUM 140 136 - 145 mmol/L 10/13/2023 9:02 AM CDT [facility] POTASSIUM 4.0 3.5 - 5.1 mmol/L 10/13/2023 9:02 AM CDT [facility] CHLORIDE 106 98 - 107 mmol/L 10/13/2023 9:02 AM CDT [facility] CO2,TOTAL 23 22 - 29 mmol/L 10/13/2023 9:02 AM CDT [facility] ANION GAP 11 5 - 18 10/13/2023 9:02 AM T [facility] GLUCOSE 101(H) 70 - 99 mg/dL 10/13/2023 9:02 AM CDT [facility] CALCIUM 9.0 8.6 - 10.0 mg/dL 10/13/2023 9:02 AM T [facility] BUN 26(H) 6 - 20 mg/dL 10/13/2023 9:02 AM T [facility] CREATININE 0.71 0.70 - 1.20 mg/dL 10/13/2023 9:02 AM T [facility] BUN/CREAT RATIO 37(H) 10 - 20 9:02 AM T [facility] eGFR >90 >90 mL/min/1.7 3m2 10/13/2023 9:02 AM T [facility] Comment:As of 2021, eG FR is calculated by the CKD-EPI creatinine equation without race adjustment. ??eGFR can be influenced by muscle mass, exercise, and diet. ??The reported eGFR is an estimation only and is only applicable if the renal function is stable. Blood BLOOD SPECIMEN / Unknown Non-Lab Venipuncture / Unknown 10/13/2023 8:09 AM CDT 10/13/2023 8:20 AM CDT Beth RODNEY CHEMISTRY [facility] [address] [place] [address], * EXTRA TUBE BLUE (10/13/2023 8:08 AM CDT) Blood BLOOD SPECIMEN / Unknown Non-Lab Venipuncture / Unknown 10/13/2023 8:08 AM CDT 10/13/2023 8:20 AM CDT Beth RODNEY LABORATORY [facility] [address] [place] [address], [place] from Last 3 Months Advance Directives * Full Code (Latest Code Status on File) Date Activated Date Inactivated Comments 10/13/2023 3:53 PM 10/16/2023 8:47 PM Question Answer Comments Code Status Discussion: Reviewed Preferences * Full Code Date Activated Date Inactivated Comments 10/13/2023 3:27 PM 10/13/2023 3:53 PM Question Answer Comments Code Status Discussion: Unable to Assess Preferences, Provider to review later * Full Code Date Activated Date Inactivated Comments 07/26/2023 4:32 AM 07/29/2023 6:24 PM Question Answer Comments Code Status Discussion: Reviewed Preferences Care Teams Keypunch Operator Relationship Specialty Start Date End Date Jasson Flores [address] [place] [address] PCP - General Family Practice 07/27/23
--- NOTE | 2023-12-05 12:00 | ED_ITS ---
HPI - General Adult General Date Seen: 12/05/23 Chief complaint: Skin/Abscess/Foreign Body Stated complaint: infection - finger Time Seen by Provider: 12/05/23 11:24 Source: patient Mode of arrival: ambulatory Limitations: no limitations History of Present Illness HPI narrative: Patient is a 43-year-old male presenting to emergency department for concern of possible infection to his right 2nd finger. States a week ago he had some UV curing plaster get on his fingers. He was doing well but noticed the area at the tip of his right 2nd finger was having some yellowish discoloration. He is not having any associated pain but was concerned so he went to see the clinic who told him to come to the ED for evaluation. Denies pain with movement of the finger denies fevers, chills, weakness. States he is feeling very anxious right now. Patient does have a history of rheumatoid arthritis and is on medication now for it but has had 2 episodes in the past year requiring drainage for pericardial effusion and pleural effusion. He states his shortness of breath isn't nearly as bad as it was previously but does noticed some mild shortness of breath with exertion. He states he has to exert himself a lot more to get this short of breath compared to previously but would like chest x-ray done to look for signs to make sure he is not pulling on any fluid again. He states he wants to stay ahead of it if he is. No other concerns noted. Related Data Home Medications ?Medication ?Instructions ?Recorded ?Confirmed prednisone 10 mg tablet 10 mg PO DAILY 07/25/23 12/05/23 tocilizumab 162 mg/0.9 mL 162 mg subcut .weekly 10/12/23 12/05/23 subcutaneous syringe (Actemra) Previous Rx's ?Medication ?Instructions ?Recorded iron,carbonyl 65 mg-vitamin C 125 1 tab PO QDAY #30 tabs 08/29/23 mg tablet,delayed release (Vitron-C) Allergies Allergy/AdvReac Type Severity Reaction Status Date / Time No Known Drug Allergies Allergy Verified 12/05/23 11:31 Review of Systems Status of ROS: Reports: 10 or more systems reviewed and unremarkable except as noted in History and below [facility] Medical History SOB (shortness of breath) ?R06.02 - Shortness of breath (ICD-10) Anemia ?D64.9 - Anemia, unspecified (ICD-10) Rheumatoid arthritis ?M06.9 - Rheumatoid arthritis, unspecified (ICD-10) Social History Smoking Status: Unknown if ever smoked Do you use any of these nicotine containing products: None How often do you have a drink containing alcohol: never How often do you have six or more drinks on one occasion: Never AUDIT-C Alcohol total score: 0 Non-prescribed substance use: denies use Little interest or pleasure in doing things: more than half the days Feeling down, depressed, or hopeless: not at all Exam Narrative: Exam Narrative: Const: Well-nourished, Well-developed, in mild distress, anxious Eyes: PERRL, no conjunctival injection, and symmetrical lids HENT: Atraumatic external nose and ears. Moist mucous membranes. Neck: Symmetric, trachea midline, No thyromegaly. CVS: RRR, No murmurs or gallops. Peripheral pulses 2+ and equal in all extremities RESP: Unlabored respiratory effort. Clear to auscultation bilaterally. GI: Nontender/Nondistended, No rebound or guarding. MSK:Extremities w/o deformity, Normal Active ROM is, there is a patient is clinically she appearing spots wrist to of his right pointer finger with some s urrounding he does yellowish appearing scan. No tenderness noted. Skin: Warm, Dry. No rashes or lesions. Neuro: Normal Muscle tone, No focal neurological deficits. Psych: Awake, Alert, & Oriented x3. Appropriate mood and affect. Const: Vital Signs, click to edit/add: Vital Signs - 24 hr 12/05/23 11:26 Temperature 99.2 F Pulse Rate [Pulse Oximeter] 125 H Respiratory Rate 16 Blood Pressure [Ri ght Upper Arm] 141/89 H Pulse Oximetry 100 Oxygen Delivery Me thod Room Air Course Vital Signs Vital signs: Initial Vital Signs Temperature 99.2 F 12/05/23 11:26 Temperature Source Temporal Artery Scan 12/05/23 11:26 Pulse Rate 125 H 12/05/23 11:26 Respiratory Rate 16 12/05/23 11:26 Blood Pressure 141/89 H 12/05/23 11:26 Blood Pressure Mean 106 H 12/05/23 11:26 Blood Pressure Position Sitting 12/05/23 11:26 Pulse Oximetry 100 12/05/23 11:26 Oxygen Delivery Method Room Air 12/05/23 11:26 Vital Signs Temperature 99.2 F 12/05/23 11:26 Pulse Rate 125 H 12/05/23 11:26 Respiratory Rate 16 12/05/23 11:26 Blood Pressure 141/89 H 12/05/23 11:26 Pulse Oximetry 100 12/05/23 11:26 Oxygen Delivery Method Room Air 12/05/23 11:26 Temperature 99.2 F 12/05/23 11:26 Pulse Rate 125 H 12/05/23 11:26 Respiratory Rate 16 12/05/23 11:26 Blood Pressure 141/89 H 12/05/23 11:26 Pulse Oximetry 100 12/05/23 11:26 Oxygen Delivery Method Room Air 12/05/23 11:26 Medical Decision Making MDM Narrative Medical decision making narrative: Patient is a 43-year-old male presenting to the emergency department for concerns of finger infection. On my examination of the finger I do not see any signs of infection and the yellow discoloration he is concerned about appears to be just a healing bruise. At this point I believe antibiotics are necessary. Did inform to come back if symptoms are getting worse. He also states he was opening a chest x-ray what it was he was here. Does have some mild shortness of breath with exertion face is nothing like he has had in the past and he has had previous pericardial effusions and pleural effusions and want the a chest x-ray to make sure they are not developing again. This was ordered. It returned showing a small right pleural effusion that is have never can not they smaller than previous. I informed him of this. He was tachycardic when he arrived but that seems was likely the fact that he was very anxious. He is not having any chest pain and not believe at or EKG on necessary. Patient will be discharged. He is agreeable to this plan. Imaging Data Chest x-ray: Attestation: I have reviewed the pertinent imaging results. Radiologist's impression: Cardiovascular and mediastinum: Heart size and vasculature are normal in caliber and appearance. Mediastinum is within normal limits. Lungs and pleural spaces: Small right pleural effusion which has significantly decreased in size compared to the study of 2 months prior. No pneumothorax. No effusion on the left. No focal pulmonary consolidation. Bones and soft tissues: No significant findings. Dictated by Moises Richardson MD @ 12/05/2023 12:25:37 PM Discharge Plan Discharge Clinical Impression: Bruise, SOB (shortness of breath) Patient Disposition: Home, Self-Care Condition: Stable Instructions: Pleural Effusion (DC) Additional Instructions: I do not see any signs infection right now by the start noticing redness or worsening pain return for re-evaluation. You do have a small right pleural effusion I do not believe is significantly affects at this time. Continue to follow-up with your providers to monitor this. Prescriptions: No Action prednisone 10 mg tablet 10 mg PO DAILY Vitron-C 65 mg iron- 125 mg tablet,delayed release (DR/EC) 1 tab PO QDAY Qty: 30 2RF Actemra 162 mg/0.9 mL syringe 162 mg subcut .weekly Follow Up/Referrals: Bill Giang MD [Primary Care Provider] - Stand Alone Forms: [employer] Info Instructions
== END 2023-12-05 13:08 | disposition home or self-care (01) ==
PROVIDERS: Emergency Provider Student in an Organized Health Care Education/Training Program; PCP Internal Medicine
DX: S60.021A Contusion of right index finger without damage to nail, initial encounter (principal); R06.02 Shortness of breath
CPT/HCPCS: 71046; 99282; 99283

== ENCOUNTER 2024-02-21 15:55 | Outpatient (CLI) | payer BC, SELFPAY ==
--- OUTSIDE RECORDS SUMMARY | 2024-02-21 15:58 | XMS_ITS | Referral Summary ---
Author Organization [facility] Address [address] [place] [address] Care Team Providers Care Supervisor Boiler Repair Name Role Phone No Ref-Primary, Physician Primary Care Provider Edmond Felix MD Unavailable [phone] Kulwinder De La Cruz MD Unavailable Keven Smith [facility] Unavailable [phone] Keven Smith [facility] Unavailable [phone] Alfred Coley MD Unavailable Encounters Date Type Department Care Team Description 02/14/2024 Telephone [facility] [address] [phone] Alfred Coley MD Orders 02/07/2024 Telephone [facility] [address] [phone] Alfred Coley MD Prior Auth - Medication (Tocilizumab (ACTEMRA ACTPEN) 162 MG/0.9ML SOAJ) 02/03/2024 Telephone [facility] [address] [phone] Alfred Coley MD 02/02/2024 Travel 02/02/2024 3:30 PM PROPELLER ENGINEER Office Visit [facility] [address] [phone] Alfred Coley MD Rheumatoid arthritis involving multiple joints (H) (Primary Dx) 02/01/2024 Telephone [facility] [address] [phone] Alfred Coley MD Prior Auth - Medication (actemra) from Last 3 Months Allergies No known active allergies Medications aspirin-acetam inophen-caffei ne (EXCEDRIN MIGRAINE) 250-250-65 MG tablet Take 2 tablets by mouth 3 times daily as needed for headaches Active Tocilizumab (ACTEMRA ACTPEN) 162 MG/0.9ML SOAJIndication s:Rheumatoid arthritis involving multiple joints (H) Inject 162 mg subcutaneously every 7 days 3.6 mL 12 10/05/19 24 Active ibuprofen (ADVIL/MOTRIN) 800 MG tablet Take 800 mg by mouth every 8 hours as needed for moderate pain. As needed Active predniSONE (DELTASONE) 5 MG tabletIndicati ons:Rheumatoid arthritis involving multiple joints (H) 5 mg PO QD 30 tablet 1 02/02/20 24 Active predniSONE (DELTASONE) 5 MG tabletIndicati ons:Rheumatoid arthritis involving multiple joints (H) Take 4 tabs daily for 1 week, then take 3 tabs daily for 1 week 49 tablet 1 09/07/19 24 024 Discontin ued(Reord er (No AVS)) Active Problems Problem Noted Date Diagnosed Date [...] Recorded Sex Assigned at Not on file Legal Sex Male 11:44 AM CDT Gender Identity Not on file Sexual Orientation Not on file Last Filed Vital Signs Vital Sign Reading Time Taken Comments Blood Pressure 136/90 02/02/2024 3:46 PM PROPELLER ENGINEER Pulse 99 02/02/2024 3:46 PM PROPELLER ENGINEER Temperature 36.5 C (97.7 F) 07/31/2023 12:16 PM CDT Respiratory Rate 12 08/09/2023 3:32 PM CDT Oxygen Saturation 100% 08/09/2023 3:32 PM CDT Inhaled Oxygen Concentration - - Weight 64 kg (141 lb) 02/02/2024 3:40 PM PROPELLER ENGINEER wit h shoes Height 172.7 cm (5' 8) 07/29/2023 4:41 PM CDT Body Mass Index 21.44 07/29/2023 4:41 PM CDT Plan of Treatment Not on file Procedures Procedure Name Priority Date/Time Associated Diagnosis Comments HIV ANTIGEN ANTIBODY COMBO Routine 07/31/2023 1:13 PM CDT HEPATITIS C SCREEN REFLEX TO HCV RNA QUANT AND GENOTYPE Routine 07/31/2023 1:13 PM CDT BASIC METABOLIC PANEL Routine 07/31/2023 8:25 AM CDT from Last 3 Months or Most Recently Relevant to Health Maintenance Results * HIV Antigen Antibody Combo [place] (07/31/2023 1:13 PM CDT) HIV Antigen Antibody [...] 1:13 PM CDT 07/31/2023 1:21 PM CDT us Alfred Coley MD LAB - BLOOD ORDERABLES Final Res ult [facility]AT[facility] [facility] [address], Room [address] [place] [phone] * Hepatitis C Screen Reflex to HCV [...] CDT Alfred Coley MD LAB - BLOOD ORDERABLES Final Res ult [facility]U [facility]AT[facility] [address] [facility], [address] [phone] * (ABNORMAL) Basic metabolic panel (07/31/2023 8:25 [...] 8:25 AM CDT 07/31/2023 8:45 AM CDT us Lyle Galaviz DO LAB - BLOOD ORDERABLES Final Res ult UR LABORATORY [facility] [address] [facility], [address] [place] [phone] from Last 3 Months or Most Recently Relevant to Health Maintenance [place] * Guarantor: Jai Shoemaker Account Type Relation to Patient Date of Phone Billing Address Medication Therapy Self 1980 [address] [place] [address] [place] Advance Directives For more information, please contact: [phone] * Full Code (Latest Code Status on File) Date Activated Date Inactivated Comments 07/29/2023 6:44 PM 07/31/2023 6:22 PM All basic an d advanced life-sustaining interventions are performed as appropriate Question Answer Comments Code status determined by: Discussion with patie nt/ legal decision maker Care Teams Supervisor Boiler Repair Relationship Specialty Start Date End Date No Ref-Primary, Physician PCP - General 07/30/23 Edmond Felix MD [address] [place] [id number] Cardiovascular Disease 08/03/23 Kulwinder De La Cruz MD [address] [place] [id number] Fellow Cardiovascular Disease 08/03/23 Keven Smith, [facility] [address] [place] [address] Pharmacist 08/15/23 Keven Smith RPH [address] [place] [address] Assigned MTM Pharmacist 09/04/23 Alfred Coley MD [address] [place] [address] Assigned Rheumatology Provider 09/04/23
--- OUTSIDE RECORDS SUMMARY | 2024-02-21 15:58 | XMS_ITS | Encounter Summary ---
Author Organization [facility] Address [address] [place] [address] Care Team Providers Care Welding Machine Operator Electro Gas Name Role Phone No Ref-Primary, Physician Primary Care Provider Edmond Felix MD Unavailable [phone] Kulwinder De La Cruz MD Unavailable Keven Smith [facility] Unavailable [phone] Keven Smith [facility] Unavailable [phone] Alfred Coley MD Unavailable Reason for Referral * Diagnostic Imaging XR (Routine) - Pending Review Specialty Diagnoses / Procedures Referred By Contac t Referred To Contact Radiology. Diagnoses Rheumatoid arthritis involving multiple joints (H) Procedures XR Chest 1 View Alfred Coley MD [address] [place] [address] Phone: tel: fax: Referral ID Status Reason Start Date Expiration Date V isits Requested Visits Authorized [id number] Pending Review 02/02/2024 02/01/2025 1 1 ULTING NETWORKING ENGINEER Reason for Visit * Reason Comments RECHECK Rheumatoid arthritis involving multiple joints Encounter Details Date Type Department Care Team (Late st Contact Info) Description 02/02/2024 3:30 PM CONSULTING NETWORKING ENGINEER Office Visit [facility] [address] [address] Alfred Coley MD [address] [place] [address] Rheumatoid arthritis involving multiple joints (H) (Primary [...] Comments Blood Pressure 136/90 02/02/2024 3:46 PM CONSULTING NETWORKING ENGINEER Pulse 99 02/02/2024 3:46 PM CONSULTING NETWORKING ENGINEER Temperature - - Respiratory Rate - - Oxygen Saturation - - Inhaled Oxygen Concentration - - Weight 64 kg (141 lb) 02/02/2024 3:40 PM CONSULTING NETWORKING ENGINEER wit h shoes Height - - Body Mass Index 21.44 07/29/2023 4:41 PM CDT documented in this encounter Progress Notes * Alfred Coley MD - 02/02/2024 3:30 PM CST Follow-up visit for rheumatoid arthritis and pericarditis. Jai is now 44 years old and he reports that he has been doing okay with regards to his joints. On occasion he takes prednisone, but he feels that the Actemra is working for the most part. He does have joint aches and pains that are noninflammatory but still are with him almost every day. He denies any major chest pains or shortness of breath but he had an hospitalization in October 2023. It was only 1 week prior to this hospitalization that he was able to start his Actemra. During this hospitalization he had a pericardial drain with removal of 420 mL of pericardial fluid as well as a pleural drain that removed 900 mL of pleural fluid. At that time he had increase his prednisone dose and continuation of the Actemra. Today he reports that he only takes prednisone on occasion 1 to 2 tablets, and he takes his Actemraweekly without any major problem. He still taking ibuprofen as needed but he is not taking colchicine anymore. He had some blood work done 2 days ago for work related reasons but he did not get his CBC, chemistries, ESR and CRP. He would like to have this done through his primary care physician at [facility]. Past medical history Seropositive rheumatoid arthritis Acute pericarditis and pleural effusions. 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 Joint examination shows that he has no active synovitis in the hands, wrist, elbows, shoulders. He has good range of motion in his upper extremities with no limitation and normal strength. Lungs were clear to auscultation on the left but there was a dullness on the right base. Lower extremity exam shows no active synovitis in the knees ankles or feet. He has trace ankle edema. No recent blood tests since October 2023. Impression/plan 1. Rheumatoid arthritis that seems well-controlled with no active disease on exam today. It seems the Actjen is working as he is only taking low-dose prednisone intermittently more for joint aches than anything else. 2. He had a large pericardial and pleural effusion 3 months ago for which she was hospitalized. At that time his prednisone was increased to 40 mg daily and it was tapered over time. I suggest we do a repeat chest x-ray because there is a dullness on the left side and wonder how much of a resolution he has of his pleural effusion. 3. I have ordered blood test that he will do through his primary care at [facility] and I gave him a printed copy of all the orders including and a repeat chest x-ray. 4. He needs to do blood test every 3 months including CBC, complete metabolic profile, ESR, CRP. 5. Follow-up in 6 months or earlier if needed. 30 minutes spent on the date of the encounter doing chart review, history and exam, documentation and further activities per the note. ULTING NETWORKING ENGINEER documented in this encounter Nursing Notes * Angy Salmeron - 02/02/2024 3:30 PM CST Chief Complaint Patient presents with RECHECK Rheumatoid arthritis involving multiple joints Vitals: 02/02/24 1540 02/02/24 1546 BP: (!) 150/87 (!) 136/90 BP Location: Left arm Left arm Patient Position: Sitting Sitting Cuff Size: Adult Regular Adult Regular Pulse: 105 99 Weight: 64 kg (141 lb) Body mass index is 21.44 kg/m??. ULTING NETWORKING ENGINEER documented in this encounter Plan of Treatment Scheduled Orders Name Type Priority Associated Diagnoses Orde r Schedule XR Chest 1 View Imaging Routine Rheumatoid arthritis involving multiple joints (H) Expected: 02/02/2024 (Approximate), Expires: 02/01/2025 CBC with Platelets & Differential Lab Panel Routine Rheumatoid arthritis involving multiple joints (H) 12 Occurrences starting 02/02/2024 until 02/01/2025 Comprehensive metabolic panel Lab Routine Rheumatoid arthritis involving multiple joints (H) Expected: 02/02/2024 (Approximate), Expires: 02/01/2025 ESR Lab Routine Rheumatoid arthritis involving multiple joints (H) Expected: 02/02/2024 (Approximate), Expires: 08/03/2024 CRP inflammation Lab Routine Rheumatoid arthritis involving multiple joints (H) 12 Occurrences starting 02/02/2024 until 02/01/2025 documented as of this encounter Visit Diagnoses Diagnosis Rheumatoid arthritis involving multiple joints (H)- Primary documented in this encounter Care Teams Welding Machine Operator Electro Gas Relationship Specialty Start Date End Date No Ref-Primary, Physician PCP - General 07/30/23 Edmond Felix MD [address] [place] [address] Cardiovascular Disease 08/03/23 Kulwinder De La Cruz MD [address] [place] [address] Fellow Cardiovascular Disease 08/03/23 Keven Smith Trace [address] [place] [address] Pharmacist 08/15/23 Keven Smith Trace [address] [place] [address] SE Assigned MTM Pharmacist 09/04/23 Alfred Coley MD [address] [place] [address] Assigned Rheumatology Provider 09/04/23 documented as of this encounter
--- OUTSIDE RECORDS SUMMARY | 2024-02-21 15:58 | XMS_ITS | Encounter Summary ---
Author Organization [facility] Address [address] [place] [address] Care Team Providers Care Electronic Warfare Technical Name Role Phone No Ref-Primary, Physician Primary Care Provider Edmond Felix MD Unavailable [phone] Kulwinder De La Cruz MD Unavailable Keven Smith [facility] Unavailable [phone] Keven Smith [facility] Unavailable [phone] Alfred Coley MD Unavailable Reason for Visit * Reason Onset Date Comments Prior Auth - Medication 02/07/2024 Tocilizu mab (ACTEMRA ACTPEN) 162 MG/0.9ML SOAJ Encounter Details Date Type Department Care Team (Late st Contact Info) Description 02/07/2024 Telephone [facility] Specialty [address] [address] Alfred Coley MD [address] [place] [address] Prior Auth - Medication (Tocilizumab (ACTEMRA ACTPEN) 162 MG/0.9ML SOAJ) Social History Tobacco Use Types Packs/Day Years [...] encounter Miscellaneous Notes * Telephone Encounter - Floridalma Ramirez - 02/17/2024 9:15 AM CST Images from the original note were not included. Prior Authorization Approval Medication: ACTEMRA ACTPEN 162 MG/0.9ML SC SOAJ Authorization Effective Date: 02/17/2024 Authorization Expiration Date: 02/14/2025 Approved Dose/Quantity: 3.6 Reference #: Insurance Company: [employer]...Exactly Non-Specialty PA's - Expected CoPay: $ CoPay Card Available: No Financial Assistance Needed: NA Which Pharmacy is filling the prescription: [facility] - [address] LABOR DELIVERY * Telephone Encounter - Floridalma Ramirez - 02/16/2024 11:32 AM CST Images from the original note were not included. Spoke to [employer] ready to ship pa on 02/09/24- Processing info JUNIOR does not manage pa BIN [id number] ID [id number] PCN no pcn GROUP [id number] Ranch Supervisor called [facility] Provider services [phone] BS ID [id number] LABOR DELIVERY * Telephone Encounter - Floridalma Ramirez - 02/15/2024 12:27 PM CST LVM with mother to see if they are able to locate coverage and let us know the changes . Yasmine Duffy, [facility] Liaison [facility] Specialty LABOR DELIVERY * Telephone Encounter - Javier Mcfadden MA - 02/07/2024 4:05 PM CST Prior Authorization Retail Medication Request Medication/Dose: Tocilizumab (ACTEMRA ACTPEN) 162 MG/0.9ML SOAJ Diagnosis and ICD code (if different than what is on RX): M06.9 New/renewal/insurance change PA/secondary ins. PA: Previously Tried and Failed: Rationale: Insurance Primary: BC[place] Secondary (if applicable): Insurance ID: Pharmacy Information (if different than what is on RX) Name: [facility] Information Preferred routing pool for dept communication: RHEUMATOLOGY LABOR DELIVERY documented in this encounter Plan of Treatment Not on file documented as of this encounter Visit Diagnoses Not on filedocumented in this encounter Care Teams Electronic Warfare Technical Relationship Specialty Start Date End Date No Ref-Primary, Physician PCP - General 07/30/23 Edmond Felix MD [address] [place] [id number] Cardiovascular Disease 08/03/23 Kulwinder De La Cruz MD [address] [place] [address] Fellow Cardiovascular Disease 08/03/23 Keven Smith [facility] [address] [place] [address] Pharmacist 08/15/23 Keven Smith [facility] [address] [place] [address] Assigned MTM Pharmacist 09/04/23 Alfred Coley MD [address] [place] [address] Assigned Rheumatology Provider 09/04/23 documented as of this encounter
--- OUTSIDE RECORDS SUMMARY | 2024-02-21 15:58 | XMS_ITS | Encounter Summary ---
Author Organization [facility] Address [address] [place] [address] Care Team Providers Care Soldering Machine Operator Helper Name Role Phone No Ref-Primary, Physician Primary Care Provider Edmond Felix MD Unavailable [phone] Kulwinder De La Cruz MD Unavailable Keven Smith [facility] Unavailable [phone] Keven Smith [facility] Unavailable [phone] Alfred Coley MD Unavailable Encounter Details Date Type Department Care Team (Late st Contact Info) Description 02/03/2024 Telephone [facility] [address] [address] Alfred Coley MD [address] [place] [address] Social History Tobacco Use Types Packs/Day Years [...] on filedocumented in this encounter Care Teams Soldering Machine Operator Helper Relationship Specialty Start Date End Date No Ref-Primary, Physician PCP - General 07/30/23 Edmond Felix MD [address] [place] [id number] Cardiovascular Disease 08/03/23 Kulwinder De La Cruz MD [address] [place] [id number] Fellow Cardiovascular Disease 08/03/23 Keven Smith [facility] [address] [place] [address] Pharmacist 08/15/23 Keven Smith [facility] [address] [place] [address] Assigned MTM Pharmacist 09/04/23 Alfred Coley MD [address] [place] [address] [id number] Assigned Rheumatology Provider 09/04/23 documented as of this encounter
--- OUTSIDE RECORDS SUMMARY | 2024-02-21 15:58 | XMS_ITS | Encounter Summary ---
Author Organization [facility] Address [address] [place] [address] Care Team Providers Care Clinical Documentation Manager Name Role Phone No Ref-Primary, Physician Primary Care Provider Edmond Felix MD Unavailable [phone] Kulwinder De La Cruz MD Unavailable Keven Smith [facility] Unavailable [phone] Keven Smith [facility] Unavailable [phone] Alfred Coley MD Unavailable Reason for Visit * Reason Onset Date Comments Orders 02/14/2024 Encounter Details Date Type Department Care Team (Late st Contact Info) Description 02/14/2024 Telephone [facility] Rheumatology Clinic [address] [address] Alfred Coley MD [address] [place] [address] Orders Social History Tobacco Use Types Packs/Day Years [...] encounter Miscellaneous Notes * Telephone Encounter - Ashly Hernandez RN - 02/15/2024 2:42 PM RECRUITING ASSISTANT Chest x-ray faxed to [phone] per pt's mother's request. Confirmed successful via rightfax. Left voicemail for pt's mother notifying her orders have been faxed and confirmed it went through on our end. Ashly Ash RN Adult Rheumatology Clinic UITING ASSISTANT * Telephone Encounter - Rosita Haji - 02/14/2024 4:27 PM CST Health Call Center Phone Message May a detailed message be left on voicemail: no Reason for Call: Other: Patients mother called to get the chest xray referral sent over to the primary clinic patient goes to so he can get it done fax number [phone] Action Taken: Message routed to: Other: rheum Travel Screening: Not Applicable Date of Service: 02/14/24 UITING ASSISTANT documented in this encounter Plan of Treatment Not on file documented as of this encounter Visit Diagnoses Not on filedocumented in this encounter Care Teams Clinical Documentation Manager Relationship Specialty Start Date End Date No Ref-Primary, Physician PCP - General 07/30/23 Edmond Felix MD [address] [place] [address] Cardiovascular Disease 08/03/23 Kulwinder De La Cruz MD [address] [place] [address] Fellow Cardiovascular Disease 08/03/23 Keven Smith [facility] [address] [facility] Pharmacist 08/15/23 Keven Smith [facility] [address] [facility] Assigned MTM Pharmacist 09/04/23 Alfred Coley MD [address] [place] [address] Assigned Rheumatology Provider 09/04/23 documented as of this encounter
--- OUTSIDE RECORDS SUMMARY | 2024-02-21 15:58 | XMS_ITS | Clinical Summary ---
Author Organization [facility] Address [address] [facility] [place] [address] Care Team Providers Care Fish Cleaner Name Role Phone No Ref-Primary, Physician Primary Care Provider Edmond Felix MD Unavailable [phone] Kulwinder De La Cruz MD Unavailable Keven Smith [facility] Unavailable [phone] Keven Smith [facility] Unavailable [phone] Alfred Coley MD Unavailable Allergies No known active allergies Medications aspirin-acetam [...] Type Department Care Team Description 02/14/2024 Telephone [facility] Rheumatology Clinic [address] [phone] Alfred Coley MD Orders 02/07/2024 Telephone [facility] Specialty [address] [phone] Alfred Coley MD Prior Auth - Medication (Tocilizumab (ACTEMRA ACTPEN) 162 MG/0.9ML SOAJ) 02/03/2024 Telephone [facility] Rheumatology [address] [phone] Alfred Coley MD 02/02/2024 3:30 PM BLAST FURNACE BLOWER Office Visit [address] [phone] Alfred Coley MD Rheumatoid arthritis involving multiple joints (H) (Primary Dx) 02/02/2024 Travel 02/01/2024 Telephone [facility] Rheumatology [address] [phone] Alfred Coley MD Prior Auth - Medication (actemra) from Last 3 Months Social History Tobacco [...] Comments Blood Pressure 136/90 02/02/2024 3:46 PM BLAST FURNACE BLOWER Pulse 99 02/02/2024 3:46 PM BLAST FURNACE BLOWER Temperature 36.5 C (97.7 F) 07/31/2023 12:16 PM CDT Respiratory Rate 12 08/09/2023 3:32 PM CDT Oxygen Saturation 100% 08/09/2023 3:32 PM CDT Inhaled Oxygen Concentration - - Weight 64 kg (141 lb) 02/02/2024 3:40 PM BLAST FURNACE BLOWER wit h shoes Height 172.7 cm (5' 8) 07/29/2023 4:41 PM CDT Body Mass Index 21.44 07/29/2023 4:41 PM CDT Plan of Treatment Health Maintenance Due Date Last Done Comments ADVANCE CARE PLANNING 1980 ANNUAL REVIEW OF HM ORDERS 1980 COVID-19 Vaccine (#1) 01/22/1985 Pneumococcal Vaccine: Pediatrics (0 to 5 Years) and At-Risk Patients (6 to 64 Years) (1 of 2 - PCV) 01/22/1986 HEPATITIS B IMMUNIZATION (1 of 3 - 19+ 3-dose series) 01/22/1999 LIPID 2020 INFLUENZA VACCINE (#1) 2023 NICOTINE/TOBACCO CESSATION COUNSELING Q 1 YR 10/04/2024 10/05/2023, 08/15/2023 YEARLY PREVENTIVE VISIT 01/30/2025 01/31/20 24, 02/08/2022, 01/16/2021 GLUCOSE 07/30/2026 07/31/2023, 07/30/2023 DTAP/TDAP/TD IMMUNIZATION (2 [...] Maintenance Results * HIV Antigen Antibody Combo [place] (07/31/2023 1:13 PM CDT) Pathologist [facility] HIV Antigen Antibody Combo Nonreactive Nonreactive 07/31/2023 [...] PM CDT 07/31/2023 1:21 PM CDT Alfred oCley MD LAB - BLOOD ORDERABLES Final Res ult [facility] [place] [facility] [address] [facility], Room [address] [place], [place] [address] * Hepatitis C Screen Reflex to HCV RNA Quant and Genotype (07/31/2023 1:13 PM CDT) Pathologist [facility] Hepatitis C Antibody Nonreactive Nonreactive 07/31/2023 3:59 [...] BLOOD ORDERABLES Final Res ult [facility] [place] [facility] [address] [facility], Room [address] [place] [address] * (ABNORMAL) Basic metabolic panel (07/31/2023 [...] CDT Lyle Galaviz DO LAB - BLOOD ORDERABLES Final Res ult [facility] [address] [facility], [address] [place] [address], [facility] from Last 3 Months or Most Recently Relevant to Health Maintenance [place] * Guarantor: Jai Shoemaker Account Type Relation to Patient Date of Phone Billing Address Medication Therapy Self 1980 [address] [place] [address] [place] [address] Advance Directives For more information, please contact: [phone] * Full Code (Latest Code Status on File) Date Activated Date Inactivated Comments 07/29/2023 6:44 PM 07/31/2023 6:22 PM All basic an d advanced life-sustaining interventions are performed as appropriate Question Answer Comments Code status determined by: Discussion with patie nt/ legal decision maker Care Teams Fish Cleaner Relationship Specialty Start Date End Date No Ref-Primary, Physician PCP - General 07/30/23 Edmond Felix MD [address] [place], [place] [address] Cardiovascular Disease 08/03/23 Kulwinder De La Cruz MD [address] [place], [place] [address] Fellow Cardiovascular Disease 08/03/23 Keven Smith RPH [address] [place] [address] Pharmacist 08/15/23 Keven Smith RPH [address] [place] [address] Assigned MTM Pharmacist 09/04/23 Alfred Coley MD [address] [place] [address] Assigned Rheumatology Provider 09/04/23
--- OUTSIDE RECORDS SUMMARY | 2024-02-21 15:58 | XMS_ITS | Encounter Summary ---
Author Organization [facility] Address [address] [place] [address]. [place] [address] Care Team Providers Care Utilization Engineer Name Role Phone No Ref-Primary, Physician Primary Care Provider Edmond Felix MD Unavailable [phone] Kulwinder De La Cruz MD Unavailable Keven Smith [facility] Unavailable [phone] Keven Smith [facility] Unavailable [phone] Alfred Coley MD Unavailable Encounter Details Date Type Department Care Team (Latest Contact Info) Description 02/02/2024 Travel Social History Tobacco Use Types Packs/Day [...] on filedocumented in this encounter Care Teams Utilization Engineer Relationship Specialty Start Date End Date No Ref-Primary, Physician PCP - General 07/30/23 Edmond Felix MD [address] [facility] [address] [place] [address] Cardiovascular Disease 08/03/23 Kulwinder De La Cruz MD [address] [place], [place] [address] Fellow Cardiovascular Disease 08/03/23 Keven Smith [facility] [address] [place] [address] Pharmacist 08/15/23 Keven Smith [facility] [address] [facility] Assigned MTM Pharmacist 09/04/23 Alfred Coley MD [address] [place] [address] Assigned Rheumatology Provider 09/04/23 documented as of this encounter
--- OUTSIDE RECORDS SUMMARY | 2024-02-21 15:59 | XMS_ITS | Encounter Summary ---
Author Organization [facility] Address [address] [place] [address] Care Team Providers Care Viscosity Worker Name Role Phone No Ref-Primary, Physician Primary Care Provider Edmond Felix MD Unavailable [phone] Kulwinder De La Cruz MD Unavailable Keven Smith [facility] Unavailable [phone] Keven Smith [facility] Unavailable [phone] Alfred Coley MD Unavailable Reason for Visit * Reason Onset Date Comments Call Back 10/14/2023 [place] Patient Encounter Details Date Type Department Care Team (Late st Contact Info) Description 10/14/2023 [facility] Rheumatology Clinic [address] [phone] Alfred Coley MD [address] [place] [address] Call Back ([place] Patient) Social History Tobacco Use Types Packs/Day [...] Notes * Telephone Encounter - Joann Patterson 10/14/2023 2:43 PM CDT Health Call Center Phone Message May a detailed message be left on voicemail: yes Reason for Call: Other: [place] Patient Dr. Escobedo is requesting a call [...] on filedocumented in this encounter Care Teams Viscosity Worker Relationship Specialty Start Date End Date No Ref-Primary, Physician PCP - General 07/30/23 Edmond Felix MD [address] [place] [id number] Cardiovascular Disease 08/03/23 Kulwinder De La Cruz MD [address] [place] [id number] Fellow Cardiovascular Disease 08/03/23 Keven Smith [facility] [address] [place] [address] Pharmacist 08/15/23 Keven Smith [facility] [address] [place] [address] Assigned MTM Pharmacist 09/04/23 Alfred Coley MD [address] [place] [id number] Assigned Rheumatology Provider 09/04/23 documented as of this encounter
--- OUTSIDE RECORDS SUMMARY | 2024-02-21 15:59 | XMS_ITS | Encounter Summary ---
Author Organization [place] Address [address] [place] [address] Care Team Providers Care Stripper Soft Plastic Name Role Phone No Ref-Primary, Physician Primary Care Provider Edmond Felix MD Unavailable [phone] Kulwinder De La Cruz MD Unavailable Keven Smith [facility] Unavailable [phone] Keven Smith [facility] Unavailable [phone] Alfred Coley MD Unavailable Reason for Visit * Reason Onset Date Comments Call Back 10/03/2023 Encounter Details Date Type Department Care Team (Late st Contact Info) Description 10/03/2023 Telephone [facility] Rheumatology Clinic [address] [address] Alfred Coley MD [address] [place] [address] Call Back Social History Tobacco [...] Lilly Melton - 10/03/2023 12:19 PM CDT [facility] Call Center Phone Message May a detailed message be left on voicemail: yes Reason for Call: Medication Question or concern regarding medication Prescription Clarification Name of Medication: tocilizumab (ACTEMRA) 162 MG/0.9ML subcutaneous injection Prescribing Provider: Alfred Coley Pharmacy: [address] What on the order needs clarification? [...] on filedocumented in this encounter Care Teams Stripper Soft Plastic Relationship Specialty Start Date End Date No Ref-Primary, Physician PCP - General 07/30/23 Edmond Felix MD [address] [place] [id number] Cardiovascular Disease 08/03/23 Kulwinder De La Cruz MD [address] [place] [address] Fellow Cardiovascular Disease 08/03/23 Keven Smith [facility] [address] [place] [address] Pharmacist 08/15/23 Keven Smith RPH [address] [place] [address] Assigned MTM Pharmacist 09/04/23 Alfred Coley MD [address] [place] [id number] Assigned Rheumatology Provider 09/04/23 documented as of this encounter
--- OUTSIDE RECORDS SUMMARY | 2024-02-21 15:59 | XMS_ITS | Encounter Summary ---
Author Organization [place] Address [address] [place] [address] Care Team Providers Care General Studies Program Chair Name Role Phone No Ref-Primary, Physician Primary Care Provider Edmond Felix MD Unavailable [phone] Kulwinder De La Cruz MD Unavailable Keven Smith [facility] Unavailable [phone] Keven Smith [facility] Unavailable [phone] Alfred Coley MD Unavailable Reason for Visit * Reason Onset Date Comments Prior Auth - Medication 02/01/2024 actemra Encounter Details Date Type Department Care Team (Late st Contact Info) Description 02/01/2024 [facility] Rheumatology Clinic [address] [address] Alfred Coley MD [address] [place] [address] Prior Auth - Medication (actemra) Social History Tobacco Use Types Packs/Day Years [...] Telephone Encounter - Floridalma Ramirez - 02/15/2024 3:58 PM CST Patients mother states BCBS is active. Nutrition Teacher will call [facility] and see what is going on Yasmine Duffy, [facility] [email or web address] * Telephone Encounter - Floridalma Ramirez - 02/14/2024 7:19 AM CST Images from the original note were not included. According to plan coverage has Yasmine Duffy, [facility] [email or web address] * Telephone Encounter - Floridalma Ramirez - 02/10/2024 10:08 AM CST Images from the original note were not included. PA Initiation Medication: ACTEMRA ACTPEN 162 MG/0.9ML [place] SOAJ Insurance Company: Pharmacy Filling the Rx: Filling Pharmacy Phone: Filling Pharmacy Fax: Start Date: 02/10/2024 Yasmine Duffy, [facility] [email or web address] * Telephone Encounter - Floridalma Ramirez - 02/06/2024 9:01 AM CST Looks like patient has not active insurance. Called and LVM to obtain Yasmine Duffy [facility] [email or web address] * Telephone Encounter - Gunjan Lafleur RN - 02/02/2024 10:24 AM WET TRIMMER Prior Authorization Specialty Medication Request Medication/Dose: actemra Diagnosis and ICD code (if different than what is on RX): RA and pericarditis New/renewal/insurance change PA/secondary ins. PA: renewal Previously Tried and Failed: sol momin enbrel, taltz Insurance Primary: RX benefits Pharmacy Information (if different than what is on RX) Name: Jesica Lafleur RN TRIMMER * Telephone Encounter - Idalia Henry - 02/01/2024 2:02 PM CST [facility] Call Center Phone Message May a detailed message be left on voicemail: yes Reason for Call: Medication Refill Request Has the patient contacted the pharmacy for the refill? Yes Name of medication being requested: Prior Authorization is required- A request was sent to Dr. Wolf 01/25/2024 per caller For Tocilizumab (ACTEMRA ACTPEN) 162 MG/0.9ML SOAJ Cover my meds [id number] ( to complete prior auth) Provider who prescribed the medication: Dr. Coley Pharmacy: [facility] - [address] Date medication is needed: YISSEL Action Taken: Other: Rheum Travel Screening: Not Applicable Date of Service: TRIMMER documented in this encounter Plan of Treatment Not on file documented as of this encounter Visit Diagnoses Not on filedocumented in this encounter Care Teams General Studies Program Chair Relationship Specialty Start Date End Date No Ref-Primary, Physician PCP - General 07/30/23 Edmond Felix MD [address] [place] [address] Cardiovascular Disease 08/03/23 Kulwinder De La Cruz MD [address] [place] [address] Fellow Cardiovascular Disease 08/03/23 Keven Smith [facility] [address] [place] [address] Pharmacist 08/15/23 Keven Smith RPH [address] [place] [address] Assigned MTM Pharmacist 09/04/23 Alfred Coley MD [address] [place] [id number] Assigned Rheumatology Provider 09/04/23 documented as of this encounter
--- OUTSIDE RECORDS SUMMARY | 2024-02-21 15:59 | XMS_ITS | Clinical Summary ---
Author Organization [facility] [place] [address] Care Team Providers Care Statistician Applied Name Role Phone Jasson Barillas Primary Care Provider [phone] Allergies No known active allergies Medications terbinafine 1% cream (LAMISIL) 1 % creamIndications :Tinea cruris Apply topically to affected area(s) 2 times daily. 1 Tube 1 07/27/19 Active aspirin-acetamin ophen-caffeine (Excedrin Migraine) 250-250-65 mg Take 2 Tablets by mouth 3 times daily if needed for Headache. Max acetaminophen dose: 4000mg in 24 hrs. Active iron,carbonyl-vi tamin C (Vitron-C) 65 mg iron- 125 mg Delayed-Release tablet Take 1 Tablet by mouth once daily with a meal. Active tocilizumab (Actemra) 162 mg/0.9 mL subcutaneous syringe Inject 162 mg subcutaneous once weekly. Active Active Problems Problem Noted Date Diagnosed [...] Encounters Date Type Department Care Team Description 12/13/2023 Telephone [facility] [address] [place] [address] Cardiology, Anw Cardiology Appointment (POST HOSPITAL FOLLOW UP) from Last 3 Months Immunizations Name Administration [...] e alcohol) Social Connections Answer Date Recorded Do you often feel lonely or isolated from those around you? 0 10/15/2023 Financial Resource Strain Answer Date R ecorded Difficulty of Paying Living Expenses 3 10/15/2023 Difficulty of Paying Living Expenses Not on file 10/15/2023 Food Insecurity Answer Date Recorded Do you worry your food will run out before you are able to buy more? 1 10/15/2023 Transportation Needs Answer Date Record ed Does lack of transportation keep you from medica l appointments? 1 10/15/2023 Does lack of transportation keep you from work, meetings or getting things that you need? 1 10/15/2023 Housing Stability Answer Date Recorded What is your housing situation today? 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 Not on file Not on file Obstetrics History Last Filed Vital Signs Vital Sign Reading Time Taken Comments Blood Pressure 135/94 10/16/2023 12:28 PM CDT Pulse 119 10/16/2023 12:28 PM CDT Temperature 36.9 C (98.5 F) 10/16/2023 12:28 PM CDT Respiratory Rate 16 10/16/2023 12:28 PM CDT [...] Tetanus booster 01/14/2027 01/14/2017 Tdap Completed 01/14/2017 Insurance [facility] Advance Directives * Full Code (Latest Code [...] Code Status Discussion: Reviewed Preferences Care Teams Statistician Applied Relationship Specialty Start Date End Date Jasson Barillas [address] [place] [address] PCP - General Family Practice 07/27/23
--- NOTE | 2024-02-21 16:00 | CRLHL7_ITS ---
For Patients: As a result of the Century Cures Act, medical imaging exams and procedure reports are released immediately into your electronic medical record. You may view this report before your referring provider. If you have questions, please contact your health care provider. INDICATION: Follow-up effusion TECHNIQUE: Chest 1 view COMPARISON: 12/05/2023 FINDINGS: Small right pleural effusion again noted, slightly increased. Mediastinal contours are similar. No left-sided effusion. No pulmonary edema or pneumothorax. IMPRESSION: Slightly increased small right pleural effusion. Dictated by Beny Palacio MD @ 02/22/2024 9:06:58 AM (Electronically Signed)
== END 2024-02-21 15:56 | disposition home or self-care (01) ==
LOC: RAD 15:56
PROVIDERS: PCP Internal Medicine; Visit Provider Internal Medicine
DX: M06.9 Rheumatoid arthritis, unspecified (principal); J90 Pleural effusion, not elsewhere classified
CPT/HCPCS: 71045

== ENCOUNTER 2024-05-19 10:53 | Emergency (ER) | payer SELFPAY ==
--- OUTSIDE RECORDS SUMMARY | 2024-05-19 10:55 | XMS_ITS | Encounter Summary ---
Author Organization [place] Address [address] [place] [address] Care Team Providers Care Ring Striker Name Role Phone No Ref-Primary, Physician Primary Care Provider Edmond Felix MD Unavailable [phone] Kulwinder De La Cruz MD Unavailable Keven Smith [facility] Unavailable [phone] Keven Smith [facility] Unavailable [phone] Alfred Coley MD Unavailable Reason for Visit * Reason Onset Date Comments Call Back 10/03/2023 Encounter Details Date Type Department Care Team (Late st Contact Info) Description 10/03/2023 Telephone [facility] Rheumatology Clinic [address] [address] Alfred Coley MD [address] [place] [address] Call Back Social History Tobacco [...] Lilly Melton - 10/03/2023 12:19 PM CDT [facility] Call Center Phone Message May a detailed message be left on voicemail: yes Reason for Call: Medication Question or concern regarding medication Prescription Clarification Name of Medication: tocilizumab (ACTEMRA) 162 MG/0.9ML subcutaneous injection Prescribing Provider: Alfred Coley Pharmacy: [address] What on the order needs clarification? [...] Care Team (Late st Contact Info) Description 08/15/2024 3:00 PM CDT Office Visit [facility] Specialty Clinic [address] [place], [place] [id number] Leslie Guajardo MD [address] [facility] [address] [place] [address] documented as of this encounter Visit Diagnoses Not on filedocumented in this encounter Care Teams Ring Striker Relationship Specialty Start Date End Date No Ref-Primary, Physician PCP - General 07/30/23 Edmond Felix MD [address] [place] [address] Cardiovascular Disease 08/03/23 Kulwinder De La Cruz MD [address] [place] [id number] Fellow Cardiovascular Disease 08/03/23 Keven Smith [facility] [address] [place] [address] Pharmacist 08/15/23 Keven Smith [facility] [address] [place] [address] Assigned MTM Pharmacist 09/04/23 Alfred Coley MD [address] [place] [id number] Assigned Rheumatology Provider 09/04/23 documented as of this encounter
--- OUTSIDE RECORDS SUMMARY | 2024-05-19 10:55 | XMS_ITS | Clinical Summary ---
Author Organization [place] Address [address] [place] [address] Care Team Providers Care Construction Area Manager Name Role Phone No Ref-Primary, Physician Primary Care Provider Edmond Felix MD Unavailable [phone] Kulwinder De La Cruz MD Unavailable Keven Smith [facility] Unavailable [phone] Keven Smith [facility] Unavailable [phone] Alfred Coley MD Unavailable Allergies No known active allergies Medications aspirin-acetam inophen-caffei ne (EXCEDRIN MIGRAINE) 250-250-65 MG tablet Take 2 tablets by mouth 3 times daily as needed for headaches Active Tocilizumab (ACTEMRA ACTPEN) 162 MG/0.9ML SOAJIndication s:Rheumatoid arthritis involving multiple joints (H) Inject 162 mg subcutaneously every 7 days 3.6 mL 12 4 Active ibuprofen (ADVIL/MOTRIN) 800 MG tablet Take 800 mg by mouth every 8 hours as needed for moderate pain. 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 Pericardial effusion 07/29/2023 Encounters Date Type Department Care Team Description 05/04/2024 Telephone [facility] Rheumatology [facility] [address] [facility] 3rd [place] [address] Cely Mckeon Outreach (Pt outreach attempt #2) 05/03/2024 Telephone [facility] Rheumatology [address] [facility] [address] [place] [address] Kyung Borja RN 04/18/2024 Refill [facility] Rheumatology Clinic [place] [address] [place] [address] Alfred Coley MD New Med Request 03/30/2024 Telephone [facility] Rheumatology [facility] [address] [place] [address] Cely Mckeon from Last 3 Months Social History Tobacco [...] Comments Blood Pressure 136/90 02/02/2024 3:46 PM [employer] Pulse 99 02/02/2024 3:46 PM [employer] Temperature 36.5 C (97.7 F) 07/31/2023 12:16 PM CDT Respiratory Rate 12 08/09/2023 3:32 PM CDT Oxygen Saturation 100% 08/09/2023 3:32 PM CDT Inhaled Oxygen Concentration - - Weight 64 kg (141 lb) 02/02/2024 3:40 PM [employer] wit h shoes Height 172.7 cm (5' 8) 07/29/2023 4:41 PM CDT Body Mass Index 21.44 07/29/2023 4:41 PM CDT Plan of Treatment Upcoming Encounters Date Type Department Care Team (Late st Contact Info) Description 08/15/2024 3:00 PM CDT Office Visit [facility] Specialty Clinic [place] [address] [facility] [address] [place] [phone] Leslie Guajardo MD [address] [place] [address] [place] [address] Health Maintenance Due Date Last Done Comments ADVANCE CARE PLANNING 1980 ANNUAL REVIEW OF HM ORDERS 1980 COVID-19 Vaccine (#1) 01/22/1985 HEPATITIS B IMMUNIZATION (1 of 3 - 19+ 3-dose series) 01/22/1999 Pneumococcal Vaccine: Pediatrics (0 to 5 Years) and At-Risk Patients (6 to 49 Years) (1 of 2 - PCV) 01/22/1999 LIPID 2020 INFLUENZA VACCINE (#1) 2023 PHQ-2 (once per calendar year) 2024 08/09/2023 NICOTINE/TOBACCO CESSATION COUNSELING Q 1 YR 10/04/2024 10/05/2023, 08/15/2023 YEARLY PREVENTIVE VISIT 01/30/2025 01/31/20 24, 02/08/2022, 01/16/2021 GLUCOSE 07/30/2026 07/31/2023, 07/30/2023 DTAP/TDAP/TD IMMUNIZATION (2 - Td or Tdap) 01/14/2027 01/14/2017 HEPATITIS C SCREENING Completed 07/31/2023 , 03/18/2017 HIV SCREENING Completed 07/31/2023, 06/09/2016 ZOSTER IMMUNIZATION Completed 02/21/2024, 09/26/2023 HPV IMMUNIZATION Aged Out No longer e [...] Maintenance Results * HIV Antigen Antibody Combo Dola (07/31/2023 1:13 PM CDT) HIV Antigen Antibody [...] LAB - BLOOD ORDERABLES Final Res ult Performing Organization Address [facility] de Phone Number LABORATORY [facility] Core Lab [address] [place] [address], [address] * Hepatitis C Screen Reflex to HCV RNA Quant and Genotype (07/31/2023 1:13 PM CDT) Pathologist [facility] Hepatitis C Antibody Nonreactive Nonreactive 07/31/2023 [...] LAB - BLOOD ORDERABLES Final Res ult Performing Organization Address [facility] Co de Phone Number LABORATORY [facility] [facility] [address] [facility], [address] [address], [facility] * (ABNORMAL) Basic metabolic panel (07/31/2023 8:25 [...] BLOOD ORDERABLES Final Res ult UR LABORATORY [facility] Acute Care Lab [address] [place] [address], [facility] from Last 3 Months or Most Recently Relevant to Health Maintenance [place] * Guarantor: Jai Shoemaker Account Type Relation to Patient Date of Phone Billing Address Medication Therapy Self [address] [place] [id number] [place] Advance Directives For more information, please contact: [phone] * Full Code (Latest Code Status on File) Date Activated Date Inactivated Comments 07/29/2023 6:44 PM 07/31/2023 6:22 PM All basic an d advanced life-sustaining interventions are performed as appropriate Question Answer Comments Code status determined by: Discussion with patie nt/ legal decision maker Care Teams Construction Area Manager Relationship Specialty Start Date End Date No Ref-Primary, Physician PCP - General 07/30/23 Edmond Felix MD [address] [place] [address] Cardiovascular Disease 08/03/23 Kulwinder De La Cruz MD [address] [place] [address] Fellow Cardiovascular Disease 08/03/23 Keven Smith [facility] [address] [place] [address] Pharmacist 08/15/23 Keven Smith [facility] [address] [place] [address] Assigned MTM Pharmacist 09/04/23 Alfred Coley MD [address] [place] [id number] Assigned Rheumatology Provider 09/04/23
--- OUTSIDE RECORDS SUMMARY | 2024-05-19 10:56 | XMS_ITS | Clinical Summary ---
Author Organization [facility] er Address [address] [place] [address] Care Team Providers Care Motorcycle Service Technician Name Role Phone None, Pcp Primary Care Provider Unavailabl e Allergies No known active allergies Medications predniSONE (DELTASONE) 5 MG tabletIndication s:Rheumatoid arthritis involving multiple sites, unspecified whether rheumatoid factor present (HCC) Take one a day or as directed 30 tablet 3 Active Tocilizumab (Actemra) 162 MG/0.9ML solution prefilled syringe Inject 162 mg under the skin every 7 (seven) days Active aspirin-acetamin ophen-caffeine (Excedrin Migraine) 250-250-65 MG per tablet Take 2 tablets by mouth every 6 (six) hours if needed Active Active Problems Problem Noted Date Diagnosed Date Encounter for screening for lipid disorder 01/30 Screening for diabetes mellitus 01/31/2024 Marijuana use 01/31/2024 Well adult exam 02/06/2019 Assessment & Plan (01/31/2024 12:37 PM STRAWHAT INSPECTOR AND PACKER): Declines Covid, Pneumococcal and Influenza vaccines today Psoriasis 03/28/2017 Assessment & Plan (01/31/2024 12:37 PM STRAWHAT INSPECTOR AND PACKER): See's Oyster Floater for this Rheumatoid arthritis 11/11/2015 Assessment & Plan (01/31/2024 12:38 PM STRAWHAT INSPECTOR AND PACKER): See's Oyster Floater for this Resolved Problems Problem Noted Date Diagnosed Date Resolved Date Nicotine abuse 01/31/2024 01/31/2024 Encounters Date Type Department Care Team Description 05/02/2024 8:45 AM STRAWHAT INSPECTOR AND PACKER Lab [facility] [address] [place] [address] Rheumatoid arthritis involving multiple sites, unspecified whether rheumatoid factor present (HCC) from Last 3 Months Immunizations Name Administration [...] at Not on file Legal Sex Male 8:01 PM CDT Gender Identity Not on file Sexual Orientation Not on file Occupation Industry Job Start Date Job End Date [employer] Life Not on file Not on file Not on file Last Filed Vital Signs Vital Sign Reading Time Taken Comments Blood Pressure 130/88 01/31/2024 10:28 AM STRAWHAT INSPECTOR AND PACKER Pulse 90 01/31/2024 10:28 AM STRAWHAT INSPECTOR AND PACKER Temperature 36.8 C (98.2 F) 01/31/2024 10:28 AM STRAWHAT INSPECTOR AND PACKER Respiratory Rate 18 01/31/2024 10:28 AM STRAWHAT INSPECTOR AND PACKER Oxygen Saturation 96% 01/31/2024 10:28 AM STRAWHAT INSPECTOR AND PACKER Inhaled Oxygen Concentration - - Weight 66.7 kg (147 lb) 01/31/2024 10:28 AM STRAWHAT INSPECTOR AND PACKER Height 173.2 cm (5' 8.19) 01/31/2024 10:[address] Body Mass Index 22.23 01/31/2024 10:28 AM STRAWHAT INSPECTOR AND PACKER Plan of Treatment Health Maintenance Due Date Last Done Comments COVID-19 Vaccine (#1) 01/22/1985 Pneumococcal Vaccine: Pediat rics (0 to 5 Years) and At-Risk Patients (6 to 49 Years) (1 of 2 - PCV) 01/22/1999 Influenza Vaccine (#1) 2023 DTaP,Tdap,and Td Vaccines (2 - Td or Tdap) 01/14/2027 01/14/2017 HPV Vaccines Aged Out No longer eligi ble based on patient's age to complete this topic Procedures Procedure Name Priority Date/Time Associated Diagnosis Comments ESTIMATED GLOMERULAR FILTRATION RATE (EGFR) Routine 05/02/2024 8:45 AM STRAWHAT INSPECTOR AND PACKER Rheumatoid arthritis involving multiple sites, unspecified whether rheumatoid factor present (HCC) C-REACTIVE PROTEIN Routine 05/02/2024 8: 45 AM STRAWHAT INSPECTOR AND PACKER Rheumatoid arthritis involving multiple sites, unspecified whether rheumatoid factor present (HCC) SEDIMENTATION RATE, AUTOMATED Routine 05/02/2024 8:45 AM STRAWHAT INSPECTOR AND PACKER Rheumatoid arthritis involving multiple sites, unspecified whether rheumatoid factor present (HCC) COMPREHENSIVE METABOLIC PANEL Routine 05/02/2024 8:45 AM STRAWHAT INSPECTOR AND PACKER Rheumatoid arthritis involving multiple sites, unspecified whether rheumatoid factor present (HCC) CBC BRANCH OFFICE W/DIFF Routine 05/02/2024 8:45 AM STRAWHAT INSPECTOR AND PACKER Rheumatoid arthritis involving multiple sites, unspecified whether rheumatoid factor present (HCC) from Last 3 Months Results * Estimated Glomerular Filtration Rate (eGFR) (05/02/2024 8:45 AM STRAWHAT INSPECTOR AND PACKER) Pathologist [facility] Estimated Glomerular Filtration Rate (eGFR) >60 05/02/2024 2:03 PM STRAWHAT INSPECTOR AND PACKER [facility] Comment: GFR calculated from serum creatinine value Chronic Kidney Disease less than 60 mL/min/1.73 m2 Kidney Failure less than 15 mL/min/1.73 m2 Note: effective 03/10/2022: 2020 CKD-EPI Equation used 05/02/2024 8:45 AM STRAWHAT INSPECTOR AND PACKER 05/02/2024 8:45 AM STRAWHAT INSPECTOR AND PACKER us Outside Referring Lab Provider LAB BLOOD ORDERAB LES Final Result [facility] [address] [place] [address] * (ABNORMAL) CBC Branch Off w/Diff (05/02/2024 8:45 AM STRAWHAT INSPECTOR AND PACKER) Pathologist [facility] WBC 10.6(H) 3.5 - 10.5 K/uL 05/02/2024 9:59 AM STRAWHAT INSPECTOR AND PACKER [facility] RBC 5.21 4.30 - 5.70 M/uL 05/02/2024 9:59 AM STRAWHAT INSPECTOR AND PACKER [facility] Hemoglobin 12.4(L) 13.5 - 17.5 g/dL 05/02/2024 9:59 AM STRAWHAT INSPECTOR AND PACKER [facility] Hematocrit 41.6 38.0 - 50.0 % 05/02/2024 9:59 AM STRAWHAT INSPECTOR AND PACKER [facility] Platelets 444 150 - 450 K/uL 05/02/2024 9:59 AM STRAWHAT INSPECTOR AND PACKER [facility] MCV 79.8(L) 81.2 - 95.1 fL 05/02/2024 9:59 AM STRAWHAT INSPECTOR AND PACKER [facility] MCH 23.8(L) 26.0 - 32.0 pg 05/02/2024 9:59 AM STRAWHAT INSPECTOR AND PACKER [facility] MCHC 29.8(L) 32.0 - 36.0 g/dL 05/02/2024 9:59 AM STRAWHAT INSPECTOR AND PACKER [facility] RDW 15.2 11.8 - 15.6 % 05/02/2024 9:59 AM STRAWHAT INSPECTOR AND PACKER [facility] Lymphocytes % 17.7 % 05/02/2024 9:59 AM STRAWHAT INSPECTOR AND PACKER [facility] Mid-size Cells 9.7 % 05/02/2024 9:59 AM STRAWHAT INSPECTOR AND PACKER [facility] Granulocytes/Allen trophils 72.6 % 05/02/2024 9:59 AM STRAWHAT INSPECTOR AND PACKER [facility] Lymphocytes Absolute 1.9 0.9 - 2.9 K/uL 05/02/2024 9:59 AM STRAWHAT INSPECTOR AND PACKER [facility] MIDS Absolute 1.0 0.4 - 1.5 K/uL 05/02/2024 9:59 AM STRAWHAT INSPECTOR AND PACKER [facility] Granulocytes/Allen trophils Absolute 7.7(H) 1.7 - 7.0 K/uL 05/02/2024 9:59 AM STRAWHAT INSPECTOR AND PACKER [facility] Blood (Blood, Venous) 05/02/2024 8:45 AM STRAWHAT INSPECTOR AND PACKER 05/02/2024 8:45 AM STRAWHAT INSPECTOR AND PACKER us Outside Referring Lab Provider LAB BLOOD ORDERAB LES Final Result [facility] KYLE CHANEL [address] [place] [address] * ESR-Sed rate (05/02/2024 8:45 AM STRAWHAT INSPECTOR AND PACKER) Sed Rate 2 0 - 22 mm/hr 05/02/2024 2:03 PM STRAWHAT INSPECTOR AND PACKER [facility] Blood (Blood, Venous) 05/02/2024 8:45 AM STRAWHAT INSPECTOR AND PACKER 05/02/2024 12:59 PM STRAWHAT INSPECTOR AND PACKER us Outside Referring Lab Provider LAB BLOOD ORDERAB LES Final Result [facility] [address] [place] [address] * C-reactive protein (05/02/2024 8:45 AM STRAWHAT INSPECTOR AND PACKER) CRP <0.3 0.0 - 4.9 mg/L 05/02/2024 2:11 PM [facility] Blood (Blood, Venous) 05/02/2024 8:45 AM STRAWHAT INSPECTOR AND PACKER 05/02/2024 12:55 PM STRAWHAT INSPECTOR AND PACKER us Outside Referring Lab Provider LAB BLOOD ORDERAB LES Final Result [facility] [address] [place] [address] * (ABNORMAL) Comprehensive metabolic panel (05/02/2024 8:45 AM [facility]) Total Protein 6.2(L) 6.3 - 8.2 g/dL 05/02/2024 2:03 PM [facility] Albumin, Serum 3.9 3.5 - 5.0 g/dL 05/02/2024 2:03 PM [facility] Total Bilirubin <0.7 0.1 - 1.0 mg/dL 05/02/2024 2:03 PM [facility] AST 23 8 - 48 U/L 05/02/2024 2:03 PM [facility] Alkaline Phosphatase 82 38 - 128 U/L 05/02/2024 2:03 PM [facility] ALT (SGPT) 24 0 - 49 U/L 05/02/2024 2:03 PM [facility] Sodium 136 135 - 145 mEq/L 05/02/2024 2:03 PM [facility] Potassium 4.3 3.5 - 5.1 mEq/L 05/02/2024 2:03 PM [facility] Chloride 105 98 - 107 mEq/L 05/02/2024 2:03 PM [facility] CO2 25 22 - 31 mmol/L 05/02/2024 2:03 PM [facility] BUN 18 5 - 25 mg/dL 05/02/2024 2:03 PM [facility] Creatinine 0.62 0.60 - 1.40 mg/dL 05/02/2024 2:03 PM [facility] Glucose 108(H) 70 - 100 mg/dL 05/02/2024 2:03 PM [facility] Calcium, Total,S 8.9 8.4 - 10.2 mg/dL 05/02/2024 2:03 PM STRAWHAT INSPECTOR AND PACKER [facility] Anion Gap 6 4 - 13 05/02/2024 2:03 PM STRAWHAT INSPECTOR AND PACKER [facility] Comment: The anion gap is calculated with the following formula: AGAP = Na ? (Cl + CO2). Fasting? Yes 05/02/2024 8:59 AM STRAWHAT INSPECTOR AND PACKER [facility] Blood (Blood, Venous) 05/02/2024 8:45 AM STRAWHAT INSPECTOR AND PACKER 05/02/2024 12:55 PM STRAWHAT INSPECTOR AND PACKER us Outside Referring Lab Provider LAB BLOOD ORDERAB LES Final Result [facility] [address] [place] [address] from Last [address] [facility] Care Teams Motorcycle Service Technician Relationship Specialty Start Date End Date None, Pcp [address] [place] [address] PCP - General Bundle Wrapper 01/30/24
--- OUTSIDE RECORDS SUMMARY | 2024-05-19 10:56 | XMS_ITS | Encounter Summary ---
Author Organization [facility] Address [address] [place] [address] Care Team Providers Care Nurse Executive Name Role Phone No Ref-Primary, Physician Primary Care Provider Edmond Felix MD Unavailable [phone] Kulwinder De La Cruz MD Unavailable Keven Smith [facility] Unavailable [phone] eKven Smith [facility] Unavailable [phone] Alfred Coley MD Unavailable Reason for Visit * Reason Comments New Med Request Encounter Details Date Type Department Care Team (Late st Contact Info) Description 04/18/2024 [facility] [address] [address] Alfred Coley MD [address] [place] [address] New Med Request Social History Tobacco Use Types Packs/Day Years [...] encounter Miscellaneous Notes * Telephone Encounter - Kyung Borja RN - 04/23/2024 12:25 PM CUSTOMER CONTACT SALES ASSOCIATE Call to patient to inform overdue for labs and to schedule patient for 6 month follow up with new provider as Dr. Vianca cooper. Patient scheduled to see Dr. Guajardo 08/15/24. Patient requests labs to be sent to [facility]. Labs faxed to patient's preferred lab per request. Kyung Borja RN OMER CONTACT SALES ASSOCIATE * Telephone Encounter - Katie Guadarrama CMA - 04/20/2024 2:24 PM CUSTOMER CONTACT SALES ASSOCIATE Called pharmacy back to give them his most current weight. Please remove pended med and close encounter. I do not have security to close the encounter.Thanks! OMER CONTACT SALES ASSOCIATE * Telephone Encounter - Malissa Fair MA - 04/20/2024 11:01 AM CST Weight clarification needed. Please call pharmacy to clarify. OMER CONTACT SALES ASSOCIATE documented in this encounter Plan of Treatment Upcoming Encounters Date Type Department Care Team (Late st Contact Info) Description 08/15/2024 3:00 PM CDT Office Visit [facility] Specialty [facility] [address] [facility] [address] [place] [phone] Leslie Guajardo MD [address] [place] [address] documented as of this encounter Visit Diagnoses Diagnosis Rheumatoid arthritis involving multiple joints (H) documented in this encounter Care Teams Nurse Executive Relationship Specialty Start Date End Date No Ref-Primary, Physician PCP - General 07/30/23 Edmond Felix MD [address] [facility] [address] [place] [address] Cardiovascular Disease 08/03/23 Kulwinder De La Cruz MD [address] [place], [place] [id number] Fellow Cardiovascular Disease 08/03/23 Kveen Smith [facility] [address] [place] [address] Pharmacist 08/15/23 Keven Smith [facility] [address] [place] [address] Assigned MTM Pharmacist 09/04/23 Alfred Coley MD [address] [place] [address] Assigned Rheumatology Provider 09/04/23 documented as of this encounter
--- OUTSIDE RECORDS SUMMARY | 2024-05-19 10:56 | XMS_ITS | Encounter Summary ---
Author Organization [facility] er Address [address] [place] [address] Care Team Providers Care Piping Designer Name Role Phone None, Pcp Primary Care Provider Unavailabl e Encounter Details Date Type Department Care Team (Late st Contact Info) Description 05/02/2024 8:45 AM FRANKFURTER INSPECTOR Lab [place] [address] [place] [address] Rheumatoid arthritis involving multiple sites, unspecified whether rheumatoid factor present (HCC) Social History Tobacco Use Types Packs/Day Years [...] file Not on file Not on file documented as of this encounter Plan of Treatment Not on file documented as of this encounter Procedures Procedure Name Priority Date/Time Associated Diagnosis Comments ESTIMATED GLOMERULAR FILTRATION RATE (EGFR) Routine 05/02/2024 8:45 AM FRANKFURTER INSPECTOR Rheumatoid arthritis involving multiple sites, unspecified whether rheumatoid factor present (HCC) CBC BRANCH OFFICE W/DIFF Routine 05/02/2024 8:45 AM FRANKFURTER INSPECTOR Rheumatoid arthritis involving multiple sites, unspecified whether rheumatoid factor present (HCC) SEDIMENTATION RATE, AUTOMATED Routine 05/02/2024 8:45 AM FRANKFURTER INSPECTOR Rheumatoid arthritis involving multiple sites, unspecified whether rheumatoid factor present (HCC) C-REACTIVE PROTEIN Routine 05/02/2024 8: 45 AM FRANKFURTER INSPECTOR Rheumatoid arthritis involving multiple sites, unspecified whether rheumatoid factor present (HCC) COMPREHENSIVE METABOLIC PANEL Routine 05/02/2024 8:45 AM FRANKFURTER INSPECTOR Rheumatoid arthritis involving multiple sites, unspecified whether rheumatoid factor present (HCC) documented in this encounter Results * Estimated Glomerular Filtration Rate (eGFR) (05/02/2024 8:45 AM FRANKFURTER INSPECTOR) Estimated Glomerular Filtration Rate (eGFR) >60 05/02/2024 2:03 PM FRANKFURTER INSPECTOR [facility] Comment: GFR calculated from serum creatinine value Chronic Kidney Disease less than 60 mL/min/1.73 m2 Kidney Failure less than 15 mL/min/1.73 m2 Note: effective 03/10/2022: 2020 CKD-EPI Equation used 05/02/2024 8:45 AM FRANKFURTER INSPECTOR 05/02/2024 8:45 AM FRANKFURTER INSPECTOR us Outside Referring Lab Provider LAB BLOOD ORDERAB LES Final Result Performing Organization Address [facility] Co de Phone Number [facility] [address] [place] [phone] * C-reactive protein (05/02/2024 8:45 AM FRANKFURTER INSPECTOR) Pathologist [facility] CRP <0.3 0.0 - 4.9 mg/L 05/02/2024 2:11 PM FRANKFURTER INSPECTOR [facility] Blood (Blood, Venous) 05/02/2024 8:45 AM FRANKFURTER INSPECTOR 05/02/2024 12:55 PM FRANKFURTER INSPECTOR us Outside Referring Lab Provider LAB BLOOD ORDERAB LES Final Result Performing Organization Address [facility] Co in Phone Number [facility] [address] [place] [phone] * ESR-Sed rate (05/02/2024 8:45 AM FRANKFURTER INSPECTOR) [facility] Sed Rate 2 0 - 22 mm/hr 05/02/2024 2:03 PM [facility] Blood (Blood, Venous) 05/02/2024 8:45 AM FRANKFURTER INSPECTOR 05/02/2024 12:59 PM FRANKFURTER INSPECTOR us Outside Referring Lab Provider LAB BLOOD ORDERAB LES Final Result Performing Organization Address [facility] Co de Phone Number [facility] [address] [place] [phone] * (ABNORMAL) Comprehensive metabolic panel (05/02/2024 8:45 AM FRANKFURTER INSPECTOR) Pathologist [facility] Total Protein 6.2(L) 6.3 - 8.2 g/dL 05/02/2024 2:03 PM [facility] Albumin, Serum 3.9 3.5 - 5.0 g/dL 05/02/2024 2:03 PM [facility] Total Bilirubin <0.7 0.1 - 1.0 mg/dL 05/02/2024 2:03 PM [facility] AST 23 8 - 48 U/L 05/02/2024 2:03 PM [facility] Alkaline Phosphatase 82 38 - 128 U/L 05/02/2024 2:03 PM [facility] ALT (SGPT) 24 0 - 49 U/L 05/02/2024 2:03 PM [facility] Sodium 136 135 - 145 mEq/L 05/02/2024 2:03 PM [facility] Potassium 4.3 3.5 - 5.1 mEq/L 05/02/2024 2:03 PM [facility] Chloride 105 98 - 107 mEq/L 05/02/2024 2:03 PM [facility] CO2 25 22 - 31 mmol/L 05/02/2024 2:03 PM [facility] BUN 18 5 - 25 mg/dL 05/02/2024 2:03 PM [facility] Creatinine 0.62 0.60 - 1.40 mg/dL 05/02/2024 2:03 PM [facility] Glucose 108(H) 70 - 100 mg/dL 05/02/2024 2:03 PM [facility] Calcium, Total,S 8.9 8.4 - 10.2 mg/dL 05/02/2024 2:03 PM [facility] Anion Gap 6 4 - 13 05/02/2024 2:03 PM [facility] Comment: The anion gap is calculated with the following formula: AGAP = Na ? (Cl + CO2). Fasting? Yes 05/02/2024 8:59 AM [facility] Blood (Blood, Venous) 05/02/2024 8:45 AM [facility] 05/02/2024 12:55 PM [facility] us Outside Referring Lab Provider LAB BLOOD ORDERAB LES Final Result [facility] [address] [place] [address] * (ABNORMAL) CBC Branch Off w/Diff (05/02/2024 8:45 AM [facility]) WBC 10.6(H) 3.5 - 10.5 K/uL 05/02/2024 9:59 AM FRANKFURTER INSPECTOR [facility] RBC 5.21 4.30 - 5.70 M/uL 05/02/2024 9:59 AM FRANKFURTER INSPECTOR [facility] Hemoglobin 12.4(L) 13.5 - 17.5 g/dL 05/02/2024 9:59 AM FRANKFURTER INSPECTOR [facility] Hematocrit 41.6 38.0 - 50.0 % 05/02/2024 9:59 AM FRANKFURTER INSPECTOR [facility] Platelets 444 150 - 450 K/uL 05/02/2024 9:59 AM FRANKFURTER INSPECTOR [facility] MCV 79.8(L) 81.2 - 95.1 fL 05/02/2024 9:59 AM FRANKFURTER INSPECTOR [facility] MCH 23.8(L) 26.0 - 32.0 pg 05/02/2024 9:59 AM FRANKFURTER INSPECTOR [facility] MCHC 29.8(L) 32.0 - 36.0 g/dL 05/02/2024 9:59 AM FRANKFURTER INSPECTOR [facility] RDW 15.2 11.8 - 15.6 % 05/02/2024 9:59 AM FRANKFURTER INSPECTOR [facility] Lymphocytes % 17.7 % 05/02/2024 9:59 AM FRANKFURTER INSPECTOR [facility] Mid-size Cells 9.7 % 05/02/2024 9:59 AM FRANKFURTER INSPECTOR [facility] Granulocytes/Allen trophils 72.6 % 05/02/2024 9:59 AM FRANKFURTER INSPECTOR [facility] Lymphocytes Absolute 1.9 0.9 - 2.9 K/uL 05/02/2024 9:59 AM FRANKFURTER INSPECTOR [facility] MIDS Absolute 1.0 0.4 - 1.5 K/uL 05/02/2024 9:59 AM FRANKFURTER INSPECTOR [facility] Granulocytes/Allen trophils Absolute 7.7(H) 1.7 - 7.0 K/uL 05/02/2024 9:59 AM FRANKFURTER INSPECTOR [facility] Blood (Blood, Venous) 05/02/2024 8:45 AM FRANKFURTER INSPECTOR 05/02/2024 8:45 AM FRANKFURTER INSPECTOR us Outside Referring Lab Provider LAB BLOOD ORDERAB LES Final Result [facility] KYLE CHANEL [address] [place] [address] documented in this encounter Visit Diagnoses Diagnosis Rheumatoid arthritis involving multiple sites, unspecified whether rheumatoid factor present (HCC) documented in this encounter Care Teams Piping Designer Relationship Specialty Start Date End Date None, Pcp [address] [place] [address] PCP - General Social Welfare Administrator 01/30/24 documented as of this encounter
--- OUTSIDE RECORDS SUMMARY | 2024-05-19 10:56 | XMS_ITS | Encounter Summary ---
Author Organization [facility] Address [address] [place] [address]. [place] [address] Care Team Providers Care Ripper Operator Name Role Phone No Ref-Primary, Physician Primary Care Provider Edmond Felix MD Unavailable [phone] Kulwinder De La Cruz MD Unavailable Keven Smith [facility] Unavailable [phone] Keven Smith [facility] Unavailable [phone] Alfred Coley MD Unavailable Encounter Details Date Type Department Care Team (Late st Contact Info) Description 05/03/2024 Telephone [facility] Rheumatology [address] [place] [phone] Kyung oBrja, RN Social History Tobacco Use Types Packs/Day Years [...] Miscellaneous Notes * Telephone Encounter - Kyung Borja, [place] - 05/03/2024 9:47 AM TRAUMA SURGEON Patient called and LM to notify that labs were in and to request refill. Destination Imagination Coordinator [facility] with [facility] had [facility] refills remaining on file. Provider notified to reviewpatient monitoring labs in Care Everywhere. Kyung Borja, RN MA SURGEON documented in this encounter Plan of Treatment Upcoming Encounters Date Type Department Care Team (Late st Contact Info) Description 08/15/2024 3:00 PM CDT Office Visit [facility] [address] [facility] [address] [place] [phone] Leslie Guajardo MD [address] [place] [address] documented as of this encounter Visit Diagnoses Not on filedocumented in this encounter Care Teams Ripper Operator Relationship Specialty Start Date End Date No Ref-Primary, Physician PCP - General 07/30/23 Edmond Felix MD [address] [place] [phone] Cardiovascular Disease 08/03/23 Kulwinder De La Cruz MD [address] [place], [place] [phone] Fellow Cardiovascular Disease 08/03/23 Keven Smith [facility] [address] [place] [address] Pharmacist 08/15/23 Keven Smith RPH [address] [facility] Assigned MTM Pharmacist 09/04/23 Alfred Coley MD [address] [place] [id number] Assigned Rheumatology Provider 09/04/23 documented as of this encounter
--- OUTSIDE RECORDS SUMMARY | 2024-05-19 10:56 | XMS_ITS | Clinical Summary ---
Author Organization [facility] Address [address] [place] [address] Care Team Providers Care Rod Drawer Name Role Phone Nargis Jasson Primary Care Provider Unavailabl e Allergies No known active allergies Medications terbinafine 1% cream (LAMISIL) 1 % creamIndications :Tinea cruris Apply topically to affected area(s) 2 times daily. 1 Tube 1 07/27/19 14 Active aspirin-acetamin ophen-caffeine (Excedrin Migraine) 250-250-65 mg [...] lung 07/26/2023 Psoriasis 03/28/2017 Rheumatoid arthritis 11/11/2015 Immunizations Immunization Administration Dates Next Due Tdap 01/14/2017 Family [...] is your housing situation today? 1 10/15/2023 Interpersonal Safety Answer Date Record ed Are you being hit, kicked, p ushed or yelled at (see row info)? No 10/13/2023 Interpersonal Safety Abuse 12 - 18 Not on file 10/13/2023 Interpersonal Safety Ambulatory Vulnerability No t on file 10/13/2023 Utilities Answer Date Recorded Do you have trouble paying f or utilities (for example, heat, electricity, water, phone)? 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 Not on file Not [...] Done Comments COVID-19 vaccine series (#1) 01/22/1985 Depression screening for age 12+ 1992 HIV for age 15-65 01/22/1995 BMI (ht and wt on same day) for age 18+ 01/22/1998 Hepatitis C screening for age 18-79 01/22/1998 Pneumococcal series for age 6-49 (1 of 2 - PCV) 1998 Lipids for age 35-44 01/22/2015 (IA) Influenza for age 9-49 11/13/2023 Tetanus booster 01/14/2027 01/14/2017 Tdap Completed 01/14/2017 Insurance [facility] Advance Directives * Full Code (Latest Code [...] Code Status Discussion: Reviewed Preferences Care Teams Rod Drawer Relationship Specialty Start Date End Date Jasson Barillas PCP - General Family Practice 07/27/23
--- OUTSIDE RECORDS SUMMARY | 2024-05-19 10:56 | XMS_ITS | Encounter Summary ---
Author Organization [facility] Address [address] [place] [address] Care Team Providers Care Proof Carrier Name Role Phone None, Pcp Primary Care Provider Unavailabl e Encounter Details Date Type Department Care Team (Late st Contact Info) Description 09/28/2022 Telephone Daniel Chanel [address] [place] [address] Srinivasan Barillas MD Social History Tobacco Use Types Packs/Day Years [...] on filedocumented in this encounter Care Teams Proof Carrier Relationship Specialty Start Date End Date None, Pcp [address] [facility] [place] [address] PCP - General Fence Repairman 01/30/24 documented as of this encounter
--- OUTSIDE RECORDS SUMMARY | 2024-05-19 10:56 | XMS_ITS | Encounter Summary ---
Author Organization [facility] Address [address] [place] [address] Care Team Providers Care Watch Train Assembler Name Role Phone No Ref-Primary, Physician Primary Care Provider Edmond Felix MD Unavailable Kulwinder De La Cruz MD Unavailable Keven Smith [facility] Unavailable [phone] [facility] Unavailable [phone] Alfred Coley MD Unavailable Reason for Visit * Reason Onset Date Comments Call Back 10/14/2023 [place] Patient Encounter Details Date Type Department Care Team (Late st Contact Info) Description 10/14/2023 [facility] Rheumatology Clinic [address] [address] Alfred Coley MD [address] [place] [address] Call Back (Raymond Patient) Social History Tobacco Use Types Packs/Day [...] - Joann Patterson 10/14/2023 2:43 PM CDT [facility] Call Center Phone Message May a detailed message be left on voicemail: yes Reason for Call: Other: Raymond Patient Dr. Escobedo is requesting a call [...] Description 08/15/2024 3:00 PM CDT Office Visit [facility] [place] [address] [facility] [address] [place] [phone] Leslie Guajardo MD [address] [place] [address] documented as of this encounter Visit Diagnoses Not on filedocumented in this encounter Care Teams Watch Train Assembler Relationship Specialty Start Date End Date No Ref-Primary, Physician PCP - General 07/30/23 Edmond Felix MD [address] [place] [address] Cardiovascular Disease 08/03/23 Kulwinder De La Cruz MD [address] [place] [address] Fellow Cardiovascular Disease 08/03/23 Keven Smith RPH [address] [facility] Pharmacist 08/15/23 Keven Smith RPH [facility] [facility] Assigned MTM Pharmacist 09/04/23 Alfred Coley MD [address] [place] [address] Assigned Rheumatology Provider 09/04/23 documented as of this encounter
--- OUTSIDE RECORDS SUMMARY | 2024-05-19 10:56 | XMS_ITS | Encounter Summary ---
Author Organization [facility] Address [address] [place] [address] Care Team Providers Care Drier Helper Name Role Phone No Ref-Primary, Physician Primary Care Provider Edmond Felix MD Unavailable [phone] Kulwinder De La Cruz MD Unavailable Keven Smith [facility] Unavailable Keven Smith [facility] Unavailable [phone] Alfred Coley MD Unavailable Reason for Visit * Reason Onset Date Comments Outreach 05/04/2024 Pt outreach atte mpt #2 Encounter Details Date Type Department Care Team (Late st Contact Info) Description 05/04/2024 Telephone [facility] [address] [facility] 3rd [place] [address] Cely Mckeon Outreach (Pt outreach attempt #2) Social History Tobacco Use Types Packs/Day Years [...] encounter Miscellaneous Notes * Telephone Encounter - Cely Mckeon - 05/04/2024 1:39 PM CSTSummary: MT- Actemra f/u Pt is due for follow up visit with Keven KING. Call placed to pt to initiate scheduling on 05/04/24 Outcome: LVM. Due to this being second attempt, will also send discharge letter out. ECTION PRINTER documented in this encounter Plan of Treatment Upcoming Encounters Date Type Department Care Team (Late st Contact Info) Description 08/15/2024 3:00 PM CDT Office Visit [facility] [place] [address] [facility] [address] [place] [phone] Leslie Guajardo MD [address] [place] [address] documented as of this encounter Visit Diagnoses Not on filedocumented in this encounter Care Teams Drier Helper Relationship Specialty Start Date End Date No Ref-Primary, Physician PCP - General 07/30/23 Edmond Felix MD [address] [place], [place] [address] Cardiovascular Disease 08/03/23 Kulwinder De La Cruz MD [address] [place], [place] [address] Fellow Cardiovascular Disease 08/03/23 Keven Smith [facility] [address] [place] [address] Pharmacist 08/15/23 Keven Smith [facility] [address] [place] [address] Assigned MTM Pharmacist 09/04/23 Alfred Coley MD [address] [place] [address] Assigned Rheumatology Provider 09/04/23 documented as of this encounter
[2024-05-19 11:12] VITALS: BP 110/90; PULSE 111; RESP 20; TEMP 37; O2SAT 98; BMI 21.4
--- NOTE | 2024-05-19 11:34 | ED.GENADULT ---
HPI - General Adult General Chief complaint: Skin/Abscess/Foreign Body Stated complaint: swelling on right hand, infection Time Seen by Provider: 05/19/24 11:34 History of Present Illness HPI narrative: Patient reports noted swelling to right hand about three days ago. He outlined this area yesterday as it seems to be worsening. Denies open area or injury or similar issues in the past. 44-year-old man presenting to the emergency department with concern of swelling maybe infection and also pain in his right hand. 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 Did not think much of it at the time but then with subsequent swelling over the dorsum of the right hand specifically radial side. Last night with a friend attempted to get some thing out of it assuming there is no infection. Did manage to express a little bit of possibly preop material but mostly blood he says. Was quite painful. Has swelled more since that time. No fever. No continued drainage. Otherwise starting to get little more short of breath with a history of recurrent pleural effusion. Has an appointment early this coming week anticipates drainage shortly. This is not a new thing for him. Related Data Home Medications ?Medication ?Instructions ?Recorded ?Confirmed prednisone 10 mg tablet 10 mg PO DAILY 07/25/23 12/05/23 tocilizumab 162 mg/0.9 mL 162 mg subcut .weekly 10/12/23 12/05/23 subcutaneous syringe (Actemra) Previous Rx's ?Medication ?Instructions ?Recorded iron,carbonyl 65 mg-vitamin C 125 1 tab PO QDAY #30 tabs 08/29/23 mg tablet,delayed release (Vitron-C) cephalexin 500 mg capsule 500 mg PO QID 8 days #32 caps 05/19/24 Allergies Allergy/AdvReac Type Severity Reaction Status Date / Time No Known Drug Allergies Allergy Verified 12/05/23 11:31 Review of Systems Status of ROS: Reports: 6 or more systems reviewed and unremarkable except as noted in History and below [facility] Medical History SOB (shortness of breath) ?R06.02 - Shortness of breath (ICD-10) Anemia ?D64.9 - Anemia, unspecified (ICD-10) Rheumatoid arthritis ?M06.9 - Rheumatoid arthritis, unspecified (ICD-10) Social History Smoking Status: Unknown if ever smoked Do you use any of these nicotine containing products: None How often do you have a drink containing alcohol: never How often do you have six or more drinks on one occasion: Never AUDIT-C Alcohol total score: 0 Non-prescribed substance use: denies use Exam Narrative: Exam Narrative: Generally swollen with mild calor and mild erythema over the dorsal right hand. Medial radial side is a nickel sized area of swelling and scabbing on the surface. Opens and closes his hand and extend his wrist without notable difficulty or pain. Heart in elevated rate, regular rhythm. I do place a point of care ultrasound on the more discrete area of swelling which has been outlined. I do see sub-halfcentimeter collection of fluid. On reexamination appears to be pointing just a little bit. Const: Vital Signs, click to edit/add: Vital Signs - 24 hr 05/19/24 11:12 Temperature 98.6 F Pulse Rate [Pulse Oximeter] 111 H Respiratory Rate 20 Blood Pressure [Ri ght Upper Arm] 110/90 H Pulse Oximetry 98 Oxygen Delivery Me thod Room Air Documenting provider has reviewed patient's vital signs: yes Course Vital Signs Vital signs: Initial Vital Signs Temperature 98.6 F 05/19/24 11:12 Temperature Source Temporal Artery Scan 05/19/24 11:12 Pulse Rate 111 H 05/19/24 11:12 Respiratory Rate 20 05/19/24 11:12 Blood Pressure 110/90 H 05/19/24 11:12 Blood Pressure Mean 96 05/19/24 11:12 Pulse Oximetry 98 05/19/24 11:12 Oxygen Delivery Method Room Air 05/19/24 11:12 Vital Signs Temperature 98.6 F 05/19/24 11:12 Pulse Rate 111 H 05/19/24 11:12 Respiratory Rate 20 05/19/24 11:12 Blood Pressure 110/90 H 05/19/24 11:12 Pulse Oximetry 98 05/19/24 11:12 Oxygen Delivery Method Room Air 05/19/24 11:12 Temperature 98.6 F 05/19/24 11:12 Pulse Rate 111 H 05/19/24 11:12 Respiratory Rate 20 05/19/24 11:12 Blood Pressure 110/90 H 05/19/24 11:12 Pulse Oximetry 98 05/19/24 11:12 Oxygen Delivery Method Room Air 05/19/24 11:12 Medical Decision Making MDM Narrative Medical decision making narrative: Clearly there is cellulitis here. Does not appear to be tenosynovitis. This swelling might benefit from wound culture collection If something can be expressed. Ultrasound did not reveal clear discrete abscess; seems more heterogeneous. Cleansed area with Betadine. Inserted 18 gauge at pointing skin. did not pull any fluid but with light pressure able to express very small amount of adolfo sanguinous material. Anticipating this for wound culture. Antibiotic ointment and Bandage placed. Will be initiating cephalexin Pending culture results. see patient discharge plan for further discussion Change dressing daily with antibiotic ointment over the next 3-5 days. Watch for marked increase in swelling, pain, spreading redness otherwise follow-up for worsening after 2 days. Starting you on some antibiotics here today. Cephalexin from [facility]. Wound culture pending and we will call you if changes need to be made. Contrary to the prescription as noted in [facility], take the antibiotic for 8 days at this point. Ibuprofen, acetaminophen, elevation for comfort. Medical Records Medical records reviewed: Yes I reviewed the patient's medical records Discharge Plan Discharge Clinical Impression: Cellulitis, Abscess Patient Disposition: Home, Self-Care Condition: Stable Additional Instructions: Change dressing daily with antibiotic ointment over the next 3-5 days. Watch for marked increase in swelling, pain, spreading redness otherwise follow-up for worsening after 2 days. Starting you on some antibiotics here today. Cephalexin from [facility]. Wound culture pending and we will call you if changes need to be made. Contrary to the prescription as noted in [facility], take the antibiotic for 8 days at this point. Ibuprofen, acetaminophen, elevation for comfort. Prescriptions: New cephalexin 500 mg capsule 500 mg PO QID 8 Days Qty: 32 0RF No Action prednisone 10 mg tablet 10 mg PO DAILY Vitron-C 65 mg iron- 125 mg tablet,delayed release (DR/EC) 1 tab PO QDAY Qty: 30 2RF Actemra 162 mg/0.9 mL syringe 162 mg subcut .weekly Follow Up/Referrals: Bill Giang MD [Primary Care Provider] - Stand Alone Forms: [facility] Info Instructions
--- OUTSIDE RECORDS SUMMARY | 2024-05-19 11:55 | XMS_ITS | Encounter Summary ---
Author Organization [facility] Address [address] [place] [address] Care Team Providers Care Currency Examiner Name Role Phone No Ref-Primary, Physician Primary Care Provider Edmond Felix MD Unavailable [phone] Kulwinder De La Cruz MD Unavailable Keven Smith [facility] Unavailable [phone] Keven Smith [facility] Unavailable [phone] Alfred Coley MD Unavailable Reason for Visit * Reason Onset Date Comments Call Back 10/14/2023 [place] Patient Encounter Details Date Type Department Care Team (Late st Contact Info) Description 10/14/2023 [facility] Rheumatology Clinic [address] [address] Alfred Coley MD [address] [place] [address] Call Back ([place] Patient) Social History Tobacco Use Types Packs/Day [...] - Joann Patterson 10/14/2023 2:43 PM CDT [facility] Call Center Phone Message May a detailed message be left on voicemail: yes Reason for Call: Other: [place] Patient Dr. Escobedo is requesting a call [...] 08/15/2024 3:00 PM CDT Office Visit [facility] [place] [address] [facility] [address] [place] [phone] Leslie Guajardo MD [address] [place] [address] documented as of this encounter Visit Diagnoses Not on filedocumented in this encounter Care Teams Currency Examiner Relationship Specialty Start Date End Date No Ref-Primary, Physician PCP - General 07/30/23 Edmond Felix MD [address] [place] [id number] Cardiovascular Disease 08/03/23 Kulwinder De La Cruz MD [address] [place] [id number] Fellow Cardiovascular Disease 08/03/23 Keven Smith RPH [address] [facility] [address] Pharmacist 08/15/23 Keven Smith RPH [address] [facility] Assigned MTM Pharmacist 09/04/23 Alfred Coley MD [address] [place] [address] Assigned Rheumatology Provider 09/04/23 documented as of this encounter
--- OUTSIDE RECORDS SUMMARY | 2024-05-19 11:55 | XMS_ITS | Encounter Summary ---
Author Organization [facility] Address [address] [place] [address] Care Team Providers Care Certified Public Accountant Name Role Phone No Ref-Primary, Physician Primary Care Provider Edmond Felix MD Unavailable [phone] Kulwinder De La Cruz MD Unavailable Keven Smith [facility] Unavailable [phone] Keven Smith [facility] Unavailable [phone] Alfred Coley MD Unavailable Reason for Visit * Reason Onset Date Comments Outreach 05/04/2024 Pt outreach atte mpt #2 Encounter Details Date Type Department Care Team (Late st Contact Info) Description 05/04/2024 Telephone [facility] [address] [facility] 3rd [place] [address] Cely Mckeon Outreach (Pt outreach [...] attempt, will also send discharge letter out. GER CUSTOMER SERVICE documented in this encounter Plan of Treatment Upcoming Encounters Date Type Department Care Team (Late st Contact Info) Description 08/15/2024 3:00 PM CDT Office Visit [facility] [place] [address] [facility] [address] [place] [phone] Leslie Guajardo MD [address] [place] [address] documented as of this encounter Visit Diagnoses Not on filedocumented in this encounter Care Teams Certified Public Accountant Relationship Specialty Start Date End Date No Ref-Primary, Physician PCP - General 07/30/23 Edmond Felix MD [address] [place], [place] [phone] Cardiovascular Disease 08/03/23 Kulwinder De La Cruz MD [address] [place], [place] [address] Fellow Cardiovascular Disease 08/03/23 Keven Smith [facility] [address] [place] [address] Pharmacist 08/15/23 Keven Smith [facility] [address] [place] [address] Assigned MTM Pharmacist 09/04/23 Alfred Coley MD [address] [place] [address] Assigned Rheumatology Provider 09/04/23 documented as of this encounter
--- OUTSIDE RECORDS SUMMARY | 2024-05-19 11:55 | XMS_ITS | Encounter Summary ---
Author Organization [facility] Address [address] [place] [address] Care Team Providers Care House Superintendent Name Role Phone No Ref-Primary, Physician Primary Care Provider Edmond Felix MD Unavailable Kulwinder De La Cruz MD Unavailable Keven Smith [facility] Unavailable [phone] Keven Smith [facility] Unavailable [phone] Alfred Coley MD Unavailable Reason for Visit * Reason Comments New Med Request Encounter Details Date Type Department Care Team (Late st Contact Info) Description 04/18/2024 [facility] Rheumatology Clinic [address] [address] Alfred Coley MD [address] [place] [address] New Med Request Social History [...] Kyung Borja RN - 04/23/2024 12:25 PM JUNIOR WEB DEVELOPER Call to patient to inform overdue for labs and to schedule patient for 6 month follow up with new provider as Dr. Vianca cooper. Patient scheduled to see Dr. Guajardo 08/15/24. Patient requests labs to be sent to [facility]. Labs faxed to patient's preferred lab per request. Kyung Borja RN OR WEB DEVELOPER * Telephone Encounter - Katie Guadarrama CMA - 04/20/2024 2:24 PM JUNIOR WEB DEVELOPER Called pharmacy back to give them his most current weight. Please remove pended med and close encounter. I do not have security to close the encounter.Thanks! OR WEB DEVELOPER * Telephone Encounter - Malissa Fair MA - 04/20/2024 11:01 AM CST Weight clarification needed. Please call pharmacy to clarify. OR WEB DEVELOPER documented in this encounter Plan of Treatment Upcoming Encounters Date Type Department Care Team (Late st Contact Info) Description 08/15/2024 3:00 PM CDT Office Visit [facility] Specialty [facility] [address] [facility] [address] [place] [phone] Leslie Guajardo MD [address] [place] [address] documented as of this encounter Visit Diagnoses Diagnosis Rheumatoid arthritis involving multiple joints (H) documented in this encounter Care Teams House Superintendent Relationship Specialty Start Date End Date No Ref-Primary, Physician PCP - General 07/30/23 Edmond Felix MD [address] [facility] [address] [place] [address] Cardiovascular Disease 08/03/23 Kulwinder De La Cruz MD [address] [place], [place] [address] Fellow Cardiovascular Disease 08/03/23 Keven Smith [facility] [address] [place] [address] Pharmacist 08/15/23 Keven Smith [facility] [address] [place] [address] Assigned MTM Pharmacist 09/04/23 Alfred Coley MD [address] [place] [address] Assigned Rheumatology Provider 09/04/23 documented as of this encounter
--- OUTSIDE RECORDS SUMMARY | 2024-05-19 11:55 | XMS_ITS | Clinical Summary ---
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
--- OUTSIDE RECORDS SUMMARY | 2024-05-19 11:55 | XMS_ITS | Encounter Summary ---
Author Organization [facility] Address [address] [place] [address] Care Team Providers Care Java Front End Web Developer Name Role Phone No Ref-Primary, Physician Primary Care Provider Edmond Felix MD Unavailable [phone] Kulwinder De La Cruz MD Unavailable Keven Smith [facility] Unavailable [phone] Keven Smith [facility] Unavailable [phone] Alfred Coley MD Unavailable Encounter Details Date Type Department Care Team (Late st Contact Info) Description 02/03/2024 Telephone [facility] Rheumatology Clinic [address] [address] Alfred Coley MD [address] [place] [address] Social History Tobacco Use Types Packs/Day [...] Description 08/15/2024 3:00 PM CDT Office Visit [facility] [place] [address] [facility] [address] [place] [phone] Leslie Guajardo MD [address] [place], [place] [address] documented as of this encounter Visit Diagnoses Not on filedocumented in this encounter Care Teams Java Front End Web Developer Relationship Specialty Start Date End Date No Ref-Primary, Physician PCP - General 07/30/23 Edmond Felix MD [address] [place] [id number] Cardiovascular Disease 08/03/23 Kulwinder De La Cruz MD [address] [place] [address] Fellow Cardiovascular Disease 08/03/23 Keven Smith [facility] [address] [facility] Pharmacist 08/15/23 Keven Smith [facility] [address] [facility] Assigned MTM Pharmacist 09/04/23 Alfred Coley MD [address] [place] [address] [place], [place] [address] Assigned Rheumatology Provider 09/04/23 documented as of this encounter
--- OUTSIDE RECORDS SUMMARY | 2024-05-19 11:55 | XMS_ITS | Encounter Summary ---
Author Organization [place] Address [address] [place] [address]. [place] [address] Care Team Providers Care Director Of Early Childhood Name Role Phone No Ref-Primary, Physician Primary Care Provider Edmond Felix MD Unavailable [phone] Kulwinder De La Cruz MD Unavailable Keven Smith [facility] Unavailable [phone] Keven Smith [facility] Unavailable [phone] Alfred Coley MD Unavailable Encounter Details Date Type Department Care Team (Late st Contact Info) Description 05/03/2024 Telephone [facility] Rheumatology [address] [place] [address] Kyung Borja, RN Social History Tobacco Use Types Packs/Day [...] Kyung Borja, [place] - 05/03/2024 9:47 AM MOTOR AND GENERATOR BRUSH CUTTER Patient called and LM to notify that labs were in and to request refill. Tobacco Sprayer LM with patient [facility] notify [facility] he had 8 refills remaining on file. Provider notified to reviewpatient monitoring labs in Care Everywhere. Kyung Borja, RN R AND GENERATOR BRUSH CUTTER documented in this encounter Plan of Treatment Upcoming Encounters Date Type Department Care Team (Late st Contact Info) Description 08/15/2024 3:00 PM CDT Office Visit [facility] [place] [address] [facility] [address] [place] [phone] Leslie Guajardo MD [address] [place] [address] documented as of this encounter Visit Diagnoses Not on filedocumented in this encounter Care Teams Director Of Early Childhood Relationship Specialty Start Date End Date No Ref-Primary, Physician PCP - General 07/30/23 Edmond Felix MD [address] [place] [address] Cardiovascular Disease 08/03/23 Kulwinder De La Cruz MD [address] [place], [place] [phone] Fellow Cardiovascular Disease 08/03/23 Keven Smith [facility] [address] [place] [address] Pharmacist 08/15/23 Keven Smith RPH [address] [facility] Assigned MTM Pharmacist 09/04/23 Alfred Coley MD [address] [place] [id number] Assigned Rheumatology Provider 09/04/23 documented as of this encounter
--- OUTSIDE RECORDS SUMMARY | 2024-05-19 11:55 | XMS_ITS | Encounter Summary ---
Author Organization [place] Address [address] [place] [address] Care Team Providers Care Apprentice Pattern Maker Name Role Phone No Ref-Primary, Physician Primary Care Provider Edmond Felix MD Unavailable [phone] Kulwinder De La Cruz MD Unavailable Keven Smith [facility] Unavailable [phone] Keven Smith [facility] Unavailable [phone] Alfred Coley MD Unavailable Reason for Visit * Reason Onset Date Comments Call Back 10/03/2023 Encounter Details Date Type Department Care Team (Late st Contact Info) Description 10/03/2023 Telephone [facility] Rheumatology Clinic [address] [address] Alfred Coley MD [address] [place] [address] Call Back Social History Tobacco [...] Lilly Melton - 10/03/2023 12:19 PM CDT [facility] Call Center Phone Message May a detailed message be left on voicemail: yes Reason for Call: Medication Question or concern regarding medication Prescription Clarification Name of Medication: tocilizumab (ACTEMRA) 162 MG/0.9ML subcutaneous injection Prescribing Provider: Alfred Coley Pharmacy: [address] What on the order needs clarification? [...] Description 08/15/2024 3:00 PM CDT Office Visit [facility] [address] [place], [place] [phone] Leslie Guajardo MD [address] [facility] [address] [place] [address] documented as of this encounter Visit Diagnoses Not on filedocumented in this encounter Care Teams Apprentice Pattern Maker Relationship Specialty Start Date End Date No Ref-Primary, Physician PCP - General 07/30/23 Edmond Felix MD [address] [place] [address] Cardiovascular Disease 08/03/23 Kulwinder De La Cruz MD [address] [place] [id number] Fellow Cardiovascular Disease 08/03/23 Keven Smith [facility] [address] [place] [address] Pharmacist 08/15/23 Keven Smith [facility] [address] [place] [address] Assigned MTM Pharmacist 09/04/23 Alfred Coley MD [address] [place] [address] Assigned Rheumatology Provider 09/04/23 documented as of this encounter
--- OUTSIDE RECORDS SUMMARY | 2024-05-19 11:55 | XMS_ITS | Encounter Summary ---
Author Organization [facility] er Address [address] [place] [address] Care Team Providers Care Operator Automated Process Name Role Phone None, Pcp Primary Care Provider Unavailabl e Encounter Details Date Type Department Care Team (Late st Contact Info) Description 09/28/2022 Telephone Daniel Chanel [address] [place] [address] Srinivasan Barillas MD Social History Tobacco Use [...] on filedocumented in this encounter Care Teams Operator Automated Process Relationship Specialty Start Date End Date None, Pcp [address] [facility] [place] [address] PCP - General Sharepoint Architect 01/30/24 documented as of this encounter
--- OUTSIDE RECORDS SUMMARY | 2024-05-19 11:55 | XMS_ITS | Clinical Summary ---
Author Organization [place] Address [address] [place] [address] Care Team Providers Care Sand Mixer Name Role Phone No Ref-Primary, Physician Primary Care Provider Edmond Felix MD Unavailable [phone] Kulwinder De La Cruz MD Unavailable Keven Smith [facility] Unavailable [phone] Keven Smith [facility] Unavailable [phone] Alfred Coley MD Unavailable Allergies No [...] Type Department Care Team Description 05/04/2024 Telephone [facility] [address] [facility] 3rd [place] [address] Cely Mckeon Outreach (Pt outreach attempt #2) 05/03/2024 Telephone [facility] Rheumatology [address] [facility] [address] [place] [address] Kyung Borja RN 04/18/2024 Refill [facility] [place] [address] [place] [address] Alfred Coley MD New Med Request 03/30/2024 Telephone [facility] Rheumatology [facility] [address] [facility] [address] [place] [address] Cely Mckeon from Last 3 [...] Comments Blood Pressure 136/90 02/02/2024 3:46 PM AGENCY SALES DEVELOPMENT ASSOCIATE Pulse 99 02/02/2024 3:46 PM AGENCY SALES DEVELOPMENT ASSOCIATE Temperature 36.5 C (97.7 F) 07/31/2023 12:16 PM CDT Respiratory Rate 12 08/09/2023 3:32 PM CDT Oxygen Saturation 100% 08/09/2023 3:32 PM CDT Inhaled Oxygen Concentration - - Weight 64 kg (141 lb) 02/02/2024 3:40 PM AGENCY SALES DEVELOPMENT ASSOCIATE wit h shoes Height 172.7 cm (5' 8) 07/29/2023 4:41 PM CDT Body Mass Index 21.44 07/29/2023 4:41 PM CDT Plan of Treatment Upcoming Encounters Date Type Department Care Team (Late st Contact Info) Description 08/15/2024 3:00 PM CDT Office Visit [facility] [place] [address] [facility] [address] [place] [phone] Leslie Guajardo MD [address] [place] [address] Health Maintenance Due Date Last Done Comments [...] Maintenance Results * HIV Antigen Antibody Combo [place] (07/31/2023 1:13 PM CDT) HIV Antigen Antibody [...] ORDERABLES Final Res ult Performing Organization Address [facility] de Phone Number LABORATORY [facility] Core Lab [address] [place] [address], Room [address] * Hepatitis C Screen Reflex to HCV RNA Quant and Genotype (07/31/2023 1:13 PM CDT) Pathologist [facility] Hepatitis C Antibody Nonreactive Nonreactive 07/31/2023 3:59 [...] ORDERABLES Final Res ult Performing Organization Address [facility] Co de Phone Number LABORATORY [facility] Core Lab [address] [facility], [address] [address], [facility] * (ABNORMAL) Basic metabolic panel (07/31/2023 8:25 [...] BLOOD ORDERABLES Final Res ult UR LABORATORY [facility] Acute Care Lab [address] [facility] [place] [address], [facility] from Last 3 Months or Most Recently Relevant to Health Maintenance [place] * Guarantor: Jai Shoemaker Account Type Relation to Patient Date of Phone Billing Address Medication Therapy Self [address] [place] [id number] [place] Advance Directives For more information, please contact: [phone] * Full Code (Latest Code Status on File) Date Activated Date Inactivated Comments 07/29/2023 6:44 PM 07/31/2023 6:22 PM All basic an d advanced life-sustaining interventions are performed as appropriate Question Answer Comments Code status determined by: Discussion with patie nt/ legal decision maker Care Teams Sand Mixer Relationship Specialty Start Date End Date No Ref-Primary, Physician PCP - General 07/30/23 Edmond Felix MD [address] [place] [address] Cardiovascular Disease 08/03/23 Kulwinder De La Cruz MD [address] [place] [address] Fellow Cardiovascular Disease 08/03/23 Keven Smith [facility] [address] [place] [address] Pharmacist 08/15/23 Keven Smith [facility] [address] [place] [address] Assigned MTM Pharmacist 09/04/23 Alfred Coley MD [address] [place] [address] Assigned Rheumatology Provider 09/04/23
--- OUTSIDE RECORDS SUMMARY | 2024-05-19 11:56 | XMS_ITS | Encounter Summary ---
Author Organization [facility] er Address [address] [place] [address] Care Team Providers Care Assembler Installer General Name Role Phone None, Pcp Primary Care Provider Unavailabl e Encounter Details Date Type Department Care Team (Late st Contact Info) Description 05/02/2024 8:45 AM SIGNAL MAINTAINER [facility] [place] [address] [place] [address] Rheumatoid arthritis involving multiple sites, unspecified whether [...] FILTRATION RATE (EGFR) Routine 05/02/2024 8:45 AM SIGNAL MAINTAINER Rheumatoid arthritis involving multiple sites, unspecified whether rheumatoid factor present (HCC) CBC BRANCH OFFICE W/DIFF Routine 05/02/2024 8:45 AM SIGNAL MAINTAINER Rheumatoid arthritis involving multiple sites, unspecified whether rheumatoid factor present (HCC) SEDIMENTATION RATE, AUTOMATED Routine 05/02/2024 8:45 AM SIGNAL MAINTAINER Rheumatoid arthritis involving multiple sites, unspecified whether rheumatoid factor present (HCC) C-REACTIVE PROTEIN Routine 05/02/2024 8: 45 AM SIGNAL MAINTAINER Rheumatoid arthritis involving multiple sites, unspecified whether rheumatoid factor present (HCC) COMPREHENSIVE METABOLIC PANEL Routine 05/02/2024 8:45 AM SIGNAL MAINTAINER Rheumatoid arthritis involving multiple sites, unspecified whether rheumatoid factor present (HCC) documented in this encounter Results * Estimated Glomerular Filtration Rate (eGFR) (05/02/2024 8:45 AM SIGNAL MAINTAINER) Estimated Glomerular Filtration Rate (eGFR) >60 05/02/2024 2:03 PM SIGNAL MAINTAINER [facility] Comment: GFR calculated from serum creatinine value Chronic Kidney Disease less than 60 mL/min/1.73 m2 Kidney Failure less than 15 mL/min/1.73 m2 Note: effective 03/10/2022: 2020 CKD-EPI Equation used 05/02/2024 8:45 AM SIGNAL MAINTAINER 05/02/2024 8:45 AM SIGNAL MAINTAINER us Outside Referring Lab Provider LAB BLOOD ORDERAB LES Final Result Performing Organization Address [facility] Co de Phone Number [facility] [address] [place] [address] * C-reactive protein (05/02/2024 8:45 AM SIGNAL MAINTAINER) Pathologist [facility] CRP <0.3 0.0 - 4.9 mg/L 05/02/2024 2:11 PM SIGNAL MAINTAINER [facility] Blood (Blood, Venous) 05/02/2024 8:45 AM SIGNAL MAINTAINER 05/02/2024 12:55 PM SIGNAL MAINTAINER us Outside Referring Lab Provider LAB BLOOD ORDERAB LES Final Result Performing Organization Address [facility] Co sc Phone Number [facility] [address] [place] [address] * ESR-Sed rate (05/02/2024 8:45 AM SIGNAL MAINTAINER) [facility] [address] Sed Rate 2 0 - 22 mm/hr 05/02/2024 2:03 PM [facility] Blood (Blood, Venous) 05/02/2024 8:45 AM SIGNAL MAINTAINER 05/02/2024 12:59 PM SIGNAL MAINTAINER us Outside Referring Lab Provider LAB BLOOD ORDERAB LES Final Result Performing Organization Address [facility] Co de Phone Number [facility] [address] [place] [address] * (ABNORMAL) Comprehensive metabolic panel (05/02/2024 8:45 AM SIGNAL MAINTAINER) Pathologist [facility] Total Protein 6.2(L) 6.3 - 8.2 g/dL 05/02/2024 2:03 PM [facility] Albumin, Serum 3.9 3.5 - 5.0 g/dL 05/02/2024 2:03 PM [facility] Total Bilirubin <0.7 0.1 - 1.0 mg/dL 05/02/2024 2:03 PM [facility] AST 23 8 - 48 U/L 05/02/2024 2:03 PM [facility] Alkaline Phosphatase 82 38 - 128 U/L 05/02/2024 2:03 PM [facility] ALT (SGPT) 24 0 - 49 U/L 05/02/2024 2:03 PM [facility] Sodium 136 135 - 145 mEq/L 05/02/2024 2:03 PM [facility] Potassium 4.3 3.5 - 5.1 mEq/L 05/02/2024 2:03 PM [facility] Chloride 105 98 - 107 mEq/L 05/02/2024 2:03 PM [facility] CO2 25 22 - 31 mmol/L 05/02/2024 2:03 PM [facility] BUN 18 5 - 25 mg/dL 05/02/2024 2:03 PM [facility] Creatinine 0.62 0.60 - 1.40 mg/dL 05/02/2024 2:03 PM [facility] Glucose 108(H) 70 - 100 mg/dL 05/02/2024 2:03 PM [facility] Calcium, Total,S 8.9 8.4 - 10.2 mg/dL 05/02/2024 2:03 PM [facility] Anion Gap 6 4 - 13 05/02/2024 2:03 PM [facility] Comment: The anion gap is calculated with the following formula: AGAP = Na ? (Cl + CO2). Fasting? Yes 05/02/2024 8:59 AM [facility] Blood (Blood, Venous) 05/02/2024 8:45 AM [facility] 05/02/2024 12:55 PM [facility] us Outside Referring Lab Provider LAB BLOOD ORDERAB LES Final Result [facility] [address] [place] [address] * (ABNORMAL) CBC Branch Off w/Diff (05/02/2024 8:45 AM [facility]) WBC 10.6(H) 3.5 - 10.5 K/uL 05/02/2024 9:59 AM SIGNAL MAINTAINER [facility] RBC 5.21 4.30 - 5.70 M/uL 05/02/2024 9:59 AM SIGNAL MAINTAINER [facility] Hemoglobin 12.4(L) 13.5 - 17.5 g/dL 05/02/2024 9:59 AM SIGNAL MAINTAINER [facility] Hematocrit 41.6 38.0 - 50.0 % 05/02/2024 9:59 AM SIGNAL MAINTAINER [facility] Platelets 444 150 - 450 K/uL 05/02/2024 9:59 AM SIGNAL MAINTAINER [facility] MCV 79.8(L) 81.2 - 95.1 fL 05/02/2024 9:59 AM SIGNAL MAINTAINER [facility] MCH 23.8(L) 26.0 - 32.0 pg 05/02/2024 9:59 AM SIGNAL MAINTAINER [facility] MCHC 29.8(L) 32.0 - 36.0 g/dL 05/02/2024 9:59 AM SIGNAL MAINTAINER [facility] RDW 15.2 11.8 - 15.6 % 05/02/2024 9:59 AM SIGNAL MAINTAINER [facility] Lymphocytes % 17.7 % 05/02/2024 9:59 AM SIGNAL MAINTAINER [facility] Mid-size Cells 9.7 % 05/02/2024 9:59 AM SIGNAL MAINTAINER [facility] Granulocytes/Allen trophils 72.6 % 05/02/2024 9:59 AM SIGNAL MAINTAINER [facility] Lymphocytes Absolute 1.9 0.9 - 2.9 K/uL 05/02/2024 9:59 AM SIGNAL MAINTAINER [facility] MIDS Absolute 1.0 0.4 - 1.5 K/uL 05/02/2024 9:59 AM SIGNAL MAINTAINER [facility] Granulocytes/Allen trophils Absolute 7.7(H) 1.7 - 7.0 K/uL 05/02/2024 9:59 AM SIGNAL MAINTAINER [facility] Blood (Blood, Venous) 05/02/2024 8:45 AM SIGNAL MAINTAINER 05/02/2024 8:45 AM SIGNAL MAINTAINER us Outside Referring Lab Provider LAB BLOOD ORDERAB LES Final Result [facility] KYLE CHANEL [address] [place] [address] documented in this encounter Visit Diagnoses Diagnosis Rheumatoid arthritis involving multiple sites, unspecified whether rheumatoid factor present (HCC) documented in this encounter Care Teams Assembler Installer General Relationship Specialty Start Date End Date None, Pcp [address] [place] [address] PCP - General Commercial Lines Account Executive 01/30/24 documented as of this encounter
--- OUTSIDE RECORDS SUMMARY | 2024-05-19 11:56 | XMS_ITS | Clinical Summary ---
Author Organization [facility] er Address [address] [place] [address] Care Team Providers Care Family Medicine Resident Name Role Phone None, Pcp Primary Care [...] 02/06/2019 Assessment & Plan (01/31/2024 12:37 PM SOAP PRESS FEEDER): Declines Covid, Pneumococcal and Influenza vaccines today Psoriasis 03/28/2017 Assessment & Plan (01/31/2024 12:37 PM SOAP PRESS FEEDER): See's Insulation Extruder Operator for this Rheumatoid arthritis 11/11/2015 Assessment & Plan (01/31/2024 12:38 PM SOAP PRESS FEEDER): See's Insulation Extruder Operator for this Resolved Problems Problem Noted Date Diagnosed Date Resolved Date Nicotine abuse 01/31/2024 01/31/2024 Encounters Date Type Department Care Team Description 05/02/2024 8:45 AM SOAP PRESS FEEDER Lab Kyle Chanel [address] [place] [address] Rheumatoid arthritis involving multiple sites, unspecified whether [...] Comments Blood Pressure 130/88 01/31/2024 10:28 AM SOAP PRESS FEEDER Pulse 90 01/31/2024 10:28 AM SOAP PRESS FEEDER Temperature 36.8 C (98.2 F) 01/31/2024 10:28 AM SOAP PRESS FEEDER Respiratory Rate 18 01/31/2024 10:28 AM SOAP PRESS FEEDER Oxygen Saturation 96% 01/31/2024 10:28 AM SOAP PRESS FEEDER Inhaled Oxygen Concentration - - Weight 66.7 kg (147 lb) 01/31/2024 10:28 AM SOAP PRESS FEEDER Height 173.2 cm (5' 8.19) 01/31/2024 10:[address] Body Mass Index 22.23 01/31/2024 10:28 AM SOAP PRESS FEEDER Plan of Treatment Health Maintenance Due Date [...] FILTRATION RATE (EGFR) Routine 05/02/2024 8:45 AM SOAP PRESS FEEDER Rheumatoid arthritis involving multiple sites, unspecified whether rheumatoid factor present (HCC) C-REACTIVE PROTEIN Routine 05/02/2024 8: 45 AM SOAP PRESS FEEDER Rheumatoid arthritis involving multiple sites, unspecified whether rheumatoid factor present (HCC) SEDIMENTATION RATE, AUTOMATED Routine 05/02/2024 8:45 AM SOAP PRESS FEEDER Rheumatoid arthritis involving multiple sites, unspecified whether rheumatoid factor present (HCC) COMPREHENSIVE METABOLIC PANEL Routine 05/02/2024 8:45 AM SOAP PRESS FEEDER Rheumatoid arthritis involving multiple sites, unspecified whether rheumatoid factor present (HCC) CBC BRANCH OFFICE W/DIFF Routine 05/02/2024 8:45 AM SOAP PRESS FEEDER Rheumatoid arthritis involving multiple sites, unspecified whether rheumatoid factor present (HCC) from Last 3 Months Results * Estimated Glomerular Filtration Rate (eGFR) (05/02/2024 8:45 AM SOAP PRESS FEEDER) Pathologist [facility] Estimated Glomerular Filtration Rate (eGFR) >60 05/02/2024 2:[address] [facility] Comment: GFR calculated from serum creatinine value Chronic Kidney Disease less than 60 mL/min/1.73 m2 Kidney Failure less than 15 mL/min/1.73 m2 Note: effective 03/10/2022: 2020 CKD-EPI Equation used 05/02/2024 8:45 AM SOAP PRESS FEEDER 05/02/2024 8:45 AM SOAP PRESS FEEDER us Outside Referring Lab Provider LAB BLOOD ORDERAB LES Final Result [facility] [address] [place] [address] * (ABNORMAL) CBC Branch Off w/Diff (05/02/2024 8:45 AM SOAP PRESS FEEDER) Pathologist [facility] WBC 10.6(H) 3.5 - 10.5 K/uL 05/02/2024 9:59 AM SOAP PRESS FEEDER [facility] RBC 5.21 4.30 - 5.70 M/uL 05/02/2024 9:59 AM SOAP PRESS FEEDER [facility] Hemoglobin 12.4(L) 13.5 - 17.5 g/dL 05/02/2024 9:59 AM SOAP PRESS FEEDER [facility] Hematocrit 41.6 38.0 - 50.0 % 05/02/2024 9:59 AM SOAP PRESS FEEDER [facility] Platelets 444 150 - 450 K/uL 05/02/2024 9:59 AM SOAP PRESS FEEDER [facility] MCV 79.8(L) 81.2 - 95.1 fL 05/02/2024 9:59 AM SOAP PRESS FEEDER [facility] MCH 23.8(L) 26.0 - 32.0 pg 05/02/2024 9:59 AM SOAP PRESS FEEDER [facility] MCHC 29.8(L) 32.0 - 36.0 g/dL 05/02/2024 9:59 AM SOAP PRESS FEEDER [facility] RDW 15.2 11.8 - 15.6 % 05/02/2024 9:59 AM SOAP PRESS FEEDER [facility] Lymphocytes % 17.7 % 05/02/2024 9:59 AM SOAP PRESS FEEDER [facility] Mid-size Cells 9.7 % 05/02/2024 9:59 AM SOAP PRESS FEEDER [facility] Granulocytes/Allen trophils 72.6 % 05/02/2024 9:59 AM SOAP PRESS FEEDER [facility] Lymphocytes Absolute 1.9 0.9 - 2.9 K/uL 05/02/2024 9:59 AM SOAP PRESS FEEDER [facility] MIDS Absolute 1.0 0.4 - 1.5 K/uL 05/02/2024 9:59 AM SOAP PRESS FEEDER [facility] Granulocytes/Allen trophils Absolute 7.7(H) 1.7 - 7.0 K/uL 05/02/2024 9:59 AM SOAP PRESS FEEDER [facility] Blood (Blood, Venous) 05/02/2024 8:45 AM SOAP PRESS FEEDER 05/02/2024 8:45 AM SOAP PRESS FEEDER us Outside Referring Lab Provider LAB BLOOD ORDERAB LES Final Result [facility] KYLE CHANEL [address] [place] [address] * ESR-Sed rate (05/02/2024 8:45 AM SOAP PRESS FEEDER) Sed Rate 2 0 - 22 mm/hr 05/02/2024 2:[address] [facility] Blood (Blood, Venous) 05/02/2024 8:45 AM SOAP PRESS FEEDER 05/02/2024 12:59 PM SOAP PRESS FEEDER us Outside Referring Lab Provider LAB BLOOD ORDERAB LES Final Result [facility] [address] [place] [address] * C-reactive protein (05/02/2024 8:45 AM SOAP PRESS FEEDER) CRP <0.3 0.0 - 4.9 mg/L 05/02/2024 2:[address] [facility] Blood (Blood, Venous) 05/02/2024 8:45 AM SOAP PRESS FEEDER 05/02/2024 12:55 PM SOAP PRESS FEEDER us Outside Referring Lab Provider LAB BLOOD ORDERAB LES Final Result [facility] [address] [place] [address] * (ABNORMAL) Comprehensive metabolic panel (05/02/2024 8:45 AM [facility]) Total Protein 6.2(L) 6.3 - 8.2 g/dL 05/02/2024 2:[address] [facility] Albumin, Serum 3.9 3.5 - 5.0 g/dL 05/02/2024 2:[address] [facility] Total Bilirubin <0.7 0.1 - 1.0 mg/dL 05/02/2024 2:[address] [facility] AST 23 8 - 48 U/L 05/02/2024 2:[address] [facility] Alkaline Phosphatase 82 38 - 128 U/L 05/02/2024 2:[address] [facility] ALT (SGPT) 24 0 - 49 U/L 05/02/2024 2:[address] [facility] Sodium 136 135 - 145 mEq/L 05/02/2024 2:[address] [facility] Potassium 4.3 3.5 - 5.1 mEq/L 05/02/2024 2:[address] [facility] Chloride 105 98 - 107 mEq/L 05/02/2024 2:[address] [facility] CO2 25 22 - 31 mmol/L 05/02/2024 2:[address] [facility] BUN 18 5 - 25 mg/dL 05/02/2024 2:[address] [facility] Creatinine 0.62 0.60 - 1.40 mg/dL 05/02/2024 2:[address] [facility] Glucose 108(H) 70 - 100 mg/dL 05/02/2024 2:[address] [facility] Calcium, Total,S 8.9 8.4 - 10.2 mg/dL 05/02/2024 2:[address] [facility] Anion Gap 6 4 - 13 05/02/2024 2:[address] [facility] Comment: The anion gap is calculated with the following formula: AGAP = Na ? (Cl + CO2). Fasting? Yes 05/02/2024 8:[address] [facility] Blood (Blood, Venous) 05/02/2024 8:45 AM SOAP PRESS FEEDER 05/02/2024 12:55 PM SOAP PRESS FEEDER us Outside Referring Lab Provider LAB BLOOD ORDERAB LES Final Result [facility] [address] [place] [address] from Last 3 Months Insurance [facility] [place] [address] Care Teams Family Medicine Resident Relationship Specialty Start Date End Date None, Pcp [address] [place] [address] PCP - General Research Associate Molecular Biology 01/30/24
== END 2024-05-19 12:23 | disposition home or self-care (01) ==
PROVIDERS: Emergency Provider Family Medicine; PCP Internal Medicine
DX: L02.511 Cutaneous abscess of right hand (principal); L03.113 Cellulitis of right upper limb
CPT/HCPCS: 10060; 99283; 99284